=== PATIENT | male | born 1940 | race Caucasian/White ===

== ENCOUNTER 2016-08-19 21:11 | Inpatient (IN) | payer OTHER, MEDICARE ==
[~2016-08-19] VITALS: Ht 177.8 cm; Wt 134.9 kg
--- NOTE | 2016-08-19 21:23 | ED AMS/SEIZURE/WEAK/DIZZY ---
History of Present Illness General Chief Complaint: Neuro Symptoms/ Deficit Stated Complaint: BIBA SOB,LEFT SIDE FACIAL DROP Source: family, old records Exam Limitations: clinical condition Vital Signs & Intake/Output Vital Signs & Intake/Output Vital Signs Date Time Temp Pulse Resp B/P B/P Pulse O2 O2 Flow FiO2 Mean Ox Delivery Rate 08/20 0403 84 08/20 0356 96.8 82 26 74/44 99 BIPAP 50% 08/20 0150 97.4 87 26 102/44 99 BIPAP 50% 08/20 0111 88 90/00 08/20 0051 87 100 08/20 0050 98.7 90 35 70/00 08/20 0031 97 28 84/00 100 BIPAP 50% 08/19 2350 84 28 66/00 100 BIPAP 50% 08/19 2337 64/00 08/19 2329 85 60/00 08/19 2326 86 50/00 08/19 2300 91 BIPAP 50% 08/19 2250 97.8 94 35 76/00 08/19 2215 72/00 08/19 2208 109 08/19 2200 104 35 70/00 08/19 2115 97.8 110 40 74/00 91 Non ReBreather ED Intake and Output 08/20 0000 08/19 1200 Intake Total Output Total 100 Balance -100 Output, Urine 100 Patient 350 lb Weight Weight Reported by Patient Measurement Method Allergies Coded Allergies: NO KNOWN ALLERGIES (12/10/12) Reconcile Medications Alendronate Sodium 70 MG TABLET 1 TAB PO QW OSTEOPOROSIS (Reported) in the morning, at least 30 minutes before the first food, beverage, or medication of the day Aspirin (Ecotrin*) 81 MG TABLET.DR 1 TAB PO DAILY CVD (Reported) Cholecalciferol (Vitamin D3) (Vitamin D) 400 UNIT CAPSULE 1 CAP PO DAILY LOW VITAMIN D (Reported) Desmopressin Acetate 10 MCG/SPRAY (0.1 ML) SPRAY.PUMP 10 MCG MOSES BID HYPO-PIT (Reported) Levothyroxine Sodium 175 MCG TABLET 1 TAB PO DAILY HYPO-T (Reported) Lisinopril 10 MG TABLET 1 TAB PO DAILY BP (Reported) Meclizine HCl 25 MG TABLET 1 TAB PO TID VERTIGO (Reported) Multivitamin (Daily Multiple Vitamin) 1 EACH TABLET 1 TAB PO DAILY MULTIVITAMIN (Reported) Pioglitazone HCl 45 MG TABLET 1 TAB PO DAILY DM (Reported) Potassium Chloride (Klor-Con M10) 10 MEQ TAB.ER.PRT 2 TAB PO DAILY hypo-k ( Reported) Prednisone 5 MG TABLET 1 TAB PO DAILY HYPO-PIT (Reported) Simvastatin (Simvastatin*) 20 MG TABLET 1 TAB PO QPM HYPER-CHOLESTEROL ( Reported) Triage Nurses Notes Reviewed? yes Onset: Gradual Duration: day(s): Timing: recent history Injury Environment: home Severity: severe Modifying Factors: Worsens With: movement. 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 Per his son, he states for the past 5 days he has barely gotten out of bed. He is had decrease fluid intake. This evening, he developed difficulty breathing. 911 was called and he presented to the emergency department. And Rout the medics noted that his blood pressure was low and it was difficult to detect and O2 saturation. Past History Travel History Traveled to [place] past 21 day No Medical History Any Pertinent Medical History? see below for history Neurological: pituitary tumor status post resection with left-sided deficits Surgical History Surgical History: pituitary tumor resection Psychosocial History What is your primary language Israeli Family History Hx Contributory? No Review of Systems Review of Systems Constitutional: Reports: no symptoms. EENTM: Reports: no symptoms. Respiratory: Reports: no symptoms. Cardiovascular: Reports: no symptoms. GI: Reports: no symptoms. Genitourinary: Reports: no symptoms. Musculoskeletal: Reports: no symptoms. Skin: Reports: no symptoms. Neurological/Psychological: Reports: no symptoms. Hematologic/Endocrine: Reports: no symptoms. Immunologic/Allergic: Reports: no symptoms. All Other Systems: Reviewed and Negative Physical Exam Physical Exam General Appearance: well developed/nourished, moderate distress Head: atraumatic, normal appearance Eyes: Bilateral: normal appearance, PERRL, EOMI. Ears, Nose, Throat: normal pharynx, normal ENT inspection Neck: normal inspection, supple, full range of motion Respiratory: chest non-tender, no respiratory distress, decreased breath sounds, rhonchi Cardiovascular: regular rate/rhythm Gastrointestinal: normal bowel sounds, soft, non-tender Back: normal inspection Extremities: normal range of motion Neurologic/Psych: lethargic, minimally responsive to verbal stimuli. Reflexes: 0: bicep (L), knee (L). 1+: bicep (R), knee (R). Skin: cyanosis, mottled Core Measures ACS in differential dx? No CVA/TIA Diagnosis: No Severe Sepsis Present: Yes BC x2: Yes Lactic Acid x2: Yes IV ABX Broad Spectrum: Yes NS/LR Started: Yes Septic Shock Present: Yes BC x2: Yes Lactic Acid: Yes IV ABX Broad Spectrum: Yes Focused Exam Completed: Yes NS/LR 30ml/kg w/in 3hrs: Yes IV Vasopressors started: Yes Progress Differential Diagnosis: pneumonia, hypercarbia, he hydration versus septic shock versus heart attack versus other Plan of Care: Orders Procedure Date/time Status Nothing by Mouth 08/20 B Active LACTIC ACID 08/20 0507 Active ICU LAB BUNDLE 08/20 0500 Active CBC WITHOUT DIFFERENTIAL 08/20 0500 Active Pathway - chart 08/20 0412 Active Code Status 08/20 0408 Active Add-on Test (ER Only) 08/20 0404 Active Weight 08/20 0358 Active VTE Mechanical Prophylaxis 08/20 0358 Active Turn and Reposition 08/20 0358 Active Teach/Educate 08/20 0358 Active Skin Integrity Protocol 08/20 0358 Active Skin/Pressure Ulcer Assess (Sk 08/20 0358 Active Precautions 08/20 0358 Active Pain Treatment and Response 08/20 0358 Active Nutritional Intake, Monitor 08/20 0358 Active Isolation 08/20 0358 Active Patient Care Conference 08/20 0358 Active Activity/Ambulation 08/20 0358 Active Restraint- Medical 08/20 0251 Active TRC EVALUATION (GEN) 08/20 0211 Active Pathway - chart 08/20 0210 Active TROPONIN LEVEL 08/20 0207 Complete MAGNESIUM 08/20 0207 Complete LACTIC ACID 08/20 0207 Complete HEPATIC FUNCTION PANEL 08/20 0207 Complete CALCIUM 08/20 0207 Complete BASIC ELECTROLYTES PLUS BUN&CR 08/20 0207 Complete LOWER RESPIRATORY CULTURE 08/20 0204 Active ARTERIAL BLOOD GAS (GEN) 08/20 0141 Complete XRY-AP PELVIS 08/20 0140 Active Patient Data 08/20 0128 Active Admit to inpatient 08/20 0120 Active Admit to inpatient 08/20 0027 Active MIXED VENOUS BLOOD GAS (GEN) 08/20 0026 Complete Lab Add-on Test 08/20 UNK Active Precautions 08/20 UNK Active Intake & Output 08/20 UNK Active FingerStick- Glucose 08/20 UNK Active Elevate 08/[address] CHEST WO IV CONTRAST 08/[address] ABD & PELVIS W/O IV CONTRAS 08/19 2299 Active URINE LYTES, SPOT 08/19 2229 Complete BIPAP 08/19 2129 Complete BLOOD CULTURE 08/19 2129 Active THYROID STIMULATING HORMONE 08/19 2129 Complete FREE T4 08/19 2129 Complete B-TYPE NATRIURETIC PEP (BNP) 08/20 2127 Complete Renteria, Insertion/Removal/Asses 08/19 2125 Active CULTURE,URINE 08/19 2125 Active URINALYSIS 08/19 2125 Complete ARTERIAL BLOOD GAS (GEN) 08/20 2123 Active TROPONIN LEVEL 08/20 2123 Complete PARTIAL THROMBOPLASTIN TIME 08/20 2123 Complete PROTHROMBIN TIME 08/20 2123 Complete AMMONIA 08/20 2123 Complete COMPREHENSIVE METABOLIC PANEL 08/20 2123 Complete CBC WITHOUT DIFFERENTIAL 08/20 2123 Complete Pathway - chart 08/19 2122 Active BLOOD CULTURE 08/19 2122 Active LACTIC ACID 08/19 2122 Complete EKG 08/20 2111 Active Current Medications Sig/Antwon Start time Last Medication Dose Stop Time Status Admin Vancomycin HCl 1,000 MG Q12 08/20 1000 UNir Sodium Chloride 250 ML (Normal Saline 0.9%) Ceftazidime 1,000 MG IQ8 08/20 0800 UNVr (Fortaz) Levothyroxine Sodium 0.175 MG DAILY AC 08/20 0700 AC (Synthroid) Heparin Sodium 5,000 UNIT Q8 08/20 0600 UNVr (Porcine) Hydrocortisone 100 MG Q8 08/20 0600 AC Sodium Succinate (Solucortef) Morphine Sulfate 2 MG Q6 08/20 0600 UNVr (Morphine) Acetaminophen 650 MG Q6 PRN 08/20 0415 UNVr (Tylenol) Magnesium Sulfate 1 GM Q2H 08/20 0415 UNVr (Mag Sulfate in D5) 08/20 0814 Dextrose/Water 100 ML (D5W) Oxycodone HCl 5 MG Q6 PRN 08/20 0415 UNVr (Roxicodone) Vasopressin 40 UNITS Q16H 08/20 0300 AC 08/20 (Pitressin) 0320 Sodium Chloride 100 ML (Normal Saline 0.9%) Sodium Chloride 1,000 ML Q10H 08/20 0215 AC 08/20 (Normal Saline 0.9%) 0305 Norepinephrine 4 MG Q24H 08/20 0030 AC 05/30 (Levophed Drip) 0050 Sodium Chloride 250 ML (Normal Saline 0.9%) Laboratory Tests 08/20/16 0250: Anion Gap 9, Estimated GFR 17 L, BUN/Creatinine Ratio 7.4, Lactic Acid 1.3, Calcium 8.0 L, Magnesium 1.2 L, Total Bilirubin 1.2, Direct Bilirubin 0.6 H, AST 67 H, ALT 64, Alkaline Phosphatase 58, Troponin I 0.04, Total Protein 5.5 L, Albumin 2.8 L 08/20/16 0145: pH 7.31 L, pCO2 35, pO2 133 H, HCO3 17 L, ABG O2 Sat (Measured) 98.0, P-50 ( Temp Corrected) N, Carboxyhemoglobin 0.3 L, O2 Concentration % .50, Respiration Rate 26, O2 Delivery Method BIPAP, Vent Mode ST, Expiratory Pressure 6, Inspiratory Pressure 20, Phlebotomy Draw Site RIGHT BRACHIAL 08/20/16 0035: Bicarbonate Actual 21 L, Mixed VBG pH 7.24 L, Mixed VBG pCO2 51, Mixed VBG O2 Saturation 54 H, P-50 (Temp Corrected) N, Carboxyhemoglobin 0.7 L, O2 Concentration % .50, Respiration Rate 26, O2 Delivery Method BIPAP, Vent Mode ST , Expiratory Pressure 6, Inspiratory Pressure 20, Phlebotomy Draw Site VENOUS 08/20/16 0023: Lactic Acid Cancelled 08/19/162229: Urine Color YEL, Urine Clarity HAZY H, Urine pH 6.0, Ur Specific [place] 1.020, Urine Protein TRACE H, Urine Ketones NEG, Urine Nitrite NEG, Urine Bilirubin NEG@ICTO, Urine Urobilinogen 0.2, Ur Leukocyte Esterase NEG, Ur Microscopic SEDIMENT EXAMINED, Urine RBC 5-10 H, Urine WBC 10-15 H, Ur Epithelial Cells RARE, Urine Bacteria FEW H, Hyaline Casts 1-3 H, Urine Hemoglobin LARGE H, Urine Glucose NEG 08/19/162229: Ur Random Creatinine 208.9, Ur Random Sodium 64, Ur Random Potassium 38.6, Fraction Sodium Excret 0.8 08/19/162129: Lactic Acid 2.6 H 08/19/162129: Leb-A-Yjhofqrsgxj Pept 61.5, TSH < 0.015 L, Free T4 2.25 08/19/162129: Anion Gap 13, Estimated GFR 15 L, BUN/Creatinine Ratio 7.7, Glucose 121 H, Calcium 10.1, Total Bilirubin 1.3, AST 56, ALT 64, Alkaline Phosphatase 77, Ammonia < 9 L, Troponin I 0.04, Total Protein 6.8, Albumin 3.8, Globulin 3.0, Albumin/Globulin Ratio 1.3, PT 12.0, INR 1.14, APTT 31, CBC w Diff NO MAN DIFF REQ, RBC 4.72, MCV 95.1 H, MCH 31.8 H, RDW 15.8 H, MPV 10.4, Gran % 62.1, Lymphocytes % 18.6 L, Monocytes % 16.8 H, Eosinophils % 2.3, Basophils % 0.2, Absolute Granulocytes 7.5 H, Absolute Lymphocytes 2.2, Absolute Monocytes 2.0 H, Absolute Eosinophils 0.3, Absolute Basophils 0, PUBS MCHC 33.5 Microbiology 08/21 203 LOWER RESP: Respiratory Culture - ORD 08/21 203 LOWER RESP: Gram Stain - ORD 08/19 2229 URINE ROUT: Urine Culture - RECD 08/19 2153 BLOOD: Blood Culture - RECD 08/19 2129 URINE ROUT: Urine Culture - CAN Cancelled: DUPLICATE ORDER 08/19 2129 BLOOD: Blood Culture - RECD Diagnostic Imaging: Viewed by Me: Radiology Read, CT Scan. Discussed w/RAD: Radiology Read, CT Scan. Radiology Impression: chest x-ray #2: No change from prior except that a right IJ is in proper position, head CT: No acute change CXR Impression: atelectasis versus pneumonia Initial ED EKG: normal axis, normal intervals, normal p-waves, normal QRS complex, normal sinus rhythm Comments: PATIENT: TRENT DE LA TORRE PRESENT AGE: 75 PATIENT ACCOUNT NO: [id number] : 39 LOCATION: [facility] ORDERING PHYSICIAN: ADITYA SALAZAR MD SERVICE DATE: 08/19/16 EXAM TYPE: RAD - XRY-PORTABLE CHEST XRAY EXAMINATION: XR PORTABLE CHEST CLINICAL INFORMATION: Dyspnea COMPARISON: 08/20/2007 TECHNIQUE: Portable frontal view of the chest was obtained. FINDINGS: Shunt tubing overlies the right hemithorax. Cardiac leads overlie the chest. Lung volumes are low. Small left pleural effusion. Streaky basilar opacity at the left. No pneumothorax. The cardiomediastinal silhouette is unchanged. IMPRESSION: Small left pleural effusion with streaky basilar opacities which could represent atelectasis or pneumonia. DICTATED BY: SORAIDA BURRELL MD DATE/TIME DICTATED:08/19/162325 MANAGER TERMINAL:TAYA DATE/TIME TRANSCRIBED:08/19/162325 CONFIDENTIAL, DO NOT COPY WITHOUT APPROPRIATE AUTHORIZATION. <Electronically signed in Other Vendor System> SIGNED BY: SORAIDA BURRELL MD 08/19 2331 Departure Departure Disposition: STILL A PATIENT Condition: Stable Clinical Impression Primary Impression: Septic shock Secondary Impressions: Pneumonia, Renal failure Referrals: EVA BUTTS MD (PCP/Family) Departure Forms: Customer Survey General Discharge Information Comments 08/19/16, 22:30... pt clinically improving... more alert, more conversant. right IJ central line placed. Levophed started with good response. Stress dose steroids given. ceftaz and vancomycin given. Admission Note Spoke With: HIEU MORA MD Documentation of Exam: Documentation of any treatments & extenuating circumstances including Concerns Regarding Discharge (functional status, medication knowledge or non-compliance, living conditions, etc.) that warrant an admission rather than observation: pt with septic shock, requiring pressors, broad spectrum antibiotics... improving from presentation after iv fluids, pressures, bipap. Procedures Central Line Central Line Lumen: triple Central Line Procedure: Yes: bentadine prep?, sterile drapes applied, sterile dressing applied. Central Line Position: internal jugular (R), femoral (R) Anesthesia: lidocaine 1% CC's of Anesthesia: 6 Complications: attempt at right groin unsuccessful Central Line Post Position: sutured, good blood return, position confirmed w/ CXR Progress: excellent response to levophed
[2016-08-19 21:50] LABS: ABSOLUTE BASOPHIL COUNT 0 /CUMM (0.0-0.2); ABSOLUTE EOSINOPHIL COUNT 0.3 /CUMM (0.0-0.7); ABSOLUTE GRANULOCYTE CT 7.5 /CUMM (1.4-6.5); ABSOLUTE LYMPH COUNT 2.2 /CUMM (1.2-3.4); BASOPHIL % 0.2 % (0.0-2.0); EOSINOPHIL % 2.3 % (0-5); GRANULOCYTE % 62.1 % (42.2-75.2); HEMATOCRIT 44.9 % (42-52); MEAN CORPUSCULAR HGB 31.8 PG (27.0-31.0); MEAN CORPUSCULAR HGB CONC 33.5 G/DL (33.0-37.0); MEAN CORPUSCULAR VOLUME 95.1 FL (80.0-94.0); MEAN PLATELET VOLUME 10.4 FL (7.4-10.4); PLATELET COUNT 163 /CUMM (130-400); RBC DISTRIBUTION WIDTH 15.8 % (11.5-14.5); RED BLOOD CELL CT 4.72 /CUMM (4.70-6.10); WHITE BLOOD CELL COUNT 12.1 /CUMM (4.8-10.8)
[2016-08-19 22:01] LABS: PTT 31 SEC (25-37)
--- NOTE | 2016-08-19 23:31 | RADIOLOGY REPORT ---
EXAMINATION: XR PORTABLE CHEST CLINICAL INFORMATION: Dyspnea COMPARISON: 08/20/2007 TECHNIQUE: Portable frontal view of the chest was obtained. FINDINGS: Shunt tubing overlies the right hemithorax. Cardiac leads overlie the chest. Lung volumes are low. Small left pleural effusion. Streaky basilar opacity at the left. No pneumothorax. The cardiomediastinal silhouette is unchanged. IMPRESSION: Small left pleural effusion with streaky basilar opacities which could represent atelectasis or pneumonia.
--- NOTE | 2016-08-20 00:53 | RADIOLOGY REPORT ---
EXAMINATION: XR PORTABLE CHEST CLINICAL INFORMATION: Central line placement COMPARISON: 08/19/2016 TECHNIQUE: Portable frontal view of the chest was obtained. FINDINGS: There is a new right internal jugular central venous catheter which terminates over the lower SVC. Ventriculoperitoneal shunt tubing is again noted overlying the right hemithorax. Cardiac leads overlie the chest. Low lung volumes. Persistent small left pleural effusion with airspace opacity. Increasing interstitial markings bilaterally. No pneumothorax. The cardiomediastinal silhouette is not well evaluated due to the left basilar opacity. IMPRESSION: Right internal jugular central venous catheter terminates over the lower SVC. No pneumothorax. Low lung volumes with persistent small left pleural effusion and airspace opacity. Increasing right-sided opacity with interstitial markings.
[2016-08-20] MEDS ORDERED: ALENDRONATE SOD70 M2 PO (02:13)
[2016-08-20] MEDS ORDERED: LISINOPRIL10 M1 PO (02:13)
[2016-08-20] MEDS ORDERED: PREDNISONE5 M1 PO (02:13)
[2016-08-20] MEDS ORDERED: LEVOTHYROXINE175 MCG PO (02:13)
[2016-08-20] MEDS ORDERED: SIMVASTATIN20 M2 PO (02:14)
[2016-08-20] MEDS ORDERED: PIOGLITAZONE HC45 M1 PO (02:14)
[2016-08-20] MEDS ORDERED: MECLIZINE HCL25 MG PO (02:14)
[2016-08-20] MEDS ORDERED: DESMOPRESS10 MCG/0.2 NAS (02:18)
[2016-08-20] MEDS ORDERED: ASPIRIN EC81 M1 PO (02:29)
--- NOTE | 2016-08-20 02:59 | History & Physical ---
DIANNA BAXTER,RANDALL 08/20/16 0225: General Information and HPI MD Statement: I have seen and personally examined TRENT DE LA TORRE and documented this H&P. The patient is a 75 year old M who presented with a patient stated chief complaint of [AMS, SOB]. 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 Pt was altered, agitated and unable to provide any history. I spoke with Stacy, patient's , and she states that about 4 days ago patient experienced some weakness in his lower extremities. He seemed to be little more unsteady on his feet. Additionally, about 2 days ago his appetite noticeably decreased. She stated that patient was becoming slightly more somnolent. He was sleeping more during the day. Normally, he has a habit of obtaining a daily lottery ticket, however about 2 days ago patient did not feel well enough to leave the house. On morning of admisison however, he did leave the house and seemed to be mostly as baseline. On 8 PM that same day patient became suddenly incoherent, he was garbling words and he was acutely short of breath. Given the sudden onset of these symptoms she called her son who called EMS. Per EMS notes, there was concern for some facial droop upon initial contact, however, states that patient was largely asleep when the EMS found him and that she did not notice any change in his baseline expression. Patient still has a [employer] ENGINEER shunt per Stacy. He does not drink, does not smoke and does not engage in any IV drug use. He does not have any known allergies. Family history only significant for "pituitary problems." Per , patient does not complain of any headache, nausea, vomiting, fever, cough, congestion, shortness of breath, chest pain, abdominal pain, change in bladder or bowel movement, night sweats or weight loss. Pertinent positives include gait instability, diminishing appetite, and weakness. Allergies/Medications Allergies: Coded Allergies: NO KNOWN ALLERGIES (12/10/12) Home Med list Alendronate Sodium 70 MG TABLET 1 TAB PO QW OSTEOPOROSIS (Reported) in the morning, at least 30 minutes before the first food, beverage, or medication of the day Aspirin (Ecotrin*) 81 MG TABLET.DR 1 TAB PO DAILY CVD (Reported) Cholecalciferol (Vitamin D3) (Vitamin D) 400 UNIT CAPSULE 1 CAP PO DAILY LOW VITAMIN D (Reported) Desmopressin Acetate 10 MCG/SPRAY (0.1 ML) SPRAY.PUMP 10 MCG MOSES BID HYPO-PIT (Reported) Levothyroxine Sodium 175 MCG TABLET 1 TAB PO DAILY HYPO-T (Reported) Lisinopril 10 MG TABLET 1 TAB PO DAILY BP (Reported) Meclizine HCl 25 MG TABLET 1 TAB PO TID VERTIGO (Reported) Multivitamin (Daily Multiple Vitamin) 1 EACH TABLET 1 TAB PO DAILY MULTIVITAMIN (Reported) Pioglitazone HCl 45 MG TABLET 1 TAB PO DAILY DM (Reported) Potassium Chloride (Klor-Con M10) 10 MEQ TAB.ER.PRT 2 TAB PO DAILY hypo-k ( Reported) Prednisone 5 MG TABLET 1 TAB PO DAILY HYPO-PIT (Reported) Simvastatin (Simvastatin*) 20 MG TABLET 1 TAB PO QPM HYPER-CHOLESTEROL ( Reported) Compliance With Home Meds: UNKNOWN Past History Travel History Traveled to [place] past 21 day No Medical History Cardiovascular: hyperlipidemia, OCCASIONAL BLE EDEMA Respiratory: obstructive sleep apnea Renal: URINARY FREQUENCY Endocrine: diabetes, hypothyroidism, LOW TESTOSERONE Surgical History Surgical History: pituitary resection Past Family/Social History Psychosocial History Primary Language: Northern Irish Smoking Status: Former Smoker ETOH Use: denies use Illicit Drug Use: denies illicit drug use Functional Ability ADLs Independent: dressing, eating, toileting, bathing. Ambulation: independent IADLs Independent: shopping, housework, finances, food prep, telephone, transportation , medication admin. Review of Systems Review of Systems Constitutional: Reports: no symptoms. Comments cannot obtain from pt Exam & Diagnostic Data Last 24 Hrs of Vital Signs/I&O Vital Signs Date Time Temp Pulse Resp B/P B/P Pulse O2 O2 Flow FiO2 Mean Ox Delivery Rate 08/20 0150 97.4 87 26 102/44 99 BIPAP 50% 08/20 0111 88 90/00 08/20 0051 87 100 08/20 0050 98.7 90 35 70/00 08/20 0031 97 28 84/00 100 BIPAP 50% 08/19 2350 84 28 66/00 100 BIPAP 50% 08/19 2337 64/00 08/19 2329 85 60/00 08/19 2326 86 50/00 08/19 2250 97.8 94 35 76/00 08/19 2215 72/00 08/19 2208 109 08/19 220 104 35 70/00 08/19 2115 97.8 110 40 74/00 91 Non ReBreather Intake & Output 08/20 0800 08/20 0000 08/19 1600 Intake Total Output Total 100 Balance -100 Output, Urine 100 Patient 158.757 kg Weight Weight Reported by Patient Measurement Method Physical Exam General Appearance Agitated, combative Skin warm, intially his digits on UE and LE were cold Sepsis Skin Exam (color): Normal for Ethnicity HEENT Atraumatic, PERRLA, EOMI, Mucous Membr. moist/pink Neck Supple, No JVD Cardiovascular Normal S1, Normal S2, distant heart sounds Lungs decreased air entry; on bipap; no wheezes Abdomen Normal Bowel Sounds, Soft, No Tenderness Neurological Normal Speech, Normal Tone, Sensation Intact, Cranial Nerves 3-12 NL, unstable gait Extremities decreased pulses radially Sepsis Peripheral Pulse Location: Posterior Tibialis Sepsis Peripheral Pulse Exam: Weak Sepsis Cap Refill Exam: <2 Sec Reproductive (MALE) Significant erythema in creases of groin extending to scrotum. Some blood at urethral meatus Rectal Guiac Negative Last 24 Hrs of Labs/Jerry: Laboratory Tests 08/20/16 0250: Sodium Pending, Potassium Pending, Chloride Pending, Carbon Dioxide Pending, Anion Gap Pending, BUN Pending, Creatinine Pending, BUN/Creatinine Ratio Pending , Lactic Acid 1.3, Calcium Pending, Magnesium Pending, Total Bilirubin Pending, Direct Bilirubin Pending, AST Pending, ALT Pending, Alkaline Phosphatase Pending , Troponin I Pending, Total Protein Pending, Albumin Pending 08/20/16 0145: pH 7.31 L, pCO2 35, pO2 133 H, HCO3 17 L, ABG O2 Sat (Measured) 98.0, P-50 ( Temp Corrected) N, Carboxyhemoglobin 0.3 L, O2 Concentration % .50, Respiration Rate 26, O2 Delivery Method BIPAP, Vent Mode ST, Expiratory Pressure 6, Inspiratory Pressure 20, Phlebotomy Draw Site RIGHT BRACHIAL 08/20/16 0035: Bicarbonate Actual 21 L, Mixed VBG pH 7.24 L, Mixed VBG pCO2 51, Mixed VBG O2 Saturation 54 H, P-50 (Temp Corrected) N, Carboxyhemoglobin 0.7 L, O2 Concentration % .50, Respiration Rate 26, O2 Delivery Method BIPAP, Vent Mode ST , Expiratory Pressure 6, Inspiratory Pressure 20, Phlebotomy Draw Site VENOUS 08/20/16 0023: Lactic Acid Cancelled 08/19/162229: Urine Color YEL, Urine Clarity HAZY H, Urine pH 6.0, Ur Specific Keller 1.020, Urine Protein TRACE H, Urine Ketones NEG, Urine Nitrite NEG, Urine Bilirubin NEG@ICTO, Urine Urobilinogen 0.2, Ur Leukocyte Esterase NEG, Ur Microscopic SEDIMENT EXAMINED, Urine RBC 5-10 H, Urine WBC 10-15 H, Ur Epithelial Cells RARE, Urine Bacteria FEW H, Hyaline Casts 1-3 H, Urine Hemoglobin LARGE H, Urine Glucose NEG 08/19/162129: Eaa-S-Juaiycirhrb Pept 61.5 08/19/162129: Lactic Acid 2.6 H 08/19/162129: Anion Gap 13, Estimated GFR 15 L, BUN/Creatinine Ratio 7.7, Glucose 121 H, Calcium 10.1, Total Bilirubin 1.3, AST 56, ALT 64, Alkaline Phosphatase 77, Ammonia < 9 L, Troponin I 0.04, Total Protein 6.8, Albumin 3.8, Globulin 3.0, Albumin/Globulin Ratio 1.3, PT 12.0, INR 1.14, APTT 31, CBC w Diff NO MAN DIFF REQ, RBC 4.72, MCV 95.1 H, MCH 31.8 H, RDW 15.8 H, MPV 10.4, Gran % 62.1, Lymphocytes % 18.6 L, Monocytes % 16.8 H, Eosinophils % 2.3, Basophils % 0.2, Absolute Granulocytes 7.5 H, Absolute Lymphocytes 2.2, Absolute Monocytes 2.0 H, Absolute Eosinophils 0.3, Absolute Basophils 0, PUBS MCHC 33.5 Microbiology 08/21 203 LOWER RESP: Respiratory Culture - ORD 08/21 203 LOWER RESP: Gram Stain - ORD 08/19 2229 URINE ROUT: Urine Culture - RECD 08/19 2153 BLOOD: Blood Culture - RECD 08/19 2129 URINE ROUT: Urine Culture - CAN Cancelled: DUPLICATE ORDER 08/198 BLOOD: Blood Culture - RECD Assessment/Plan Assessment: This is a 75-year-old male PMH of pituitary tumor resection, diabetes, hypertension, chronic renal disease, hypothyroidism, with [employer] shunt who presents with CC of weakness, shortness of breath and altered mental status. Upon initial assessment in ED he was noted to have diminished pulses requiring a Doppler, shortness of breath requiring BiPAP and hypotension requiring central line and 2 pressors. His Sequential Organ Failure Assessment score is around 10 giving him a predicted mortality of 40-50%. Admitted to ICU for further work up. In ED patient received 7 L of fluids in addition to central line and 2 pressors, on bipap. He was agitated recieved haldol. Vitals:97.8, 110, 40, 74/ 0, 91% CBC: White count 12.1, hemoglobin 15.7, hematocrit 44.9 MCV 95.1 BEP: Anion gap of 9, BUN 26, creatinine 3.9 Initial lactic acid: 2.6 Calcium 8.0, magnesium 1.2 Albumin 2.8 Initial VBG: PH 7.24, PCO2 51, bicarbonate 21; subsequent ABG: PH 7.31, PCO2 35, bicarbonate 19 UA: Trace protein, 5-10 red blood cells, few bacteria 1-3 hyaline casts, large urine hemoglobin Negative troponin CXR IMPRESSION: Right internal jugular central venous catheter terminates over the lower SVC. No pneumothorax. Low lung volumes with persistent small left pleural effusion and airspace opacity. Increasing right-sided opacity with interstitial markings. PLAN Undifferentiated Shock with MOD: Patient comes in with circulatory failure; heart rate 110, blood pressure 74/0 initially by Doppler, elevated lactic acid, tachypnea, and oliguria. Required pressors and BiPAP. Broad differentials include distributive, cardiogenic shock, obstructive shock. Given his presentation, he seems to have more like a distributive shock picture with possible etiologies: septic shock vs adrenal insifficiency. Chest x-ray shows increasing right-sided opacity with some interstitial markings, raising concern for pneumonia as possible source; additionally he has [employer] shunt as another source of infection. However, note that patient has remained afebrile with minimal white count of 12.1 which raises question if infection is a source of patient' s multiorgan dysfunction. Patient has a history of pituitary resection and is on appropriate placement at home including desmopressin, testosterone, prednisone and levothyroxine. Other causes of distributive shock in this patient include adrenal insufficiency or ( less likely) severe hypothyroidism. Troponins negative, cxr negative for obvious signs of cardiogenic shock, no jvd, ekg largely normal. * EKG and troponins * Trend lactic acid * Continue norepinephrine and vasopressin titrated to MAP of 65-70 * Continue empiric antibiotics with Vancomycin and Ceftaz * Patient given stress dose steroids * Con't Synthroid * Received 7 L of fluids in ED, continue maintenance * Continue BiPAP as necessary for O2 sats greater than 92 * TRC * Q1 neuro check * Continue Renteria with strict I/O * CT Chest abdomen and pelvis * Negative stool guiac * Follow Blood cultures * Follow Urine culture Acute renal failure: He comes in with creatinine of 3.9 and non-gap metabolic acidosis seen on ABG. His baseline is around 1.5-1.7. Likely secondary to decreased perfusion and ATN. * urine lytes * monitor non-gap acidosis * Monitor with BEP * Con't hydration and pressors * Renal consult Severe agitation: In ED pt was severely agitated and threatening to leave. On Bipap and pressors he insisted on standing and walking about and was hazardously unstable on his feet. He was given haldol for agitation. Per , he is usually combative and agitated in hospitals. * Haldol PRN agitation * 4 point restraints * If obtunded will intubate * Fall precautions Full code NPO Chemical dvt ppx As Ranked By This Provider Problem List: 1. Septic shock 2. Renal failure Core Measures/Miscellaneous Acute Coronary Syndrome ACS Diagnosis: No Cerebrovascular Accident CVA/TIA Diagnosis: No Congestive Heart Failure CHF Diagnosis: No Venous Thromboembolism VTE Risk Factors: Acute medical illness, Age > 40 No [facility] VTE prophylaxis d/t: No contraindications No VTE Pharm Prophylaxis d/t: No contraindications VTE Diagnosis: No VTE Type: NONE VTE Confirmed by (Test): NONE Severe Sepsis Severe Sepsis Present: No Septic Shock Septic Shock Present: Yes BC x2: Yes Lactic Acid: Yes IV ABX Broad Spectrum: Yes Focused Exam Completed: Yes NS/LR 30ml/kg w/in 3hrs: Yes IV Vasopressors started: Yes Miscellaneous Documentation Attending Case Discussed With: HIEU MORA MD Primary Care Physician: EVA BUTTS MD A Patient sees these Specialists UNKNOWN Level of Patient Care: Critical Care (CRI) Consults Needed: Consulting Specialty: Nephrology NILES ANNE MD,FEROZ 08/20/16 0258: Resident Review Statement Resident Statement: examined this patient, discussed with international trade teacher, agreed with international trade teacher, reviewed EMR data (avail) Other Findings: 75-year-old man with past medical history significant for hypothyroidism, diabetes mellitus, chronic renal insufficiency, hyperlipidemia, hypertension, history of brain tumor status post HY[employer]ER shunt, was brought in the emergency department after the noticed extreme lethargy and altered mental status. Vitals in emergency department patient afebrile, initially reflects tachycardia, initial systolic blood pressure 70s and diastolic Doppler, oxygen saturation of 91% on nonrebreather and BiPAP. On examination patient is an obese male who was alert and oriented to time person and place in moderate distress, with BiPAP on, limited examination of the lungs revealed decreased air entry bilaterally, distant heart sounds, no JVD , central line placed right internal jugular, distended abdomen, groin rashes and erythema, traumatic Renteria. Initial labs revealed leukocytosis of 12.1, no anemia, BUN 30 and creatinine of 3.9 on admission, troponin 0.04, ABG on BiPAP showed pH of 7.31, PCO2 of 35. Lactic Acid of 2.6 Patient is admitted in ICU for the management of following problems #1 Suspected Shock secondary to adrenal insufficiency vs ? Unlikely septic/ lactic acidosis Reason of patient's low blood pressure and hypotension is not entirely clear. We don't suspect the patient has having a septic shock. Although patient required a lot of IV fluids and pressors to sustain blood pressure. The 2 possibilities that gave her thinking about patient's shock was because of adrenal insufficiency in the setting of decreased by mouth intake and other possibility of aspiration pneumonia because of altered mental status. Patient did receive vancomycin and ceftazidime in the emergency department updated on switched antibiotics to Unasyn just cover for possible aspiration pneumonia secondary to altered mental status. Patient certainly has lactic acidosis type A secondary to poor perfusion. As soon as a perfusion was improved, patient's lactic acidosis was resolved. #2 Acute on chronic kidney injury Patient's past medical history of chronic kidney disease. Baseline creatinine 3 years back was around 1.5. Patient does not have any recent creatinine function. Obtain records from primary care doctor. Patient's creatinine did improve slightly after IV hydration given the ratio of BUN and creatinine patient might have acute tubular necrosis secondary to poor perfusion and rapid improvement of creatinine take some time. Nephrology consult will be obtained. #3 Acute Hypoxemic respiratory failure Most likely cause of acute hypoxemic respiratory failure is secondary to obesity hypoventilation syndrome. ABG was done after the the BiPAP was placed and did show tachypnea. CT chest rule out the possibility of any acute infection in the lungs. Patient will benefit from a sleep study as an outpatient. 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 Need to obtain the records for his previous surgery and [employer]INEER shunt placement. We will also get a consult from endocrinology. Possible adrenal insufficiency given patient's picture of shock cannot be ruled out. 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 Patient's has been noticing patient being weak, decreased appetite, sleepy last 3- 4 days. On the day of presentation at around 8 PM patient was more somnolent, incoherent, acutely short of breath so she called patient's son who called ambulance and patient was brought in. According to ER record, his respiratory rate was 40 on NRB upon arrival, incontinent, drowsy but arousable, blood pressure 74/Doppler. Patient was aggressively resuscitated with 7 L normal saline, then right-sided IJ was placed and he was started on Levophed. Meanwhile he also received ceftazidime and vancomycin. By the time we saw patient his blood pressure was improving with systolic up to 90 then 102/44 on manual check, patient was saturating well on BiPAP. He was very agitated, noncompliant, still answering to few questions, no complaints. He had 3 solid bowel movements in this course and urine output of total 100 mL Vitals: Afebrile, pulse 110, RR 40, blood pressure 74/00 and Saturating 91% on BiPAP. As mentioned above her pressure improved with IV fluids and pressors. On exam: Severely agitated, pupils equal round reactive, conjunctival congestion , neck supple, no JVD, RS: bilateral air entry present. CVS: S1-S2, RRR abdomen: Obese, soft, bowel sounds present. exam: Scrotal excoriation and redness, tender to touch. Follows some instructions, power grossly appears normal. Labs: WBC 12.1, neutrophils 62%, hemoglobin 15.0, hematocrit 44.9, platelet 163, sodium 143, potassium 3.8, chloride 105, bicarbonate 26, BUN 30, creatinine 3.9, anion gap 13, glucose 121, ammonia less than 9, troponin 0.04, lactate 2.6, INR 1.14 AB.31/35/133/17 on 50% FiO2, RR 26, 20/6 BiPAP UA: Hazy, trace protein, RBC 5, WBC 10, hyaline casts 1-3, large hemoglobin CXR: Small left pleural effusion with streaky basilar opacities which could represent atelectasis or pneumonia. Repeat chest x-ray after right IJ: Right internal jugular central venous catheter terminates over the lower SVC. No pneumothorax. Low lung volumes with persistent small left pleural effusion and airspace opacity. Increasing right-sided opacity with interstitial markings. A and P Patient arrived in ER with lethargy and weakness shortness of breath, tachypneic hypotensive tachycardic. He received 7 L normal saline, followed by right IJ and Levophed. He was started on BiPAP on arrival, and repeat ABG after 5 hours of BiPAP shows metabolic acidosis. He responded to it well and improved mental status ko but then became more aggressive and agitated, wanted to leave AMA. Given his encephalopathy and agitation his blood pressure has been fluctuating and difficult to monitor. He Was started on vasopressin . Urine output improved to some extent compared to arrival. Patient has significant GINETTE, lactic acidosis which appears to be secondary to hypotension. The exact cause of hypotension is unclear, patient does have right-sided pulmonary infiltrates, mild leukocytosis, and shortness of breath at home which may be causing septic shock secondary to pneumonia. At the same time patient does not have significant fever, no left shift no bandemia. Patient's poor by mouth intake can very well cause hypotension and acute kidney injury, but this appears out of proportion at this point. Patient's JVD, troponin and proBNP are not markedly elevated to point towards cardiogenic origin. EKG does not show any significant changes. Patient does have HY[employer] ENGINEER shunt and history of pituitary tumor resection, intracranial pathology should be ruled out. Mild hypotension and stress may be exaggerated with cortisol deficiency secondary to hypopituitarism. Patient received stress dose of hydrocortisone in ER. For his severe agitation when necessary haloperidol will be a better choice. + Hypotension + Suspected septic shock + Right-sided pneumonia + Lactic acidosis + Acute on chronic kidney injury + Acute respiratory failure + Severe agitation + History of hypopituitarism with hypothyroidism, hypocortisolism - Admit to ICU - Continue and titrate Levophed - Start vasopressin - If third pressors required start Joss-Synephrine - Continue normal saline at 150-200 mL per hour - Continue hydrocortisone 100 mg IV every 8 hours - Obtain CT head, CT abdomen and pelvis - Continue Renteria catheter - Strict I's and O's - Continue vancomycin and ceftazidime - Trend lactic acid, troponin, serial EKG - Critical care consult in a.m. - Nephrology consult in a.m. - Endocrine consult in a.m. - Continue Accu-Cheks every 4 hours, sliding scale insulin if required - Continue home doses of levothyroxine, check TSH level - Check urine electrolytes for FeNa -DVT prophylaxis with heparin - When necessary haloperidol for severe agitation - Patient may required restraints - Watch for respiratory status if more obtunded, low threshold for intubation - Full code Discussed with his about severe agitation states that patient always refuses hospitalization and always agitated like that. See suggested to do aggressive measures to keep him in hospital and treat him. TTS 60 min
[2016-08-20] MEDS ORDERED: KLOR-CON M1010 ME1 PO (03:01)
[2016-08-20] MEDS ORDERED: VITAMIN D400 UNI1 PO (03:04)
[2016-08-20] MEDS ORDERED: DAILY MULTIPLE1 EACH PO (03:04)
--- NOTE | 2016-08-20 04:53 | CT SCAN REPORT ---
EXAMINATION: NONCONTRAST HEAD CT NONCONTRAST CERVICAL SPINE CT INDICATION INFORMATION: Mental status change COMPARISON: 11/01/2005 TECHNIQUE: Separate noncontrast CT examinations of the head and cervical spine were performed. Coronal and sagittal images were created for each examination at the technologist workstation. FINDINGS: Head: Right frontal ventriculoperitoneal shunt tubing terminates near the foramen of Brian. There is no evidence of acute intracranial hemorrhage or territorial infarction. No abnormal mass effect or midline shift is seen. Pace to white matter differentiation is well preserved. No extra-axial fluid collections are identified. No hydrocephalus. Proportional prominence of the ventricles and sulcal spaces is consistent with mild volume loss. There is no abnormal attenuation within the brain parenchyma. The osseous structures and soft tissues are normal. The mastoid air cells and visualized portions of the paranasal sinuses are well aerated. Cervical spine: There is reversal of the normal cervical lordosis. There is otherwise anatomic alignment of the vertebral bodies and posterior elements. The atlantoaxial and atlantooccipital articulations are intact. Multilevel disc space narrowing with small endplate osteophytes. Multilevel facet arthropathy. Grade 1 anterolisthesis of C3 on C4 and C4 on C5. No evidence of acute fracture. No prevertebral soft tissue swelling. Visualized portions of the lung apices are unremarkable. The thyroid gland is unremarkable. IMPRESSION: 1. No acute intracranial findings. Ventriculoperitoneal shunt tubing is in place. 2. No acute fracture or malalignment of the cervical spine. Mild degenerative changes.
--- NOTE | 2016-08-20 05:00 | CT SCAN REPORT ---
EXAMINATION: CT CHEST WITHOUT CONTRAST CT ABDOMEN AND PELVIS WITHOUT CONTRAST CLINICAL INFORMATION: Shock, pain, hypoxia. COMPARISON: None. TECHNIQUE: Multidetector volumetric imaging was performed through the chest, abdomen and pelvis without use of contrast. Sagittal and coronal reformatted images were obtained on the technologist's workstation. Axial MIP volume rendering provided. DLP: 1848 mGy-cm. FINDINGS: CHEST: Lungs: The central airways are patent. Bilateral dependent atelectasis. No dense consolidation. Mediastinum: The mediastinum is normal. Central vascular structures are unremarkable. No hilar or mediastinal lymphadenopathy. The heart is of normal size. There is no pericardial effusion. Chest Wall/Axilla: No lymphadenopathy. No chest wall mass. ABDOMEN/PELVIS: Liver, Gallbladder, Biliary Tree: The liver is normal in size, shape, and attenuation. No focal hepatic lesion or biliary ductal dilatation is present. The gallbladder is unremarkable with no evidence of radiopaque gallstones, gallbladder wall thickening, or pericholecystic inflammatory changes. Pancreas: Unremarkable. Spleen: Unremarkable. Adrenal Glands: Limited visualization of the adrenal glands. The right adrenal gland is not well seen. The left adrenal gland is unremarkable. Kidneys and Ureters: The kidneys are normal in size, shape, and attenuation. No hydronephrosis, hydroureter or calculi seen. No perinephric stranding. Exophytic left midpole 5.5 cm cyst, Bladder: Decompressed with a Renteria catheter in place. Gastrointestinal Tract: The stomach and small bowel appear unremarkable. No dilated loops of bowel or evidence of obstruction. No diverticulosis. No colonic wall thickening or adjacent inflammatory changes. No free air or free fluid. The appendix is unremarkable. Abdominal Wall: No hernia is demonstrated. Lymphovascular Structures: Lymph nodes: Normal. Vascular: Mild atherosclerotic calcifications. Pelvic Viscera: The prostate and seminal vesicles are unremarkable. OSSEOUS STRUCTURES: No suspicious sclerotic or lytic bone lesions are identified. Mild degenerative changes of the hips. Degenerative changes throughout the spine. T10 vertebral body compression deformity is noted. IMPRESSION: T10 vertebral body compression deformity. While this is of uncertain chronicity, it is new since the abdominal pelvis CT 06/29/2005. No additional acute findings in the abdomen or pelvis.
--- NOTE | 2016-08-20 05:33 | Admission Certification ---
Admission Certification Certification Statement - As attending physician, I certify that at the time of - admission, based on clinical presentation, severity of - symptoms, need for further diagnostic testing and - therapeutic interventions, and risk of adverse outcomes - without in-hospital treatment, in my clinical assessment, - this patient requires an acute hospital stay for a minimum - of two nights or longer. I have also considered psychsocial - factors such as support system, advanced age, financial - issues, cognitive issues, and failed out-patient treatments, - past re-admission history, safety of patient, and lack of - compliance as applicable. Specific rationale supporting this admission is: Hypotension, acute kidney injury, encephalopathy
[2016-08-20 05:58] LABS: ABSOLUTE BASOPHIL COUNT 0 /CUMM (0.0-0.2); ABSOLUTE EOSINOPHIL COUNT 0.1 /CUMM (0.0-0.7); GRANULOCYTE % 78.4 % (42.2-75.2); MEAN CORPUSCULAR HGB CONC 33.7 G/DL (33.0-37.0); MEAN PLATELET VOLUME 10.6 FL (7.4-10.4); WHITE BLOOD CELL COUNT 15.3 /CUMM (4.8-10.8)
[2016-08-20 06:02] LABS: ABSOLUTE LYMPH COUNT 1.3 /CUMM (1.2-3.4); ABSOLUTE MONOCYTE COUNT 1.9 /CUMM (0.10-0.60); BASOPHIL % 0.3 % (0.0-2.0); EOSINOPHIL % 0.8 % (0-5); MEAN CORPUSCULAR VOLUME 95.1 FL (80.0-94.0); PLATELET COUNT 159 /CUMM (130-400); RBC DISTRIBUTION WIDTH 15.5 % (11.5-14.5); RED BLOOD CELL CT 4.15 /CUMM (4.70-6.10)
[2016-08-20 06:04] LABS: HEMATOCRIT 39.4 % (42-52)
--- NOTE | 2016-08-20 07:29 | Cons- CRCU ---
SONIA BAXTER,[facility] 08/20/16 0729: General Information and HPI Consulting Request Date of Consult: 08/20/16 Requested By: Medical team History of Present Illness: Mr. Downs is 75 with past medical history significant for pituriatry tumor resection in 2010 or 2011 (per ) with subsequent NATIONAL RECRUITER shunt and brain radiation, short term memory loss, chronic renal disease, hypothyroidism, diabetes, hypertension who was BIBA SOB and AMS. Most of the history was obtained from the given patient confusion and agitation, she stated that about 4 days ago patient experienced some weakness in his lower extremities. He seemed to be little more unsteady on his feet. Additionally, about 2 days ago his appetite noticeably decreased. She stated that patient was becoming slightly more somnolent. He was sleeping more during the day. On day of admission, patient became suddenly incoherent, he was garbling words and he was acutely short of breath. Given the sudden onset of these symptoms she called her son who called EMS. Per EMS notes, there was concern for some facial droop upon initial contact, however, states that patient was largely asleep when the EMS found him and that she did not notice any change in his baseline expression. Patient still has a NATIONAL RECRUITER shunt per Stacy. He does not drink, does not smoke and does not engage in any IV drug use. He does not have any known allergies. Family history only significant for "pituitary problems." patient did not follow up with certified personal chef in the last 4 years. Per , patient does not complain of any headache, nausea, vomiting, fever, cough, congestion, shortness of breath, chest pain, abdominal pain, change in bladder or bowel movement, night sweats or weight loss. Pertinent positives include gait instability, diminishing appetite, and weakness. Today, patient is very agitated and confused, wants to get out of bed, required Ativan 2 mg, earlier received 1 dose of Haldol 1 mg. Levophed running at 1 my blood pressure 94/39, normal saline 100 mL/h, BiPAP 20/ 6, respiratory rate 26, FiO2 50% Allergies/Medications Allergies: Coded Allergies: NO KNOWN ALLERGIES (12/10/12) Home Med List: Alendronate Sodium 70 MG TABLET 1 TAB PO QW OSTEOPOROSIS (Reported) in the morning, at least 30 minutes before the first food, beverage, or medication of the day Aspirin (Ecotrin*) 81 MG TABLET.DR 1 TAB PO DAILY CVD (Reported) Cholecalciferol (Vitamin D3) (Vitamin D) 400 UNIT CAPSULE 1 CAP PO DAILY LOW VITAMIN D (Reported) Desmopressin Acetate 10 MCG/SPRAY (0.1 ML) SPRAY.PUMP 10 MCG MOSES BID HYPO-PIT (Reported) Levothyroxine Sodium 175 MCG TABLET 1 TAB PO DAILY HYPO-T (Reported) Lisinopril 10 MG TABLET 1 TAB PO DAILY BP (Reported) Meclizine HCl 25 MG TABLET 1 TAB PO TID VERTIGO (Reported) Multivitamin (Daily Multiple Vitamin) 1 EACH TABLET 1 TAB PO DAILY MULTIVITAMIN (Reported) Pioglitazone HCl 45 MG TABLET 1 TAB PO DAILY DM (Reported) Potassium Chloride (Klor-Con M10) 10 MEQ TAB.ER.PRT 2 TAB PO DAILY hypo-k ( Reported) Prednisone 5 MG TABLET 1 TAB PO DAILY HYPO-PIT (Reported) Simvastatin (Simvastatin*) 20 MG TABLET 1 TAB PO QPM HYPER-CHOLESTEROL ( Reported) Review of Systems Review of Systems Constitutional: Reports: see HPI. Past History Travel History Traveled to [place] past 21 day No Medical History Blood Transfusion Hx: No Neurological: pituitary tumor status post resection with left-sided deficits EENT: NONE Cardiovascular: hypertension, hyperlipidemia, OCCASIONAL BLE EDEMA Respiratory: obstructive sleep apnea Gastrointestinal: NONE Hepatic: NONE Renal: URINARY FREQUENCY Musculoskeletal: NONE Psychiatric: NONE Endocrine: diabetes, hypothyroidism, LOW TESTOSERONE Blood Disorders: NONE Cancer(s): NONE DUST COLLECTOR/Reproductive: NONE Surgical History Surgical History: pituitary tumor resection Psychosocial History Where Do You Live? Home Services at Home: None Primary Language: Spanish Smoking Status: Former Smoker ETOH Use: denies use Illicit Drug Use: denies illicit drug use Functional Ability ADLs Independent: dressing, eating, toileting, bathing. Ambulation: independent IADLs Independent: shopping, housework, finances, food prep, telephone, transportation , medication admin. Exam & Diagnostic Data Last 24 Hrs of Vital Signs/I&O Vital Signs Date Time Temp Pulse Resp B/P B/P Pulse O2 O2 Flow FiO2 Mean Ox Delivery Rate 08/20 0604 85 30 99/68 08/20 0515 85 98 08/20 0445 100 BIPAP 50% 08/20 0403 84 08/20 0356 96.8 82 26 74/44 99 BIPAP 50% 08/20 0150 97.4 87 26 102/44 99 BIPAP 50% 08/20 0111 88 90/00 08/20 0051 87 100 08/20 0050 98.7 90 35 70/00 08/20 0031 97 28 84/00 100 BIPAP 50% 08/19 2350 84 28 66/00 100 BIPAP 50% 08/19 2337 64/00 08/19 2329 85 60/00 08/19 2326 86 50/00 08/19 2300 91 BIPAP 50% 08/19 2250 97.8 94 35 76/00 08/19 2215 72/00 08/19 2208 109 08/19 2200 104 35 70/00 08/19 2115 97.8 110 40 74/00 91 Non ReBreather Intake & Output 08/20 1600 08/20 0800 08/20 0000 Intake Total 663 Output Total 190 100 Balance 473 -100 Intake, IV 663 Number 0 Bowel Movements Output, Urine 190 100 Patient 135.312 kg 158.757 kg Weight Weight Bed scale Reported by Patient Measurement Method Physical Exam General Appearance: moderate distress Head: atraumatic, normal appearance Eyes: Bilateral: normal appearance, PERRL, EOMI. Ears, Nose, Throat: normal pharynx, normal ENT inspection Neck: normal inspection, supple, full range of motion Respiratory: normal breath sounds, chest non-tender Cardiovascular: regular rate/rhythm Gastrointestinal: normal bowel sounds, soft, non-tender Extremities: normal inspection, normal capillary refill, normal range of motion, bilateral trace pedal edema Last 48 Hrs of Labs/Jerry: Laboratory Tests 08/20/16 1200: Sodium Cancelled, Potassium Cancelled, Chloride Cancelled, Carbon Dioxide Cancelled, Anion Gap Cancelled, BUN Cancelled, Creatinine Cancelled, Glucose Cancelled, Calcium Cancelled, Phosphorus Cancelled, Magnesium Cancelled, Total Bilirubin Cancelled, AST Cancelled, ALT Cancelled, Albumin Cancelled 08/20/16 1031: Anion Gap 10, Estimated GFR 17 L, Glucose 165 H, Lactic Acid 1.0, Calcium 8.1 L, Phosphorus 1.9 L, Magnesium 1.4 L, Total Bilirubin 1.2, AST 147 H, ALT 83 H, Albumin 3.0 L, CBC w Diff NO MAN DIFF REQ, RBC 3.93 L, MCV 95.1 H, MCH 32.4 H, RDW 15.3 H, MPV 10.4, Gran % 87.9 H, Lymphocytes % 6.5 L, Monocytes % 5.4, Eosinophils % 0.1, Basophils % 0.1, Absolute Granulocytes 11.3 H, Absolute Lymphocytes 0.8 L, Absolute Monocytes 0.7 H, Absolute Eosinophils 0, Absolute Basophils 0, PUBS MCHC 34.1 08/20/16 0955: pH 7.29 *L, pCO2 38, pO2 128 H, HCO3 18 L, ABG O2 Sat (Measured) 98.0, P-50 ( Temp Corrected) N, Carboxyhemoglobin 0.4 L, O2 Concentration % .5, Temperature 97.7, Respiration Rate 26, O2 Delivery Method BIPAP, Vent Mode ST, Expiratory Pressure 6, Inspiratory Pressure 20, Phlebotomy Draw Site RIGHT BRACHIAL 08/20/16514: Lactic Acid 1.5 08/20/16 0515: Anion Gap 12, Estimated GFR 16 L, Glucose 158 H, Calcium 8.2 L, Phosphorus 2.3 L, Magnesium 1.2 L, Total Bilirubin 1.5 H, AST 99 H, ALT 74 H, Albumin 3.0 L, CBC w Diff NO MAN DIFF REQ, RBC 4.15 L, MCV 95.1 H, MCH 32.0 H, RDW 15.5 H, MPV 10.6 H, Gran % 78.4 H, Lymphocytes % 8.3 L, Monocytes % 12.2 H, Eosinophils % 0.8, Basophils % 0.3, Absolute Granulocytes 12.0 H, Absolute Lymphocytes 1.3, Absolute Monocytes 1.9 H, Absolute Eosinophils 0.1, Absolute Basophils 0, PUBS MCHC 33.7 08/20/16 0250: Anion Gap 9, Estimated GFR 17 L, BUN/Creatinine Ratio 7.4, Lactic Acid 1.3, Calcium 8.0 L, Magnesium 1.2 L, Total Bilirubin 1.2, Direct Bilirubin 0.6 H, AST 67 H, ALT 64, Alkaline Phosphatase 58, Troponin I 0.04, Total Protein 5.5 L, Albumin 2.8 L 08/20/16 0145: pH 7.31 L, pCO2 35, pO2 133 H, HCO3 17 L, ABG O2 Sat (Measured) 98.0, P-50 ( Temp Corrected) N, Carboxyhemoglobin 0.3 L, O2 Concentration % .50, Respiration Rate 26, O2 Delivery Method BIPAP, Vent Mode ST, Expiratory Pressure 6, Inspiratory Pressure 20, Phlebotomy Draw Site RIGHT BRACHIAL 08/20/16 0035: Bicarbonate Actual 21 L, Mixed VBG pH 7.24 L, Mixed VBG pCO2 51, Mixed VBG O2 Saturation 54 H, P-50 (Temp Corrected) N, Carboxyhemoglobin 0.7 L, O2 Concentration % .50, Respiration Rate 26, O2 Delivery Method BIPAP, Vent Mode ST , Expiratory Pressure 6, Inspiratory Pressure 20, Phlebotomy Draw Site VENOUS 08/20/16 0023: Lactic Acid Cancelled 08/19/162229: Urine Color YEL, Urine Clarity HAZY H, Urine pH 6.0, Ur Specific [place] 1.020, Urine Protein TRACE H, Urine Ketones NEG, Urine Nitrite NEG, Urine Bilirubin NEG@ICTO, Urine Urobilinogen 0.2, Ur Leukocyte Esterase NEG, Ur Microscopic SEDIMENT EXAMINED, Urine RBC 5-10 H, Urine WBC 10-15 H, Ur Epithelial Cells RARE, Urine Bacteria FEW H, Hyaline Casts 1-3 H, Urine Hemoglobin LARGE H, Urine Glucose NEG 08/19/162229: Ur Random Creatinine 208.9, Ur Random Microalbumin 11.2 H, U Random Total Protein 18 H, Ur Random Sodium 64, Ur Random Potassium 38.6, Protein/Creatinin Ratio 0.1, Fraction Sodium Excret 0.8, U Cystine/Creat Ratio 53.61 08/19/162129: Lactic Acid 2.6 H 08/19/162129: Jrn-U-Tjeejzuxfhn Pept 61.5, TSH < 0.015 L, Free T4 2.25 08/19/162129: Anion Gap 13, Estimated GFR 15 L, BUN/Creatinine Ratio 7.7, Glucose 121 H, Calcium 10.1, Total Bilirubin 1.3, AST 56, ALT 64, Alkaline Phosphatase 77, Ammonia < 9 L, Troponin I 0.04, Total Protein 6.8, Albumin 3.8, Globulin 3.0, Albumin/Globulin Ratio 1.3, PT 12.0, INR 1.14, APTT 31, CBC w Diff NO MAN DIFF REQ, RBC 4.72, MCV 95.1 H, MCH 31.8 H, RDW 15.8 H, MPV 10.4, Gran % 62.1, Lymphocytes % 18.6 L, Monocytes % 16.8 H, Eosinophils % 2.3, Basophils % 0.2, Absolute Granulocytes 7.5 H, Absolute Lymphocytes 2.2, Absolute Monocytes 2.0 H, Absolute Eosinophils 0.3, Absolute Basophils 0, PUBS MCHC 33.5 Assessment/Plan Impression/Plan: Mr. Downs is 75 with past medical history significant for pituriatry tumor resection in 2010 or 2012 (per ) with subsequent NATIONAL RECRUITER shunt and brain radiation, short term memory loss, chronic renal disease, hypothyroidism, diabetes, hypertension who was BIBA SOB and AMS. In ED patient received 7 L of fluids in addition to central line and 2 pressors, on bipap. He was agitated recieved haldol. Vitals:97.8, 110, 40, 74/ 0, 91% CBC: White count 12.1, hemoglobin 15.7, hematocrit 44.9 MCV 95.1 BEP: Anion gap of 9, BUN 26, creatinine 3.9 Initial lactic acid: 2.6 Calcium 8.0, magnesium 1.2 Albumin 2.8 Initial VBG: PH 7.24, PCO2 51, bicarbonate 21; subsequent ABG: PH 7.31, PCO2 35, bicarbonate 19 UA: Trace protein, 5-10 red blood cells, few bacteria 1-3 hyaline casts, large urine hemoglobin Negative troponin Chest x ray Right internal jugular central venous catheter terminates over the lower SVC. No pneumothorax. Low lung volumes with persistent small left pleural effusion and airspace opacity. Increasing right-sided opacity with interstitial markings. 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 resection (7 years ago) on chronic steroids -Hypothyrodism -Pneumonia -Metabolic acidosis -Agitation -Acute kindey injury on CKD -NATIONAL RECRUITER shunt without signs of intracranial pressure Cardiology -Patient is off levophid for now -BP improved, keep MAP 60-65 -Continue hydrocortisone 100 Q8 -Will start desmopressin 1 mcg BID per endocrine recommendation ID -Patient initially was started on Unasyn, pink immunocompromised on chronic steroids switch antibiotic to ceftaz and vancomycin -Follow up CBC Respiratory -Patient was started on BiPAP -ABG reflect metabolic acidosis -Consider a trial off BiPAP Metabolic -Non-anion gap metabolic acidosis -Nephrology consultation was obtained, thanks for recommendation -We'll obtain urine electrolytes, spot protein creatinine ratio -We'll obtain serum electrophoresis and urine electrophoresis -NovoLog sliding scale every 4 Nuero -Patient received 1 dose of Haldol 1 mg this a.m. -Consider Ativan when necessary for agitation -CT head negative for acute intracranial pathology Alimentry NPO Code Full DVT HSC Consultation cardiology, nephrology, endocrinology Consult Acknowledgment - Thank you for your consult request. JOSH ARVIZU MD 08/20/16 3730: Assessment/Plan Other Findings/Comments: Josh Cardenas M.D. have examined this patient, reviewed available EMR data, personally reviewed images, discussed with resident/PA/GLASS SCIENCE ENGINEER, discussed management plan with housestaff and nursing staff, discussed managment plan all of healthcare providers, discussed management plan with patient and/or family, agreed with resident/PA/GLASS SCIENCE ENGINEER. The past history and parts of the chart have been autopopulated. TTS 50 min Consult Acknowledgment - Thank you for your consult request.
[2016-08-20 10:59] LABS: ABSOLUTE BASOPHIL COUNT 0 /CUMM (0.0-0.2); ABSOLUTE EOSINOPHIL COUNT 0 /CUMM (0.0-0.7); ABSOLUTE GRANULOCYTE CT 11.3 /CUMM (1.4-6.5); ABSOLUTE LYMPH COUNT 0.8 /CUMM (1.2-3.4); ABSOLUTE MONOCYTE COUNT 0.7 /CUMM (0.10-0.60); BASOPHIL % 0.1 % (0.0-2.0); EOSINOPHIL % 0.1 % (0-5); HEMATOCRIT 37.4 % (42-52); MEAN CORPUSCULAR HGB 32.4 PG (27.0-31.0); MEAN CORPUSCULAR HGB CONC 34.1 G/DL (33.0-37.0); MEAN CORPUSCULAR VOLUME 95.1 FL (80.0-94.0); MEAN PLATELET VOLUME 10.4 FL (7.4-10.4); RBC DISTRIBUTION WIDTH 15.3 % (11.5-14.5); RED BLOOD CELL CT 3.93 /CUMM (4.70-6.10); WHITE BLOOD CELL COUNT 12.8 /CUMM (4.8-10.8)
--- NOTE | 2016-08-20 11:08 | Cons- Nephrology ---
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 Mr Downs is an active community dweller, lives with his , he has some short-term memory loss but take care of his own medication. According to his patient recently, about 10 days ago, treated for otitis media with 5-7 days of amoxicillin. After relatively recovering from his acute infection, patient started complaining of progressive weakness (more prominent in his legs). He also became more lethargic and spent most of his time sleeping. About 2 days ago according to patient completely lost his appetite. Yesterday a.m. he was found extremely exhausted and weak to the point that he could not stand up from laying position on his sofa and according to he also became confused and some extent unresponsive. According to for the past few days, patient did not have any nausea, vomiting, fever, shaking chills, chest pain, trauma or open wounds. Of note, he also has a past medical history of diabetes, hypercholesterolemia, vitamin D deficiency and osteoporosis, CKD. According to patient has significant sleep apnea/snoring at night however he has never been worked up with a window clerk for obesity hypoventilation syndrome/obstructive sleep apnea. He does not follow up with the rn clinical review, and believe that for the past few days he might have missed a few doses of prednisone. Initially in the emergency room his blood pressure was 74 on Doppler with pulse of 110s temperature 97.8. Central line was placed and patient was restarted on levophed. Over the course of his stay in [facility] patient receiving 7 L of bolus normal saline and currently is getting the eighth liter. Initial lab findings showed leukocytosis of 12.1 without left shift or bandemia, negative lactic acidosis, ABG: NAGMA with bicarbonate of 17. Creatinine of 3.9 ( baseline 1.5), BUN of 30, BUN/creatinine ratio 7.4. Allergies/Medications Allergies: Coded Allergies: NO KNOWN ALLERGIES (12/10/12) Home Med List: Alendronate Sodium 70 MG TABLET 1 TAB PO QW OSTEOPOROSIS (Reported) in the morning, at least 30 minutes before the first food, beverage, or medication of the day Aspirin (Ecotrin*) 81 MG TABLET.DR 1 TAB PO DAILY CVD (Reported) Cholecalciferol (Vitamin D3) (Vitamin D) 400 UNIT CAPSULE 1 CAP PO DAILY LOW VITAMIN D (Reported) Desmopressin Acetate 10 MCG/SPRAY (0.1 ML) SPRAY.PUMP 10 MCG MOSES BID HYPO-PIT (Reported) Levothyroxine Sodium 175 MCG TABLET 1 TAB PO DAILY HYPO-T (Reported) Lisinopril 10 MG TABLET 1 TAB PO DAILY BP (Reported) Meclizine HCl 25 MG TABLET 1 TAB PO TID VERTIGO (Reported) Multivitamin (Daily Multiple Vitamin) 1 EACH TABLET 1 TAB PO DAILY MULTIVITAMIN (Reported) Pioglitazone HCl 45 MG TABLET 1 TAB PO DAILY DM (Reported) Potassium Chloride (Klor-Con M10) 10 MEQ TAB.ER.PRT 2 TAB PO DAILY hypo-k ( Reported) Prednisone 5 MG TABLET 1 TAB PO DAILY HYPO-PIT (Reported) Simvastatin (Simvastatin*) 20 MG TABLET 1 TAB PO QPM HYPER-CHOLESTEROL ( Reported) Current Medications: Current Medications Sig/Antwon Start time Last Medication Dose Route Stop Time Status Admin Acetaminophen 650 MG Q6 PRN 08/20 0415 AC PO Ampicillin Sodium/ 1,500 MG Q12 08/20 1000 DC 08/20 Sulbactam Sodium IV 1039 Sodium Chloride 100 ML Ceftazidime 2,000 MG 1100 08/20 1100 AC 08/20 Dextrose/Water 50 ML IV 1135 Ceftazidime 1,000 MG Q24 08/20 1000 CAN IV Ceftazidime 1,000 MG IQ8 08/20 0800 DC IV Ceftazidime 0 .STK-MED ONE 08/20 2147 DC .ROUTE Ceftazidime 1,000 MG ONCE ONE 08/19 2129 DC 08/19 IV 08/19 Ceftriaxone Sodium 0 .STK-MED ONE 08/20 2135 DC .ROUTE Desmopressin Acetate 1 MCG BID 08/20 1300 AC SC Desmopressin Acetate 1 MCG BID 08/20 1300 DC SC Haloperidol 1 MG ONCE ONE 08/20 0645 DC 08/20 IM 08/20 0646 0645 Haloperidol 1 MG ONCE ONE 08/20 0345 DC 08/20 IM 08/20 0346 0345 Haloperidol 0 .STK-MED ONE 08/20 0340 DC .ROUTE Haloperidol 0 .STK-MED ONE 08/20 0307 DC .ROUTE Haloperidol 0.5 MG ONCE ONE 08/20 0245 DC 08/20 IM 08/20 0246 0311 Heparin Sodium 5,000 UNIT Q8 08/20 0600 AC 08/20 (Porcine) SC 0558 Hydrocortisone 100 MG Q8 08/20 0600 AC 08/20 Sodium Succinate IV 0555 Hydrocortisone 100 MG ONE ONE 08/20 0130 DC 08/20 Sodium Succinate IV 08/20 0131 0240 Insulin Aspart 0 Q4 08/20 1239 AC SC Insulin Aspart 0 TIDAC 08/20 1200 DC SC Levothyroxine Sodium 88 MCG DAILY 08/20 1031 AC 08/20 IV 1135 Levothyroxine Sodium 0.175 MG DAILY AC 08/20 0700 DC PO Lorazepam 2 MG ONE ONE 08/20 0730 DC 08/20 IV 08/20 0731 0730 Magnesium Sulfate 1 GM Q2H 08/20 1130 AC 08/20 Dextrose/Water 100 ML IV 08/20 1529 1235 Magnesium Sulfate 1 GM Q2H 08/20 0745 CAN Dextrose/Water 100 ML IV 08/20 1144 Magnesium Sulfate 1 GM Q2H 08/20 0415 DC 08/20 Dextrose/Water 100 ML IV 08/20 0814 1135 Morphine Sulfate 2 MG Q6 08/20 0600 AC 08/20 IV 0553 Morphine Sulfate 2 MG ONCE ONE 08/20 0230 DC IV 08/20 0231 Norepinephrine 0 .STK-MED ONE 08/20 0037 DC IV Norepinephrine 4 MG Q24H 08/20 0030 DC 08/20 Sodium Chloride 250 ML IV 0604 Nystatin 1 THANH BID 08/20 1000 AC 08/20 TOP 1040 Oxycodone HCl 5 MG Q6 PRN 08/20 0415 AC PO Phosphate 250 MG PC AND AT BEDTIME 08/20 0630 DC PO Sodium Chloride 1,000 ML Q10H 08/20 0215 AC 08/20 IV 0305 Sodium Chloride 1,000 ML BOLUS ONE 08/19 2300 DC 08/19 IV 08/19 2359 2350 Sodium Chloride 1,000 ML BOLUS ONE 08/19 2215 DC 08/19 IV 08/19 2314 2115 Sodium Chloride 1,000 ML BOLUS ONE 08/195 DC 08/19 IV 08/19 2314 2213 Sodium Chloride 1,000 ML BOLUS ONE 08/19 2129 DC 08/19 IV 08/19 2228 2327 Sodium Chloride 1,000 ML BOLUS ONE 08/19 2129 DC 08/19 IV 08/19 2228 2240 Sodium Chloride 1,000 ML BOLUS ONE 08/19 2129 DC 08/19 IV 08/19 2228 2316 Sodium Phosphate 15 mMol ONE ONE 08/20 0900 DC 08/20 Sodium Chloride 250 ML IV 08/20 1303 1033 Vancomycin HCl 1,500 MG Q24 08/20 1034 AC 08/20 Sodium Chloride 250 ML IV 1238 Vancomycin HCl 1,000 MG Q24 08/20 1000 CAN Sodium Chloride 250 ML IV Vancomycin HCl 0 .STK-MED ONE 08/19 2134 DC .ROUTE Vancomycin HCl 1,000 MG ONCE ONE 08/19 2129 DC 08/19 Sodium Chloride 250 ML IV 08/19 2228 2200 Vasopressin 40 UNITS Q16H 08/20 0300 DC 08/20 Sodium Chloride 100 ML IV 0320 Review of Systems Review of Systems Constitutional: Reports: see HPI. EENTM: Reports: see HPI. Cardiovascular: Reports: see HPI. Genitourinary: Reports: see HPI. All Other Systems: Reviewed and Negative Past History Travel History Traveled to [place] past 21 day No Medical History Blood Transfusion Hx: No Neurological: pituitary tumor status post resection with left-sided deficits EENT: NONE Cardiovascular: hypertension, hyperlipidemia, OCCASIONAL BLE EDEMA Respiratory: obstructive sleep apnea Gastrointestinal: NONE Hepatic: NONE Renal: URINARY FREQUENCY Musculoskeletal: NONE Psychiatric: NONE Endocrine: diabetes, hypothyroidism, LOW TESTOSERONE Blood Disorders: NONE Cancer(s): NONE HOGSHEAD HAND/Reproductive: NONE Surgical History Surgical History: pituitary tumor resection Psychosocial History Where Do You Live? Home Services at Home: None Primary Language: Senegalese Smoking Status: Former Smoker ETOH Use: denies use Illicit Drug Use: denies illicit drug use Functional Ability ADLs Independent: dressing, eating, toileting, bathing. Ambulation: independent IADLs Independent: shopping, housework, finances, food prep, telephone, transportation , medication admin. Exam & Diagnostic Data Vital Signs and I&O Vital Signs Date Time Temp Pulse Resp B/P B/P Pulse O2 O2 Flow FiO2 Mean Ox Delivery Rate 08/20 1107 100 98 08/20 1102 BIPAP 45% 08/20 0800 100 BIPAP 50% 08/20 0604 85 30 99/68 05 0515 85 98 08/20 0445 100 BIPAP 50% 08/20 0403 84 08/20 0356 96.8 82 26 74/44 99 BIPAP 50% 08/20 0150 97.4 87 26 102/44 99 BIPAP 50% 08/20 0111 88 90/00 08/20 0051 87 100 08/20 0050 98.7 90 35 70/00 08/20 0031 97 28 84/00 100 BIPAP 50% 08/19 2350 84 28 66/00 100 BIPAP 50% 08/19 2337 64/00 08/19 2329 85 60/00 08/19 2326 86 50/00 08/19 2300 91 BIPAP 50% 08/19 2250 97.8 94 35 76/00 08/19 2215 72/00 08/19 2208 109 08/19 2200 104 35 70/00 08/19 2115 97.8 110 40 74/00 91 Non ReBreather Intake & Output 08/20 1600 08/20 0400 08/19 1600 08/19 0400 08/18 1600 08/18 0400 Intake Total 663 Output Total 190 100 Balance 473 -100 Intake, IV 663 Number 0 Bowel Movements Output, Urine 190 100 Patient 298 lb 350 lb Weight Weight Bed scale Reported by Patient Measurement Method Physical Exam General Appearance: lethargic, moderate distress, obese Head: atraumatic Eyes: Bilateral: PERRL. Neck: normal inspection, supple, full range of motion Respiratory: chest non-tender, no respiratory distress, noninvasive positive pressure ventilation Cardiovascular: regular rate/rhythm Peripheral Pulses: 2+ femoral (R), 2+ femoral (L) Gastrointestinal: soft, non-tender Extremities: normal inspection Results Pertinent Lab Results: Laboratory Tests 08/20 08/20 1200 1031 Chemistry Sodium (137 - 145 mmol/L) Cancelled 142 Potassium (3.5 - 5.1 mmol/L) Cancelled 4.7 Chloride (98 - 107 mmol/L) Cancelled 114 H Carbon Dioxide (22 - 30 mmol/L) Cancelled 19 L Anion Gap (5 - 16) Cancelled 10 BUN (9 - 20 mg/dL) Cancelled 26 H Creatinine (0.7 - 1.2 mg/dL) Cancelled 3.5 H Estimated GFR (>60 ml/min) 17 L Glucose (65 - 99 mg/dL) Cancelled 165 H Lactic Acid (0.7 - 2.1 mmol/L) 1.0 Calcium (8.4 - 10.2 mg/dL) Cancelled 8.1 L Phosphorus (2.5 - 4.5 mg/dL) Cancelled 1.9 L Magnesium (1.6 - 2.3 mg/dL) Cancelled 1.4 L Total Bilirubin (0.2 - 1.3 mg/dL) Cancelled 1.2 AST (17 - 59 U/L) Cancelled 147 H ALT (21 - 72 U/L) Cancelled 83 H Albumin (3.5 - 5.0 g/dL) Cancelled 3.0 L Hematology CBC w Diff NO MAN DIFF REQ WBC (4.8 - 10.8 /CUMM) 12.8 H RBC (4.70 - 6.10 /CUMM) 3.93 L Hgb (14.0 - 18.0 G/DL) 12.7 L Hct (42 - 52 %) 37.4 L MCV (80.0 - 94.0 FL) 95.1 H MCH (27.0 - 31.0 PG) 32.4 H RDW (11.5 - 14.5 %) 15.3 H Plt Count (130 - 400 /CUMM) 115 L MPV (7.4 - 10.4 FL) 10.4 Gran % (42.2 - 75.2 %) 87.9 H Lymphocytes % (20.5 - 51.1 %) 6.5 L Monocytes % (1.7 - 9.3 %) 5.4 Eosinophils % (0 - 5 %) 0.1 Basophils % (0.0 - 2.0 %) 0.1 Absolute Granulocytes (1.4 - 6.5 /CUMM) 11.3 H Absolute Lymphocytes (1.2 - 3.4 /CUMM) 0.8 L Absolute Monocytes (0.10 - 0.60 /CUMM) 0.7 H Absolute Eosinophils (0.0 - 0.7 /CUMM) 0 Absolute Basophils (0.0 - 0.2 /CUMM) 0 PUBS MCHC (33.0 - 37.0 G/DL) 34.1 08/20 08/20 0985 6276 Blood Gas pH (7.35 - 7.45 PH) 7.29 *L pCO2 (35 - 45 TORR) 38 pO2 (80 - 100 TORR) 128 H HCO3 (21 - 28 MEQ/L) 18 L ABG O2 Sat (Measured) (>96.0 %) 98.0 P-50 (Temp Corrected) N Carboxyhemoglobin (1.5 - 5.0 %) 0.4 L O2 Concentration % .5 Temperature (97.0 - 100.0 FARH) 97.7 Respiration Rate (BPM) 26 O2 Delivery Method BIPAP Vent Mode ST Expiratory Pressure (CM H2O P) 6 Inspiratory Pressure (CM H2O P) 20 Chemistry Lactic Acid (0.7 - 2.1 mmol/L) 1.5 Miscellaneous Phlebotomy Draw Site RIGHT BRACHIAL 08/20 08/20 0515 0250 Chemistry Sodium (137 - 145 mmol/L) 143 143 Potassium (3.5 - 5.1 mmol/L) 5.1 4.5 Chloride (98 - 107 mmol/L) 113 H 115 H Carbon Dioxide (22 - 30 mmol/L) 18 L 19 L Anion Gap (5 - 16) 12 9 BUN (9 - 20 mg/dL) 25 H 26 H Creatinine (0.7 - 1.2 mg/dL) 3.8 H 3.5 H Estimated GFR (>60 ml/min) 16 L 17 L BUN/Creatinine Ratio (7 - 25 %) 7.4 Glucose (65 - 99 mg/dL) 158 H Lactic Acid (0.7 - 2.1 mmol/L) 1.3 Calcium (8.4 - 10.2 mg/dL) 8.2 L 8.0 L Phosphorus (2.5 - 4.5 mg/dL) 2.3 L Magnesium (1.6 - 2.3 mg/dL) 1.2 L 1.2 L Total Bilirubin (0.2 - 1.3 mg/dL) 1.5 H 1.2 Direct Bilirubin (< 0.4 mg/dL) 0.6 H AST (17 - 59 U/L) 99 H 67 H ALT (21 - 72 U/L) 74 H 64 Alkaline Phosphatase (< 127 U/L) 58 Troponin I (<0.11 ng/ml) 0.04 Total Protein (6.3 - 8.2 g/dL) 5.5 L Albumin (3.5 - 5.0 g/dL) 3.0 L 2.8 L Hematology CBC w Diff NO MAN DIFF REQ WBC (4.8 - 10.8 /CUMM) 15.3 H RBC (4.70 - 6.10 /CUMM) 4.15 L Hgb (14.0 - 18.0 G/DL) 13.3 L Hct (42 - 52 %) 39.4 L MCV (80.0 - 94.0 FL) 95.1 H MCH (27.0 - 31.0 PG) 32.0 H RDW (11.5 - 14.5 %) 15.5 H Plt Count (130 - 400 /CUMM) 159 MPV (7.4 - 10.4 FL) 10.6 H Gran % (42.2 - 75.2 %) 78.4 H Lymphocytes % (20.5 - 51.1 %) 8.3 L Monocytes % (1.7 - 9.3 %) 12.2 H Eosinophils % (0 - 5 %) 0.8 Basophils % (0.0 - 2.0 %) 0.3 Absolute Granulocytes (1.4 - 6.5 /CUMM) 12.0 H Absolute Lymphocytes (1.2 - 3.4 /CUMM) 1.3 Absolute Monocytes (0.10 - 0.60 /CUMM) 1.9 H Absolute Eosinophils (0.0 - 0.7 /CUMM) 0.1 Absolute Basophils (0.0 - 0.2 /CUMM) 0 PUBS MCHC (33.0 - 37.0 G/DL) 33.7 08/20 08/20 08/20 0145 0035 0023 Blood Gas pH (7.35 - 7.45 PH) 7.31 L pCO2 (35 - 45 TORR) 35 pO2 (80 - 100 TORR) 133 H HCO3 (21 - 28 MEQ/L) 17 L Bicarbonate Actual (22 - 26 MEQ/L) 21 L ABG O2 Sat (Measured) (>96.0 %) 98.0 Mixed VBG pH (7.31 - 7.41 PH) 7.24 L Mixed VBG pCO2 (41 - 51 TORR) 51 Mixed VBG O2 Saturation (35 - 45 TORR) 54 H P-50 (Temp Corrected) N N Carboxyhemoglobin (1.5 - 5.0 %) 0.3 L 0.7 L O2 Concentration % .50 .50 Respiration Rate (BPM) 26 26 O2 Delivery Method BIPAP BIPAP Vent Mode ST ST Expiratory Pressure (CM H2O P) 6 6 Inspiratory Pressure (CM H2O P) 20 20 Chemistry Lactic Acid Cancelled Miscellaneous Phlebotomy Draw Site RIGHT BRACHIAL VENOUS 08/19 Chemistry Lactic Acid (0.7 - 2.1 mmol/L) 2.6 H Urines Urine Color (YEL,AMB,STR) YEL Urine Clarity (CLEAR) HAZY H Urine pH (5.0 - 8.0) 6.0 Ur Specific [place] (1.001 - 1.035) 1.020 Urine Protein (NEG,<30 MG/DL) TRACE H Urine Ketones (NEG) NEG Urine Nitrite (NEG) NEG Urine Bilirubin (NEG) NEG@ICTO Urine Urobilinogen (0.1 - 1.0 EU/dl) 0.2 Ur Leukocyte Esterase (NEG) NEG Ur Microscopic SEDIMENT EXAMINED Urine RBC (0 - 5 /HPF) 5-10 H Urine WBC (0 - 2 /HPF) 10-15 H Ur Epithelial Cells (NONE,FEW) RARE Urine Bacteria (NEG/NONE) FEW H Hyaline Casts (0/LPF) 1-3 H Urine Hemoglobin (NEG) LARGE H Ur Random Creatinine (mg/dL) 208.9 Ur Random Sodium (30 - 90 mmol/L) 64 Ur Random Potassium (mmol/L) 38.6 Fraction Sodium Excret (<1% %) 0.8 Urine Glucose (N MG/DL) NEG 08/19 Chemistry Sodium (137 - 145 mmol/L) 143 Potassium (3.5 - 5.1 mmol/L) 3.8 Chloride (98 - 107 mmol/L) 105 Carbon Dioxide (22 - 30 mmol/L) 26 Anion Gap (5 - 16) 13 BUN (9 - 20 mg/dL) 30 H Creatinine (0.7 - 1.2 mg/dL) 3.9 H Estimated GFR (>60 ml/min) 15 L BUN/Creatinine Ratio (7 - 25 %) 7.7 Glucose (65 - 99 mg/dL) 121 H Calcium (8.4 - 10.2 mg/dL) 10.1 Total Bilirubin (0.2 - 1.3 mg/dL) 1.3 AST (17 - 59 U/L) 56 ALT (21 - 72 U/L) 64 Alkaline Phosphatase (< 127 U/L) 77 Ammonia (9 - 30 umol/L) < 9 L Troponin I (<0.11 ng/ml) 0.04 Ynd-E-Zpcssytkdvc Pept (<125 pg/mL) 61.5 Total Protein (6.3 - 8.2 g/dL) 6.8 Albumin (3.5 - 5.0 g/dL) 3.8 Globulin (1.9 - 4.2 gm/dL) 3.0 Albumin/Globulin Ratio (1.1 - 2.2 %) 1.3 TSH (0.270 - 4.200 uIU/mL) < 0.015 L Free T4 (0.78 - 2.44 ng/dL) 2.25 Coagulation PT (9.4 - 12.5 SEC) 12.0 INR (0.90 - 1.17) 1.14 APTT (25 - 37 SEC) 31 Hematology CBC w Diff NO MAN DIFF REQ WBC (4.8 - 10.8 /CUMM) 12.1 H RBC (4.70 - 6.10 /CUMM) 4.72 Hgb (14.0 - 18.0 G/DL) 15.0 Hct (42 - 52 %) 44.9 MCV (80.0 - 94.0 FL) 95.1 H MCH (27.0 - 31.0 PG) 31.8 H RDW (11.5 - 14.5 %) 15.8 H Plt Count (130 - 400 /CUMM) 163 MPV (7.4 - 10.4 FL) 10.4 Gran % (42.2 - 75.2 %) 62.1 Lymphocytes % (20.5 - 51.1 %) 18.6 L Monocytes % (1.7 - 9.3 %) 16.8 H Eosinophils % (0 - 5 %) 2.3 Basophils % (0.0 - 2.0 %) 0.2 Absolute Granulocytes (1.4 - 6.5 /CUMM) 7.5 H Absolute Lymphocytes (1.2 - 3.4 /CUMM) 2.2 Absolute Monocytes (0.10 - 0.60 /CUMM) 2.0 H Absolute Eosinophils (0.0 - 0.7 /CUMM) 0.3 Absolute Basophils (0.0 - 0.2 /CUMM) 0 PUBS MCHC (33.0 - 37.0 G/DL) 33.5 Assessment/Plan Assessment/Recommendations Assessment: 75-year-old gentleman was admitted for acute kidney injury setting of hypotension and shock. Today's lab creatinine 3.5 Vital signs: Blood pressure 99/68 patient is on levophed Urine output during the past shift: 663ml in and [address] scan of the abdomen and pelvis: The kidneys are normal in size, shape, and attenuation. No hydronephrosis, hydroureter or calculi seen. No perinephric stranding. Exophytic left midpole 5.5 cm cyst. Urine: 10-15 WBC, nitrate negative, trace protein and leukocyte esterase negative Recommendations: List of problems #1 Shock: To offer a tailored explanation about the cause of shock in this patient, I think we need to focus on his history of panhypopituitarism and recent upper respiratory tract infection and his general noncompliance with medication. Patient did not double the dose of by mouth prednisone(as it was recommended long time ago by his original rn clinical review) while he was dealing with upper respiratory tract infection. 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 Considering his dependency on prednisone patient most possibly put himself in adrenal crisis that explain his refractory hypotension despite vigorous IV hydration. There is question about +/- sepsis and septic shock in this patient. To sum up the evidence, patient's hypotension is more justifiable based on adrenal crisis as is with sepsis and septic shock, his leukocytosis is was possibly related to chronic steroid take, his pattern imaging did not show any source of infection. LA < 4 that goes against tissue hypoperfusion and more toeard distributive shoch in the setting of adrenal crisis. However, due to his altered mentation and elevated creatinine he has his sofa score of >2, and at the least he has minimally active urine ( pyuria w/ neg nitrate and estrase). * restrict I/O * continue IV steroid * Continue IV hydration with normal saline * Levo Phed titrate for MAP of 65mmhg * Daily lab #2 GINETTE on CKD: He has a CKD with base line Cr of 1.5 with trace proteinuria. His baseline GFR ( Cockcroft-Gault GFR of 80 and MDRD GFR od 32, stage G2 and G3b respectively with stage A0(no albuminuria. 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 Regardless of his CKD, patient had >0.3 mg/dl increase in his Cr that define as GINETTE. The causes could be postrenal, pre-renal, and renal or (ATI due to tioxins or ischemia or sepsis). Patients abd/CT scan and the fact that he has urine out put r/o the post-renal obstruction, for pre-renal; he does not seem to have pre-renal azothemia. Of note, the inappropriate high BUN in this patient might be related to chronic steroid use (cathabolic state). On the other hand, patient presented with hypotension 2/2 to adrenal crisis/distributive shock and well justify the ischemic damage to tubules (ATI), which potentially reversible. He was on simvastatin and Amoxicillin but there is no finding suggestive of allergic I. Nephritis. * Restart his DDAVP as his kidneys are recovering from acute insult and patient will have post-ATN diuresis * Add on Urine lytes * avoid nephrotoxic medication, high dose analgesics and NSAIDS and Lisinopril * Repeat Labs in the am * Hope is that patient recovers before 7 days (acute GINETTE)with much better out comes * Follow up as an outpatient for CKD workup Of note patient in ph/ex and Hx seems to have been dealing with HIEU (repetative nocturnal apnea and daytime somnolence). Manage per CRITICAL team/medical team. Full code Addendum Addendum Pt seen and discussed with Dr. Pedroza. Agree with his note with the following additions/exceptions: Consult for: GINETTE HPI: The patient is a 75-year-old man with a past medical history most significant for states 3 chronic kidney disease with baseline creatinine approximately 1.4-1.7 in 2012, skyqwgdifhc-kaqjagq-vdfqnewdl for last approximately 5 or 6 years (according to family), hypertension on an ASHLEY inhibitor, and pituitary tumor status post resection in approximately 2010 with resultant reeves hypo-pit on supplemental meds including prednisone who presents with altered mental status. The patient was in his usual state of health up until several days prior when he developed an upper respiratory infection. He was given either amoxicillin or Augmentin. It's not clear to the family whether or not the patient had increased his prednisone dose in the setting of this illness. They do think however that he continue to take his desmopressin. The patient has not available for any further history. On presentation, the patient was found to be in shock with a systolic blood pressure 74. The patient ultimately received 7 L of intravenous fluids. Pressors were initiated. He was placed on BiPAP for shortness of breath. Chest x-ray noted to have low lung volumes with persistent small left pleural effusion and airspace opacity with increasing right-sided opacity with interstitial markings. Labs most notable for a serum creatinine of 3.9, potassium 3.8, WBC 12.1. Lactate was initially 2.6. Urinalysis with trace protein, 5-10 red blood cells, 10-15 white blood cells. There is no prior urinalysis for further review. Urine output overnight noted to be [address] scan of the pelvis noted to have kidneys that were "normal in size, shape, and attenuation. No hydronephrosis, hydroureter, or calculi seen. No perinephric stranding. Exophytic left mid pole 5.57 m cyst." The patient is currently on BiPAP as well as pressors. He is getting intravenous fluid. He has a Glass catheter in place with an increasing amount of jaron colored urine. In speaking to the patient's family, they were not aware of any prior history of kidney disease. They say that he has not really seen a doctor for the last 4 years. They deny him taking any nonsteroidals. They do not recall him being polyuric in the days prior to presentation. PMHx/PSHx/Meds/Allergies/FamHx/SocHx as above ROS unable to be obtained given AMS/BIPAP PE Gen - ill appearing on BIPAP Head - NCAT Eyes - EOMI, anicteric sclera CV - RRR, no m/r/g Chest - clear anteriorly, no w/r/r Abd - soft, nontender, nondisteded, BS+ Upper ext - no edema Lower ext - no edema Skin - no rash Neuro - lethargic but able to respond to commonds, limited exam Labs reviewed and noted as above Imaging reviewed and noted as above. A/P CKD - Baseline stage III chronic kidney disease. No urinalysis to see whether he was proteinuric in the past and only has trace protein in the setting of shock. No significant abnormalities seen on his abdominal CT in terms of the kidneys. Just based on history has not had DM long enough to invoke diabetic nephropathy (often will need to be for at least 12 years). Presumably hypertensive nephrosclerosis and age related nephron loss. Not clear what his current baseline is. Should rule out paraprotein with SPEP and KLFLC. GINETTE - Likely 2/2 ATN in the setting of shock - additionally was on ASHLEY-I at home. Cannot rule out significant volume depletion and pre-renal azotemia given hx of reeves-hypopit requiring desmopressin although has received 7L of IVF and SCr has only gone slightly down so doubt it's a major cause of his GINETTE. Low suspicion for GN given only trace proteinuria on UA - would recommend against sending serologic work-up in the setting of a small amount of hematuria after glass placement - should monitor.\\ Septic/Distributive shock - Microbiology has been negative thus far. Perhaps some degree of his shock was in the setting of adrenal insufficiency and not properly increasing his home prednisone dose. He has been volume resuscitated and continues on IVF. Reeves-hypopit - On desmopressin - Pt has been seen by Dr. Lynn from Endocrinology - no renal reason at this time to hold dose - the medication itself will only work if/when his kidneys start to work. Plan: -Would recheck UA with microscopic analysis -Would quantify protein with spot urine protein, creatinine, microalbumin ratio -Hold off on serologic GN work-up -Would check SPEP and KLFLC -OK from renal standpoint to restart desmopressin - would follow-up with Dr. Lynn for dosing - monitor Na and free water intake from meds while on therapy -Cont IVF for now - repeat chest x-ray if worsening respiratory status -f/u remaining micro Please call [phone] with ?'s
[2016-08-20 11:41] LABS: GRANULOCYTE % 87.9 % (42.2-75.2); PLATELET COUNT 115 /CUMM (130-400)
--- NOTE | 2016-08-20 12:40 | Cons- Endocrinology ---
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 He was found to be hypotensive. He was put on BiPAP, pressor and stress dose of steroid hydrocortisone 100mg iv every 8 hours. His BP has been improving. At home, he was on Levothyroxine 175 mcg daily, prednisone 5 mg daily and DDAVP nasal spray twice a day. Allergies/Medications Allergies: Coded Allergies: NO KNOWN ALLERGIES (12/10/12) Home Med List: Alendronate Sodium 70 MG TABLET 1 TAB PO QW OSTEOPOROSIS (Reported) in the morning, at least 30 minutes before the first food, beverage, or medication of the day Aspirin (Ecotrin*) 81 MG TABLET.DR 1 TAB PO DAILY CVD (Reported) Cholecalciferol (Vitamin D3) (Vitamin D) 400 UNIT CAPSULE 1 CAP PO DAILY LOW VITAMIN D (Reported) Desmopressin Acetate 10 MCG/SPRAY (0.1 ML) SPRAY.PUMP 10 MCG MOSES BID HYPO-PIT (Reported) Levothyroxine Sodium 175 MCG TABLET 1 TAB PO DAILY HYPO-T (Reported) Lisinopril 10 MG TABLET 1 TAB PO DAILY BP (Reported) Meclizine HCl 25 MG TABLET 1 TAB PO TID VERTIGO (Reported) Multivitamin (Daily Multiple Vitamin) 1 EACH TABLET 1 TAB PO DAILY MULTIVITAMIN (Reported) Pioglitazone HCl 45 MG TABLET 1 TAB PO DAILY DM (Reported) Potassium Chloride (Klor-Con M10) 10 MEQ TAB.ER.PRT 2 TAB PO DAILY hypo-k ( Reported) Prednisone 5 MG TABLET 1 TAB PO DAILY HYPO-PIT (Reported) Simvastatin (Simvastatin*) 20 MG TABLET 1 TAB PO QPM HYPER-CHOLESTEROL ( Reported) Review of Systems Review of Systems Constitutional: Reports: see HPI (unable to provide information). 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 Home Services at Home: None Primary Language: French Smoking Status: Former Smoker ETOH Use: denies use Illicit Drug Use: denies illicit drug use Functional Ability ADLs Independent: dressing, eating, toileting, bathing. Ambulation: independent IADLs Independent: shopping, housework, finances, food prep, telephone, transportation , medication admin. Exam & Diagnostic Data Last 24 Hrs of Vital Signs/I&O Vital Signs Date Time Temp Pulse Resp B/P B/P Pulse O2 O2 Flow FiO2 Mean Ox Delivery Rate 08/20 1107 100 98 08/20 1102 BIPAP 45% 08/20 0800 100 BIPAP 50% 08/20 0604 85 30 99/68 08/20 0515 85 98 08/20 0445 100 BIPAP 50% 08/20 0403 84 08/20 0356 96.8 82 26 74/44 99 BIPAP 50% 08/20 0150 97.4 87 26 102/44 99 BIPAP 50% 08/20 0111 88 90/00 08/20 0051 87 100 08/20 0050 98.7 90 35 70/00 08/20 0031 97 28 84/00 100 BIPAP 50% 08/19 2350 84 28 66/00 100 BIPAP 50% 08/19 2337 64/00 08/19 2329 85 60/00 08/19 2326 86 50/00 08/19 2300 91 BIPAP 50% 08/19 2250 97.8 94 35 76/00 08/19 2215 72/00 08/19 2208 109 08/19 2200 104 35 70/00 08/19 2115 97.8 110 40 74/00 91 Non ReBreather Intake & Output 08/20 1600 08/20 0800 08/20 0000 Intake Total 663 Output Total 190 100 Balance 473 -100 Intake, IV 663 Number 0 Bowel Movements Output, Urine 190 100 Patient 298 lb 350 lb Weight Weight Bed scale Reported by Patient Measurement Method Physical Exam General Appearance: moderate distress, confused Respiratory: decreased breath sounds (at two bases) Cardiovascular: tachycardia (mild) Gastrointestinal: distention Extremities: swelling Labs/Jerry Results: Laboratory Tests 08/20 08/20 1200 1031 Chemistry Sodium (137 - 145 mmol/L) Cancelled 142 Potassium (3.5 - 5.1 mmol/L) Cancelled 4.7 Chloride (98 - 107 mmol/L) Cancelled 114 H Carbon Dioxide (22 - 30 mmol/L) Cancelled 19 L Anion Gap (5 - 16) Cancelled 10 BUN (9 - 20 mg/dL) Cancelled 26 H Creatinine (0.7 - 1.2 mg/dL) Cancelled 3.5 H Estimated GFR (>60 ml/min) 17 L Glucose (65 - 99 mg/dL) Cancelled 165 H Lactic Acid (0.7 - 2.1 mmol/L) 1.0 Calcium (8.4 - 10.2 mg/dL) Cancelled 8.1 L Phosphorus (2.5 - 4.5 mg/dL) Cancelled 1.9 L Magnesium (1.6 - 2.3 mg/dL) Cancelled 1.4 L Total Bilirubin (0.2 - 1.3 mg/dL) Cancelled 1.2 AST (17 - 59 U/L) Cancelled 147 H ALT (21 - 72 U/L) Cancelled 83 H Albumin (3.5 - 5.0 g/dL) Cancelled 3.0 L Hematology CBC w Diff NO MAN DIFF REQ WBC (4.8 - 10.8 /CUMM) 12.8 H RBC (4.70 - 6.10 /CUMM) 3.93 L Hgb (14.0 - 18.0 G/DL) 12.7 L Hct (42 - 52 %) 37.4 L MCV (80.0 - 94.0 FL) 95.1 H MCH (27.0 - 31.0 PG) 32.4 H RDW (11.5 - 14.5 %) 15.3 H Plt Count (130 - 400 /CUMM) 115 L MPV (7.4 - 10.4 FL) 10.4 Gran % (42.2 - 75.2 %) 87.9 H Lymphocytes % (20.5 - 51.1 %) 6.5 L Monocytes % (1.7 - 9.3 %) 5.4 Eosinophils % (0 - 5 %) 0.1 Basophils % (0.0 - 2.0 %) 0.1 Absolute Granulocytes (1.4 - 6.5 /CUMM) 11.3 H Absolute Lymphocytes (1.2 - 3.4 /CUMM) 0.8 L Absolute Monocytes (0.10 - 0.60 /CUMM) 0.7 H Absolute Eosinophils (0.0 - 0.7 /CUMM) 0 Absolute Basophils (0.0 - 0.2 /CUMM) 0 PUBS MCHC (33.0 - 37.0 G/DL) 34.1 08/20 08/20 0955 0515 Blood Gas pH (7.35 - 7.45 PH) 7.29 *L pCO2 (35 - 45 TORR) 38 pO2 (80 - 100 TORR) 128 H HCO3 (21 - 28 MEQ/L) 18 L ABG O2 Sat (Measured) (>96.0 %) 98.0 P-50 (Temp Corrected) N Carboxyhemoglobin (1.5 - 5.0 %) 0.4 L O2 Concentration % .5 Temperature (97.0 - 100.0 FARH) 97.7 Respiration Rate (BPM) 26 O2 Delivery Method BIPAP Vent Mode ST Expiratory Pressure (CM H2O P) 6 Inspiratory Pressure (CM H2O P) 20 Chemistry Lactic Acid (0.7 - 2.1 mmol/L) 1.5 Miscellaneous Phlebotomy Draw Site RIGHT BRACHIAL 08/20 08/20 0515 0250 Chemistry Sodium (137 - 145 mmol/L) 143 143 Potassium (3.5 - 5.1 mmol/L) 5.1 4.5 Chloride (98 - 107 mmol/L) 113 H 115 H Carbon Dioxide (22 - 30 mmol/L) 18 L 19 L Anion Gap (5 - 16) 12 9 BUN (9 - 20 mg/dL) 25 H 26 H Creatinine (0.7 - 1.2 mg/dL) 3.8 H 3.5 H Estimated GFR (>60 ml/min) 16 L 17 L BUN/Creatinine Ratio (7 - 25 %) 7.4 Glucose (65 - 99 mg/dL) 158 H Lactic Acid (0.7 - 2.1 mmol/L) 1.3 Calcium (8.4 - 10.2 mg/dL) 8.2 L 8.0 L Phosphorus (2.5 - 4.5 mg/dL) 2.3 L Magnesium (1.6 - 2.3 mg/dL) 1.2 L 1.2 L Total Bilirubin (0.2 - 1.3 mg/dL) 1.5 H 1.2 Direct Bilirubin (< 0.4 mg/dL) 0.6 H AST (17 - 59 U/L) 99 H 67 H ALT (21 - 72 U/L) 74 H 64 Alkaline Phosphatase (< 127 U/L) 58 Troponin I (<0.11 ng/ml) 0.04 Total Protein (6.3 - 8.2 g/dL) 5.5 L Albumin (3.5 - 5.0 g/dL) 3.0 L 2.8 L Hematology CBC w Diff NO MAN DIFF REQ WBC (4.8 - 10.8 /CUMM) 15.3 H RBC (4.70 - 6.10 /CUMM) 4.15 L Hgb (14.0 - 18.0 G/DL) 13.3 L Hct (42 - 52 %) 39.4 L MCV (80.0 - 94.0 FL) 95.1 H MCH (27.0 - 31.0 PG) 32.0 H RDW (11.5 - 14.5 %) 15.5 H Plt Count (130 - 400 /CUMM) 159 MPV (7.4 - 10.4 FL) 10.6 H Gran % (42.2 - 75.2 %) 78.4 H Lymphocytes % (20.5 - 51.1 %) 8.3 L Monocytes % (1.7 - 9.3 %) 12.2 H Eosinophils % (0 - 5 %) 0.8 Basophils % (0.0 - 2.0 %) 0.3 Absolute Granulocytes (1.4 - 6.5 /CUMM) 12.0 H Absolute Lymphocytes (1.2 - 3.4 /CUMM) 1.3 Absolute Monocytes (0.10 - 0.60 /CUMM) 1.9 H Absolute Eosinophils (0.0 - 0.7 /CUMM) 0.1 Absolute Basophils (0.0 - 0.2 /CUMM) 0 PUBS MCHC (33.0 - 37.0 G/DL) 33.7 05/30 05 05/ 0145 0035 0023 Blood Gas pH (7.35 - 7.45 PH) 7.31 L pCO2 (35 - 45 TORR) 35 pO2 (80 - 100 TORR) 133 H HCO3 (21 - 28 MEQ/L) 17 L Bicarbonate Actual (22 - 26 MEQ/L) 21 L ABG O2 Sat (Measured) (>96.0 %) 98.0 Mixed VBG pH (7.31 - 7.41 PH) 7.24 L Mixed VBG pCO2 (41 - 51 TORR) 51 Mixed VBG O2 Saturation (35 - 45 TORR) 54 H P-50 (Temp Corrected) N N Carboxyhemoglobin (1.5 - 5.0 %) 0.3 L 0.7 L O2 Concentration % .50 .50 Respiration Rate (BPM) 26 26 O2 Delivery Method BIPAP BIPAP Vent Mode ST ST Expiratory Pressure (CM H2O P) 6 6 Inspiratory Pressure (CM H2O P) 20 20 Chemistry Lactic Acid Cancelled Miscellaneous Phlebotomy Draw Site RIGHT BRACHIAL VENOUS 08/19 Chemistry Lactic Acid (0.7 - 2.1 mmol/L) 2.6 H Urines Urine Color (YEL,AMB,STR) YEL Urine Clarity (CLEAR) HAZY H Urine pH (5.0 - 8.0) 6.0 Ur Specific Stoddard (1.001 - 1.035) 1.020 Urine Protein (NEG,<30 MG/DL) TRACE H Urine Ketones (NEG) NEG Urine Nitrite (NEG) NEG Urine Bilirubin (NEG) NEG@ICTO Urine Urobilinogen (0.1 - 1.0 EU/dl) 0.2 Ur Leukocyte Esterase (NEG) NEG Ur Microscopic SEDIMENT EXAMINED Urine RBC (0 - 5 /HPF) 5-10 H Urine WBC (0 - 2 /HPF) 10-15 H Ur Epithelial Cells (NONE,FEW) RARE Urine Bacteria (NEG/NONE) FEW H Hyaline Casts (0/LPF) 1-3 H Urine Hemoglobin (NEG) LARGE H Ur Random Creatinine (mg/dL) 208.9 Ur Random Sodium (30 - 90 mmol/L) 64 Ur Random Potassium (mmol/L) 38.6 Fraction Sodium Excret (<1% %) 0.8 Urine Glucose (N MG/DL) NEG 08/19 Chemistry Sodium (137 - 145 mmol/L) 143 Potassium (3.5 - 5.1 mmol/L) 3.8 Chloride (98 - 107 mmol/L) 105 Carbon Dioxide (22 - 30 mmol/L) 26 Anion Gap (5 - 16) 13 BUN (9 - 20 mg/dL) 30 H Creatinine (0.7 - 1.2 mg/dL) 3.9 H Estimated GFR (>60 ml/min) 15 L BUN/Creatinine Ratio (7 - 25 %) 7.7 Glucose (65 - 99 mg/dL) 121 H Calcium (8.4 - 10.2 mg/dL) 10.1 Total Bilirubin (0.2 - 1.3 mg/dL) 1.3 AST (17 - 59 U/L) 56 ALT (21 - 72 U/L) 64 Alkaline Phosphatase (< 127 U/L) 77 Ammonia (9 - 30 umol/L) < 9 L Troponin I (<0.11 ng/ml) 0.04 Kdx-H-[id number] Pept (<125 pg/mL) 61.5 Total Protein (6.3 - 8.2 g/dL) 6.8 Albumin (3.5 - 5.0 g/dL) 3.8 Globulin (1.9 - 4.2 gm/dL) 3.0 Albumin/Globulin Ratio (1.1 - 2.2 %) 1.3 TSH (0.270 - 4.200 uIU/mL) < 0.015 L Free T4 (0.78 - 2.44 ng/dL) 2.25 Coagulation PT (9.4 - 12.5 SEC) 12.0 INR (0.90 - 1.17) 1.14 APTT (25 - 37 SEC) 31 Hematology CBC w Diff NO MAN DIFF REQ WBC (4.8 - 10.8 /CUMM) 12.1 H RBC (4.70 - 6.10 /CUMM) 4.72 Hgb (14.0 - 18.0 G/DL) 15.0 Hct (42 - 52 %) 44.9 MCV (80.0 - 94.0 FL) 95.1 H MCH (27.0 - 31.0 PG) 31.8 H RDW (11.5 - 14.5 %) 15.8 H Plt Count (130 - 400 /CUMM) 163 MPV (7.4 - 10.4 FL) 10.4 Gran % (42.2 - 75.2 %) 62.1 Lymphocytes % (20.5 - 51.1 %) 18.6 L Monocytes % (1.7 - 9.3 %) 16.8 H Eosinophils % (0 - 5 %) 2.3 Basophils % (0.0 - 2.0 %) 0.2 Absolute Granulocytes (1.4 - 6.5 /CUMM) 7.5 H Absolute Lymphocytes (1.2 - 3.4 /CUMM) 2.2 Absolute Monocytes (0.10 - 0.60 /CUMM) 2.0 H Absolute Eosinophils (0.0 - 0.7 /CUMM) 0.3 Absolute Basophils (0.0 - 0.2 /CUMM) 0 PUBS MCHC (33.0 - 37.0 G/DL) 33.5 Assessment/Plan Assessment/Plan 75 yo male with PMH of pituriatry tumor resection several years ago with subsequent GLASS CUT OFF TENDER shunt and brain radiation, short term memory loss, chronic renal disease, hypothyroidism, diabetes, hypertension who was BIBA for SOB and changes of mental status. He was found to be hypotensive. He was put on BiPAP, pressor and stress dose of steroid hydrocortisone 100mg iv every 8 hours. His BP has been improving. At home, he was on Levothyroxine 175 mcg daily, prednisone 5 mg daily and DDAVP nasal spray twice a day. plan: 1. continue hydrocortisone 100 mg iv every 8 hours; 2. restart Levothyroxine 88 mcg iv daily; 3. monitor urine output and elecrtrolytes closely and then DDAVP will be determined accoringly at around lunch time today (please call me to discuss); 4. with regards to DM, I will cover partient with Novolog coverage every 4 hours for now-- detail see the insulin order sheet. will follow. Inpatient Diabetes Orders Every 4 Hours: Bolus Insulin: Novolog < 80 mg/dl: no coverage 80-100 mg/dl: no coverage 101-120 mg/dl: no coverage 121-150 mg/dl: no coverage 151-200 mg/dl: 2 units 201-250 mg/dl: 4 units 251-300 mg/dl: 6 units 301-350 mg/dl: 8 units 351-400 mg/dl: 10 units > 400 mg/dl: 12 units Consult Acknowledgment - Thank you for your consult request.
--- NOTE | 2016-08-20 17:18 | Cons- Cardiology ---
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 The patient presented with mental status changes, weakness, and confusion for the past few days. There was concern about facial droop when the patient was evaluated by EMS, however the patient was asleep at that time, and the patient's reported that there was no definite change from his baseline. He is maintained on prednisone and desmopressimfor adrenal insufficiency, however he has not recently seen an printed circuit layout taper prior to admission. He was found to be severely hypotensive on presentation. He was treated with pressors which have been weaned off. He was started on stress dose steroids. The patient remains confused and is a poor historian. He had a recent otitis media, for which she was treated with amoxicillin. No reported chest pain. No known history of cardiac disease. Allergies/Medications Allergies: Coded Allergies: lactose (Intermediate, DIARRHEA 08/29/16) REPORTED BY [facility] Med List: Alendronate Sodium 70 MG TABLET 1 TAB PO QW OSTEOPOROSIS (Reported) in the morning, at least 30 minutes before the first food, beverage, or medication of the day Aspirin (Ecotrin*) 81 MG TABLET.DR 1 TAB PO DAILY CVD (Reported) Cholecalciferol (Vitamin D3) (Vitamin D) 400 UNIT CAPSULE 1 CAP PO DAILY LOW VITAMIN D (Reported) Desmopressin Acetate 10 MCG/SPRAY (0.1 ML) SPRAY.PUMP 10 MCG MOSES BID HYPO-PIT (Reported) Levothyroxine Sodium 175 MCG TABLET 1 TAB PO DAILY HYPO-T (Reported) Lisinopril 10 MG TABLET 1 TAB PO DAILY BP (Reported) Meclizine HCl 25 MG TABLET 1 TAB PO TID VERTIGO (Reported) Multivitamin (Daily Multiple Vitamin) 1 EACH TABLET 1 TAB PO DAILY MULTIVITAMIN (Reported) Pioglitazone HCl 45 MG TABLET 1 TAB PO DAILY DM (Reported) Potassium Chloride (Klor-Con M10) 10 MEQ TAB.ER.PRT 2 TAB PO DAILY hypo-k ( Reported) Prednisone 5 MG TABLET 1 TAB PO DAILY HYPO-PIT (Reported) Simvastatin (Simvastatin*) 20 MG TABLET 1 TAB PO QPM HYPER-CHOLESTEROL ( Reported) Current Medications: Current Medications Sig/Antwon Start time Last Medication Dose Route Stop Time Status Admin Acetaminophen 650 MG Q6 PRN 08/20 0415 AC PO Ampicillin Sodium/ 1,500 MG Q12 08/20 1000 DC 08/20 Sulbactam Sodium IV 1039 Sodium Chloride 100 ML Ceftazidime 2,000 MG 1100 08/20 1100 AC 08/20 Dextrose/Water 50 ML IV 1135 Ceftazidime 1,000 MG Q24 08/20 1000 CAN IV Ceftazidime 1,000 MG IQ8 08/20 0800 DC IV Ceftazidime 0 .STK-MED ONE 08/19 2148 DC .ROUTE Ceftazidime 1,000 MG ONCE ONE 08/19 2130 DC 08/19 IV 08/19 Ceftriaxone Sodium 0 .STK-MED ONE 08/20 2135 DC .ROUTE Desmopressin Acetate 1 MCG BID 08/20 1300 AC 08/20 SC 1549 Desmopressin Acetate 1 MCG BID 08/20 1300 DC SC Dextrose/Sodium 1,000 ML Q13H 08/20 1545 AC 08/20 Chloride IV 1548 Haloperidol 1 MG ONCE ONE 08/20 0645 DC 08/20 IM 08/20 0646 0645 Haloperidol 1 MG ONCE ONE 08/20 0345 DC 08/20 IM 08/20 0346 0345 Haloperidol 0 .STK-MED ONE 08/20 0340 DC .ROUTE Haloperidol 0 .STK-MED ONE 08/20 0307 DC .ROUTE Haloperidol 0.5 MG ONCE ONE 08/20 0245 DC 08/20 IM 08/20 0246 0311 Heparin Sodium 5,000 UNIT Q8 08/20 0600 AC 08/20 (Porcine) SC 1544 Hydrocortisone 100 MG Q8 08/20 0600 AC 08/20 Sodium Succinate IV 1544 Hydrocortisone 100 MG ONE ONE 08/20 0130 DC 08/20 Sodium Succinate IV 08/20 0131 0240 Insulin Aspart 0 Q4 08/20 1239 AC SC Insulin Aspart 0 TIDAC 08/20 1200 DC SC Levothyroxine Sodium 88 MCG DAILY 08/20 1031 AC 08/20 IV 1135 Levothyroxine Sodium 0.175 MG DAILY AC 08/20 0700 DC PO Lorazepam 2 MG ONCE PRN 08/20 1700 AC IV Lorazepam 2 MG ONE ONE 08/20 0730 DC 08/20 IV 08/20 0731 0730 Magnesium Sulfate 1 GM Q2H 08/20 1130 DC 08/20 Dextrose/Water 100 ML IV 08/20 1529 1359 Magnesium Sulfate 1 GM Q2H 08/20 0745 CAN Dextrose/Water 100 ML IV 08/20 1144 Magnesium Sulfate 1 GM Q2H 08/20 0415 DC 08/20 Dextrose/Water 100 ML IV 08/20 0814 1135 Morphine Sulfate 2 MG Q6 08/20 0600 AC 08/20 IV 0553 Morphine Sulfate 2 MG ONCE ONE 08/20 0230 DC IV 08/20 0231 Norepinephrine 4 MG .STK-MED ONE 08/20 0602 DC IV 08/20 0603 Norepinephrine 0 .STK-MED ONE 08/20 0037 DC IV Norepinephrine 4 MG Q24H 08/20 0030 DC 08/20 Sodium Chloride 250 ML IV 0604 Nystatin 1 THANH BID 08/20 1000 AC 08/20 TOP 1040 Oxycodone HCl 5 MG Q6 PRN 08/20 0415 AC PO Phosphate 250 MG PC AND AT BEDTIME 08/20 0630 DC PO Potassium Chloride 20 MEQ .STK-MED ONE 08/20 0757 DC IV 08/20 0758 Sodium Chloride 1,000 ML Q10H 08/20 0215 DC 08/20 IV 1356 Sodium Chloride 1,000 ML BOLUS ONE 08/19 2300 DC 08/19 IV 08/19 2359 2350 Sodium Chloride 1,000 ML BOLUS ONE 08/19 2215 DC 08/19 IV 08/19 2314 2115 Sodium Chloride 1,000 ML BOLUS ONE 08/19 2215 DC 08/19 IV 08/19 2314 2213 Sodium Chloride 1,000 ML BOLUS ONE 08/19 2130 DC 08/19 IV 08/19 2229 2327 Sodium Chloride 1,000 ML BOLUS ONE 08/19 2130 DC 08/19 IV 08/19 2229 2240 Sodium Chloride 1,000 ML BOLUS ONE 08/19 2130 DC 08/19 IV 08/19 2229 2316 Sodium Phosphate 15 mMol ONE ONE 08/20 0900 DC 08/20 Sodium Chloride 250 ML IV 08/20 1303 1033 Vancomycin HCl 1,500 MG Q24 08/20 1034 AC 08/20 Sodium Chloride 250 ML IV 1238 Vancomycin HCl 1,000 MG Q24 08/20 1000 CAN Sodium Chloride 250 ML IV Vancomycin HCl 0 .STK-MED ONE 05/29 2135 DC .ROUTE Vancomycin HCl 1,000 MG ONCE ONE 08/19 2129 DC 08/19 Sodium Chloride 250 ML IV 08/19 2228 2200 Vasopressin 40 UNITS Q16H 08/20 0300 DC 08/20 Sodium Chloride 100 ML IV 0320 Review of Systems Review of Systems: No rash. No tremor. No melena. All other systems were reviewed, and were noted to be negative. Past History Travel History Traveled to [place] past 21 day No Medical History Blood Transfusion Hx: No Neurological: pituitary tumor status post resection with left-sided deficits EENT: NONE Cardiovascular: hypertension, hyperlipidemia, OCCASIONAL BLE EDEMA Respiratory: obstructive sleep apnea Gastrointestinal: NONE Hepatic: NONE Renal: URINARY FREQUENCY Musculoskeletal: NONE Psychiatric: NONE Endocrine: diabetes, hypothyroidism, LOW TESTOSERONE Blood Disorders: NONE Cancer(s): NONE COMPUTER SYSTEMS SECURITY ADMINISTRATOR/Reproductive: NONE Surgical History Surgical History: pituitary tumor resection Family History Family History Reviewed? family history is not obtainable at this time because of the patient's confusion. Psychosocial History Where Do You Live? Home Services at Home: None Primary Language: Estonian Smoking Status: Former Smoker ETOH Use: denies use Illicit Drug Use: denies illicit drug use Functional Ability ADLs Independent: dressing, eating, toileting, bathing. Ambulation: independent IADLs Independent: shopping, housework, finances, food prep, telephone, transportation , medication admin. Exam & Diagnostic Data Vital Signs and I&O Vital Signs Date Time Temp Pulse Resp B/P B/P Pulse O2 O2 Flow FiO2 Mean Ox Delivery Rate 08/20 1424 104 100 08/20 1107 100 98 08/20 1102 BIPAP 45% 08/20 0800 100 BIPAP 50% 08/20 0604 85 30 99/68 08/20 0515 85 98 08/20 0445 100 BIPAP 50% 08/20 0403 84 08/20 0356 96.8 82 26 74/44 99 BIPAP 50% 08/20 0150 97.4 87 26 102/44 99 BIPAP 50% 08/20 0111 88 90/00 08/20 0051 87 100 08/20 0050 98.7 90 35 70/00 08/20 0031 97 28 84/00 100 BIPAP 50% 08/19 2350 84 28 66/00 100 BIPAP 50% 08/19 2337 64/00 08/19 2329 85 60/00 08/19 2326 86 50/00 08/19 2300 91 BIPAP 50% 08/19 2250 97.8 94 35 76/00 08/19 2215 72/00 08/19 2208 109 08/19 220 104 35 7000 08/195 97.8 110 40 74/00 91 Non ReBreather Intake & Output 08/20 0800 08/20 0000 08/19 1600 08/19 0808/19 0000 Intake Total 663 Output Total 190 100 Balance 473 -100 Intake, IV 663 Number 0 Bowel Movements Output, Urine 190 100 Patient 298 lb 350 lb Weight Weight Bed scale Reported by Patient Measurement Method Physical Exam: Gen: The patient is in no acute distress HEENT: Normal nose, ears, and oropharynx. Pupils equal bilaterally. Conjunctiva normal. Neck: Supple with no JVD, no masses, and no thyromegaly Lungs: Clear to auscultation with normal respiratory effort Heart: RRR, S1, S2, no murmurs. No peripheral edema, 2+ pulses in the lower extremities bilaterally Abdomen: Soft, nontender, no masses. No hepatomegaly. No splenomegaly Extremities: No clubbing or cyanosis. Normal muscle strength in the upper and lower extremities Skin: Normal skin turgor with no skin ulcers or lesions noted. Neuro: Cranial nerves intact. Sensation intact Psych: The patient is confused. Affect is irritable. Labs/Jerry Results: Laboratory Tests 08/20 08/20 1200 1031 Chemistry Sodium (137 - 145 mmol/L) Cancelled 142 Potassium (3.5 - 5.1 mmol/L) Cancelled 4.7 Chloride (98 - 107 mmol/L) Cancelled 114 H Carbon Dioxide (22 - 30 mmol/L) Cancelled 19 L Anion Gap (5 - 16) Cancelled 10 BUN (9 - 20 mg/dL) Cancelled 26 H Creatinine (0.7 - 1.2 mg/dL) Cancelled 3.5 H Estimated GFR (>60 ml/min) 17 L Glucose (65 - 99 mg/dL) Cancelled 165 H Lactic Acid (0.7 - 2.1 mmol/L) 1.0 Calcium (8.4 - 10.2 mg/dL) Cancelled 8.1 L Phosphorus (2.5 - 4.5 mg/dL) Cancelled 1.9 L Magnesium (1.6 - 2.3 mg/dL) Cancelled 1.4 L Total Bilirubin (0.2 - 1.3 mg/dL) Cancelled 1.2 AST (17 - 59 U/L) Cancelled 147 H ALT (21 - 72 U/L) Cancelled 83 H Albumin (3.5 - 5.0 g/dL) Cancelled 3.0 L Hematology CBC w Diff NO MAN DIFF REQ WBC (4.8 - 10.8 /CUMM) 12.8 H RBC (4.70 - 6.10 /CUMM) 3.93 L Hgb (14.0 - 18.0 G/DL) 12.7 L Hct (42 - 52 %) 37.4 L MCV (80.0 - 94.0 FL) 95.1 H MCH (27.0 - 31.0 PG) 32.4 H RDW (11.5 - 14.5 %) 15.3 H Plt Count (130 - 400 /CUMM) 115 L MPV (7.4 - 10.4 FL) 10.4 Gran % (42.2 - 75.2 %) 87.9 H Lymphocytes % (20.5 - 51.1 %) 6.5 L Monocytes % (1.7 - 9.3 %) 5.4 Eosinophils % (0 - 5 %) 0.1 Basophils % (0.0 - 2.0 %) 0.1 Absolute Granulocytes (1.4 - 6.5 /CUMM) 11.3 H Absolute Lymphocytes (1.2 - 3.4 /CUMM) 0.8 L Absolute Monocytes (0.10 - 0.60 /CUMM) 0.7 H Absolute Eosinophils (0.0 - 0.7 /CUMM) 0 Absolute Basophils (0.0 - 0.2 /CUMM) 0 PUBS MCHC (33.0 - 37.0 G/DL) 34.1 08/20 08/20 0955 0515 Blood Gas pH (7.35 - 7.45 PH) 7.29 *L pCO2 (35 - 45 TORR) 38 pO2 (80 - 100 TORR) 128 H HCO3 (21 - 28 MEQ/L) 18 L ABG O2 Sat (Measured) (>96.0 %) 98.0 P-50 (Temp Corrected) N Carboxyhemoglobin (1.5 - 5.0 %) 0.4 L O2 Concentration % .5 Temperature (97.0 - 100.0 FARH) 97.7 Respiration Rate (BPM) 26 O2 Delivery Method BIPAP Vent Mode ST Expiratory Pressure (CM H2O P) 6 Inspiratory Pressure (CM H2O P) 20 Chemistry Lactic Acid (0.7 - 2.1 mmol/L) 1.5 Miscellaneous Phlebotomy Draw Site RIGHT BRACHIAL 08/20 08/20 0515 0250 Chemistry Sodium (137 - 145 mmol/L) 143 143 Potassium (3.5 - 5.1 mmol/L) 5.1 4.5 Chloride (98 - 107 mmol/L) 113 H 115 H Carbon Dioxide (22 - 30 mmol/L) 18 L 19 L Anion Gap (5 - 16) 12 9 BUN (9 - 20 mg/dL) 25 H 26 H Creatinine (0.7 - 1.2 mg/dL) 3.8 H 3.5 H Estimated GFR (>60 ml/min) 16 L 17 L BUN/Creatinine Ratio (7 - 25 %) 7.4 Glucose (65 - 99 mg/dL) 158 H Lactic Acid (0.7 - 2.1 mmol/L) 1.3 Calcium (8.4 - 10.2 mg/dL) 8.2 L 8.0 L Phosphorus (2.5 - 4.5 mg/dL) 2.3 L Magnesium (1.6 - 2.3 mg/dL) 1.2 L 1.2 L Total Bilirubin (0.2 - 1.3 mg/dL) 1.5 H 1.2 Direct Bilirubin (< 0.4 mg/dL) 0.6 H AST (17 - 59 U/L) 99 H 67 H ALT (21 - 72 U/L) 74 H 64 Alkaline Phosphatase (< 127 U/L) 58 Troponin I (<0.11 ng/ml) 0.04 Total Protein (6.3 - 8.2 g/dL) 5.5 L Albumin (3.5 - 5.0 g/dL) 3.0 L 2.8 L Hematology CBC w Diff NO MAN DIFF REQ WBC (4.8 - 10.8 /CUMM) 15.3 H RBC (4.70 - 6.10 /CUMM) 4.15 L Hgb (14.0 - 18.0 G/DL) 13.3 L Hct (42 - 52 %) 39.4 L MCV (80.0 - 94.0 FL) 95.1 H MCH (27.0 - 31.0 PG) 32.0 H RDW (11.5 - 14.5 %) 15.5 H Plt Count (130 - 400 /CUMM) 159 MPV (7.4 - 10.4 FL) 10.6 H Gran % (42.2 - 75.2 %) 78.4 H Lymphocytes % (20.5 - 51.1 %) 8.3 L Monocytes % (1.7 - 9.3 %) 12.2 H Eosinophils % (0 - 5 %) 0.8 Basophils % (0.0 - 2.0 %) 0.3 Absolute Granulocytes (1.4 - 6.5 /CUMM) 12.0 H Absolute Lymphocytes (1.2 - 3.4 /CUMM) 1.3 Absolute Monocytes (0.10 - 0.60 /CUMM) 1.9 H Absolute Eosinophils (0.0 - 0.7 /CUMM) 0.1 Absolute Basophils (0.0 - 0.2 /CUMM) 0 PUBS MCHC (33.0 - 37.0 G/DL) 33.7 08/20 08/20 08/20 0145 0035 0023 Blood Gas pH (7.35 - 7.45 PH) 7.31 L pCO2 (35 - 45 TORR) 35 pO2 (80 - 100 TORR) 133 H HCO3 (21 - 28 MEQ/L) 17 L Bicarbonate Actual (22 - 26 MEQ/L) 21 L ABG O2 Sat (Measured) (>96.0 %) 98.0 Mixed VBG pH (7.31 - 7.41 PH) 7.24 L Mixed VBG pCO2 (41 - 51 TORR) 51 Mixed VBG O2 Saturation (35 - 45 TORR) 54 H P-50 (Temp Corrected) N N Carboxyhemoglobin (1.5 - 5.0 %) 0.3 L 0.7 L O2 Concentration % .50 .50 Respiration Rate (BPM) 26 26 O2 Delivery Method BIPAP BIPAP Vent Mode ST ST Expiratory Pressure (CM H2O P) 6 6 Inspiratory Pressure (CM H2O P) 20 20 Chemistry Lactic Acid Cancelled Miscellaneous Phlebotomy Draw Site RIGHT BRACHIAL VENOUS 08/19 223 2130 Chemistry Lactic Acid (0.7 - 2.1 mmol/L) 2.6 H Urines Urine Color (YEL,AMB,STR) YEL Urine Clarity (CLEAR) HAZY H Urine pH (5.0 - 8.0) 6.0 Ur Specific Hartley (1.001 - 1.035) 1.020 Urine Protein (NEG,<30 MG/DL) TRACE H Urine Ketones (NEG) NEG Urine Nitrite (NEG) NEG Urine Bilirubin (NEG) NEG@ICTO Urine Urobilinogen (0.1 - 1.0 EU/dl) 0.2 Ur Leukocyte Esterase (NEG) NEG Ur Microscopic SEDIMENT EXAMINED Urine RBC (0 - 5 /HPF) 5-10 H Urine WBC (0 - 2 /HPF) 10-15 H Ur Epithelial Cells (NONE,FEW) RARE Urine Bacteria (NEG/NONE) FEW H Hyaline Casts (0/LPF) 1-3 H Urine Hemoglobin (NEG) LARGE H Ur Random Creatinine (mg/dL) 208.9 Ur Random Microalbumin (<1.7 mg/dl) 11.2 H U Random Total Protein (0 - 12 mg/dL) 18 H Ur Random Sodium (30 - 90 mmol/L) 64 Ur Random Potassium (mmol/L) 38.6 Protein/Creatinin Ratio (< 0.2) 0.1 Fraction Sodium Excret (<1% %) 0.8 Urine Glucose (N MG/DL) NEG U Cystine/Creat Ratio (mcg/mg) 53.61 08/190 2130 Chemistry Sodium (137 - 145 mmol/L) 143 Potassium (3.5 - 5.1 mmol/L) 3.8 Chloride (98 - 107 mmol/L) 105 Carbon Dioxide (22 - 30 mmol/L) 26 Anion Gap (5 - 16) 13 BUN (9 - 20 mg/dL) 30 H Creatinine (0.7 - 1.2 mg/dL) 3.9 H Estimated GFR (>60 ml/min) 15 L BUN/Creatinine Ratio (7 - 25 %) 7.7 Glucose (65 - 99 mg/dL) 121 H Calcium (8.4 - 10.2 mg/dL) 10.1 Total Bilirubin (0.2 - 1.3 mg/dL) 1.3 AST (17 - 59 U/L) 56 ALT (21 - 72 U/L) 64 Alkaline Phosphatase (< 127 U/L) 77 Ammonia (9 - 30 umol/L) < 9 L Troponin I (<0.11 ng/ml) 0.04 [id number] Pept (<125 pg/mL) 61.5 Total Protein (6.3 - 8.2 g/dL) 6.8 Albumin (3.5 - 5.0 g/dL) 3.8 Globulin (1.9 - 4.2 gm/dL) 3.0 Albumin/Globulin Ratio (1.1 - 2.2 %) 1.3 TSH (0.270 - 4.200 uIU/mL) < 0.015 L Free T4 (0.78 - 2.44 ng/dL) 2.25 Coagulation PT (9.4 - 12.5 SEC) 12.0 INR (0.90 - 1.17) 1.14 APTT (25 - 37 SEC) 31 Hematology CBC w Diff NO MAN DIFF REQ WBC (4.8 - 10.8 /CUMM) 12.1 H RBC (4.70 - 6.10 /CUMM) 4.72 Hgb (14.0 - 18.0 G/DL) 15.0 Hct (42 - 52 %) 44.9 MCV (80.0 - 94.0 FL) 95.1 H MCH (27.0 - 31.0 PG) 31.8 H RDW (11.5 - 14.5 %) 15.8 H Plt Count (130 - 400 /CUMM) 163 MPV (7.4 - 10.4 FL) 10.4 Gran % (42.2 - 75.2 %) 62.1 Lymphocytes % (20.5 - 51.1 %) 18.6 L Monocytes % (1.7 - 9.3 %) 16.8 H Eosinophils % (0 - 5 %) 2.3 Basophils % (0.0 - 2.0 %) 0.2 Absolute Granulocytes (1.4 - 6.5 /CUMM) 7.5 H Absolute Lymphocytes (1.2 - 3.4 /CUMM) 2.2 Absolute Monocytes (0.10 - 0.60 /CUMM) 2.0 H Absolute Eosinophils (0.0 - 0.7 /CUMM) 0.3 Absolute Basophils (0.0 - 0.2 /CUMM) 0 PUBS MCHC (33.0 - 37.0 G/DL) 33.5 Diagnostic Data EKG Results EKG tracing is independently reviewed, and reveals sinus tachycardia at 110, left ventricular hypertrophy, intraventricular conduction delay, left anterior fascicular block CXR Results Right internal jugular central venous catheter terminates over the lower SVC. No pneumothorax. Low lung volumes with persistent small left pleural effusion and airspace opacity. Increasing right-sided opacity with interstitial markings. CT scan: T10 vertebral body compression deformity. While this is of uncertain chronicity, it is new since the abdominal pelvis CT 06/29/2005. No additional acute findings in the abdomen or pelvis. Assessment/Plan Assessment/Plan Assessment: 1. History of pituitary tumor resection 2. Hypotension, likely secondary to adrenal crisis, resolved 3. Pneumonia 4. Chronic kidney disease with acute exacerbation 5. Ruled out for myocardial infarction with negative troponin 2 6. Abnormal EKG 7. Normal left ventricular function on echocardiogram 8. Volume overload after IV hydration, improved after diuresis 9. Hypertension, improved Plan: * Continue current hypertension medications. * The patient is being discharged to short-term rehabilitation. * Follow up in one to 2 weeks. Consult Acknowledgment - Thank you for your consult request.
[2016-08-21 05:13] LABS: ABSOLUTE BASOPHIL COUNT 0 /CUMM (0.0-0.2); ABSOLUTE EOSINOPHIL COUNT 0 /CUMM (0.0-0.7); ABSOLUTE GRANULOCYTE CT 12.8 /CUMM (1.4-6.5); ABSOLUTE LYMPH COUNT 0.6 /CUMM (1.2-3.4); ABSOLUTE MONOCYTE COUNT 0.9 /CUMM (0.10-0.60); BASOPHIL % 0 % (0.0-2.0); EOSINOPHIL % 0 % (0-5); GRANULOCYTE % 89.2 % (42.2-75.2); HEMATOCRIT 35.2 % (42-52); MEAN CORPUSCULAR HGB 32.4 PG (27.0-31.0); MEAN CORPUSCULAR HGB CONC 34.1 G/DL (33.0-37.0); MEAN CORPUSCULAR VOLUME 95.1 FL (80.0-94.0); PLATELET COUNT 108 /CUMM (130-400); RBC DISTRIBUTION WIDTH 15.6 % (11.5-14.5); WHITE BLOOD CELL COUNT 14.3 /CUMM (4.8-10.8)
--- NOTE | 2016-08-21 07:35 | PN- Resident CRCU ---
SONIA BAXTER,[facility] 08/21/16 0735: Subjective HPI/CRCU Issues: Patient was seen and examined this morning, agitated and confused, vital signs are stable, saturating well on 3 L oxygen. Family at bedside. Overnight reported about agitation. 24 Hour Events: Temperature 97.2, MAXIMUM TEMPERATURE 98.1 Pulse low was 74, highest 100 sinus rhythm Blood pressure lowest 122/54, highest 153/62 Saturating 95% on 3 L nasal cannula Intake 2717, output 1795 Objective Vital Signs & I&O Last 8 Hrs of Vitals and I&O: 11 Exam General Appearance: confused, agitated Head: atraumatic, normal appearance Ears, Nose, Throat: normal pharynx, normal ENT inspection Neck: normal inspection, supple, full range of motion Respiratory: normal breath sounds, chest non-tender, no respiratory distress Cardiovascular: regular rate/rhythm Gastrointestinal: normal bowel sounds, soft, non-tender Extremities: normal inspection, normal capillary refill, normal range of motion, no edema Cranial Nerves: normal hearing, PERRL Current Medications: Current Medications Sig/Antwon Start time Last Medication Dose Route Stop Time Status Admin Acetaminophen 650 MG Q6 PRN 08/20 0415 AC PO Albuterol Sulfate 3 ML ONCE ONE 08/21 1045 DC INH 08/21 1046 Ceftazidime 2,000 MG 1100 08/20 1100 AC 08/21 Dextrose/Water 50 ML IV 1036 Desmopressin Acetate 1 MCG BID 08/20 1300 AC 08/21 SC 1154 Desmopressin Acetate 1 MCG BID 08/20 1300 DC SC Dextrose/Sodium 1,000 ML Q13H 08/20 1545 AC 08/21 Chloride IV 0538 Heparin Sodium 5,000 UNIT Q8 08/20 0600 DC 08/20 (Porcine) SC 2209 Hydrocortisone 100 MG Q8 08/20 0600 AC 08/21 Sodium Succinate IV 0539 Insulin Aspart 0 Q4 08/20 1239 AC 08/21 SC 1046 Insulin Aspart 0 TIDAC 08/20 1200 DC SC Levothyroxine Sodium 88 MCG DAILY 08/20 1031 AC 08/21 IV 1038 Lorazepam 1 MG Q6-PRN PRN 08/20 2315 AC 08/21 IV 1107 Lorazepam 2 MG ONCE PRN 08/20 1700 AC 08/20 IV 1743 Magnesium Sulfate 1 GM Q2H 08/20 1130 DC 05/30 Dextrose/Water 100 ML IV 08/20 1529 1359 Morphine Sulfate 0.4 MG ONCE ONE 08/21 1045 CAN IV 08/21 1046 Morphine Sulfate 1 MG ONCE ONE 08/21 1045 DC 08/21 IV 08/21 1046 1152 Morphine Sulfate 2 MG Q6P PRN 08/20 2035 AC IV Morphine Sulfate 2 MG Q6 08/20 0600 DC 08/20 IV 1759 Nystatin 1 THANH BID 08/20 1000 AC 08/21 TOP 1113 Oxycodone HCl 5 MG Q6 PRN 08/20 0415 AC PO Sodium Chloride 1,000 ML Q10H 08/20 0215 DC 08/20 IV 1356 Sodium Phosphate 15 mMol ONE ONE 08/20 0900 DC 08/20 Sodium Chloride 250 ML IV 08/20 1303 1033 Vancomycin HCl 1,500 MG Q24 08/20 1034 AC 08/21 Sodium Chloride 250 ML IV 1159 Impression/Plan Impression/Problem List Impression: Mr. 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) on chronic steroids -Hypothyrodism -Questionable Pneumonia -Metabolic acidosis non-anion gap -Delirium -Acute kindey injury on CKD -MOTOR VEHICLE ASSEMBLY SUPERVISOR shunt without signs of increase intracranial pressure Cardiology -Off levophid -BP improved, keep MAP 60-65 -Continue hydrocortisone 100 Q8 -Continue desmopressin 1 mcg BID -Troponin negative, no EKG acute changes - Echocardiogram pending ID -Patient initially was started on Unasyn, being immunocompromised on chronic steroids switch antibiotic to ceftaz and vancomycin -Continue ceftazidime and vancomycin -We will obtain chest x-ray today, if there is no signs of consolidation will hold off antibiotics -Afibrile, leukocytosis without bandemia mostly steroid related Respiratory -Off BiPAP -ABG improved, 7.33/43/87/23 -On NC 3 L oxygen saturating 95% Metabolic -Non-anion gap metabolic acidosis--resolved -Nephrology consultation was obtained, thanks for recommendation -Creatinine improved from 3.5-2.5 today -FENa indicative for prerenal, fraction excretion sodium 0.8 indicating for prerenal rather than ATN -Urine electrolytes, spot protein creatinine ratio pending -Serum electrophoresis and urine electrophoresis pending -NovoLog sliding scale every 4 Nuero -Patient continued to be very agitated and confused -Neuro exam within normal -Reports about hospital acquired delirium -We'll obtain neuro consultation -Ammonia level low x2 08/20 and 08/21 -Patient received 1 dose of Haldol 1 mg this a.m. -Consider Ativan when necessary for agitation -CT head August 19 and August 21 are negative for acute intracranial pathology Alimentry NPO Code Full DVT ALPS low platete DC [facility] Consultation cardiology, nephrology, endocrinology, neurology Problem List: 1. Pneumonia 2. Acute adrenal crisis 3. GINETTE (acute kidney injury) Pain Ratin Tomorrow's Labs & Rationales: CBC, ICU bundle Plan DVT/Prophylaxis: JOSH Rojas MD 08/21/16 0935: Attending MD Review Statement Attending Sign Off Attending Cosign Statement: I have: examined this patient, reviewed avalbl EMR data, personally reviewd images, discussd w/resident/PA/CERTIFIED FLIGHT INSTRUCTOR, discussed mgmt plan w/angelo, discussed mgmt plan w/CM, discussed mgmt plan w/pt, agreed w/resident/PA/CERTIFIED FLIGHT INSTRUCTOR, amended to note. Other Findings: I, Josh Erazo M.D. have examined this patient, reviewed available EMR data, personally reviewed images, discussed with resident/PA/CERTIFIED FLIGHT INSTRUCTOR, discussed management plan with housestaff and nursing staff, discussed managment plan all of healthcare providers, discussed management plan with patient and/or family, agreed with resident/PA/CERTIFIED FLIGHT INSTRUCTOR. The past history and parts of the chart have been autopopulated. Impression 75 year old man * adrenal crisis secondary to prednisone chronic use in setting of historical pituitary tumor Plan Respiratory -off bipap -abg ID -broad spectrum abx, will tailor with clinical course CVS -hemodynamic monitoring Heme -monitor cbc, coags Metabolic -ins/outs, electrolytes, creatinine Alimentary -NPO given mental status -iv fluids with dextrose Neuro -repeat CT head -neurology consultation TTS 40 min TTS 35 min
[2016-08-21 08:00] VITALS: BP 130/64
--- NOTE | 2016-08-21 09:31 | PN- Nephrology ---
JULIENNE DC 08/21/16 0915: Assessment/Plan Assessment: 75 years old man was admitted to ICU for hypotension and shock, for which he required central line pressors. Is Patient was visited and examined today. Currently, his VS are stable. Off pressor and BiPaP. He is lethargic and nnon-verbal and does not respond to questions in a coherrent way. Labs and vital signs were reviewed. His fluid blanace is +1322 ml. His significant lab findings include sodium 145, K 4.3, BUN 27, creatinine 2.5<<2.9 <<<3.5 August 20. AG 10. Urine random microalbumin mean 11.2; urine random total protein 18 urine random sodium 64; 24 hour urine and 24-hour protein still pending. Urine protein electrophoresis and serum protein electrophoresis: Sample not received AB.33/43/23. NC off BiPaP, delivery nasal cannula [address] scan on August 21 midnight: No acute intracranial pathology. No CT evidence for acute infarction. Repeat CT scan August 21 am is pending: Physical exam: Lethargic and not arousible, non coherent; not following verbal command, only localizes the pain. HEET: left corner of the lips droop (according to its a chronic issue); mocous membranes are dry; PERR; CV:S1 S2 no murmur ; Lungs: decreased air entry; Abd: soft; Skin: no rash no breakage; Neuro: Confused and lethargic and agitated, not following verbal command. He moves constantly in bed, not arousible; Reflexes: +2 symmetric B/L upper extremities, [place]: Upward both no fanning, tone is normal. Assessment: 75 years old man with Hx of reeves /hypopit was admitted for acute altered mental status and was found to have distributive shock secondary to adrenal crisis and GINETTE. Plan: list of active problems: 1) CKD: CKD with base line Cr of 1.5 with trace proteinuria. His baseline GFR ( Cockcroft-Gault GFR of 80 and MDRD GFR od 32, stage G2 and G3b respectively with microalbuminuria. Cause of microalbuminuria, is most possibly DM nephropathy. 24 urine studies and paraprotein with SPEP and KLFLC studies are pending. 2) Acute kidney injury secondary to ATI secondary to hypotension and shock: Most possibly secondary to hypotension in the setting of adrenal crisis . BEP today showes decrease in Cr to 2.5 today from 3.5 and 3.8 yesterday. Renal function is not completely back to normal but patient showed signs of rapid recovery. If renal function returns to baseline w/in 7 days, that makes the diagnosis acute kidney injury rather than acute kidney disease (AKD). 3) Shock: resolved, patient is maintainig BP off pressor. 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 DDAVP was resumed yesterday and its OK to be continued. 5) Lethargy: Metabolic Vs Ischemic cerebral damage. recommendation 1) continue IV hydraion and avoid NSAID and ACEI. 2) Increase in Narom 141 to 145 probably to free water loss; monitor I/O and electrolyes; and continue DDAVP. At some poit, patient might need free water deficit replacement. 3) Positive UA, continue empiric tharapy per medical team, pending U Cx results 4) continue DDAVP and leothyroxin as per endocrinology 5) follow Neuro recommendation for assessment of lethargy; however, I added ammonia level to am labs, per verbal request from Dr. Jarquin. Suggestion: as discussed above Problem List: 1. Renal failure 2. Acute adrenal crisis 3. Chronic kidney disease (CKD) stage G2/A1, mildly decreased glomerular filtration rate (GFR) between 60-89 mL/min/1.73 square meter and albuminuria creatinine ratio less than 30 mg/g 4. GINETTE (acute kidney injury) Subjective Subjective: discussed above Objective Vital Signs and I&Os Vital Signs Date Time Temp Pulse Resp B/P B/P Pulse O2 O2 Flow FiO2 Mean Ox Delivery Rate 08/21 1037 95 Nasal 2.0L Cannula 08/21 0800 97.4 76 24 130/64 98 Nasal 3.0L Cannula 08/21 0800 98 Nasal 3.0L Cannula 08/21 0400 97 Nasal 3.0L Cannula 08/21 0000 97 Nasal 3.0L Cannula 08/20 2000 96 Nasal 3.0L Cannula 08/20 1600 96 Nasal 3.0L Cannula 08/20 1424 104 100 08/20 1200 96 Ventilator 45% 08/20 1107 100 98 08/20 1102 BIPAP 45% Intake & Output 08/210 08/20 0400 Intake Total 542.2 499.8 2343 Output Total 465 550 970 100 Balance 77.2 -50.2 1373 -100 Intake, IV 542.2 499.8 2343 Intake, Oral 0 0 Number 0 0 0 Bowel Movements Output, Urine 465 550 970 100 Patient 298 lb 350 lb Weight Weight Bed scale Reported by Patient Measurement Method Results Pertinent Lab Results: Laboratory Tests 08/21 08/21 0832 0440 Blood Gas pH (7.35 - 7.45 PH) 7.33 L pCO2 (35 - 45 TORR) 43 pO2 (80 - 100 TORR) 87 HCO3 (21 - 28 MEQ/L) 23 ABG O2 Sat (Measured) (>96.0 %) 97.0 P-50 (Temp Corrected) YES Carboxyhemoglobin (1.5 - 5.0 %) 0.3 L O2 Concentration % 3L Temperature (97.0 - 100.0 FARH) 97.4 O2 Delivery Method NC Chemistry Prot Electrophoresis Pending Total Protein (PEP) Pending Albumin % (PEP) Pending Somhr-7-Hauvsxtax Pending Hwxfr-1-Zpfoorbjo Pending Kyct-5-Dblkkvlf Pending Ddjd-6-Vxgnovor Pending Gamma Globulins Pending Abnorm Protein Band 1 Pending Abnorm Protein Band 2 Pending Abnorm Protein Band 3 Pending Miscellaneous Phlebotomy Draw Site RIGHT RADIAL 08/210 0435 Chemistry Sodium (137 - 145 mmol/L) 145 Potassium (3.5 - 5.1 mmol/L) 4.3 Chloride (98 - 107 mmol/L) 113 H Carbon Dioxide (22 - 30 mmol/L) 21 L Anion Gap (5 - 16) 10 BUN (9 - 20 mg/dL) 27 H Creatinine (0.7 - 1.2 mg/dL) 2.5 H Estimated GFR (>60 ml/min) 25 L Glucose (65 - 99 mg/dL) 155 H Calcium (8.4 - 10.2 mg/dL) 7.8 L Phosphorus (2.5 - 4.5 mg/dL) 2.8 Magnesium (1.6 - 2.3 mg/dL) 1.8 Total Bilirubin (0.2 - 1.3 mg/dL) 0.6 AST (17 - 59 U/L) 157 H ALT (21 - 72 U/L) 87 H Albumin (3.5 - 5.0 g/dL) 2.8 L Hematology CBC w Diff NO MAN DIFF REQ WBC (4.8 - 10.8 /CUMM) 14.3 H RBC (4.70 - 6.10 /CUMM) 3.70 L Hgb (14.0 - 18.0 G/DL) 12.0 L Hct (42 - 52 %) 35.2 L MCV (80.0 - 94.0 FL) 95.1 H MCH (27.0 - 31.0 PG) 32.4 H RDW (11.5 - 14.5 %) 15.6 H Plt Count (130 - 400 /CUMM) 108 L MPV (7.4 - 10.4 FL) 10.0 Gran % (42.2 - 75.2 %) 89.2 H Lymphocytes % (20.5 - 51.1 %) 4.5 L Monocytes % (1.7 - 9.3 %) 6.3 Eosinophils % (0 - 5 %) 0 Basophils % (0.0 - 2.0 %) 0 L Absolute Granulocytes (1.4 - 6.5 /CUMM) 12.8 H Absolute Lymphocytes (1.2 - 3.4 /CUMM) 0.6 L Absolute Monocytes (0.10 - 0.60 /CUMM) 0.9 H Absolute Eosinophils (0.0 - 0.7 /CUMM) 0 Absolute Basophils (0.0 - 0.2 /CUMM) 0 PUBS MCHC (33.0 - 37.0 G/DL) 34.1 Urines Urinalysis MOD H Urine Color (YEL,AMB,STR) YEL Urine Clarity (CLEAR) HAZY H Urine pH (5.0 - 8.0) 5.5 Ur Specific Carr (1.001 - 1.035) 1.025 Urine Protein (NEG,<30 MG/DL) 30 H Urine Ketones (NEG) NEG Urine Nitrite (NEG) NEG Urine Bilirubin (NEG) NEG Urine Urobilinogen (0.1 - 1.0 EU/dl) 0.2 Ur Leukocyte Esterase (NEG) TRACE H Ur Microscopic SEDIMENT EXAMINED Urine RBC (0 - 5 /HPF) 50-75 H Urine WBC (0 - 2 /HPF) 5-10 H Ur Epithelial Cells (NONE,FEW) FEW Urine Bacteria (NEG/NONE) MOD H Urine Hemoglobin (NEG) LARGE H Urine Glucose (N MG/DL) NEG 08/20 08/20 08/20 2110 1200 1031 Chemistry Sodium (137 - 145 mmol/L) 141 Cancelled 142 Potassium (3.5 - 5.1 mmol/L) 4.4 Cancelled 4.7 Chloride (98 - 107 mmol/L) 112 H Cancelled 114 H Carbon Dioxide (22 - 30 mmol/L) 20 L Cancelled 19 L Anion Gap (5 - 16) 8 Cancelled 10 BUN (9 - 20 mg/dL) 26 H Cancelled 26 H Creatinine (0.7 - 1.2 mg/dL) 2.9 H Cancelled 3.5 H Estimated GFR (>60 ml/min) 21 L 17 L Glucose (65 - 99 mg/dL) 181 H Cancelled 165 H Lactic Acid (0.7 - 2.1 mmol/L) 1.0 Calcium (8.4 - 10.2 mg/dL) 7.7 L Cancelled 8.1 L Phosphorus (2.5 - 4.5 mg/dL) 2.9 Cancelled 1.9 L Magnesium (1.6 - 2.3 mg/dL) 1.8 Cancelled 1.4 L Total Bilirubin (0.2 - 1.3 mg/dL) 0.7 Cancelled 1.2 AST (17 - 59 U/L) 165 H Cancelled 147 H ALT (21 - 72 U/L) 88 H Cancelled 83 H Albumin (3.5 - 5.0 g/dL) 2.9 L Cancelled 3.0 L Vitamin B12 (239 - 931 pg/mL) > 1000 H 25-OH Vitamin D Total (30 - 100 ng/ml) Pending Folate (2.76 - 20.0 ng/mL) > 20.0 H Free T3 (2.45 - 5.93 pg/mL) 3.5 Hematology CBC w Diff NO MAN DIFF REQ WBC (4.8 - 10.8 /CUMM) 12.8 H RBC (4.70 - 6.10 /CUMM) 3.93 L Hgb (14.0 - 18.0 G/DL) 12.7 L Hct (42 - 52 %) 37.4 L MCV (80.0 - 94.0 FL) 95.1 H MCH (27.0 - 31.0 PG) 32.4 H RDW (11.5 - 14.5 %) 15.3 H Plt Count (130 - 400 /CUMM) 115 L MPV (7.4 - 10.4 FL) 10.4 Gran % (42.2 - 75.2 %) 87.9 H Lymphocytes % (20.5 - 51.1 %) 6.5 L Monocytes % (1.7 - 9.3 %) 5.4 Eosinophils % (0 - 5 %) 0.1 Basophils % (0.0 - 2.0 %) 0.1 Absolute Granulocytes (1.4 - 6.5 /CUMM) 11.3 H Absolute Lymphocytes (1.2 - 3.4 /CUMM) 0.8 L Absolute Monocytes (0.10 - 0.60 /CUMM) 0.7 H Absolute Eosinophils (0.0 - 0.7 /CUMM) 0 Absolute Basophils (0.0 - 0.2 /CUMM) 0 PUBS MCHC (33.0 - 37.0 G/DL) 34.1 08/20 08/20 0955 0515 Blood Gas pH (7.35 - 7.45 PH) 7.29 *L pCO2 (35 - 45 TORR) 38 pO2 (80 - 100 TORR) 128 H HCO3 (21 - 28 MEQ/L) 18 L ABG O2 Sat (Measured) (>96.0 %) 98.0 P-50 (Temp Corrected) N Carboxyhemoglobin (1.5 - 5.0 %) 0.4 L O2 Concentration % .5 Temperature (97.0 - 100.0 FARH) 97.7 Respiration Rate (BPM) 26 O2 Delivery Method BIPAP Vent Mode ST Expiratory Pressure (CM H2O P) 6 Inspiratory Pressure (CM H2O P) 20 Chemistry Lactic Acid (0.7 - 2.1 mmol/L) 1.5 Miscellaneous Phlebotomy Draw Site RIGHT BRACHIAL 08/20 08/20 0515 0250 Chemistry Sodium (137 - 145 mmol/L) 143 143 Potassium (3.5 - 5.1 mmol/L) 5.1 4.5 Chloride (98 - 107 mmol/L) 113 H 115 H Carbon Dioxide (22 - 30 mmol/L) 18 L 19 L Anion Gap (5 - 16) 12 9 BUN (9 - 20 mg/dL) 25 H 26 H Creatinine (0.7 - 1.2 mg/dL) 3.8 H 3.5 H Estimated GFR (>60 ml/min) 16 L 17 L BUN/Creatinine Ratio (7 - 25 %) 7.4 Glucose (65 - 99 mg/dL) 158 H Lactic Acid (0.7 - 2.1 mmol/L) 1.3 Calcium (8.4 - 10.2 mg/dL) 8.2 L 8.0 L Phosphorus (2.5 - 4.5 mg/dL) 2.3 L Magnesium (1.6 - 2.3 mg/dL) 1.2 L 1.2 L Total Bilirubin (0.2 - 1.3 mg/dL) 1.5 H 1.2 Direct Bilirubin (< 0.4 mg/dL) 0.6 H AST (17 - 59 U/L) 99 H 67 H ALT (21 - 72 U/L) 74 H 64 Alkaline Phosphatase (< 127 U/L) 58 Troponin I (<0.11 ng/ml) 0.04 Total Protein (6.3 - 8.2 g/dL) 5.5 L Albumin (3.5 - 5.0 g/dL) 3.0 L 2.8 L Hematology CBC w Diff NO MAN DIFF REQ WBC (4.8 - 10.8 /CUMM) 15.3 H RBC (4.70 - 6.10 /CUMM) 4.15 L Hgb (14.0 - 18.0 G/DL) 13.3 L Hct (42 - 52 %) 39.4 L MCV (80.0 - 94.0 FL) 95.1 H MCH (27.0 - 31.0 PG) 32.0 H RDW (11.5 - 14.5 %) 15.5 H Plt Count (130 - 400 /CUMM) 159 MPV (7.4 - 10.4 FL) 10.6 H Gran % (42.2 - 75.2 %) 78.4 H Lymphocytes % (20.5 - 51.1 %) 8.3 L Monocytes % (1.7 - 9.3 %) 12.2 H Eosinophils % (0 - 5 %) 0.8 Basophils % (0.0 - 2.0 %) 0.3 Absolute Granulocytes (1.4 - 6.5 /CUMM) 12.0 H Absolute Lymphocytes (1.2 - 3.4 /CUMM) 1.3 Absolute Monocytes (0.10 - 0.60 /CUMM) 1.9 H Absolute Eosinophils (0.0 - 0.7 /CUMM) 0.1 Absolute Basophils (0.0 - 0.2 /CUMM) 0 PUBS MCHC (33.0 - 37.0 G/DL) 33.7 08/20 08/20 08/20 0145 0035 0023 Blood Gas pH (7.35 - 7.45 PH) 7.31 L pCO2 (35 - 45 TORR) 35 pO2 (80 - 100 TORR) 133 H HCO3 (21 - 28 MEQ/L) 17 L Bicarbonate Actual (22 - 26 MEQ/L) 21 L ABG O2 Sat (Measured) (>96.0 %) 98.0 Mixed VBG pH (7.31 - 7.41 PH) 7.24 L Mixed VBG pCO2 (41 - 51 TORR) 51 Mixed VBG O2 Saturation (35 - 45 TORR) 54 H P-50 (Temp Corrected) N N Carboxyhemoglobin (1.5 - 5.0 %) 0.3 L 0.7 L O2 Concentration % .50 .50 Respiration Rate (BPM) 26 26 O2 Delivery Method BIPAP BIPAP Vent Mode ST ST Expiratory Pressure (CM H2O P) 6 6 Inspiratory Pressure (CM H2O P) 20 20 Chemistry Lactic Acid Cancelled Miscellaneous Phlebotomy Draw Site RIGHT BRACHIAL VENOUS 08/19 2130 Chemistry Lactic Acid (0.7 - 2.1 mmol/L) 2.6 H Urines Urine Color (YEL,AMB,STR) YEL Urine Clarity (CLEAR) HAZY H Urine pH (5.0 - 8.0) 6.0 Ur Specific Carr (1.001 - 1.035) 1.020 Urine Protein (NEG,<30 MG/DL) TRACE H Urine Ketones (NEG) NEG Urine Nitrite (NEG) NEG Urine Bilirubin (NEG) NEG@ICTO Urine Urobilinogen (0.1 - 1.0 EU/dl) 0.2 Ur Leukocyte Esterase (NEG) NEG Ur Microscopic SEDIMENT EXAMINED Urine RBC (0 - 5 /HPF) 5-10 H Urine WBC (0 - 2 /HPF) 10-15 H Ur Epithelial Cells (NONE,FEW) RARE Urine Bacteria (NEG/NONE) FEW H Hyaline Casts (0/LPF) 1-3 H Urine Hemoglobin (NEG) LARGE H Ur Random Creatinine (mg/dL) 208.9 Ur Random Microalbumin (<1.7 mg/dl) 11.2 H U Random Total Protein (0 - 12 mg/dL) 18 H Ur Random Sodium (30 - 90 mmol/L) 64 Ur Random Potassium (mmol/L) 38.6 Protein/Creatinin Ratio (< 0.2) 0.1 Fraction Sodium Excret (<1% %) 0.8 Urine Glucose (N MG/DL) NEG U Cystine/Creat Ratio (mcg/mg) 53.61 08/19 08/19 2130 2130 Chemistry Sodium (137 - 145 mmol/L) 143 Potassium (3.5 - 5.1 mmol/L) 3.8 Chloride (98 - 107 mmol/L) 105 Carbon Dioxide (22 - 30 mmol/L) 26 Anion Gap (5 - 16) 13 BUN (9 - 20 mg/dL) 30 H Creatinine (0.7 - 1.2 mg/dL) 3.9 H Estimated GFR (>60 ml/min) 15 L BUN/Creatinine Ratio (7 - 25 %) 7.7 Glucose (65 - 99 mg/dL) 121 H Calcium (8.4 - 10.2 mg/dL) 10.1 Total Bilirubin (0.2 - 1.3 mg/dL) 1.3 AST (17 - 59 U/L) 56 ALT (21 - 72 U/L) 64 Alkaline Phosphatase (< 127 U/L) 77 Ammonia (9 - 30 umol/L) < 9 L Troponin I (<0.11 ng/ml) 0.04 Zmm-H-Gcqvdftrxfq Pept (<125 pg/mL) 61.5 Total Protein (6.3 - 8.2 g/dL) 6.8 Albumin (3.5 - 5.0 g/dL) 3.8 Globulin (1.9 - 4.2 gm/dL) 3.0 Albumin/Globulin Ratio (1.1 - 2.2 %) 1.3 TSH (0.270 - 4.200 uIU/mL) < 0.015 L Free T4 (0.78 - 2.44 ng/dL) 2.25 Coagulation PT (9.4 - 12.5 SEC) 12.0 INR (0.90 - 1.17) 1.14 APTT (25 - 37 SEC) 31 Hematology CBC w Diff NO MAN DIFF REQ WBC (4.8 - 10.8 /CUMM) 12.1 H RBC (4.70 - 6.10 /CUMM) 4.72 Hgb (14.0 - 18.0 G/DL) 15.0 Hct (42 - 52 %) 44.9 MCV (80.0 - 94.0 FL) 95.1 H MCH (27.0 - 31.0 PG) 31.8 H RDW (11.5 - 14.5 %) 15.8 H Plt Count (130 - 400 /CUMM) 163 MPV (7.4 - 10.4 FL) 10.4 Gran % (42.2 - 75.2 %) 62.1 Lymphocytes % (20.5 - 51.1 %) 18.6 L Monocytes % (1.7 - 9.3 %) 16.8 H Eosinophils % (0 - 5 %) 2.3 Basophils % (0.0 - 2.0 %) 0.2 Absolute Granulocytes (1.4 - 6.5 /CUMM) 7.5 H Absolute Lymphocytes (1.2 - 3.4 /CUMM) 2.2 Absolute Monocytes (0.10 - 0.60 /CUMM) 2.0 H Absolute Eosinophils (0.0 - 0.7 /CUMM) 0.3 Absolute Basophils (0.0 - 0.2 /CUMM) 0 PUBS MCHC (33.0 - 37.0 G/DL) 33.5 TERESA LOBO MD 08/21/16 1210: Subjective Subjective: Pt Addendum Addendum Off pressors SCr improving - now 2.5 Na 145 - switched to hypotonic fluid 1520cc UOP Noted to be altered UA on 08/19 with minimal protein on spot ratio UA now with 30mg/dl protein, 50-75 RBC and 5-10 WBC VS as above PE Gen - writhing in bed HEENT - supple, R IJ central line CV - RRR Chest - clear anteriorly Abd - soft, nontender Ext - no edema Neuro - will follow some commands but altered Labs as above CT Head without acute changes TTE read pending A/P CKD - Baseline stage III chronic kidney disease based on labs in 2012. Minimal proteinuria on dipsticks here. No significant abnormalities seen on his abdominal CT in terms of the kidneys. Just based on history has not had DM long enough to invoke diabetic nephropathy (often will need to be for at least 12 years). Presumably hypertensive nephrosclerosis and age related nephron loss. Renal function improving in the setting of GINETTE - will need to see where it levels off at as it is not clear what his actual baseline renal function is. Ruling out paraprotein with SPEP and KLFLC. GINETTE - Likely 2/2 ATN in the setting of shock (which has resolved). Cannot rule out significant volume depletion and pre-renal azotemia given hx of reeves-hypopit requiring desmopressin. Renal function is improving. Low suspicion for GN given minimal proteinuria on spot ratio and that renal function is improving. Would recommend against sending serologic work-up in the setting of hematuria after glass placement - should monitor. Septic/Distributive shock - Resolved. 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 Likely from decreased free water intake. Now on hypotonic fluids. Altered mental status - No clear offending drugs that could have built up in the setting of GINETTE. Hypernatremia does not seem severe enough to cause altered mental status but is rather just a reflection of his inability to take in liquids. Plan: -Cont D5 1/2 NS at 100cc/hr as you are - many need to adjust depending on Na ( will likely need more free water) and respiratory status (chest x-ray was underpenetrated but looked wet on presentation) -Hold off on serologic GN work-up -f/u SPEP and KLFLC -Cont desmopressin as per Dr. Lynn Please call [phone] with ?'s Objective Vital Signs and I&Os Vital Signs Date Time Temp Pulse Resp B/P B/P Pulse O2 O2 Flow FiO2 Mean Ox Delivery Rate 08/21 1037 95 Nasal 2.0L Cannula 08/21 0800 97.4 76 24 130/64 98 Nasal 3.0L Cannula 08/21 0800 98 Nasal 3.0L Cannula 08/21 0400 97 Nasal 3.0L Cannula 08/21 0000 97 Nasal 3.0L Cannula 08/20 2000 96 Nasal 3.0L Cannula 08/20 1600 96 Nasal 3.0L Cannula 08/20 1424 104 100 Intake & Output 08/21 1600 08/21 0400 08/20 0400 05/29 1600 05/29 0400 Intake Total 542.2 499.8 2343 Output Total 465 550 970 100 Balance 77.2 -50.2 1373 -100 Intake, IV 542.2 499.8 2343 Intake, Oral 0 0 Number 0 0 0 Bowel Movements Output, Urine 465 550 970 100 Patient 298 lb 350 lb Weight Weight Bed scale Reported by Patient Measurement Method
--- NOTE | 2016-08-21 10:02 | CT SCAN REPORT ---
EXAMINATION: CT HEAD WITHOUT CONTRAST CLINICAL INFORMATION: Evaluate for stroke. Altered mental status. Confusion. COMPARISON: CT head 08/20/2016. TECHNIQUE: Contiguous axial imaging was performed from the skull base to vertex without intravenous administration of contrast. DLP: 753 mGy-cm FINDINGS: There is no evidence of acute intracranial hemorrhage or territorial infarction. No abnormal mass effect or midline shift is seen. Pace to white matter differentiation is well preserved. No extra-axial fluid collections are identified. The ventricles are normal in size. There is a shunt still in place terminating near the region of the foramen of Reese. There is no abnormal attenuation within the brain parenchyma. Stable postsurgical changes related to craniotomy on the right. The mastoid air cells and visualized portions of the paranasal sinuses are well aerated. IMPRESSION: No acute intracranial pathology. No CT evidence for acute infarction.
--- NOTE | 2016-08-21 10:37 | PN- Diabetes ---
Assessment/Plan Assessment: 75 yo male with PMH of pituriatry tumor resection several years ago with subsequent [employer] shunt and brain radiation, short term memory loss, chronic renal disease, hypothyroidism, diabetes, hypertension who was BIBA for SOB and changes of mental status. He was found to be hypotensive. He was put on BiPAP, pressor and stress dose of steroid hydrocortisone 100mg iv every 8 hours, Levothyroxuine 88 mcg iv daily and DDAVP 1 mcg sc twice a day. At home, he was on Levothyroxine 175 mcg daily, prednisone 5 mg daily and DDAVP nasal spray twice a day. He is off on pressors. His vital signs have been stable. He still appears lethargic. Currently he is on D51/2 NS at 75 ml/hour and Novolog coverage every 4 hours. His FSGs were 183, 195, 160. His sodium was 145 this morning. His In/ OUT was 2842/1322. Plan: 1. Continue hydrocortisone 100 mg IV every 8 hours for now; 2. Continue levothyroxine 88 MCG IV daily for now; 3. Continue DDAVP 1 g subcutaneous twice a day; monitor in and out and electrolytes twice a day; 4. will consider changing D51/2 NS to D5w if his sodium level becomes higher lately today; 5. continue the current Novolog coverage verey 4 hours for now. will follow. Subjective Subjective: He appears lethargic. Objective Last 24 Hrs of Vital Signs/I&O Vital Signs Date Time Temp Pulse Resp B/P B/P Pulse O2 O2 Flow FiO2 Mean Ox Delivery Rate 08/21 08 97.4 76 24 130/64 98 Nasal 3.0L Cannula 08/21 0800 98 Nasal 3.0L Cannula 08/21 0400 97 Nasal 3.0L Cannula 08/21 0000 97 Nasal 3.0L Cannula 08/20 2000 96 Nasal 3.0L Cannula 08/20 1600 96 Nasal 3.0L Cannula 08/20 1424 104 100 08/20 1200 96 Ventilator 45% 08/20 1107 100 98 08/20 1102 BIPAP 45% Intake & Output 08/21 1600 08/21 0800 08/21 0000 Intake Total 542.2 499.8 Output Total 465 550 Balance 77.2 -50.2 Intake, IV 542.2 499.8 Intake, Oral 0 0 Number 0 0 Bowel Movements Output, Urine 465 550 Findings Pertinent Lab/Jerry Results: Laboratory Tests 08/21 08/21 0832 0440 Blood Gas pH (7.35 - 7.45 PH) 7.33 L pCO2 (35 - 45 TORR) 43 pO2 (80 - 100 TORR) 87 HCO3 (21 - 28 MEQ/L) 23 ABG O2 Sat (Measured) (>96.0 %) 97.0 P-50 (Temp Corrected) YES Carboxyhemoglobin (1.5 - 5.0 %) 0.3 L O2 Concentration % 3L Temperature (97.0 - 100.0 FARH) 97.4 O2 Delivery Method NC Chemistry Prot Electrophoresis Pending Total Protein (PEP) Pending Albumin % (PEP) Pending Ruvga-5-Lxkwfeytg Pending Icqsc-5-Gbnmxsyti Pending Daoz-7-Kxhgkrez Pending Pblj-8-Uydndlfk Pending Gamma Globulins Pending Abnorm Protein Band 1 Pending Abnorm Protein Band 2 Pending Abnorm Protein Band 3 Pending Miscellaneous Phlebotomy Draw Site RIGHT RADIAL 08/21 08/21 0751 0435 Chemistry Sodium (137 - 145 mmol/L) 145 Potassium (3.5 - 5.1 mmol/L) 4.3 Chloride (98 - 107 mmol/L) 113 H Carbon Dioxide (22 - 30 mmol/L) 21 L Anion Gap (5 - 16) 10 BUN (9 - 20 mg/dL) 27 H Creatinine (0.7 - 1.2 mg/dL) 2.5 H Estimated GFR (>60 ml/min) 25 L Glucose (65 - 99 mg/dL) 155 H Calcium (8.4 - 10.2 mg/dL) 7.8 L Phosphorus (2.5 - 4.5 mg/dL) 2.8 Magnesium (1.6 - 2.3 mg/dL) 1.8 Total Bilirubin (0.2 - 1.3 mg/dL) 0.6 AST (17 - 59 U/L) 157 H ALT (21 - 72 U/L) 87 H Albumin (3.5 - 5.0 g/dL) 2.8 L Hematology CBC w Diff NO MAN DIFF REQ WBC (4.8 - 10.8 /CUMM) 14.3 H RBC (4.70 - 6.10 /CUMM) 3.70 L Hgb (14.0 - 18.0 G/DL) 12.0 L Hct (42 - 52 %) 35.2 L MCV (80.0 - 94.0 FL) 95.1 H MCH (27.0 - 31.0 PG) 32.4 H RDW (11.5 - 14.5 %) 15.6 H Plt Count (130 - 400 /CUMM) 108 L MPV (7.4 - 10.4 FL) 10.0 Gran % (42.2 - 75.2 %) 89.2 H Lymphocytes % (20.5 - 51.1 %) 4.5 L Monocytes % (1.7 - 9.3 %) 6.3 Eosinophils % (0 - 5 %) 0 Basophils % (0.0 - 2.0 %) 0 L Absolute Granulocytes (1.4 - 6.5 /CUMM) 12.8 H Absolute Lymphocytes (1.2 - 3.4 /CUMM) 0.6 L Absolute Monocytes (0.10 - 0.60 /CUMM) 0.9 H Absolute Eosinophils (0.0 - 0.7 /CUMM) 0 Absolute Basophils (0.0 - 0.2 /CUMM) 0 PUBS MCHC (33.0 - 37.0 G/DL) 34.1 Urines Urinalysis MOD H Urine Color (YEL,AMB,STR) YEL Urine Clarity (CLEAR) HAZY H Urine pH (5.0 - 8.0) 5.5 Ur Specific [place] (1.001 - 1.035) 1.025 Urine Protein (NEG,<30 MG/DL) 30 H Urine Ketones (NEG) NEG Urine Nitrite (NEG) NEG Urine Bilirubin (NEG) NEG Urine Urobilinogen (0.1 - 1.0 EU/dl) 0.2 Ur Leukocyte Esterase (NEG) TRACE H Ur Microscopic SEDIMENT EXAMINED Urine RBC (0 - 5 /HPF) 50-75 H Urine WBC (0 - 2 /HPF) 5-10 H Ur Epithelial Cells (NONE,FEW) FEW Urine Bacteria (NEG/NONE) MOD H Urine Hemoglobin (NEG) LARGE H Urine Glucose (N MG/DL) NEG 08/20 08/20 2110 1200 Chemistry Sodium (137 - 145 mmol/L) 141 Cancelled Potassium (3.5 - 5.1 mmol/L) 4.4 Cancelled Chloride (98 - 107 mmol/L) 112 H Cancelled Carbon Dioxide (22 - 30 mmol/L) 20 L Cancelled Anion Gap (5 - 16) 8 Cancelled BUN (9 - 20 mg/dL) 26 H Cancelled Creatinine (0.7 - 1.2 mg/dL) 2.9 H Cancelled Estimated GFR (>60 ml/min) 21 L Glucose (65 - 99 mg/dL) 181 H Cancelled Calcium (8.4 - 10.2 mg/dL) 7.7 L Cancelled Phosphorus (2.5 - 4.5 mg/dL) 2.9 Cancelled Magnesium (1.6 - 2.3 mg/dL) 1.8 Cancelled Total Bilirubin (0.2 - 1.3 mg/dL) 0.7 Cancelled AST (17 - 59 U/L) 165 H Cancelled ALT (21 - 72 U/L) 88 H Cancelled Albumin (3.5 - 5.0 g/dL) 2.9 L Cancelled Vitamin B12 (239 - 931 pg/mL) > 1000 H 25-OH Vitamin D Total (30 - 100 ng/ml) Pending Folate (2.76 - 20.0 ng/mL) Pending Free T3 (2.45 - 5.93 pg/mL) 3.5
--- NOTE | 2016-08-21 12:38 | Cons- Neurology ---
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 Roberto Johnson at [facility] back in 2005, also reportedly had ENAMEL PULVERIZER shunt placement and brain radiation Over the past several days, he had become increasingly lethargic at home. Due to persistent worsening he was brought to the ED. There he was found to be hypotensive and dyspneic. He was put on BiPAP, pressor and stress dose of steroid hydrocortisone 100mg iv every 8 hours. His BP has been improving. Mental status remains altered. At home, he was on Levothyroxine 175 mcg daily, prednisone 5 mg daily and DDAVP nasal spray twice a day. No longer followed by [facility] (by his choice per his spouse), managed by his primary physician Julien Craig MD. Allergies/Medications Allergies: Coded Allergies: NO KNOWN ALLERGIES (12/10/12) Home Med List: Alendronate Sodium 70 MG TABLET 1 TAB PO QW OSTEOPOROSIS (Reported) in the morning, at least 30 minutes before the first food, beverage, or medication of the day Aspirin (Ecotrin*) 81 MG TABLET.DR 1 TAB PO DAILY CVD (Reported) Cholecalciferol (Vitamin D3) (Vitamin D) 400 UNIT CAPSULE 1 CAP PO DAILY LOW VITAMIN D (Reported) Desmopressin Acetate 10 MCG/SPRAY (0.1 ML) SPRAY.PUMP 10 MCG MOSES BID HYPO-PIT (Reported) Levothyroxine Sodium 175 MCG TABLET 1 TAB PO DAILY HYPO-T (Reported) Lisinopril 10 MG TABLET 1 TAB PO DAILY BP (Reported) Meclizine HCl 25 MG TABLET 1 TAB PO TID VERTIGO (Reported) Multivitamin (Daily Multiple Vitamin) 1 EACH TABLET 1 TAB PO DAILY MULTIVITAMIN (Reported) Pioglitazone HCl 45 MG TABLET 1 TAB PO DAILY DM (Reported) Potassium Chloride (Klor-Con M10) 10 MEQ TAB.ER.PRT 2 TAB PO DAILY hypo-k ( Reported) Prednisone 5 MG TABLET 1 TAB PO DAILY HYPO-PIT (Reported) Simvastatin (Simvastatin*) 20 MG TABLET 1 TAB PO QPM HYPER-CHOLESTEROL ( Reported) Current Medications: Current Medications Sig/Antwon Start time Last Medication Dose Route Stop Time Status Admin Acetaminophen 650 MG Q6 PRN 08/20 0415 AC PO Albuterol Sulfate 3 ML ONCE ONE 08/21 1045 DC INH 08/21 1046 Ceftazidime 2,000 MG 1100 08/20 1100 AC 08/21 Dextrose/Water 50 ML IV 1036 Desmopressin Acetate 1 MCG BID 08/20 1300 AC 08/21 SC 1154 Desmopressin Acetate 1 MCG BID 08/20 1300 DC SC Dextrose/Sodium 1,000 ML Q13H 08/20 1545 AC 08/21 Chloride IV 0538 Heparin Sodium 5,000 UNIT Q8 08/20 0600 DC 08/20 (Porcine) SC 2209 Hydrocortisone 100 MG Q8 08/20 0600 AC 08/21 Sodium Succinate IV 0539 Insulin Aspart 0 Q4 08/20 1239 AC 08/21 SC 1046 Insulin Aspart 0 TIDAC 08/20 1200 DC SC Levothyroxine Sodium 88 MCG DAILY 08/20 1031 AC 08/21 IV 1038 Lorazepam 1 MG Q6-PRN PRN 08/20 2315 AC 08/21 IV 1107 Lorazepam 2 MG ONCE PRN 08/20 1700 AC 08/20 IV 1743 Magnesium Sulfate 1 GM Q2H 08/20 1130 DC 08/20 Dextrose/Water 100 ML IV 08/20 1529 1359 Morphine Sulfate 0.4 MG ONCE ONE 08/21 1045 CAN IV 08/21 1046 Morphine Sulfate 1 MG ONCE ONE 08/21 1045 DC 08/21 IV 08/21 1046 1152 Morphine Sulfate 2 MG Q6P PRN 08/20 2035 AC IV Morphine Sulfate 2 MG Q6 08/20 0600 DC 08/20 IV 1759 Nystatin 1 THANH BID 08/20 1000 AC 08/21 TOP 1113 Oxycodone HCl 5 MG Q6 PRN 08/20 0415 AC PO Sodium Chloride 1,000 ML Q10H 08/20 0215 DC 08/20 IV 1356 Sodium Phosphate 15 mMol ONE ONE 08/20 0900 DC 08/20 Sodium Chloride 250 ML IV 08/20 1303 1033 Vancomycin HCl 1,500 MG Q24 08/20 1034 AC 08/21 Sodium Chloride 250 ML IV 1159 Review of Systems Review of Systems: Unobtainable aside from the family's report that he has difficulty lying flat chronically due to dyspnea Past History Travel History Traveled to [place] past 21 day No Medical History Blood Transfusion Hx: No Neurological: pituitary tumor status post resection with left-sided deficits EENT: NONE Cardiovascular: hypertension, hyperlipidemia, OCCASIONAL BLE EDEMA Respiratory: obstructive sleep apnea Gastrointestinal: NONE Hepatic: NONE Renal: URINARY FREQUENCY Musculoskeletal: NONE Psychiatric: NONE Endocrine: diabetes, hypothyroidism, LOW TESTOSERONE Blood Disorders: NONE Cancer(s): NONE 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 Home Services at Home: None Primary Language: Macedonian Smoking Status: Former Smoker ETOH Use: denies use Illicit Drug Use: denies illicit drug use Functional Ability ADLs Independent: dressing, eating, toileting, bathing. Ambulation: independent IADLs Independent: shopping, housework, finances, food prep, telephone, transportation , medication admin. Exam & Diagnostic Data Vital Signs and I&O Vital Signs Date Time Temp Pulse Resp B/P B/P Pulse O2 O2 Flow FiO2 Mean Ox Delivery Rate 08/21 1037 95 Nasal 2.0L Cannula 08/21 0800 97.4 76 24 130/64 98 Nasal 3.0L Cannula 08/21 0800 98 Nasal 3.0L Cannula 08/21 0400 97 Nasal 3.0L Cannula 08/21 0000 97 Nasal 3.0L Cannula 08/20 2000 96 Nasal 3.0L Cannula 08/20 1600 96 Nasal 3.0L Cannula 08/20 1424 104 100 Intake & Output 08/21 1600 08/21 0800 08/21 0000 Intake Total 542.2 499.8 Output Total 465 550 Balance 77.2 -50.2 Intake, IV 542.2 499.8 Intake, Oral 0 0 Number 0 0 Bowel Movements Output, Urine 465 550 Physical Exam: Lying in bed, restless, appears mildly dyspneic Head normocephalic atraumatic Neck supple Heart regular rate and rhythm Abdomen obese and soft Extremities no clubbing cyanosis or edema intact peripheral pulses Neurologic exam: He was obtunded. He mumbled incoherently. He followed no commands. He resisted eye opening, prohibiting detailed funduscopic exam. Pupils were equal round and reactive to light. Extraocular movements are full. Facial movements were symmetric. The tongue was in the midline position but he did not protrude it on command. Motor, no focal weakness evident. No abnormal involuntary movements. No overt limb ataxia on limited testing Sensation, withdraws to noxious stimuli nor 4 extremities Deep tendon reflexes symmetrically trace to 1+. Plantar responses flexor. Gait testing not possible Last 48 Hours of Lab Results: Laboratory Tests 08/21 08/21 08/21 1120 0832 0440 Blood Gas pH (7.35 - 7.45 PH) 7.33 L pCO2 (35 - 45 TORR) 43 pO2 (80 - 100 TORR) 87 HCO3 (21 - 28 MEQ/L) 23 ABG O2 Sat (Measured) (>96.0 %) 97.0 P-50 (Temp Corrected) YES Carboxyhemoglobin (1.5 - 5.0 %) 0.3 L O2 Concentration % 3L Temperature (97.0 - 100.0 FARH) 97.4 O2 Delivery Method NC Chemistry Ammonia (9 - 30 umol/L) < 9 L Prot Electrophoresis Pending Total Protein (PEP) Pending Albumin % (PEP) Pending Plfdf-3-Hvdneygnd Pending Uxnxx-0-Esihutmjm Pending Etsp-4-Bobfocnm Pending Ubel-9-Mfcfookd Pending Gamma Globulins Pending Abnorm Protein Band 1 Pending Abnorm Protein Band 2 Pending Abnorm Protein Band 3 Pending Miscellaneous Phlebotomy Draw Site RIGHT RADIAL 08/21 08/21 0440 0435 Chemistry Sodium (137 - 145 mmol/L) 145 Potassium (3.5 - 5.1 mmol/L) 4.3 Chloride (98 - 107 mmol/L) 113 H Carbon Dioxide (22 - 30 mmol/L) 21 L Anion Gap (5 - 16) 10 BUN (9 - 20 mg/dL) 27 H Creatinine (0.7 - 1.2 mg/dL) 2.5 H Estimated GFR (>60 ml/min) 25 L Glucose (65 - 99 mg/dL) 155 H Calcium (8.4 - 10.2 mg/dL) 7.8 L Phosphorus (2.5 - 4.5 mg/dL) 2.8 Magnesium (1.6 - 2.3 mg/dL) 1.8 Total Bilirubin (0.2 - 1.3 mg/dL) 0.6 AST (17 - 59 U/L) 157 H ALT (21 - 72 U/L) 87 H Albumin (3.5 - 5.0 g/dL) 2.8 L Hematology CBC w Diff NO MAN DIFF REQ WBC (4.8 - 10.8 /CUMM) 14.3 H RBC (4.70 - 6.10 /CUMM) 3.70 L Hgb (14.0 - 18.0 G/DL) 12.0 L Hct (42 - 52 %) 35.2 L MCV (80.0 - 94.0 FL) 95.1 H MCH (27.0 - 31.0 PG) 32.4 H RDW (11.5 - 14.5 %) 15.6 H Plt Count (130 - 400 /CUMM) 108 L MPV (7.4 - 10.4 FL) 10.0 Gran % (42.2 - 75.2 %) 89.2 H Lymphocytes % (20.5 - 51.1 %) 4.5 L Monocytes % (1.7 - 9.3 %) 6.3 Eosinophils % (0 - 5 %) 0 Basophils % (0.0 - 2.0 %) 0 L Absolute Granulocytes (1.4 - 6.5 /CUMM) 12.8 H Absolute Lymphocytes (1.2 - 3.4 /CUMM) 0.6 L Absolute Monocytes (0.10 - 0.60 /CUMM) 0.9 H Absolute Eosinophils (0.0 - 0.7 /CUMM) 0 Absolute Basophils (0.0 - 0.2 /CUMM) 0 PUBS MCHC (33.0 - 37.0 G/DL) 34.1 Urines Urinalysis MOD H Urine Color (YEL,AMB,STR) YEL Urine Clarity (CLEAR) HAZY H Urine pH (5.0 - 8.0) 5.5 Ur Specific [place] (1.001 - 1.035) 1.025 Urine Protein (NEG,<30 MG/DL) 30 H Urine Ketones (NEG) NEG Urine Nitrite (NEG) NEG Urine Bilirubin (NEG) NEG Urine Urobilinogen (0.1 - 1.0 EU/dl) 0.2 Ur Leukocyte Esterase (NEG) TRACE H Ur Microscopic SEDIMENT EXAMINED Urine RBC (0 - 5 /HPF) 50-75 H Urine WBC (0 - 2 /HPF) 5-10 H Ur Epithelial Cells (NONE,FEW) FEW Urine Bacteria (NEG/NONE) MOD H Urine Hemoglobin (NEG) LARGE H Urine Glucose (N MG/DL) NEG 08/20 08/20 08/20 2110 1200 1031 Chemistry Sodium (137 - 145 mmol/L) 141 Cancelled 142 Potassium (3.5 - 5.1 mmol/L) 4.4 Cancelled 4.7 Chloride (98 - 107 mmol/L) 112 H Cancelled 114 H Carbon Dioxide (22 - 30 mmol/L) 20 L Cancelled 19 L Anion Gap (5 - 16) 8 Cancelled 10 BUN (9 - 20 mg/dL) 26 H Cancelled 26 H Creatinine (0.7 - 1.2 mg/dL) 2.9 H Cancelled 3.5 H Estimated GFR (>60 ml/min) 21 L 17 L Glucose (65 - 99 mg/dL) 181 H Cancelled 165 H Lactic Acid (0.7 - 2.1 mmol/L) 1.0 Calcium (8.4 - 10.2 mg/dL) 7.7 L Cancelled 8.1 L Phosphorus (2.5 - 4.5 mg/dL) 2.9 Cancelled 1.9 L Magnesium (1.6 - 2.3 mg/dL) 1.8 Cancelled 1.4 L Total Bilirubin (0.2 - 1.3 mg/dL) 0.7 Cancelled 1.2 AST (17 - 59 U/L) 165 H Cancelled 147 H ALT (21 - 72 U/L) 88 H Cancelled 83 H Albumin (3.5 - 5.0 g/dL) 2.9 L Cancelled 3.0 L Vitamin B12 (239 - 931 pg/mL) > 1000 H 25-OH Vitamin D Total (30 - 100 ng/ml) 21.5 L Folate (2.76 - 20.0 ng/mL) > 20.0 H Free T3 (2.45 - 5.93 pg/mL) 3.5 Hematology CBC w Diff NO MAN DIFF REQ WBC (4.8 - 10.8 /CUMM) 12.8 H RBC (4.70 - 6.10 /CUMM) 3.93 L Hgb (14.0 - 18.0 G/DL) 12.7 L Hct (42 - 52 %) 37.4 L MCV (80.0 - 94.0 FL) 95.1 H MCH (27.0 - 31.0 PG) 32.4 H RDW (11.5 - 14.5 %) 15.3 H Plt Count (130 - 400 /CUMM) 115 L MPV (7.4 - 10.4 FL) 10.4 Gran % (42.2 - 75.2 %) 87.9 H Lymphocytes % (20.5 - 51.1 %) 6.5 L Monocytes % (1.7 - 9.3 %) 5.4 Eosinophils % (0 - 5 %) 0.1 Basophils % (0.0 - 2.0 %) 0.1 Absolute Granulocytes (1.4 - 6.5 /CUMM) 11.3 H Absolute Lymphocytes (1.2 - 3.4 /CUMM) 0.8 L Absolute Monocytes (0.10 - 0.60 /CUMM) 0.7 H Absolute Eosinophils (0.0 - 0.7 /CUMM) 0 Absolute Basophils (0.0 - 0.2 /CUMM) 0 PUBS MCHC (33.0 - 37.0 G/DL) 34.1 08/20 08/20 0955 0515 Blood Gas pH (7.35 - 7.45 PH) 7.29 *L pCO2 (35 - 45 TORR) 38 pO2 (80 - 100 TORR) 128 H HCO3 (21 - 28 MEQ/L) 18 L ABG O2 Sat (Measured) (>96.0 %) 98.0 P-50 (Temp Corrected) N Carboxyhemoglobin (1.5 - 5.0 %) 0.4 L O2 Concentration % .5 Temperature (97.0 - 100.0 FARH) 97.7 Respiration Rate (BPM) 26 O2 Delivery Method BIPAP Vent Mode ST Expiratory Pressure (CM H2O P) 6 Inspiratory Pressure (CM H2O P) 20 Chemistry Lactic Acid (0.7 - 2.1 mmol/L) 1.5 Miscellaneous Phlebotomy Draw Site RIGHT BRACHIAL 08/20 08/20 0515 0250 Chemistry Sodium (137 - 145 mmol/L) 143 143 Potassium (3.5 - 5.1 mmol/L) 5.1 4.5 Chloride (98 - 107 mmol/L) 113 H 115 H Carbon Dioxide (22 - 30 mmol/L) 18 L 19 L Anion Gap (5 - 16) 12 9 BUN (9 - 20 mg/dL) 25 H 26 H Creatinine (0.7 - 1.2 mg/dL) 3.8 H 3.5 H Estimated GFR (>60 ml/min) 16 L 17 L BUN/Creatinine Ratio (7 - 25 %) 7.4 Glucose (65 - 99 mg/dL) 158 H Lactic Acid (0.7 - 2.1 mmol/L) 1.3 Calcium (8.4 - 10.2 mg/dL) 8.2 L 8.0 L Phosphorus (2.5 - 4.5 mg/dL) 2.3 L Magnesium (1.6 - 2.3 mg/dL) 1.2 L 1.2 L Total Bilirubin (0.2 - 1.3 mg/dL) 1.5 H 1.2 Direct Bilirubin (< 0.4 mg/dL) 0.6 H AST (17 - 59 U/L) 99 H 67 H ALT (21 - 72 U/L) 74 H 64 Alkaline Phosphatase (< 127 U/L) 58 Troponin I (<0.11 ng/ml) 0.04 Total Protein (6.3 - 8.2 g/dL) 5.5 L Albumin (3.5 - 5.0 g/dL) 3.0 L 2.8 L Hematology CBC w Diff NO MAN DIFF REQ WBC (4.8 - 10.8 /CUMM) 15.3 H RBC (4.70 - 6.10 /CUMM) 4.15 L Hgb (14.0 - 18.0 G/DL) 13.3 L Hct (42 - 52 %) 39.4 L MCV (80.0 - 94.0 FL) 95.1 H MCH (27.0 - 31.0 PG) 32.0 H RDW (11.5 - 14.5 %) 15.5 H Plt Count (130 - 400 /CUMM) 159 MPV (7.4 - 10.4 FL) 10.6 H Gran % (42.2 - 75.2 %) 78.4 H Lymphocytes % (20.5 - 51.1 %) 8.3 L Monocytes % (1.7 - 9.3 %) 12.2 H Eosinophils % (0 - 5 %) 0.8 Basophils % (0.0 - 2.0 %) 0.3 Absolute Granulocytes (1.4 - 6.5 /CUMM) 12.0 H Absolute Lymphocytes (1.2 - 3.4 /CUMM) 1.3 Absolute Monocytes (0.10 - 0.60 /CUMM) 1.9 H Absolute Eosinophils (0.0 - 0.7 /CUMM) 0.1 Absolute Basophils (0.0 - 0.2 /CUMM) 0 PUBS MCHC (33.0 - 37.0 G/DL) 33.7 08/20 08/20 08/20 0145 0035 0023 Blood Gas pH (7.35 - 7.45 PH) 7.31 L pCO2 (35 - 45 TORR) 35 pO2 (80 - 100 TORR) 133 H HCO3 (21 - 28 MEQ/L) 17 L Bicarbonate Actual (22 - 26 MEQ/L) 21 L ABG O2 Sat (Measured) (>96.0 %) 98.0 Mixed VBG pH (7.31 - 7.41 PH) 7.24 L Mixed VBG pCO2 (41 - 51 TORR) 51 Mixed VBG O2 Saturation (35 - 45 TORR) 54 H P-50 (Temp Corrected) N N Carboxyhemoglobin (1.5 - 5.0 %) 0.3 L 0.7 L O2 Concentration % .50 .50 Respiration Rate (BPM) 26 26 O2 Delivery Method BIPAP BIPAP Vent Mode ST ST Expiratory Pressure (CM H2O P) 6 6 Inspiratory Pressure (CM H2O P) 20 20 Chemistry Lactic Acid Cancelled Miscellaneous Phlebotomy Draw Site RIGHT BRACHIAL VENOUS 08/19 2230 2130 Chemistry Lactic Acid (0.7 - 2.1 mmol/L) 2.6 H Urines Urine Color (YEL,AMB,STR) YEL Urine Clarity (CLEAR) HAZY H Urine pH (5.0 - 8.0) 6.0 Ur Specific [place] (1.001 - 1.035) 1.020 Urine Protein (NEG,<30 MG/DL) TRACE H Urine Ketones (NEG) NEG Urine Nitrite (NEG) NEG Urine Bilirubin (NEG) NEG@ICTO Urine Urobilinogen (0.1 - 1.0 EU/dl) 0.2 Ur Leukocyte Esterase (NEG) NEG Ur Microscopic SEDIMENT EXAMINED Urine RBC (0 - 5 /HPF) 5-10 H Urine WBC (0 - 2 /HPF) 10-15 H Ur Epithelial Cells (NONE,FEW) RARE Urine Bacteria (NEG/NONE) FEW H Hyaline Casts (0/LPF) 1-3 H Urine Hemoglobin (NEG) LARGE H Ur Random Creatinine (mg/dL) 208.9 Ur Random Microalbumin (<1.7 mg/dl) 11.2 H U Random Total Protein (0 - 12 mg/dL) 18 H Ur Random Sodium (30 - 90 mmol/L) 64 Ur Random Potassium (mmol/L) 38.6 Protein/Creatinin Ratio (< 0.2) 0.1 Fraction Sodium Excret (<1% %) 0.8 Urine Glucose (N MG/DL) NEG U Cystine/Creat Ratio (mcg/mg) 53.61 08/19 08/19 2130 2130 Chemistry Sodium (137 - 145 mmol/L) 143 Potassium (3.5 - 5.1 mmol/L) 3.8 Chloride (98 - 107 mmol/L) 105 Carbon Dioxide (22 - 30 mmol/L) 26 Anion Gap (5 - 16) 13 BUN (9 - 20 mg/dL) 30 H Creatinine (0.7 - 1.2 mg/dL) 3.9 H Estimated GFR (>60 ml/min) 15 L BUN/Creatinine Ratio (7 - 25 %) 7.7 Glucose (65 - 99 mg/dL) 121 H Calcium (8.4 - 10.2 mg/dL) 10.1 Total Bilirubin (0.2 - 1.3 mg/dL) 1.3 AST (17 - 59 U/L) 56 ALT (21 - 72 U/L) 64 Alkaline Phosphatase (< 127 U/L) 77 Ammonia (9 - 30 umol/L) < 9 L Troponin I (<0.11 ng/ml) 0.04 Azo-Z-Crvclowteua Pept (<125 pg/mL) 61.5 Total Protein (6.3 - 8.2 g/dL) 6.8 Albumin (3.5 - 5.0 g/dL) 3.8 Globulin (1.9 - 4.2 gm/dL) 3.0 Albumin/Globulin Ratio (1.1 - 2.2 %) 1.3 TSH (0.270 - 4.200 uIU/mL) < 0.015 L Free T4 (0.78 - 2.44 ng/dL) 2.25 Coagulation PT (9.4 - 12.5 SEC) 12.0 INR (0.90 - 1.17) 1.14 APTT (25 - 37 SEC) 31 Hematology CBC w Diff NO MAN DIFF REQ WBC (4.8 - 10.8 /CUMM) 12.1 H RBC (4.70 - 6.10 /CUMM) 4.72 Hgb (14.0 - 18.0 G/DL) 15.0 Hct (42 - 52 %) 44.9 MCV (80.0 - 94.0 FL) 95.1 H MCH (27.0 - 31.0 PG) 31.8 H RDW (11.5 - 14.5 %) 15.8 H Plt Count (130 - 400 /CUMM) 163 MPV (7.4 - 10.4 FL) 10.4 Gran % (42.2 - 75.2 %) 62.1 Lymphocytes % (20.5 - 51.1 %) 18.6 L Monocytes % (1.7 - 9.3 %) 16.8 H Eosinophils % (0 - 5 %) 2.3 Basophils % (0.0 - 2.0 %) 0.2 Absolute Granulocytes (1.4 - 6.5 /CUMM) 7.5 H Absolute Lymphocytes (1.2 - 3.4 /CUMM) 2.2 Absolute Monocytes (0.10 - 0.60 /CUMM) 2.0 H Absolute Eosinophils (0.0 - 0.7 /CUMM) 0.3 Absolute Basophils (0.0 - 0.2 /CUMM) 0 PUBS MCHC (33.0 - 37.0 G/DL) 33.5 Imaging/Other Studies: Head CT 08/21/2016 FINDINGS: There is no evidence of acute intracranial hemorrhage or territorial infarction. No abnormal mass effect or midline shift is seen. Pace to white matter differentiation is well preserved. No extra-axial fluid collections are identified. The ventricles are normal in size. There is a shunt still in place terminating near the region of the foramen of Reese. There is no abnormal attenuation within the brain parenchyma. Stable postsurgical changes related to craniotomy on the right. The mastoid air cells and visualized portions of the paranasal sinuses are well aerated. IMPRESSION: No acute intracranial pathology. No CT evidence for acute infarction. DICTATED BY: KEON COOMBS MD DATE/TIME DICTATED:08/21/1653 Assessment/Plan Assessment: Toxic metabolic, possibly concomitant hypoxic encephalopathy in the setting of transient hypotension. History of ENAMEL PULVERIZER shunt placement following pituitary adenoma resection. No imaging evidence for hydrocephalus Recommendations: Continue supportive care EEG Will follow Consult Acknowledgment - Thank you for your consult request.
--- NOTE | 2016-08-21 13:03 | PN- Cardiology ---
Subjective Subjective: The patient appears stable from a cardiac standpoint. Heart rate and blood pressure improved. No new cardiac issues. No arrhythmias detected. Objective Vital Signs and I&Os Vital Signs Date Time Temp Pulse Resp B/P B/P Pulse O2 O2 Flow FiO2 Mean Ox Delivery Rate 08/21 1200 96 Nasal 2.0L Cannula 08/21 1037 95 Nasal 2.0L Cannula 08/21 0800 97.4 76 24 130/64 98 Nasal 3.0L Cannula 08/21 0800 98 Nasal 3.0L Cannula 08/21 0400 97 Nasal 3.0L Cannula 08/21 0000 97 Nasal 3.0L Cannula 08/20 2000 96 Nasal 3.0L Cannula 08/20 1600 96 Nasal 3.0L Cannula 08/20 1424 104 100 Intake & Output 08/21 1600 08/21 0800 08/21 0000 08/20 1600 08/20 0800 08/20 0000 Intake Total 542.2 499.8 1680 663 Output Total 465 550 780 190 100 Balance 77.2 -50.2 900 473 -100 Intake, IV 542.2 499.8 1680 663 Intake, Oral 0 0 Number 0 0 0 Bowel Movements Output, Urine 465 550 780 190 100 Patient 298 lb 350 lb Weight Weight Bed scale Reported by Patient Measurement Method Current Medications: Current Medications Sig/Antwon Start time Last Medication Dose Route Stop Time Status Admin Acetaminophen 650 MG Q6 PRN 08/20 0415 AC PO Albuterol Sulfate 3 ML ONCE ONE 08/21 1045 DC INH 08/21 1046 Ceftazidime 2,000 MG 1100 08/20 1100 AC 08/21 Dextrose/Water 50 ML IV 1036 Desmopressin Acetate 1 MCG BID 08/20 1300 AC 08/21 OH 1154 Desmopressin Acetate 1 MCG BID 08/20 1300 DC SC Dextrose/Sodium 1,000 ML Q13H 08/20 1545 AC 08/21 Chloride IV 0538 Heparin Sodium 5,000 UNIT Q8 08/20 0600 DC 08/20 (Porcine) SC 2209 Hydrocortisone 100 MG Q8 08/20 0600 AC 08/21 Sodium Succinate IV 0539 Insulin Aspart 0 Q4 08/20 1239 AC 08/21 SC 1046 Levothyroxine Sodium 88 MCG DAILY 08/20 1031 AC 08/21 IV 1038 Lorazepam 1 MG Q6-PRN PRN 08/20 2315 AC 08/21 IV 1107 Lorazepam 2 MG ONCE PRN 08/20 1700 AC 08/20 IV 1743 Magnesium Sulfate 1 GM Q2H 08/20 1130 DC 08/20 Dextrose/Water 100 ML IV 08/20 1529 1359 Morphine Sulfate 0.4 MG ONCE ONE 08/21 1045 CAN IV 08/21 1046 Morphine Sulfate 1 MG ONCE ONE 08/21 1045 DC 08/21 IV 08/21 1046 1152 Morphine Sulfate 2 MG Q6P PRN 08/20 2035 AC IV Morphine Sulfate 2 MG Q6 08/20 0600 DC 08/20 IV 1759 Nystatin 1 THANH BID 08/20 1000 AC 08/21 TOP 1113 Oxycodone HCl 5 MG Q6 PRN 08/20 0415 AC PO Sodium Chloride 1,000 ML Q10H 08/20 0215 DC 08/20 IV 1356 Sodium Phosphate 15 mMol ONE ONE 08/20 0900 DC 08/20 Sodium Chloride 250 ML IV 08/20 1303 1033 Vancomycin HCl 1,500 MG Q24 08/20 1034 AC 08/21 Sodium Chloride 250 ML IV 1159 Results Last 48 Hrs of Labs/Mics: Laboratory Tests 08/21/16 1120: Ammonia < 9 L 08/21/16 0832: pH 7.33 L, pCO2 43, pO2 87, HCO3 23, ABG O2 Sat (Measured) 97.0, P-50 (Temp Corrected) YES, Carboxyhemoglobin 0.3 L, O2 Concentration % 3L, Temperature 97.4, O2 Delivery Method NC, Phlebotomy Draw Site RIGHT RADIAL 08/21/16 0440: Prot Electrophoresis Pending, Total Protein (PEP) Pending, Albumin % (PEP) Pending, Nicev-4-Rtujoxvfu Pending, Yxbpz-5-Npyjeqzrf Pending, Ogxk-0-Ogblxfet Pending, Nenu-1-Weykknkh Pending, Gamma Globulins Pending, Abnorm Protein Band 1 Pending, Abnorm Protein Band 2 Pending, Abnorm Protein Band 3 Pending 08/21/16 0440: Anion Gap 10, Estimated GFR 25 L, Glucose 155 H, Calcium 7.8 L, Phosphorus 2.8, Magnesium 1.8, Total Bilirubin 0.6, AST 157 H, ALT 87 H, Albumin 2.8 L, CBC w Diff NO MAN DIFF REQ, RBC 3.70 L, MCV 95.1 H, MCH 32.4 H, RDW 15.6 H, MPV 10.0, Gran % 89.2 H, Lymphocytes % 4.5 L, Monocytes % 6.3, Eosinophils % 0 , Basophils % 0 L, Absolute Granulocytes 12.8 H, Absolute Lymphocytes 0.6 L, Absolute Monocytes 0.9 H, Absolute Eosinophils 0, Absolute Basophils 0, PUBS MCHC 34.1 08/21/16 0435: Urinalysis MOD H, Urine Color YEL, Urine Clarity HAZY H, Urine pH 5.5, Ur Specific [place] 1.025, Urine Protein 30 H, Urine Ketones NEG, Urine Nitrite NEG, Urine Bilirubin NEG, Urine Urobilinogen 0.2, Ur Leukocyte Esterase TRACE H , Ur Microscopic SEDIMENT EXAMINED, Urine RBC 50-75 H, Urine WBC 5-10 H, Ur Epithelial Cells FEW, Urine Bacteria MOD H, Urine Hemoglobin LARGE H, Urine Glucose NEG 08/20/16 2110: Anion Gap 8, Estimated GFR 21 L, Glucose 181 H, Calcium 7.7 L, Phosphorus 2.9 , Magnesium 1.8, Total Bilirubin 0.7, AST 165 H, ALT 88 H, Albumin 2.9 L, Vitamin B12 > 1000 H, 25-OH Vitamin D Total 21.5 L, Folate > 20.0 H, Free T3 3.5 08/20/16 1200: Sodium Cancelled, Potassium Cancelled, Chloride Cancelled, Carbon Dioxide Cancelled, Anion Gap Cancelled, BUN Cancelled, Creatinine Cancelled, Glucose Cancelled, Calcium Cancelled, Phosphorus Cancelled, Magnesium Cancelled, Total Bilirubin Cancelled, AST Cancelled, ALT Cancelled, Albumin Cancelled 08/20/16 1031: Anion Gap 10, Estimated GFR 17 L, Glucose 165 H, Lactic Acid 1.0, Calcium 8.1 L, Phosphorus 1.9 L, Magnesium 1.4 L, Total Bilirubin 1.2, AST 147 H, ALT 83 H, Albumin 3.0 L, CBC w Diff NO MAN DIFF REQ, RBC 3.93 L, MCV 95.1 H, MCH 32.4 H, RDW 15.3 H, MPV 10.4, Gran % 87.9 H, Lymphocytes % 6.5 L, Monocytes % 5.4, Eosinophils % 0.1, Basophils % 0.1, Absolute Granulocytes 11.3 H, Absolute Lymphocytes 0.8 L, Absolute Monocytes 0.7 H, Absolute Eosinophils 0, Absolute Basophils 0, PUBS MCHC 34.1 08/20/16 0955: pH 7.29 *L, pCO2 38, pO2 128 H, HCO3 18 L, ABG O2 Sat (Measured) 98.0, P-50 ( Temp Corrected) N, Carboxyhemoglobin 0.4 L, O2 Concentration % .5, Temperature 97.7, Respiration Rate 26, O2 Delivery Method BIPAP, Vent Mode ST, Expiratory Pressure 6, Inspiratory Pressure 20, Phlebotomy Draw Site RIGHT BRACHIAL 08/20/16 0515: Lactic Acid 1.5 08/20/16 0515: Anion Gap 12, Estimated GFR 16 L, Glucose 158 H, Calcium 8.2 L, Phosphorus 2.3 L, Magnesium 1.2 L, Total Bilirubin 1.5 H, AST 99 H, ALT 74 H, Albumin 3.0 L, CBC w Diff NO MAN DIFF REQ, RBC 4.15 L, MCV 95.1 H, MCH 32.0 H, RDW 15.5 H, MPV 10.6 H, Gran % 78.4 H, Lymphocytes % 8.3 L, Monocytes % 12.2 H, Eosinophils % 0.8, Basophils % 0.3, Absolute Granulocytes 12.0 H, Absolute Lymphocytes 1.3, Absolute Monocytes 1.9 H, Absolute Eosinophils 0.1, Absolute Basophils 0, PUBS MCHC 33.7 08/20/16 0250: Anion Gap 9, Estimated GFR 17 L, BUN/Creatinine Ratio 7.4, Lactic Acid 1.3, Calcium 8.0 L, Magnesium 1.2 L, Total Bilirubin 1.2, Direct Bilirubin 0.6 H, AST 67 H, ALT 64, Alkaline Phosphatase 58, Troponin I 0.04, Total Protein 5.5 L, Albumin 2.8 L 08/20/16 0145: pH 7.31 L, pCO2 35, pO2 133 H, HCO3 17 L, ABG O2 Sat (Measured) 98.0, P-50 ( Temp Corrected) N, Carboxyhemoglobin 0.3 L, O2 Concentration % .50, Respiration Rate 26, O2 Delivery Method BIPAP, Vent Mode ST, Expiratory Pressure 6, Inspiratory Pressure 20, Phlebotomy Draw Site RIGHT BRACHIAL 08/20/16 0035: Bicarbonate Actual 21 L, Mixed VBG pH 7.24 L, Mixed VBG pCO2 51, Mixed VBG O2 Saturation 54 H, P-50 (Temp Corrected) N, Carboxyhemoglobin 0.7 L, O2 Concentration % .50, Respiration Rate 26, O2 Delivery Method BIPAP, Vent Mode ST , Expiratory Pressure 6, Inspiratory Pressure 20, Phlebotomy Draw Site VENOUS 08/20/16 0023: Lactic Acid Cancelled 08/19/162229: Urine Color YEL, Urine Clarity HAZY H, Urine pH 6.0, Ur Specific [place] 1.020, Urine Protein TRACE H, Urine Ketones NEG, Urine Nitrite NEG, Urine Bilirubin NEG@ICTO, Urine Urobilinogen 0.2, Ur Leukocyte Esterase NEG, Ur Microscopic SEDIMENT EXAMINED, Urine RBC 5-10 H, Urine WBC 10-15 H, Ur Epithelial Cells RARE, Urine Bacteria FEW H, Hyaline Casts 1-3 H, Urine Hemoglobin LARGE H, Urine Glucose NEG 08/19/162229: Ur Random Creatinine 208.9, Ur Random Microalbumin 11.2 H, U Random Total Protein 18 H, Ur Random Sodium 64, Ur Random Potassium 38.6, Protein/Creatinin Ratio 0.1, Fraction Sodium Excret 0.8, U Cystine/Creat Ratio 53.61 08/19/162129: Lactic Acid 2.6 H 08/19/162129: Tsx-W-Hpyvpnpmexq Pept 61.5, TSH < 0.015 L, Free T4 2.25 08/19/162129: Anion Gap 13, Estimated GFR 15 L, BUN/Creatinine Ratio 7.7, Glucose 121 H, Calcium 10.1, Total Bilirubin 1.3, AST 56, ALT 64, Alkaline Phosphatase 77, Ammonia < 9 L, Troponin I 0.04, Total Protein 6.8, Albumin 3.8, Globulin 3.0, Albumin/Globulin Ratio 1.3, PT 12.0, INR 1.14, APTT 31, CBC w Diff NO MAN DIFF REQ, RBC 4.72, MCV 95.1 H, MCH 31.8 H, RDW 15.8 H, MPV 10.4, Gran % 62.1, Lymphocytes % 18.6 L, Monocytes % 16.8 H, Eosinophils % 2.3, Basophils % 0.2, Absolute Granulocytes 7.5 H, Absolute Lymphocytes 2.2, Absolute Monocytes 2.0 H, Absolute Eosinophils 0.3, Absolute Basophils 0, PUBS MCHC 33.5 Microbiology 05/30 0500 UPPER RESP: Surveillance Culture - COMP 08/20 499 GI: Surveillance Culture - COMP 08/19 2229 URINE ROUT: Urine Culture - COMP Assessment/Plan Assessment/Plan Assessment: 1. History of pituitary tumor resection 2. Hypotension, likely secondary to adrenal crisis. Rule out sepsis. Off pressors 3. Pneumonia 4. Chronic kidney disease with acute exacerbation 5. Ruled out for SC her infarction with negative troponin 2 6. Abnormal EKG Recommendations: -Continue supportive care as per the medical, critical care, and endocrinology teams. -Echocardiogram pending -Further cardiac input after the echocardiogram is available.
--- NOTE | 2016-08-21 14:03 | RADIOLOGY REPORT ---
EXAMINATION: XR PORTABLE CHEST CLINICAL INFORMATION: Evaluate consolidation pneumonia. COMPARISON: Prior chest x-ray 08/20/2016. TECHNIQUE: Portable AP semiupright view of the chest was obtained. FINDINGS: Exam is limited as the patient is rotated and there is motion artifact and under exposed. Question mild interstitial changes compatible with edema. Cardiac silhouette prominent but unchanged. Pulmonary vasculature unremarkable. Central venous catheter noted with the tip not well visualized likely within the SVC unchanged. IMPRESSION: Limited examination as above. Possible mild pulmonary edema similar to prior.
--- NOTE | 2016-08-21 14:42 | ECHOCARDIOGRAM REPORT ---
TRENT DE LA TORRE Age: 75 : 1940 Gender: M Exam Date: 08/20/2016 14:59 Exam Location: [facility] Ht (in): 70 Wt (lb): 298 BSA: 2.65 BP: 99 / 68 Ordering Physician: VIOLET MENDEZ M Referring Physician: Paddy Chen MD Technologist: Wendi Boles CISCO Room Number: 112 Indications: AFIB/FLUTTER Rhythm: Sinus Technical Quality: Technically difficult study FINDINGS Left Ventricle Normal size left ventricle. Mild concentric left ventricular hypertrophy. Normal left ventricular ejection fraction visually estimated at >60%. Normal left ventricular wall motion. Right Ventricle Normal right ventricular size and function. Right Atrium Normal right atrial size. Left Atrium Normal left atrial size. Mitral Valve Mitral valve thickened. Trace mitral regurgitation. Aortic Valve Diffuse thickening of the aortic valve cusps. Mild aortic stenosis. Tricuspid Valve Tricuspid valve not well visualized, grossly normal. Trace tricuspid regurgitation. Pulmonic Valve Pulmonic valve not well visualized, grossly normal. Pericardium No pericardial effusion. Great Vessels Normal size aortic root. CONCLUSIONS Mild concentric left ventricular hypertrophy. Normal left ventricular ejection fraction visually estimated at > 60%. Trace mitral regurgitation. Mild aortic stenosis. Trace tricuspid regurgitation. Paddy Chen M.D. (Electronically Signed) Final Date: 21 Aug 2016 14:41 MEASUREMENTS (Male / Female) Normal Values 2D ECHO LV Diastolic Diameter PLAX 5.1 cm 4.2 - 5.9 / 3.9 - 5.3 cm LV Systolic Diameter PLAX 2.4 cm 2.1 - 4.0 cm LV Fractional Shortening PLAX 52.9 % 25 - 46 % LV Ejection Fraction 2D Teich 83.7 % IVS Diastolic Thickness 1.2 cm LVPW Diastolic Thickness 1.2 cm LVPW Systolic Thickness 0.6 cm LV Relative Wall Thickness 0.5 LVOT Diameter 2.2 cm Aortic Root Diameter 3.1 cm LA Systolic Diameter LX 4.0 cm 3.0 - 4.0 / 2.7 - 3.8 cm LA Volume 44.0 cm 18 - 58 / 22 - 52 cm Ascending Aorta Diameter 2.9 cm DOPPLER AV Peak Velocity 245.0 cm/s AV Peak Gradient 24.0 mmHg AV Mean Velocity 186.0 cm/s AV Mean Gradient 15.0 mmHg AV Velocity Time Integral 47.2 cm LVOT Peak Velocity 133.0 cm/s LVOT Peak Gradient 7.1 mmHg LVOT Mean Velocity 99.7 cm/s LVOT Mean Gradient 4.0 mmHg LVOT Velocity Time Integral 29.4 cm LVOT Stroke Volume 111.8 cm AV Area Cont Eq vti 2.4 cm AV Area Cont Eq pk 2.1 cm MV Peak Velocity 153.0 cm/s MV Peak Gradient 9.4 mmHg MV Mean Velocity 96.4 cm/s MV Mean Gradient 4.0 mmHg Mitral E Point Velocity 129.0 cm/s Mitral A Point Velocity 122.0 cm/s Mitral E to A Ratio 1.1 MV PHT Velocity 153.0 cm/s MV Deceleration [place] 706.0 cm/s MV Pressure Half Time 65.0 ms MV Area PHT 3.4 cm MV Deceleration Time 137.0 ms PV Peak Velocity 197.0 cm/s PV Peak Gradient 15.5 mmHg PV Mean Velocity 115.0 cm/s PV Mean Gradient 6.0 mmHg PV Velocity Time Integral 34.9 cm LV E' Lateral Velocity 9.6 cm/s Mitral E to LV E' Lateral Ratio 13.5 LV E' Septal Velocity 11.6 cm/s Mitral E to LV E' Septal Ratio 11.1
[2016-08-21 16:00] VITALS: BP 122/64
--- NOTE | 2016-08-21 16:01 | Cons- Infect Disease ---
General Information and HPI Consulting Request Date of Consult: 08/21/16 Requested By: HIEU MORA MD Reason for Consult: Rule out sepsis/meningitis Exam Limitations: clinical condition History of Present Illness: This is a 75-year-old man with a history of panhypopituitarism, status post resection of a pituitary tumor and radiation therapy 11 years prior to admission , with subsequent placement of a BID CLERK shunt, maintained on steroids, Levothyroxine and DDAVP nasal spray, diabetes, hypothyroidism, chronic renal sufficiency, hypertension and sleep apnea, with short-term memory loss, recently treated with Amoxicillin for otitis media, admitted on August 20 with progressive weakness, lethargy, anorexia and confusion. On admission he was afebrile and tachypneic, with a blood pressure of 74 over palp. He was placed on BiPAP and was given 7 L of fluid in the emergency room, with persistent hypotension, for which he was begun on Levophed with a right IJ triple-lumen catheter placed. Laboratory data revealed a white blood cell count of 12,000, BUN/creatinine 30 and 3.9, with normal liver enzymes, coags normal. Urinalysis 5-10 RBC/10-15 WBCs. Chest x- ray revealed a small left pleural effusion with streaky basilar opacities. CT of the head and spine were negative for any acute process. CT of the chest, abdomen and pelvis revealed a T10 vertebral body compression deformity with no acute findings. He was begun on Vancomycin and Ceftazidime in the emergency room, He was given 1 dose of Unasyn on the next morning but was then continued on the Vancomycin and Ceftazidime. He was begun on Hydrocortisone as well as DDAVP. He has remained afebrile with a mild leukocytosis on steroids since admission. He has remained lethargic, but his blood pressure has improved, and he is now off pressors. He is unable to provide any history secondary to his condition. Allergies/Medications Allergies: Coded Allergies: NO KNOWN ALLERGIES (12/10/12) Home Med List: Alendronate Sodium 70 MG TABLET 1 TAB PO QW OSTEOPOROSIS (Reported) in the morning, at least 30 minutes before the first food, beverage, or medication of the day Aspirin (Ecotrin*) 81 MG TABLET.DR 1 TAB PO DAILY CVD (Reported) Cholecalciferol (Vitamin D3) (Vitamin D) 400 UNIT CAPSULE 1 CAP PO DAILY LOW VITAMIN D (Reported) Desmopressin Acetate 10 MCG/SPRAY (0.1 ML) SPRAY.PUMP 10 MCG MOSES BID HYPO-PIT (Reported) Levothyroxine Sodium 175 MCG TABLET 1 TAB PO DAILY HYPO-T (Reported) Lisinopril 10 MG TABLET 1 TAB PO DAILY BP (Reported) Meclizine HCl 25 MG TABLET 1 TAB PO TID VERTIGO (Reported) Multivitamin (Daily Multiple Vitamin) 1 EACH TABLET 1 TAB PO DAILY MULTIVITAMIN (Reported) Pioglitazone HCl 45 MG TABLET 1 TAB PO DAILY DM (Reported) Potassium Chloride (Klor-Con M10) 10 MEQ TAB.ER.PRT 2 TAB PO DAILY hypo-k ( Reported) Prednisone 5 MG TABLET 1 TAB PO DAILY HYPO-PIT (Reported) Simvastatin (Simvastatin*) 20 MG TABLET 1 TAB PO QPM HYPER-CHOLESTEROL ( Reported) Past History Travel History Traveled to [place] past 21 day No Medical History Blood Transfusion Hx: No Neurological: pituitary tumor EENT: NONE Cardiovascular: hypertension, hyperlipidemia Respiratory: obstructive sleep apnea Gastrointestinal: NONE Hepatic: NONE Musculoskeletal: NONE Psychiatric: NONE Endocrine: diabetes, hypothyroidism, LOW TESTOSERONE, panhypopituitarism Blood Disorders: NONE Cancer(s): NONE 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 Home Services at Home: None Primary Language: Divehi Smoking Status: Former Smoker ETOH Use: denies use Illicit Drug Use: denies illicit drug use Functional Ability ADLs Independent: dressing, eating, toileting, bathing. Ambulation: independent IADLs Independent: shopping, housework, finances, food prep, telephone, transportation , medication admin. Review of Systems Review of Systems Cardiovascular: Reports: peripheral edema (bilat lower ext). Genitourinary: Reports: frequency. Comments Unobtainable Exam & Diagnostic Data Last 24 Hrs of Vital Signs/I&O Vital Signs Date Time Temp Pulse Resp B/P B/P Pulse O2 O2 Flow FiO2 Mean Ox Delivery Rate 08/21 1200 96 Nasal 2.0L Cannula 08/21 1037 95 Nasal 2.0L Cannula 08/21 0800 97.4 76 24 130/64 98 Nasal 3.0L Cannula 08/21 0800 98 Nasal 3.0L Cannula 08/21 0400 97 Nasal 3.0L Cannula 08/21 0000 97 Nasal 3.0L Cannula 08/21 1999 96 Nasal 3.0L Cannula 08/21 1599 96 Nasal 3.0L Cannula Intake & Output 08/21 1600 08/21 0800 08/21 0000 Intake Total 695 542.2 499.8 Output Total 450 465 550 Balance 245 77.2 -50.2 Intake, IV 695 542.2 499.8 Intake, Oral 0 0 Number 0 0 Bowel Movements Output, Urine 450 465 550 Physical Exam Other Physical Findings: He is lethargic, minimally arousable, responsive to pain, but unable to converse or provide any history, with speech garbled. He is afebrile on steroids. Skin reveals no rash. HEENT exam is negative; BID CLERK shunt palpable over the right frontoparietal area and tracking anterior to the ear, with no erythema or overlying inflammation. Neck is supple with no adenopathy; right IJ triple- lumen catheter with no inflammation at the site. Lungs are clear. Heart regular rhythm with no murmur. Abdomen is obese, soft, nontender with positive bowel sounds. Back no CVA tenderness. Extremities no cyanosis, clubbing or edema. Neuro left upper extremity more flaccid than the right upper extremity, with full exam limited. Renteria catheter is in place. Last 24 Hours of Lab Results: Laboratory Tests 08/21 08/21 08/21 08/21 1230 1120 0832 0440 Blood Gas pH (7.35 - 7.45 PH) 7.33 L pCO2 (35 - 45 TORR) 43 pO2 (80 - 100 TORR) 87 HCO3 (21 - 28 MEQ/L) 23 ABG O2 Sat (Measured) (>96.0 %) 97.0 P-50 (Temp Corrected) YES Carboxyhemoglobin (1.5 - 5.0 %) 0.3 L O2 Concentration % 3L Temperature (97.0 - 100.0 FARH) 97.4 O2 Delivery Method NC Chemistry Ammonia (9 - 30 umol/L) < 9 L Prot Electrophoresis Pending Total Protein (PEP) Pending Albumin % (PEP) Pending [id number] Pending [id number] Pending Ychu-9-Mjhnedca Pending [id number] Pending Gamma Globulins Pending Abnorm Protein Band 1 Pending Abnorm Protein Band 2 Pending Abnorm Protein Band 3 Pending Miscellaneous Phlebotomy Draw Site RIGHT RADIAL Toxicology Acetaminophen (10.0 - 30.0 ug/mL) < 10.0 L 08/21 08/21 3380 7455 Chemistry Sodium (137 - 145 mmol/L) 145 Potassium (3.5 - 5.1 mmol/L) 4.3 Chloride (98 - 107 mmol/L) 113 H Carbon Dioxide (22 - 30 mmol/L) 21 L Anion Gap (5 - 16) 10 BUN (9 - 20 mg/dL) 27 H Creatinine (0.7 - 1.2 mg/dL) 2.5 H Estimated GFR (>60 ml/min) 25 L Glucose (65 - 99 mg/dL) 155 H Calcium (8.4 - 10.2 mg/dL) 7.8 L Phosphorus (2.5 - 4.5 mg/dL) 2.8 Magnesium (1.6 - 2.3 mg/dL) 1.8 Total Bilirubin (0.2 - 1.3 mg/dL) 0.6 AST (17 - 59 U/L) 157 H ALT (21 - 72 U/L) 87 H Albumin (3.5 - 5.0 g/dL) 2.8 L Hematology CBC w Diff NO MAN DIFF REQ WBC (4.8 - 10.8 /CUMM) 14.3 H RBC (4.70 - 6.10 /CUMM) 3.70 L Hgb (14.0 - 18.0 G/DL) 12.0 L Hct (42 - 52 %) 35.2 L MCV (80.0 - 94.0 FL) 95.1 H MCH (27.0 - 31.0 PG) 32.4 H RDW (11.5 - 14.5 %) 15.6 H Plt Count (130 - 400 /CUMM) 108 L MPV (7.4 - 10.4 FL) 10.0 Gran % (42.2 - 75.2 %) 89.2 H Lymphocytes % (20.5 - 51.1 %) 4.5 L Monocytes % (1.7 - 9.3 %) 6.3 Eosinophils % (0 - 5 %) 0 Basophils % (0.0 - 2.0 %) 0 L Absolute Granulocytes (1.4 - 6.5 /CUMM) 12.8 H Absolute Lymphocytes (1.2 - 3.4 /CUMM) 0.6 L Absolute Monocytes (0.10 - 0.60 /CUMM) 0.9 H Absolute Eosinophils (0.0 - 0.7 /CUMM) 0 Absolute Basophils (0.0 - 0.2 /CUMM) 0 PUBS MCHC (33.0 - 37.0 G/DL) 34.1 Urines Urinalysis MOD H Urine Color (YEL,AMB,STR) YEL Urine Clarity (CLEAR) HAZY H Urine pH (5.0 - 8.0) 5.5 Ur Specific [place] (1.001 - 1.035) 1.025 Urine Protein (NEG,<30 MG/DL) 30 H Urine Ketones (NEG) NEG Urine Nitrite (NEG) NEG Urine Bilirubin (NEG) NEG Urine Urobilinogen (0.1 - 1.0 EU/dl) 0.2 Ur Leukocyte Esterase (NEG) TRACE H Ur Microscopic SEDIMENT EXAMINED Urine RBC (0 - 5 /HPF) 50-75 H Urine WBC (0 - 2 /HPF) 5-10 H Ur Epithelial Cells (NONE,FEW) FEW Urine Bacteria (NEG/NONE) MOD H Urine Hemoglobin (NEG) LARGE H Urine Glucose (N MG/DL) NEG 08/200 Chemistry Sodium (137 - 145 mmol/L) 141 Potassium (3.5 - 5.1 mmol/L) 4.4 Chloride (98 - 107 mmol/L) 112 H Carbon Dioxide (22 - 30 mmol/L) 20 L Anion Gap (5 - 16) 8 BUN (9 - 20 mg/dL) 26 H Creatinine (0.7 - 1.2 mg/dL) 2.9 H Estimated GFR (>60 ml/min) 21 L Glucose (65 - 99 mg/dL) 181 H Calcium (8.4 - 10.2 mg/dL) 7.7 L Phosphorus (2.5 - 4.5 mg/dL) 2.9 Magnesium (1.6 - 2.3 mg/dL) 1.8 Total Bilirubin (0.2 - 1.3 mg/dL) 0.7 AST (17 - 59 U/L) 165 H ALT (21 - 72 U/L) 88 H Albumin (3.5 - 5.0 g/dL) 2.9 L Vitamin B12 (239 - 931 pg/mL) > 1000 H 25-OH Vitamin D Total (30 - 100 ng/ml) 21.5 L Folate (2.76 - 20.0 ng/mL) > 20.0 H Free T3 (2.45 - 5.93 pg/mL) 3.5 Last 24 Hours of Jerry Results: Blood cultures 2 August 19 negative Urine culture August 19 negative Diagnostic Data Recent Imaging Findings: Chest x-ray August 21, personally reviewed, reveals mild interstitial changes CT of the head August [address] of the head and cervical spine August 19 negative for any acute process. CT of the chest, abdomen and pelvis August 19 revealed a T10 vertebral body compression deformity with no acute findings. Assessment/Plan Assessment/Plan Impression: This is a 75-year-old man with panhypopituitarism, status post resection of a pituitary tumor, radiation and placement of a BID CLERK shunt 11 years prior to admission, with diabetes, hypertension, hypothyroidism and chronic renal insufficiency admitted on August 20 with weakness, lethargy, anorexia and confusion for several days, found to be afebrile, tachypneic and hypotensive, with a mild leukocytosis and worsening renal failure, treated with fluids, pressors, at least initially, and broad-spectrum antibiotics with improvement in his blood pressure and respiratory status but with persistent lethargy and encephalopathy. 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 Of note he was treated recently with antibiotics for an otitis media, which might increase his risk for meningitis. His garbled speech and weakness raise the possibility of an infarct , though he apparently has residual neurologic deficits related to his pituitary tumor/resection and his CT scans of the head have been negative. It may be reasonable to continue him on some antibiotics at this time, but his regimen can be adjusted given the negative cultures. Suggestion: 1. Would pursue a lumbar puncture and sent for usual studies including PCR for HSV and cytology 2. MRI of the head if feasible 3. Discontinue Vancomycin and Ceftazidime 4. Begin Unasyn 3 g IV every 8 hours Consult Acknowledgment - Thank you for your consult request.
--- NOTE | 2016-08-21 19:05 | Event Note ---
Event Note Event Note: I spoke to the radiologist Dr. Styles around 6 PM about the need of doing a lumbar puncture for this patient to rule out a MAIL TELLER infection. Because of the patient's habitus and agitation, it's not possible to the procedure at the bedside. Plan is to do an LP at around 10 AM tomorrow under anesthesia. This would be followed by an MRI at 12 PM to rule an infarct. The radiologist tried to reach the patient's twice for consent with no response and therefore left her home voicemail explaining the procedure. The patient's Stacy Pitt called back to the ICU and expressed her frustration about not being updated about the procedure in the morning. I clearly explained to her the that the decision was made in the afternoon after discussion with the ID doctor and subsequently the radiologist. Also she was made aware of the importance the procedure to rule out meningitis/encephalitis given patient's persistent encephalopathy. She did not feel convinced about the need of the procedure since she thought that Emerson was improving clinically and he had responded to his son's questions earlier in the morning. She wanted to discuss the same overnight with her son and come to a decision tomorrow morning. I updated them about the timing of the procedure and requested them to come in before 10 AM to discuss with the primary team.
--- NOTE | 2016-08-21 21:40 | ELECTROENCEPHALOGRAM REPORT ---
Electroencephalogram Report Electroencephalogram Results Date of service: 08/21/16 Attending MD: HIEU MORA MD Marine Consultant: DAO Mosley EEG Number: [id number] Test Utilizes: 10-20 system, 21 lead 18 channel digital recording Pertinent Hx/Physical/Neuro Findings/Clin Diagnosis: Altered mental status, hx of right frontal craniotomy 2006, evaluation for seizures or encephalopathy. Inpatient Medications: Current Medications Sig/Antwon Start time Last Medication Dose Route Stop Time Status Admin Acetaminophen 650 MG Q6 PRN 08/20 0415 AC PO Albuterol Sulfate 3 ML ONCE ONE 08/21 1045 DC INH 08/21 1046 Ampicillin Sodium/ 3,000 MG Q6 08/21 1800 AC 08/21 Sulbactam Sodium IV 2042 Sodium Chloride 100 ML Ceftazidime 2,000 MG 1100 08/20 1100 DC 08/21 Dextrose/Water 50 ML IV 1036 Desmopressin Acetate 1 MCG BID 08/20 1300 AC 08/21 SC 1154 Dextrose/Sodium 1,000 ML Q13H 08/20 1545 AC 08/21 Chloride IV 0538 Haloperidol 1 MG ONCE ONE 08/21 1400 DC 08/21 IM 08/21 1401 1402 Heparin Sodium 5,000 UNIT Q8 08/20 0600 DC 08/20 (Porcine) SC 2209 Hydrocortisone 100 MG Q8 08/20 0600 AC 08/21 Sodium Succinate IV 1401 Insulin Aspart 0 Q4 08/20 1239 AC 08/21 SC 1826 Levothyroxine Sodium 88 MCG DAILY 08/20 1031 AC 08/21 IV 1038 Lorazepam 1 MG Q6-PRN PRN 08/20 2315 AC 08/21 IV 1848 Lorazepam 2 MG ONCE PRN 08/20 1700 AC 08/20 IV 1743 Magnesium Sulfate 1 GM Q2H 08/21 1800 AC 08/21 Dextrose/Water 100 ML IV 08/21 2159 1941 Morphine Sulfate 0.4 MG ONCE ONE 08/21 1045 CAN IV 08/21 1046 Morphine Sulfate 1 MG ONCE ONE 08/21 1045 DC 08/21 IV 08/21 1046 1152 Morphine Sulfate 2 MG Q6P PRN 08/20 2035 AC IV Nystatin 1 THANH BID 08/20 1000 AC 08/21 TOP 1113 Oxycodone HCl 5 MG Q6 PRN 08/20 0415 AC PO Sodium Phosphate 15 mMol ONE ONE 08/21 1800 AC 08/21 Dextrose/Water 250 ML IV 08/218 Vancomycin HCl 1,500 MG Q24 08/20 1034 DC 08/21 Sodium Chloride 250 ML IV 1159 Interpretation: The background is dominated by low to moderate amplitude slow activity in the theta range with intermixed frontally domimant low amplitude beta. There are no epileptiform abnormalities and no clear lateralisation of slowing despite hx of right craniotomy. The patient was restless and hyperventilation and photic stimulation could not be performed. Impression: Abnormal due to moderate generalized slowing consistent with a diffuse toxic or metabolic encephalopathy. No epileptiform abnormalities are found.
[2016-08-22] VITALS: BP 158/70
[2016-08-22 05:15] LABS: ABSOLUTE BASOPHIL COUNT 0 /CUMM (0.0-0.2); ABSOLUTE EOSINOPHIL COUNT 0 /CUMM (0.0-0.7); ABSOLUTE GRANULOCYTE CT 10.8 /CUMM (1.4-6.5); ABSOLUTE LYMPH COUNT 0.4 /CUMM (1.2-3.4); ABSOLUTE MONOCYTE COUNT 0.7 /CUMM (0.10-0.60); BASOPHIL % 0 % (0.0-2.0); EOSINOPHIL % 0 % (0-5); MEAN CORPUSCULAR HGB CONC 33.7 G/DL (33.0-37.0); MEAN PLATELET VOLUME 9.8 FL (7.4-10.4); PLATELET COUNT 125 /CUMM (130-400); RBC DISTRIBUTION WIDTH 15.6 % (11.5-14.5); RED BLOOD CELL CT 3.85 /CUMM (4.70-6.10); WHITE BLOOD CELL COUNT 11.9 /CUMM (4.8-10.8)
[2016-08-22 05:23] LABS: HEMATOCRIT 36.6 % (42-52)
--- NOTE | 2016-08-22 07:38 | PN- Resident CRCU ---
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 Patient received breathing treatment this morning, ABG within normal. Will obtain chest x-ray. 24 Hour Events: Patient had never get shortness of breath overnight with high despite rate, chest x-ray was ordered. Mentation improved. Objective Vital Signs & I&O Last 8 Hrs of Vitals and I&O: 11 Exam General Appearance: alert, mild distress Head: atraumatic Ears, Nose, Throat: normal pharynx, normal ENT inspection Neck: normal inspection, supple Respiratory: chest non-tender, decreased breath sounds Cardiovascular: regular rate/rhythm Gastrointestinal: normal bowel sounds, soft, non-tender Extremities: normal inspection, no edema Cranial Nerves: normal hearing, normal speech, PERRL Current Medications: Current Medications Sig/Antwon Start time Last Medication Dose Route Stop Time Status Admin Acetaminophen 650 MG Q6 PRN 08/20 0415 AC PO Ampicillin Sodium/ 3,000 MG Q6H 08/22 0300 DC 08/22 Sulbactam Sodium IV 0951 Sodium Chloride 100 ML Ampicillin Sodium/ 3,000 MG Q6 08/21 1800 DC 08/21 Sulbactam Sodium IV 2042 Sodium Chloride 100 ML Ceftazidime 2,000 MG 1100 08/20 1100 DC 08/21 Dextrose/Water 50 ML IV 1036 Desmopressin Acetate 1 MCG BID 08/20 1300 AC 08/22 SC 1051 Dextrose/Sodium 1,000 ML Q20H 08/22 1100 AC 08/22 Chloride IV 1137 Dextrose/Sodium 1,000 ML Q13H 08/20 1545 DC 08/22 Chloride IV 0155 Furosemide 20 MG ONCE ONE 08/22 1245 DC 08/22 IV 08/22 1246 1334 Furosemide 20 MG ONCE ONE 08/22 0815 DC 08/22 IV 08/22 0816 0816 Hydralazine HCl 5 MG ONCE ONE 08/22 0815 DC 08/22 IV 08/22 0816 0817 Hydrocortisone 50 MG Q8 08/22 1400 AC 08/22 Sodium Succinate IV 1334 Hydrocortisone 100 MG Q8 08/20 0600 DC 08/22 Sodium Succinate IV 0551 Insulin Aspart 0 Q4 08/20 1239 AC 08/22 SC 1338 Levothyroxine Sodium 88 MCG DAILY 08/20 1031 AC 08/22 IV 1055 Lorazepam 1 MG ONCE ONE 08/22 1445 DC 08/22 IV 08/22 1446 1500 Lorazepam 1 MG Q6-PRN PRN 08/20 2315 AC 08/21 IV 1848 Lorazepam 2 MG ONCE PRN 08/20 1700 AC 08/20 IV 1743 Magnesium Sulfate 1 GM Q2H 08/21 1800 DC 08/21 Dextrose/Water 100 ML IV 08/21 2159 1941 Metoprolol Tartrate 5 MG Q6 08/22 1145 DC IV Metoprolol Tartrate 5 MG ONCE ONE 08/22 0900 DC 08/22 IV 08/22 0901 0904 Morphine Sulfate 2 MG Q6P PRN 08/20 2035 AC IV Nystatin 1 THANH BID 08/20 1000 AC 08/22 TOP 1048 Oxycodone HCl 5 MG Q6 PRN 08/20 0415 AC PO Potassium Chloride 20 MEQ Q1H 08/22 0815 DC 08/22 IV 08/22 0916 1133 Potassium Chloride 20 MEQ ONCE ONE 08/22 0745 CAN IV 08/22 0746 Sodium Phosphate 15 mMol ONE ONE 08/22 0745 DC 08/22 Sodium Chloride 250 ML IV 08/22 1148 1048 Sodium Phosphate 15 mMol ONE ONE 08/21 1800 DC 08/21 Dextrose/Water 250 ML IV 08/21 2203 2038 Vancomycin HCl 1,500 MG Q24 08/20 1034 DC 08/21 Sodium Chloride 250 ML IV 1159 Impression/Plan Impression/Problem List Impression: Mr. Downs is 75 with past medical history significant for pituriatry tumor resection in 2010 or 2011 (per ) with subsequent LICENSED OPTICIAN shunt and brain radiation, short term memory loss, chronic renal disease, hypothyroidism, diabetes, hypertension who was BIBA SOB and AMS. 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 Normal left ventricular ejection fraction visually estimated at > 60%. Trace mitral regurgitation. Mild aortic stenosis. Trace tricuspid regurgitation. ID -Patient initially was started on ceftaz and vancomycin being immunocompromised on chronic steroids, given that no evidence of current infection as patient is continued to be afebrile with no leukocytosis, antibiotic was switched to Unasyn -ID consultation was obtained, thanks for recommendation -Will hold Unasyn, continue off antibiotic -We will obtain chest x-ray today, if there is no signs of consolidation will hold off antibiotics -Afibrile, leukocytosis without bandemia mostly steroid related -We will hold off & puncture given improvement patient's mentation Respiratory -ABG 7.4/39/63/20 acute hypoxic respiratory failure -Chest x-ray 08/22 IMPRESSION: Significantly limited evaluation due to patient rotation. Cardiomegaly, central vascular congestion, and bilateral lower lung zone consolidations are suspected. Recommend repeat chest x-ray for reassessment. -Start BiPAP, repeat EKG after one hour -Lasix 20 mg IV once Metabolic -Non-anion gap metabolic acidosis--resolved -Nephrology consultation was obtained, thanks for recommendation -Creatinine improved 1.8 -FENa indicative for prerenal, fraction excretion sodium 0.8 indicating for prerenal rather than ATN -Urine electrolytes, spot protein creatinine ratio pending -Serum electrophoresis and urine electrophoresis pending -NovoLog sliding scale every 4 Nuero -Alert oriented 3 -Neuro exam within normal -Reports about hospital acquired delirium -Neuro consultation was obtained, thanks for recommendation -Hypoxic encephalopathy, recommendation for supportive treatment -EEG 08/21 Abnormal due to moderate generalized slowing consistent with a diffuse toxic or metabolic encephalopathy. No epileptiform abnormalities are found. -Ammonia level low x2 08/20 and 08/21 -Consider Ativan when necessary for agitation -CT head August 19 and August 21 are negative for acute intracranial pathology -We'll obtain MRI, records from [facility] regarding LICENSED OPTICIAN shunt was requested, pending Alimentry -NPO -Failed swallow eval Code Full DVT ALPS low platete DC [facility] Consultation cardiology, nephrology, endocrinology, neurology Problem List: 1. Septic shock 2. Pneumonia 3. Renal failure 4. Acute adrenal crisis Pain Ratin Tomorrow's Labs & Rationales: CBC, ICU bundle Plan DVT/Prophylaxis: JOSH Rojas MD 08/22/16 0931: Attending MD Review Statement Attending Sign Off Attending Cosign Statement: I have: examined this patient, reviewed avalbl EMR data, personally reviewd images, discussd w/resident/PA/ACCESS SERVICES REPRESENTATIVE, discussed mgmt plan w/angelo, discussed mgmt plan w/CM, discussed mgmt plan w/pt, agreed w/resident/PA/ACCESS SERVICES REPRESENTATIVE, amended to note. Other Findings: IJosh M.D. have examined this patient, reviewed available EMR data, personally reviewed images, discussed with resident/PA/ACCESS SERVICES REPRESENTATIVE, discussed management plan with housestaff and nursing staff, discussed managment plan all of healthcare providers, discussed management plan with patient and/or family, agreed with resident/PA/ACCESS SERVICES REPRESENTATIVE. The past history and parts of the chart have been autopopulated. 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
[2016-08-22 08:00] VITALS: BP 190/110
--- NOTE | 2016-08-22 08:24 | PN- Diabetes ---
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 He was found to be hypotensive. He was put on BiPAP, pressor and stress dose of steroid hydrocortisone 100mg iv every 8 hours, Levothyroxuine 88 mcg iv daily and DDAVP 1 mcg sc twice a day. At home, he was on Levothyroxine 175 mcg daily, prednisone 5 mg daily and DDAVP nasal spray twice a day. He is off on pressors. His vital signs have been stable. Currently he is on D51/ 2 NS at 75 ml/hour and Novolog coverage every 4 hours. His FSGs were 166, 178, 208, 201, 150. His sodium was 145 this morning. His In/OUT was 5. Patient appears more alert this morning. Plan: 1. decrease hydrocortisone to 50 mg IV every 8 hours for now; 2. Continue levothyroxine 88 MCG IV daily for now; 3. Continue DDAVP 1 g subcutaneous twice a day; monitor in and out and electrolytes ; 4. continue the current Novolog coverage every 4 hours for now; 5. monitor FSGs. will follow. Subjective Subjective: He appears more alert this morning and stated that he was feeling better. Objective Last 24 Hrs of Vital Signs/I&O Vital Signs Date Time Temp Pulse Resp B/P B/P Pulse O2 O2 Flow FiO2 Mean Ox Delivery Rate 08/22 0400 94 Nasal 3.0L Cannula 08/22 0215 96 Nasal 3.0L Cannula 08/22 0000 96 Nasal 3.0L Cannula 08/22 0000 95.8 91 29 158/70 96 Nasal 3.0L Cannula 08/21 2000 99 Nasal 3.0L Cannula 08/21 1600 97.2 84 20 122/64 98 Nasal 2.0L Cannula 08/21 1600 98 Nasal 2.0L Cannula 08/21 1200 96 Nasal 2.0L Cannula 08/21 1037 95 Nasal 2.0L Cannula Intake & Output 08/22 1600 08/22 0800 08/22 0000 Intake Total 620 774.8 Output Total 425 400 Balance 195 374.8 Intake, IV 620 774.8 Intake, Oral 0 0 Number 0 0 Bowel Movements Output, Urine 425 400 Findings Pertinent Lab/Jerry Results: Laboratory Tests 08/22 08/22 08/21 7359 3995 4620 Blood Gas pH (7.35 - 7.45 PH) 7.40 pCO2 (35 - 45 TORR) 39 pO2 (80 - 100 TORR) 63 L HCO3 (21 - 28 MEQ/L) 23 ABG O2 Sat (Measured) (>96.0 %) 92.0 L P-50 (Temp Corrected) N Carboxyhemoglobin (1.5 - 5.0 %) 0.1 L O2 Concentration % 3LPM O2 Delivery Method NC Chemistry Sodium (137 - 145 mmol/L) 145 144 Potassium (3.5 - 5.1 mmol/L) 3.7 4.1 Chloride (98 - 107 mmol/L) 111 H 113 H Carbon Dioxide (22 - 30 mmol/L) 24 24 Anion Gap (5 - 16) 10 8 BUN (9 - 20 mg/dL) 28 H 31 H Creatinine (0.7 - 1.2 mg/dL) 1.8 H 2.2 H Estimated GFR (>60 ml/min) 37 L 29 L Glucose (65 - 99 mg/dL) 161 H 154 H Calcium (8.4 - 10.2 mg/dL) 7.9 L 7.6 L Phosphorus (2.5 - 4.5 mg/dL) 3.0 2.7 Magnesium (1.6 - 2.3 mg/dL) 2.1 1.7 Total Bilirubin (0.2 - 1.3 mg/dL) 0.6 0.5 AST (17 - 59 U/L) 114 H 134 H ALT (21 - 72 U/L) 89 H 80 H Albumin (3.5 - 5.0 g/dL) 3.2 L 2.7 L Hematology CBC w Diff NO MAN DIFF REQ WBC (4.8 - 10.8 /CUMM) 11.9 H RBC (4.70 - 6.10 /CUMM) 3.85 L Hgb (14.0 - 18.0 G/DL) 12.3 L Hct (42 - 52 %) 36.6 L MCV (80.0 - 94.0 FL) 95.0 H MCH (27.0 - 31.0 PG) 32.0 H RDW (11.5 - 14.5 %) 15.6 H Plt Count (130 - 400 /CUMM) 125 L MPV (7.4 - 10.4 FL) 9.8 Gran % (42.2 - 75.2 %) 91.0 H Lymphocytes % (20.5 - 51.1 %) 3.4 L Monocytes % (1.7 - 9.3 %) 5.6 Eosinophils % (0 - 5 %) 0 Basophils % (0.0 - 2.0 %) 0 L Absolute Granulocytes (1.4 - 6.5 /CUMM) 10.8 H Absolute Lymphocytes (1.2 - 3.4 /CUMM) 0.4 L Absolute Monocytes (0.10 - 0.60 /CUMM) 0.7 H Absolute Eosinophils (0.0 - 0.7 /CUMM) 0 Absolute Basophils (0.0 - 0.2 /CUMM) 0 PUBS MCHC (33.0 - 37.0 G/DL) 33.7 Miscellaneous Phlebotomy Draw Site RIGHT RADIAL 08/21 08/21 08/21 1230 1120 0832 Blood Gas pH (7.35 - 7.45 PH) 7.33 L pCO2 (35 - 45 TORR) 43 pO2 (80 - 100 TORR) 87 HCO3 (21 - 28 MEQ/L) 23 ABG O2 Sat (Measured) (>96.0 %) 97.0 P-50 (Temp Corrected) YES Carboxyhemoglobin (1.5 - 5.0 %) 0.3 L O2 Concentration % 3L Temperature (97.0 - 100.0 FARH) 97.4 O2 Delivery Method NC Chemistry Ammonia (9 - 30 umol/L) < 9 L Miscellaneous Phlebotomy Draw Site RIGHT RADIAL Toxicology Acetaminophen (10.0 - 30.0 ug/mL) < 10.0 L
--- NOTE | 2016-08-22 09:55 | RADIOLOGY REPORT ---
EXAMINATION: XR PORTABLE CHEST CLINICAL INFORMATION: Shortness of breath. Crackles. Presumptive diagnosis of pneumonia, volume overload. COMPARISON: Chest x-ray dated 08/21/2016 and 08/20/2016. TECHNIQUE: Portable AP semierect view of the chest was obtained. FINDINGS: Patient is rotated, limiting assessment. Right jugular central venous line tip is poorly visualized but may be located in the mid SVC region. Cardiomediastinal silhouette is enlarged and indistinct related to increasing bibasilar areas of consolidation. There is likely central vascular congestion. No overt pulmonary edema. No pneumothorax. Hemidiaphragms bilaterally are not visualized, most likely related to technical factors. Bony structures grossly unremarkable. IMPRESSION: Significantly limited evaluation due to patient rotation. Cardiomegaly, central vascular congestion, and bilateral lower lung zone consolidations are suspected. Recommend repeat chest x-ray for reassessment.
--- NOTE | 2016-08-22 10:43 | PN- Nephrology ---
Assessment/Plan Assessment: CKD - Baseline stage III chronic kidney disease based on labs in 2013. Minimal proteinuria on dipsticks here. No significant abnormalities seen on his abdominal CT in terms of the kidneys. Just based on history has not had DM long enough to invoke diabetic nephropathy (often will need to be for at least 12 years). Presumably hypertensive nephrosclerosis and age related nephron loss. Renal function continues to improve. Would still send SPEP and KLFLC and f/u results. GINETTE - Likely 2/2 ATN in the setting of shock (which has resolved) vs pre-renal azotemia (given hx of reeves-hypopit requiring desmopressin). Renal function continues to improve. Low suspicion for GN given minimal proteinuria on spot ratio and that renal function is improving. Would recommend against sending serologic work-up in the setting of hematuria after glass placement - should monitor. Septic/Distributive shock - Resolved. 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 Likely from decreased free water intake. Was on hypotonic fluids but has pulm edema on chest x-ray. I would recommend just giving free water at this point. Altered mental status - No clear offending drugs that could have built up in the setting of GINETTE. Hypernatremia does not seem severe enough to cause altered mental status but is rather just a reflection of his inability to take in liquids. Going for MRI (if [employer] shunt compatible). Suggestion: -Would give D5W at 50cc/hr while not taking in PO -Agree with dose of lasix given earlier, may need to redose PRN if respiratory distress -Hold off on serologic GN work-up -f/u SPEP and KLFLC -Cont desmopressin as per Dr. Lynn Please call [phone] with ?'s Subjective Subjective: SCr down to 1.8 Na 145 Still altered Chest x-ray noted to be of poor quality but did appear to have increased vascular markings Given 20mg IV lasix 2L in's and 1.3L UOP Objective Vital Signs and I&Os Vital Signs Date Time Temp Pulse Resp B/P B/P Pulse O2 O2 Flow FiO2 Mean Ox Delivery Rate 08/22 0904 104 188/93 08/22 0817 96 190/110 08/22 0800 94 Nasal 3.0L Cannula 08/22 08 96.8 99 32 190/110 96 Nasal 3.0L Cannula 08/22 0400 94 Nasal 3.0L Cannula 08/22 0215 96 Nasal 3.0L Cannula 08/22 0000 96 Nasal 3.0L Cannula 08/22 0000 95.8 91 29 158/70 96 Nasal 3.0L Cannula 08/21 2000 99 Nasal 3.0L Cannula 08/21 1600 97.2 84 20 122/64 98 Nasal 2.0L Cannula 08/21 1600 98 Nasal 2.0L Cannula 08/21 1200 96 Nasal 2.0L Cannula 08/21 1037 95 Nasal 2.0L Cannula Intake & Output 08/22 1600 08/22 0400 08/21 1600 08/21 0400 08/20 1600 08/20 0400 Intake Total 620 774.8 1237.2 499.8 2343 Output Total 425 400 915 550 970 100 Balance 195 374.8 322.2 -50.2 1373 -100 Intake, IV 620 774.8 1237.2 499.8 2343 Intake, Oral 0 0 0 0 Number 0 0 0 0 0 Bowel Movements Output, Urine 425 400 915 550 970 100 Patient 298 lb 350 lb Weight Weight Bed scale Reported by Patient Measurement Method Physical Exam: Gen - less agitated HEENT - supple CV - RRR Chest - clear anteriorly Abd - soft, nontender Ext - no edema Neuro - remains altered, not following commands Current Medications: Current Medications Sig/Antwon Start time Last Medication Dose Route Stop Time Status Admin Acetaminophen 650 MG Q6 PRN 08/20 0415 AC PO Albuterol Sulfate 3 ML ONCE ONE 08/21 1045 DC 08/22 INH 08/21 1046 0159 Ampicillin Sodium/ 3,000 MG Q6H 08/22 0300 AC 08/22 Sulbactam Sodium IV 0951 Sodium Chloride 100 ML Ampicillin Sodium/ 3,000 MG Q6 08/21 1800 DC 08/21 Sulbactam Sodium IV 2042 Sodium Chloride 100 ML Ceftazidime 2,000 MG 1100 08/20 1100 DC 08/21 Dextrose/Water 50 ML IV 1036 Desmopressin Acetate 1 MCG BID 08/20 1300 AC 08/21 SC 2221 Dextrose/Sodium 1,000 ML Q13H 08/20 1545 DC 08/22 Chloride IV 0155 Furosemide 20 MG ONCE ONE 08/22 0815 DC 08/22 IV 08/22 0816 0816 Haloperidol 1 MG ONCE ONE 08/21 1400 DC 08/21 IM 08/21 1401 1402 Hydralazine HCl 5 MG ONCE ONE 08/22 0815 DC 08/22 IV 08/22 0816 0817 Hydrocortisone 50 MG Q8 08/22 1400 AC Sodium Succinate IV Hydrocortisone 100 MG Q8 08/20 0600 DC 08/22 Sodium Succinate IV 0551 Insulin Aspart 0 Q4 08/20 1239 AC 08/22 SC 0153 Levothyroxine Sodium 88 MCG DAILY 08/20 1031 AC 08/21 IV 1038 Lorazepam 1 MG Q6-PRN PRN 08/20 2315 AC 08/21 IV 1848 Lorazepam 2 MG ONCE PRN 08/20 1700 AC 08/20 IV 1743 Magnesium Sulfate 1 GM Q2H 08/21 1800 DC 08/21 Dextrose/Water 100 ML IV 08/21 2159 1941 Metoprolol Tartrate 5 MG ONCE ONE 08/22 0900 DC 08/22 IV 08/22 0901 0904 Morphine Sulfate 0.4 MG ONCE ONE 08/21 1045 CAN IV 08/21 1046 Morphine Sulfate 1 MG ONCE ONE 08/21 1045 DC 08/21 IV 08/21 1046 1152 Morphine Sulfate 2 MG Q6P PRN 08/20 2035 AC IV Nystatin 1 THANH BID 08/20 1000 AC 08/21 TOP 2212 Oxycodone HCl 5 MG Q6 PRN 08/20 0415 AC PO Potassium Chloride 20 MEQ Q1H 08/22 0815 DC 08/22 IV 08/22 0916 0823 Potassium Chloride 20 MEQ ONCE ONE 08/22 0745 CAN IV 08/22 0746 Sodium Phosphate 15 mMol ONE ONE 08/22 0745 AC Sodium Chloride 250 ML IV 08/22 1148 Sodium Phosphate 15 mMol ONE ONE 08/21 1800 DC 08/21 Dextrose/Water 250 ML IV 08/21 2203 2038 Vancomycin HCl 1,500 MG Q24 08/20 1034 DC 08/21 Sodium Chloride 250 ML IV 1159 Results Pertinent Lab Results: Laboratory Tests 08/22 08/22 08/21 0755 0410 1605 Blood Gas pH (7.35 - 7.45 PH) 7.40 pCO2 (35 - 45 TORR) 39 pO2 (80 - 100 TORR) 63 L HCO3 (21 - 28 MEQ/L) 23 ABG O2 Sat (Measured) (>96.0 %) 92.0 L P-50 (Temp Corrected) N Carboxyhemoglobin (1.5 - 5.0 %) 0.1 L O2 Concentration % 3LPM O2 Delivery Method NC Chemistry Sodium (137 - 145 mmol/L) 145 144 Potassium (3.5 - 5.1 mmol/L) 3.7 4.1 Chloride (98 - 107 mmol/L) 111 H 113 H Carbon Dioxide (22 - 30 mmol/L) 24 24 Anion Gap (5 - 16) 10 8 BUN (9 - 20 mg/dL) 28 H 31 H Creatinine (0.7 - 1.2 mg/dL) 1.8 H 2.2 H Estimated GFR (>60 ml/min) 37 L 29 L Glucose (65 - 99 mg/dL) 161 H 154 H Calcium (8.4 - 10.2 mg/dL) 7.9 L 7.6 L Phosphorus (2.5 - 4.5 mg/dL) 3.0 2.7 Magnesium (1.6 - 2.3 mg/dL) 2.1 1.7 Total Bilirubin (0.2 - 1.3 mg/dL) 0.6 0.5 AST (17 - 59 U/L) 114 H 134 H ALT (21 - 72 U/L) 89 H 80 H Albumin (3.5 - 5.0 g/dL) 3.2 L 2.7 L Hematology CBC w Diff NO MAN DIFF REQ WBC (4.8 - 10.8 /CUMM) 11.9 H RBC (4.70 - 6.10 /CUMM) 3.85 L Hgb (14.0 - 18.0 G/DL) 12.3 L Hct (42 - 52 %) 36.6 L MCV (80.0 - 94.0 FL) 95.0 H MCH (27.0 - 31.0 PG) 32.0 H RDW (11.5 - 14.5 %) 15.6 H Plt Count (130 - 400 /CUMM) 125 L MPV (7.4 - 10.4 FL) 9.8 Gran % (42.2 - 75.2 %) 91.0 H Lymphocytes % (20.5 - 51.1 %) 3.4 L Monocytes % (1.7 - 9.3 %) 5.6 Eosinophils % (0 - 5 %) 0 Basophils % (0.0 - 2.0 %) 0 L Absolute Granulocytes (1.4 - 6.5 /CUMM) 10.8 H Absolute Lymphocytes (1.2 - 3.4 /CUMM) 0.4 L Absolute Monocytes (0.10 - 0.60 /CUMM) 0.7 H Absolute Eosinophils (0.0 - 0.7 /CUMM) 0 Absolute Basophils (0.0 - 0.2 /CUMM) 0 PUBS MCHC (33.0 - 37.0 G/DL) 33.7 Miscellaneous Phlebotomy Draw Site RIGHT RADIAL 08/21 08/21 08/21 08/21 1230 1120 0832 0559 Blood Gas pH (7.35 - 7.45 PH) 7.33 L pCO2 (35 - 45 TORR) 43 pO2 (80 - 100 TORR) 87 HCO3 (21 - 28 MEQ/L) 23 ABG O2 Sat (Measured) (>96.0 %) 97.0 P-50 (Temp Corrected) YES Carboxyhemoglobin (1.5 - 5.0 %) 0.3 L O2 Concentration % 3L Temperature (97.0 - 100.0 FARH) 97.4 O2 Delivery Method NC Chemistry Ammonia (9 - 30 umol/L) < 9 L Miscellaneous Phlebotomy Draw Site RIGHT RADIAL Toxicology Acetaminophen (10.0 - 30.0 ug/mL) < 10.0 L Urines Ur Creatinine 24 Hour Pending Ur Total Protein 24 Hr Pending Protein/Creat Ratio 24h Pending U Protein Electrophores Pending Urine Albumin (%) Pending U Sfvyd-7-Iggclvzu Pending U Hlwjm-0-Lnfhqwfa Pending U Beta Globulin Pending U Gamma Globulin Pending U Abnormal Prot Band 1 Pending U Abnormal Prot Band 2 Pending U Abnormal Prot Band 3 Pending 08/21 08/21 0440 0440 Chemistry Sodium (137 - 145 mmol/L) 145 Potassium (3.5 - 5.1 mmol/L) 4.3 Chloride (98 - 107 mmol/L) 113 H Carbon Dioxide (22 - 30 mmol/L) 21 L Anion Gap (5 - 16) 10 BUN (9 - 20 mg/dL) 27 H Creatinine (0.7 - 1.2 mg/dL) 2.5 H Estimated GFR (>60 ml/min) 25 L Glucose (65 - 99 mg/dL) 155 H Calcium (8.4 - 10.2 mg/dL) 7.8 L Phosphorus (2.5 - 4.5 mg/dL) 2.8 Magnesium (1.6 - 2.3 mg/dL) 1.8 Total Bilirubin (0.2 - 1.3 mg/dL) 0.6 AST (17 - 59 U/L) 157 H ALT (21 - 72 U/L) 87 H Prot Electrophoresis Pending Total Protein (PEP) Pending Albumin (3.5 - 5.0 g/dL) 2.8 L Albumin % (PEP) Pending Rozff-9-Ofvzqwihn Pending Sjegt-6-Ypgpeiklu Pending Wadd-4-Pyvbxyzz Pending Lkuc-6-Hxvrhwaj Pending Gamma Globulins Pending Abnorm Protein Band 1 Pending Abnorm Protein Band 2 Pending Abnorm Protein Band 3 Pending Hematology CBC w Diff NO MAN DIFF REQ WBC (4.8 - 10.8 /CUMM) 14.3 H RBC (4.70 - 6.10 /CUMM) 3.70 L Hgb (14.0 - 18.0 G/DL) 12.0 L Hct (42 - 52 %) 35.2 L MCV (80.0 - 94.0 FL) 95.1 H MCH (27.0 - 31.0 PG) 32.4 H RDW (11.5 - 14.5 %) 15.6 H Plt Count (130 - 400 /CUMM) 108 L MPV (7.4 - 10.4 FL) 10.0 Gran % (42.2 - 75.2 %) 89.2 H Lymphocytes % (20.5 - 51.1 %) 4.5 L Monocytes % (1.7 - 9.3 %) 6.3 Eosinophils % (0 - 5 %) 0 Basophils % (0.0 - 2.0 %) 0 L Absolute Granulocytes (1.4 - 6.5 /CUMM) 12.8 H Absolute Lymphocytes (1.2 - 3.4 /CUMM) 0.6 L Absolute Monocytes (0.10 - 0.60 /CUMM) 0.9 H Absolute Eosinophils (0.0 - 0.7 /CUMM) 0 Absolute Basophils (0.0 - 0.2 /CUMM) 0 PUBS MCHC (33.0 - 37.0 G/DL) 34.1 08/21 08/20 0435 2110 Chemistry Sodium (137 - 145 mmol/L) 141 Potassium (3.5 - 5.1 mmol/L) 4.4 Chloride (98 - 107 mmol/L) 112 H Carbon Dioxide (22 - 30 mmol/L) 20 L Anion Gap (5 - 16) 8 BUN (9 - 20 mg/dL) 26 H Creatinine (0.7 - 1.2 mg/dL) 2.9 H Estimated GFR (>60 ml/min) 21 L Glucose (65 - 99 mg/dL) 181 H Calcium (8.4 - 10.2 mg/dL) 7.7 L Phosphorus (2.5 - 4.5 mg/dL) 2.9 Magnesium (1.6 - 2.3 mg/dL) 1.8 Total Bilirubin (0.2 - 1.3 mg/dL) 0.7 AST (17 - 59 U/L) 165 H ALT (21 - 72 U/L) 88 H Albumin (3.5 - 5.0 g/dL) 2.9 L Vitamin B12 (239 - 931 pg/mL) > 1000 H 25-OH Vitamin D Total (30 - 100 ng/ml) 21.5 L Folate (2.76 - 20.0 ng/mL) > 20.0 H Free T3 (2.45 - 5.93 pg/mL) 3.5 Urines Urinalysis MOD H Urine Color (YEL,AMB,STR) YEL Urine Clarity (CLEAR) HAZY H Urine pH (5.0 - 8.0) 5.5 Ur Specific [place] (1.001 - 1.035) 1.025 Urine Protein (NEG,<30 MG/DL) 30 H Urine Ketones (NEG) NEG Urine Nitrite (NEG) NEG Urine Bilirubin (NEG) NEG Urine Urobilinogen (0.1 - 1.0 EU/dl) 0.2 Ur Leukocyte Esterase (NEG) TRACE H Ur Microscopic SEDIMENT EXAMINED Urine RBC (0 - 5 /HPF) 50-75 H Urine WBC (0 - 2 /HPF) 5-10 H Ur Epithelial Cells (NONE,FEW) FEW Urine Bacteria (NEG/NONE) MOD H Urine Hemoglobin (NEG) LARGE H Urine Glucose (N MG/DL) NEG 08/20 08/20 1200 1031 Chemistry Sodium (137 - 145 mmol/L) Cancelled 142 Potassium (3.5 - 5.1 mmol/L) Cancelled 4.7 Chloride (98 - 107 mmol/L) Cancelled 114 H Carbon Dioxide (22 - 30 mmol/L) Cancelled 19 L Anion Gap (5 - 16) Cancelled 10 BUN (9 - 20 mg/dL) Cancelled 26 H Creatinine (0.7 - 1.2 mg/dL) Cancelled 3.5 H Estimated GFR (>60 ml/min) 17 L Glucose (65 - 99 mg/dL) Cancelled 165 H Lactic Acid (0.7 - 2.1 mmol/L) 1.0 Calcium (8.4 - 10.2 mg/dL) Cancelled 8.1 L Phosphorus (2.5 - 4.5 mg/dL) Cancelled 1.9 L Magnesium (1.6 - 2.3 mg/dL) Cancelled 1.4 L Total Bilirubin (0.2 - 1.3 mg/dL) Cancelled 1.2 AST (17 - 59 U/L) Cancelled 147 H ALT (21 - 72 U/L) Cancelled 83 H Albumin (3.5 - 5.0 g/dL) Cancelled 3.0 L Hematology CBC w Diff NO MAN DIFF REQ WBC (4.8 - 10.8 /CUMM) 12.8 H RBC (4.70 - 6.10 /CUMM) 3.93 L Hgb (14.0 - 18.0 G/DL) 12.7 L Hct (42 - 52 %) 37.4 L MCV (80.0 - 94.0 FL) 95.1 H MCH (27.0 - 31.0 PG) 32.4 H RDW (11.5 - 14.5 %) 15.3 H Plt Count (130 - 400 /CUMM) 115 L MPV (7.4 - 10.4 FL) 10.4 Gran % (42.2 - 75.2 %) 87.9 H Lymphocytes % (20.5 - 51.1 %) 6.5 L Monocytes % (1.7 - 9.3 %) 5.4 Eosinophils % (0 - 5 %) 0.1 Basophils % (0.0 - 2.0 %) 0.1 Absolute Granulocytes (1.4 - 6.5 /CUMM) 11.3 H Absolute Lymphocytes (1.2 - 3.4 /CUMM) 0.8 L Absolute Monocytes (0.10 - 0.60 /CUMM) 0.7 H Absolute Eosinophils (0.0 - 0.7 /CUMM) 0 Absolute Basophils (0.0 - 0.2 /CUMM) 0 PUBS MCHC (33.0 - 37.0 G/DL) 34.1 08/20 08/20 0955 0515 Blood Gas pH (7.35 - 7.45 PH) 7.29 *L pCO2 (35 - 45 TORR) 38 pO2 (80 - 100 TORR) 128 H HCO3 (21 - 28 MEQ/L) 18 L ABG O2 Sat (Measured) (>96.0 %) 98.0 P-50 (Temp Corrected) N Carboxyhemoglobin (1.5 - 5.0 %) 0.4 L O2 Concentration % .5 Temperature (97.0 - 100.0 FARH) 97.7 Respiration Rate (BPM) 26 O2 Delivery Method BIPAP Vent Mode ST Expiratory Pressure (CM H2O P) 6 Inspiratory Pressure (CM H2O P) 20 Chemistry Lactic Acid (0.7 - 2.1 mmol/L) 1.5 Miscellaneous Phlebotomy Draw Site RIGHT BRACHIAL 08/20 08/20 0515 0250 Chemistry Sodium (137 - 145 mmol/L) 143 143 Potassium (3.5 - 5.1 mmol/L) 5.1 4.5 Chloride (98 - 107 mmol/L) 113 H 115 H Carbon Dioxide (22 - 30 mmol/L) 18 L 19 L Anion Gap (5 - 16) 12 9 BUN (9 - 20 mg/dL) 25 H 26 H Creatinine (0.7 - 1.2 mg/dL) 3.8 H 3.5 H Estimated GFR (>60 ml/min) 16 L 17 L BUN/Creatinine Ratio (7 - 25 %) 7.4 Glucose (65 - 99 mg/dL) 158 H Lactic Acid (0.7 - 2.1 mmol/L) 1.3 Calcium (8.4 - 10.2 mg/dL) 8.2 L 8.0 L Phosphorus (2.5 - 4.5 mg/dL) 2.3 L Magnesium (1.6 - 2.3 mg/dL) 1.2 L 1.2 L Total Bilirubin (0.2 - 1.3 mg/dL) 1.5 H 1.2 Direct Bilirubin (< 0.4 mg/dL) 0.6 H AST (17 - 59 U/L) 99 H 67 H ALT (21 - 72 U/L) 74 H 64 Alkaline Phosphatase (< 127 U/L) 58 Troponin I (<0.11 ng/ml) 0.04 Total Protein (6.3 - 8.2 g/dL) 5.5 L Albumin (3.5 - 5.0 g/dL) 3.0 L 2.8 L Hematology CBC w Diff NO MAN DIFF REQ WBC (4.8 - 10.8 /CUMM) 15.3 H RBC (4.70 - 6.10 /CUMM) 4.15 L Hgb (14.0 - 18.0 G/DL) 13.3 L Hct (42 - 52 %) 39.4 L MCV (80.0 - 94.0 FL) 95.1 H MCH (27.0 - 31.0 PG) 32.0 H RDW (11.5 - 14.5 %) 15.5 H Plt Count (130 - 400 /CUMM) 159 MPV (7.4 - 10.4 FL) 10.6 H Gran % (42.2 - 75.2 %) 78.4 H Lymphocytes % (20.5 - 51.1 %) 8.3 L Monocytes % (1.7 - 9.3 %) 12.2 H Eosinophils % (0 - 5 %) 0.8 Basophils % (0.0 - 2.0 %) 0.3 Absolute Granulocytes (1.4 - 6.5 /CUMM) 12.0 H Absolute Lymphocytes (1.2 - 3.4 /CUMM) 1.3 Absolute Monocytes (0.10 - 0.60 /CUMM) 1.9 H Absolute Eosinophils (0.0 - 0.7 /CUMM) 0.1 Absolute Basophils (0.0 - 0.2 /CUMM) 0 PUBS MCHC (33.0 - 37.0 G/DL) 33.7 08/20 08/20 08/20 0145 0035 0023 Blood Gas pH (7.35 - 7.45 PH) 7.31 L pCO2 (35 - 45 TORR) 35 pO2 (80 - 100 TORR) 133 H HCO3 (21 - 28 MEQ/L) 17 L Bicarbonate Actual (22 - 26 MEQ/L) 21 L ABG O2 Sat (Measured) (>96.0 %) 98.0 Mixed VBG pH (7.31 - 7.41 PH) 7.24 L Mixed VBG pCO2 (41 - 51 TORR) 51 Mixed VBG O2 Saturation (35 - 45 TORR) 54 H P-50 (Temp Corrected) N N Carboxyhemoglobin (1.5 - 5.0 %) 0.3 L 0.7 L O2 Concentration % .50 .50 Respiration Rate (BPM) 26 26 O2 Delivery Method BIPAP BIPAP Vent Mode ST ST Expiratory Pressure (CM H2O P) 6 6 Inspiratory Pressure (CM H2O P) 20 20 Chemistry Lactic Acid Cancelled Miscellaneous Phlebotomy Draw Site RIGHT BRACHIAL VENOUS 08/19 Chemistry Lactic Acid (0.7 - 2.1 mmol/L) 2.6 H Urines Urine Color (YEL,AMB,STR) YEL Urine Clarity (CLEAR) HAZY H Urine pH (5.0 - 8.0) 6.0 Ur Specific [place] (1.001 - 1.035) 1.020 Urine Protein (NEG,<30 MG/DL) TRACE H Urine Ketones (NEG) NEG Urine Nitrite (NEG) NEG Urine Bilirubin (NEG) NEG@ICTO Urine Urobilinogen (0.1 - 1.0 EU/dl) 0.2 Ur Leukocyte Esterase (NEG) NEG Ur Microscopic SEDIMENT EXAMINED Urine RBC (0 - 5 /HPF) 5-10 H Urine WBC (0 - 2 /HPF) 10-15 H Ur Epithelial Cells (NONE,FEW) RARE Urine Bacteria (NEG/NONE) FEW H Hyaline Casts (0/LPF) 1-3 H Urine Hemoglobin (NEG) LARGE H Ur Random Creatinine (mg/dL) 208.9 Ur Random Microalbumin (<1.7 mg/dl) 11.2 H U Random Total Protein (0 - 12 mg/dL) 18 H Ur Random Sodium (30 - 90 mmol/L) 64 Ur Random Potassium (mmol/L) 38.6 Protein/Creatinin Ratio (< 0.2) 0.1 Fraction Sodium Excret (<1% %) 0.8 Urine Glucose (N MG/DL) NEG U Cystine/Creat Ratio (mcg/mg) 53.61 08/19 Chemistry Sodium (137 - 145 mmol/L) 143 Potassium (3.5 - 5.1 mmol/L) 3.8 Chloride (98 - 107 mmol/L) 105 Carbon Dioxide (22 - 30 mmol/L) 26 Anion Gap (5 - 16) 13 BUN (9 - 20 mg/dL) 30 H Creatinine (0.7 - 1.2 mg/dL) 3.9 H Estimated GFR (>60 ml/min) 15 L BUN/Creatinine Ratio (7 - 25 %) 7.7 Glucose (65 - 99 mg/dL) 121 H Calcium (8.4 - 10.2 mg/dL) 10.1 Total Bilirubin (0.2 - 1.3 mg/dL) 1.3 AST (17 - 59 U/L) 56 ALT (21 - 72 U/L) 64 Alkaline Phosphatase (< 127 U/L) 77 Ammonia (9 - 30 umol/L) < 9 L Troponin I (<0.11 ng/ml) 0.04 Nqi-I-Nxlwtucfyuf Pept (<125 pg/mL) 61.5 Total Protein (6.3 - 8.2 g/dL) 6.8 Albumin (3.5 - 5.0 g/dL) 3.8 Globulin (1.9 - 4.2 gm/dL) 3.0 Albumin/Globulin Ratio (1.1 - 2.2 %) 1.3 TSH (0.270 - 4.200 uIU/mL) < 0.015 L Free T4 (0.78 - 2.44 ng/dL) 2.25 Coagulation PT (9.4 - 12.5 SEC) 12.0 INR (0.90 - 1.17) 1.14 APTT (25 - 37 SEC) 31 Hematology CBC w Diff NO MAN DIFF REQ WBC (4.8 - 10.8 /CUMM) 12.1 H RBC (4.70 - 6.10 /CUMM) 4.72 Hgb (14.0 - 18.0 G/DL) 15.0 Hct (42 - 52 %) 44.9 MCV (80.0 - 94.0 FL) 95.1 H MCH (27.0 - 31.0 PG) 31.8 H RDW (11.5 - 14.5 %) 15.8 H Plt Count (130 - 400 /CUMM) 163 MPV (7.4 - 10.4 FL) 10.4 Gran % (42.2 - 75.2 %) 62.1 Lymphocytes % (20.5 - 51.1 %) 18.6 L Monocytes % (1.7 - 9.3 %) 16.8 H Eosinophils % (0 - 5 %) 2.3 Basophils % (0.0 - 2.0 %) 0.2 Absolute Granulocytes (1.4 - 6.5 /CUMM) 7.5 H Absolute Lymphocytes (1.2 - 3.4 /CUMM) 2.2 Absolute Monocytes (0.10 - 0.60 /CUMM) 2.0 H Absolute Eosinophils (0.0 - 0.7 /CUMM) 0.3 Absolute Basophils (0.0 - 0.2 /CUMM) 0 PUBS MCHC (33.0 - 37.0 G/DL) 33.5 Imaging/Other Studies: EXAM TYPE: RAD - XRY-PORTABLE CHEST XRAY EXAMINATION: XR PORTABLE CHEST CLINICAL INFORMATION: Shortness of breath. Crackles. Presumptive diagnosis of pneumonia, volume overload. COMPARISON: Chest x-ray dated 08/21/2016 and 08/20/2016. TECHNIQUE: Portable AP semierect view of the chest was obtained. FINDINGS: Patient is rotated, limiting assessment. Right jugular central venous line tip is poorly visualized but may be located in the mid SVC region. Cardiomediastinal silhouette is enlarged and indistinct related to increasing bibasilar areas of consolidation. There is likely central vascular congestion. No overt pulmonary edema. No pneumothorax. Hemidiaphragms bilaterally are not visualized, most likely related to technical factors. Bony structures grossly unremarkable. IMPRESSION: Significantly limited evaluation due to patient rotation. Cardiomegaly, central vascular congestion, and bilateral lower lung zone consolidations are suspected. Recommend repeat chest x-ray for reassessment.
--- NOTE | 2016-08-22 10:47 | PN- Infect Dx ---
Subjective Subjective: Afebrile on steroids. He has become more alert and conversant, with speech more intelligible and overall more appropriate. He offers no specific complaints at this time. Objective Last 24 Hrs of Vital Signs/I&O Vital Signs Date Time Temp Pulse Resp B/P B/P Pulse O2 O2 Flow FiO2 Mean Ox Delivery Rate 08/22 0804 104 188/93 08/22 0817 96 190/110 08/22 0800 94 Nasal 3.0L Cannula 08/22 0800 96.8 99 32 190/110 96 Nasal 3.0L Cannula 08/22 0400 94 Nasal 3.0L Cannula 08/22 0215 96 Nasal 3.0L Cannula 08/22 0000 96 Nasal 3.0L Cannula 08/22 0000 95.8 91 29 158/70 96 Nasal 3.0L Cannula 08/21 2000 99 Nasal 3.0L Cannula 08/21 1600 97.2 84 20 122/64 98 Nasal 2.0L Cannula 08/21 1600 98 Nasal 2.0L Cannula 08/21 1200 96 Nasal 2.0L Cannula Intake & Output 08/22 1600 08/22 0800 08/22 0000 Intake Total 620 774.8 Output Total 425 400 Balance 195 374.8 Intake, IV 620 774.8 Intake, Oral 0 0 Number 0 0 Bowel Movements Output, Urine 425 400 Physical Exam Other Physical Findings: He is more awake and alert in no acute distress Neck is supple with no adenopathy; right IJ triple-lumen catheter with no inflammation at the site Lungs are clear Heart regular rhythm with no murmur Abdomen is obese, soft, nontender with positive bowel sounds Extremities no cyanosis, clubbing or edema Neuro without focality Renteria catheter remains in place Results Last 24 Hours of Lab Results: Laboratory Tests 08/22 08/22 08/21 0755 2330 1605 Blood Gas pH (7.35 - 7.45 PH) 7.40 pCO2 (35 - 45 TORR) 39 pO2 (80 - 100 TORR) 63 L HCO3 (21 - 28 MEQ/L) 23 ABG O2 Sat (Measured) (>96.0 %) 92.0 L P-50 (Temp Corrected) N Carboxyhemoglobin (1.5 - 5.0 %) 0.1 L O2 Concentration % 3LPM O2 Delivery Method NC Chemistry Sodium (137 - 145 mmol/L) 145 144 Potassium (3.5 - 5.1 mmol/L) 3.7 4.1 Chloride (98 - 107 mmol/L) 111 H 113 H Carbon Dioxide (22 - 30 mmol/L) 24 24 Anion Gap (5 - 16) 10 8 BUN (9 - 20 mg/dL) 28 H 31 H Creatinine (0.7 - 1.2 mg/dL) 1.8 H 2.2 H Estimated GFR (>60 ml/min) 37 L 29 L Glucose (65 - 99 mg/dL) 161 H 154 H Calcium (8.4 - 10.2 mg/dL) 7.9 L 7.6 L Phosphorus (2.5 - 4.5 mg/dL) 3.0 2.7 Magnesium (1.6 - 2.3 mg/dL) 2.1 1.7 Total Bilirubin (0.2 - 1.3 mg/dL) 0.6 0.5 AST (17 - 59 U/L) 114 H 134 H ALT (21 - 72 U/L) 89 H 80 H Albumin (3.5 - 5.0 g/dL) 3.2 L 2.7 L Hematology CBC w Diff NO MAN DIFF REQ WBC (4.8 - 10.8 /CUMM) 11.9 H RBC (4.70 - 6.10 /CUMM) 3.85 L Hgb (14.0 - 18.0 G/DL) 12.3 L Hct (42 - 52 %) 36.6 L MCV (80.0 - 94.0 FL) 95.0 H MCH (27.0 - 31.0 PG) 32.0 H RDW (11.5 - 14.5 %) 15.6 H Plt Count (130 - 400 /CUMM) 125 L MPV (7.4 - 10.4 FL) 9.8 Gran % (42.2 - 75.2 %) 91.0 H Lymphocytes % (20.5 - 51.1 %) 3.4 L Monocytes % (1.7 - 9.3 %) 5.6 Eosinophils % (0 - 5 %) 0 Basophils % (0.0 - 2.0 %) 0 L Absolute Granulocytes (1.4 - 6.5 /CUMM) 10.8 H Absolute Lymphocytes (1.2 - 3.4 /CUMM) 0.4 L Absolute Monocytes (0.10 - 0.60 /CUMM) 0.7 H Absolute Eosinophils (0.0 - 0.7 /CUMM) 0 Absolute Basophils (0.0 - 0.2 /CUMM) 0 PUBS MCHC (33.0 - 37.0 G/DL) 33.7 Miscellaneous Phlebotomy Draw Site RIGHT RADIAL 08/21 08/21 1230 1120 Chemistry Ammonia (9 - 30 umol/L) < 9 L Toxicology Acetaminophen (10.0 - 30.0 ug/mL) < 10.0 L Last 24 Hours of Jerry Results: Blood cultures 2 August 19 remain negative Recent Imaging Studies: Chest x-ray August 22, personally reviewed, reveals cardiomegaly, central vascular congestion and bilateral lower lobe zone consolidation Assessment/Plan Impression: Improved with patient more alert and responsive, with temperatures remaining normal (on steroids) and white blood cell count decreasing now on Unasyn Day 3 of empiric antibiotics, with cultures and CT of the chest, abdomen and pelvis negative for infection. Given the improvement in his mental status meningitis/ encephalitis seem less likely; therefore the lumbar puncture can be deferred. He does not appear to have any new focality to suggest a stroke and would defer decision regarding MRI to Neurology. Suggestion: 1. Can defer on lumbar puncture given improvement in his mental status 2. Would discuss need for MRI of the head with Neurology 3. Would remove right IJ triple-lumen catheter if he has peripheral IV access 4. Discontinue Unasyn and follow off antibiotics
--- NOTE | 2016-08-22 11:01 | PN- Neurology ---
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 Roberto Johnson at [facility] back in 2005, also reportedly had [employer] shunt placement and brain radiation Became increasingly lethargic at home. Due to persistent worsening he was brought to the ED. There he was found to be hypotensive and dyspneic. He was put on BiPAP, pressors and stress dose of steroid hydrocortisone 100mg iv every 8 hours. At home, he was on Levothyroxine 175 mcg daily, prednisone 5 mg daily and DDAVP nasal spray twice a day. No longer followed by [facility] (by his choice per his spouse), managed by his primary physician Julien Craig MD. Interval history: Neurologic improvement noted. Recognizes and is able to converse with family members Though maintains his eyes closed most of the time Spouse states patient will follow-up with the web methods developer Dr. Lynn upon discharge Objective Vital Signs and I&Os Vital Signs Date Time Temp Pulse Resp B/P B/P Pulse O2 O2 Flow FiO2 Mean Ox Delivery Rate 08/22 0904 104 188/93 08/22 0817 96 190/110 08/22 0800 94 Nasal 3.0L Cannula 08/22 0800 96.8 99 32 190/110 96 Nasal 3.0L Cannula 08/22 0400 94 Nasal 3.0L Cannula 08/22 0215 96 Nasal 3.0L Cannula 08/22 0000 96 Nasal 3.0L Cannula 08/22 0000 95.8 91 29 158/70 96 Nasal 3.0L Cannula 08/21 2000 99 Nasal 3.0L Cannula 08/21 1600 97.2 84 20 122/64 98 Nasal 2.0L Cannula 08/21 1600 98 Nasal 2.0L Cannula 08/21 1200 96 Nasal 2.0L Cannula Intake & Output 08/22 1600 08/22 0800 06/ 0000 08/21 1600 08/21 0800 08/21 0000 Intake Total 620 774.8 695 542.2 499.8 Output Total 425 400 450 465 550 Balance 195 374.8 245 77.2 -50.2 Intake, IV 620 774.8 695 542.2 499.8 Intake, Oral 0 0 0 0 Number 0 0 0 0 Bowel Movements Output, Urine 425 400 450 465 550 Physical Exam: Lethargic, arousable Dyspneic Tends to maintain eyes closed are partially closed Oriented to person, place, not to time Able to follow one-step motor commands Current Medications: Current Medications Sig/Antwon Start time Last Medication Dose Route Stop Time Status Admin Acetaminophen 650 MG Q6 PRN 08/20 0415 AC PO Ampicillin Sodium/ 3,000 MG Q6H 08/22 0300 AC 08/22 Sulbactam Sodium IV 0951 Sodium Chloride 100 ML Ampicillin Sodium/ 3,000 MG Q6 08/21 1800 DC 08/21 Sulbactam Sodium IV 2042 Sodium Chloride 100 ML Ceftazidime 2,000 MG 1100 08/20 1100 DC 08/21 Dextrose/Water 50 ML IV 1036 Desmopressin Acetate 1 MCG BID 08/20 1300 AC 08/21 SC 2221 Dextrose/Sodium 1,000 ML Q13H 08/20 1545 DC 08/22 Chloride IV 0155 Furosemide 20 MG ONCE ONE 08/22 0815 DC 08/22 IV 08/22 0816 0816 Haloperidol 1 MG ONCE ONE 08/21 1400 DC 08/21 IM 08/21 1401 1402 Hydralazine HCl 5 MG ONCE ONE 08/22 0815 DC 08/22 IV 08/22 0816 0817 Hydrocortisone 50 MG Q8 08/22 1400 AC Sodium Succinate IV Hydrocortisone 100 MG Q8 08/20 0600 DC 08/22 Sodium Succinate IV 0551 Insulin Aspart 0 Q4 08/20 1239 AC 08/22 SC 0153 Levothyroxine Sodium 88 MCG DAILY 08/20 1031 AC 08/21 IV 1038 Lorazepam 1 MG Q6-PRN PRN 08/20 2315 AC 08/21 IV 1848 Lorazepam 2 MG ONCE PRN 08/20 1700 AC 08/20 IV 1743 Magnesium Sulfate 1 GM Q2H 08/21 1800 DC 08/21 Dextrose/Water 100 ML IV 08/21 2159 1941 Metoprolol Tartrate 5 MG ONCE ONE 08/22 0900 DC 08/22 IV 08/22 0901 0904 Morphine Sulfate 2 MG Q6P PRN 08/20 2035 IV Nystatin 1 THANH BID 08/20 1000 AC 08/21 TOP 2212 Oxycodone HCl 5 MG Q6 PRN 08/20 0415 AC PO Potassium Chloride 20 MEQ Q1H 08/22 0815 DC 08/22 IV 08/22 0916 0823 Potassium Chloride 20 MEQ ONCE ONE 08/22 0745 CAN IV 08/22 0746 Sodium Phosphate 15 mMol ONE ONE 08/22 0745 AC Sodium Chloride 250 ML IV 08/22 1148 Sodium Phosphate 15 mMol ONE ONE 08/21 1800 DC 08/21 Dextrose/Water 250 ML IV 08/218 Vancomycin HCl 1,500 MG Q24 08/20 1034 DC 08/21 Sodium Chloride 250 ML IV 1159 Results Last 24 Hours of Lab Results: Laboratory Tests 08/22 08/22 08/21 0755 0410 1605 Blood Gas pH (7.35 - 7.45 PH) 7.40 pCO2 (35 - 45 TORR) 39 pO2 (80 - 100 TORR) 63 L HCO3 (21 - 28 MEQ/L) 23 ABG O2 Sat (Measured) (>96.0 %) 92.0 L P-50 (Temp Corrected) N Carboxyhemoglobin (1.5 - 5.0 %) 0.1 L O2 Concentration % 3LPM O2 Delivery Method NC Chemistry Sodium (137 - 145 mmol/L) 145 144 Potassium (3.5 - 5.1 mmol/L) 3.7 4.1 Chloride (98 - 107 mmol/L) 111 H 113 H Carbon Dioxide (22 - 30 mmol/L) 24 24 Anion Gap (5 - 16) 10 8 BUN (9 - 20 mg/dL) 28 H 31 H Creatinine (0.7 - 1.2 mg/dL) 1.8 H 2.2 H Estimated GFR (>60 ml/min) 37 L 29 L Glucose (65 - 99 mg/dL) 161 H 154 H Calcium (8.4 - 10.2 mg/dL) 7.9 L 7.6 L Phosphorus (2.5 - 4.5 mg/dL) 3.0 2.7 Magnesium (1.6 - 2.3 mg/dL) 2.1 1.7 Total Bilirubin (0.2 - 1.3 mg/dL) 0.6 0.5 AST (17 - 59 U/L) 114 H 134 H ALT (21 - 72 U/L) 89 H 80 H Albumin (3.5 - 5.0 g/dL) 3.2 L 2.7 L Hematology CBC w Diff NO MAN DIFF REQ WBC (4.8 - 10.8 /CUMM) 11.9 H RBC (4.70 - 6.10 /CUMM) 3.85 L Hgb (14.0 - 18.0 G/DL) 12.3 L Hct (42 - 52 %) 36.6 L MCV (80.0 - 94.0 FL) 95.0 H MCH (27.0 - 31.0 PG) 32.0 H RDW (11.5 - 14.5 %) 15.6 H Plt Count (130 - 400 /CUMM) 125 L MPV (7.4 - 10.4 FL) 9.8 Gran % (42.2 - 75.2 %) 91.0 H Lymphocytes % (20.5 - 51.1 %) 3.4 L Monocytes % (1.7 - 9.3 %) 5.6 Eosinophils % (0 - 5 %) 0 Basophils % (0.0 - 2.0 %) 0 L Absolute Granulocytes (1.4 - 6.5 /CUMM) 10.8 H Absolute Lymphocytes (1.2 - 3.4 /CUMM) 0.4 L Absolute Monocytes (0.10 - 0.60 /CUMM) 0.7 H Absolute Eosinophils (0.0 - 0.7 /CUMM) 0 Absolute Basophils (0.0 - 0.2 /CUMM) 0 PUBS MCHC (33.0 - 37.0 G/DL) 33.7 Miscellaneous Phlebotomy Draw Site RIGHT RADIAL 08/21 08/21 1230 1120 Chemistry Ammonia (9 - 30 umol/L) < 9 L Toxicology Acetaminophen (10.0 - 30.0 ug/mL) < 10.0 L Recent Imaging Studies: EEG 08/21/2016: Background rhythm slowing, no epileptiform features Assessment/Plan Assessment: Hypoxic encephalopathy improving Plan: Continue supportive care Will see prn
--- NOTE | 2016-08-22 11:02 | PN- Nephrology ---
Assessment/Plan Assessment: 75 years old man was admitted to ICU for hypotension and shock. Patient was afound to have GINETTE mostly 2/2 to ATI in the setting of shock/adrenal crisis. Pt. visited and examined this morning. AO to time not to place and person. Follow verbal commands. Does not offer any complaints. Patient's sodium 145 from 141 yesterday, Cr decreased to 1.8 and BUN to 28. Fluid balance: -754 ml/ 24h. vital signs remain stable patient is off life support measures. Physical exam: Alert and oriented to time, not to place and person . He is following verbal command. Pertinent physical findings: Cardiovascular: S1-S2 no murmur, lungs are clear, no extremities edema. Assessment: 75-year-old gentleman with past medical history of panhypopituitarism was admitted for shock secondary to Adrenal crisis. list of active problems: 1) CKD: CKD with base line Cr of 1.5 with trace proteinuria. His baseline GFR ( Cockcroft-Gault GFR of 80 and MDRD GFR od 32, stage G2 and G3b respectively with microalbuminuria, most possibly DM nephropathy. SPEP and UPEP are pending to r/o (light chain nephropathy). 2) Acute kidney injury secondary to ATI secondary to shock: Vital signs are stablized; patient is off any life support measures. Kidney function is improving, which is marked by decreasing Cr to 1.8. Continue hydraion. Mainatine negative fluid balance and repeat labs in the am. 3) Increasing Na: most possibly secondary to DI. Current Na is 145 meq, which is borderline number. * repeat electrolytes at 6 pm; and correct hyper natermia by replacing Free water deficit * stop D51/2NLSL and continue hydraion with D5RL with same rate 4)reeves/panhypopituitarism: continue hormone replacement therapy with IV solu- cortef and levothyroxine. DDAVP was resumed yesterday and its OK to be continued. Suggestion: as discussed above Subjective Subjective: discussed above Objective Vital Signs and I&Os Vital Signs Date Time Temp Pulse Resp B/P B/P Pulse O2 O2 Flow FiO2 Mean Ox Delivery Rate 08/22 0904 104 188/93 08/22 0817 96 190/110 08/22 0800 94 Nasal 3.0L Cannula 06/01 0800 96.8 99 32 190/110 96 Nasal 3.0L Cannula 08/22 0400 94 Nasal 3.0L Cannula 08/22 0215 96 Nasal 3.0L Cannula 08/22 0000 96 Nasal 3.0L Cannula 08/22 0000 95.8 91 29 158/70 96 Nasal 3.0L Cannula 08/21 2000 99 Nasal 3.0L Cannula 08/21 1600 97.2 84 20 122/64 98 Nasal 2.0L Cannula 08/21 1600 98 Nasal 2.0L Cannula 08/21 1200 96 Nasal 2.0L Cannula Intake & Output 08/22 1600 08/22 0400 08/21 1600 08/21 0400 08/20 0400 Intake Total 620 774.8 1237.2 499.8 2343 Output Total 425 400 915 550 970 100 Balance 195 374.8 322.2 -50.2 1373 -100 Intake, IV 620 774.8 1237.2 499.8 2343 Intake, Oral 0 0 0 0 Number 0 0 0 0 0 Bowel Movements Output, Urine 425 400 915 550 970 100 Patient 298 lb 350 lb Weight Weight Bed scale Reported by Patient Measurement Method Results Pertinent Lab Results: Laboratory Tests 08/22 08/22 08/21 0755 0410 1605 Blood Gas pH (7.35 - 7.45 PH) 7.40 pCO2 (35 - 45 TORR) 39 pO2 (80 - 100 TORR) 63 L HCO3 (21 - 28 MEQ/L) 23 ABG O2 Sat (Measured) (>96.0 %) 92.0 L P-50 (Temp Corrected) N Carboxyhemoglobin (1.5 - 5.0 %) 0.1 L O2 Concentration % 3LPM O2 Delivery Method NC Chemistry Sodium (137 - 145 mmol/L) 145 144 Potassium (3.5 - 5.1 mmol/L) 3.7 4.1 Chloride (98 - 107 mmol/L) 111 H 113 H Carbon Dioxide (22 - 30 mmol/L) 24 24 Anion Gap (5 - 16) 10 8 BUN (9 - 20 mg/dL) 28 H 31 H Creatinine (0.7 - 1.2 mg/dL) 1.8 H 2.2 H Estimated GFR (>60 ml/min) 37 L 29 L Glucose (65 - 99 mg/dL) 161 H 154 H Calcium (8.4 - 10.2 mg/dL) 7.9 L 7.6 L Phosphorus (2.5 - 4.5 mg/dL) 3.0 2.7 Magnesium (1.6 - 2.3 mg/dL) 2.1 1.7 Total Bilirubin (0.2 - 1.3 mg/dL) 0.6 0.5 AST (17 - 59 U/L) 114 H 134 H ALT (21 - 72 U/L) 89 H 80 H Albumin (3.5 - 5.0 g/dL) 3.2 L 2.7 L Hematology CBC w Diff NO MAN DIFF REQ WBC (4.8 - 10.8 /CUMM) 11.9 H RBC (4.70 - 6.10 /CUMM) 3.85 L Hgb (14.0 - 18.0 G/DL) 12.3 L Hct (42 - 52 %) 36.6 L MCV (80.0 - 94.0 FL) 95.0 H MCH (27.0 - 31.0 PG) 32.0 H RDW (11.5 - 14.5 %) 15.6 H Plt Count (130 - 400 /CUMM) 125 L MPV (7.4 - 10.4 FL) 9.8 Gran % (42.2 - 75.2 %) 91.0 H Lymphocytes % (20.5 - 51.1 %) 3.4 L Monocytes % (1.7 - 9.3 %) 5.6 Eosinophils % (0 - 5 %) 0 Basophils % (0.0 - 2.0 %) 0 L Absolute Granulocytes (1.4 - 6.5 /CUMM) 10.8 H Absolute Lymphocytes (1.2 - 3.4 /CUMM) 0.4 L Absolute Monocytes (0.10 - 0.60 /CUMM) 0.7 H Absolute Eosinophils (0.0 - 0.7 /CUMM) 0 Absolute Basophils (0.0 - 0.2 /CUMM) 0 PUBS MCHC (33.0 - 37.0 G/DL) 33.7 Miscellaneous Phlebotomy Draw Site RIGHT RADIAL 08/21 08/21 08/21 08/21 1230 1120 0832 0559 Blood Gas pH (7.35 - 7.45 PH) 7.33 L pCO2 (35 - 45 TORR) 43 pO2 (80 - 100 TORR) 87 HCO3 (21 - 28 MEQ/L) 23 ABG O2 Sat (Measured) (>96.0 %) 97.0 P-50 (Temp Corrected) YES Carboxyhemoglobin (1.5 - 5.0 %) 0.3 L O2 Concentration % 3L Temperature (97.0 - 100.0 FARH) 97.4 O2 Delivery Method NC Chemistry Ammonia (9 - 30 umol/L) < 9 L Miscellaneous Phlebotomy Draw Site RIGHT RADIAL Toxicology Acetaminophen (10.0 - 30.0 ug/mL) < 10.0 L Urines Ur Creatinine 24 Hour Pending Ur Total Protein 24 Hr Pending Protein/Creat Ratio 24h Pending U Protein Electrophores Pending Urine Albumin (%) Pending U Oorue-9-Xygpndjp Pending U Ousnc-9-Xdkpxgsz Pending U Beta Globulin Pending U Gamma Globulin Pending U Abnormal Prot Band 1 Pending U Abnormal Prot Band 2 Pending U Abnormal Prot Band 3 Pending 08/21 08/21 0440 0440 Chemistry Sodium (137 - 145 mmol/L) 145 Potassium (3.5 - 5.1 mmol/L) 4.3 Chloride (98 - 107 mmol/L) 113 H Carbon Dioxide (22 - 30 mmol/L) 21 L Anion Gap (5 - 16) 10 BUN (9 - 20 mg/dL) 27 H Creatinine (0.7 - 1.2 mg/dL) 2.5 H Estimated GFR (>60 ml/min) 25 L Glucose (65 - 99 mg/dL) 155 H Calcium (8.4 - 10.2 mg/dL) 7.8 L Phosphorus (2.5 - 4.5 mg/dL) 2.8 Magnesium (1.6 - 2.3 mg/dL) 1.8 Total Bilirubin (0.2 - 1.3 mg/dL) 0.6 AST (17 - 59 U/L) 157 H ALT (21 - 72 U/L) 87 H Prot Electrophoresis Pending Total Protein (PEP) Pending Albumin (3.5 - 5.0 g/dL) 2.8 L Albumin % (PEP) Pending Gegsi-1-Xojifyhmf Pending Qhnkd-8-Lavsxcfry Pending Pfic-8-Jwdlrdhx Pending Kqvg-5-Spyszlhc Pending Gamma Globulins Pending Abnorm Protein Band 1 Pending Abnorm Protein Band 2 Pending Abnorm Protein Band 3 Pending Hematology CBC w Diff NO MAN DIFF REQ WBC (4.8 - 10.8 /CUMM) 14.3 H RBC (4.70 - 6.10 /CUMM) 3.70 L Hgb (14.0 - 18.0 G/DL) 12.0 L Hct (42 - 52 %) 35.2 L MCV (80.0 - 94.0 FL) 95.1 H MCH (27.0 - 31.0 PG) 32.4 H RDW (11.5 - 14.5 %) 15.6 H Plt Count (130 - 400 /CUMM) 108 L MPV (7.4 - 10.4 FL) 10.0 Gran % (42.2 - 75.2 %) 89.2 H Lymphocytes % (20.5 - 51.1 %) 4.5 L Monocytes % (1.7 - 9.3 %) 6.3 Eosinophils % (0 - 5 %) 0 Basophils % (0.0 - 2.0 %) 0 L Absolute Granulocytes (1.4 - 6.5 /CUMM) 12.8 H Absolute Lymphocytes (1.2 - 3.4 /CUMM) 0.6 L Absolute Monocytes (0.10 - 0.60 /CUMM) 0.9 H Absolute Eosinophils (0.0 - 0.7 /CUMM) 0 Absolute Basophils (0.0 - 0.2 /CUMM) 0 PUBS MCHC (33.0 - 37.0 G/DL) 34.1 08/21 08/20 0435 2110 Chemistry Sodium (137 - 145 mmol/L) 141 Potassium (3.5 - 5.1 mmol/L) 4.4 Chloride (98 - 107 mmol/L) 112 H Carbon Dioxide (22 - 30 mmol/L) 20 L Anion Gap (5 - 16) 8 BUN (9 - 20 mg/dL) 26 H Creatinine (0.7 - 1.2 mg/dL) 2.9 H Estimated GFR (>60 ml/min) 21 L Glucose (65 - 99 mg/dL) 181 H Calcium (8.4 - 10.2 mg/dL) 7.7 L Phosphorus (2.5 - 4.5 mg/dL) 2.9 Magnesium (1.6 - 2.3 mg/dL) 1.8 Total Bilirubin (0.2 - 1.3 mg/dL) 0.7 AST (17 - 59 U/L) 165 H ALT (21 - 72 U/L) 88 H Albumin (3.5 - 5.0 g/dL) 2.9 L Vitamin B12 (239 - 931 pg/mL) > 1000 H 25-OH Vitamin D Total (30 - 100 ng/ml) 21.5 L Folate (2.76 - 20.0 ng/mL) > 20.0 H Free T3 (2.45 - 5.93 pg/mL) 3.5 Urines Urinalysis MOD H Urine Color (YEL,AMB,STR) YEL Urine Clarity (CLEAR) HAZY H Urine pH (5.0 - 8.0) 5.5 Ur Specific Kent (1.001 - 1.035) 1.025 Urine Protein (NEG,<30 MG/DL) 30 H Urine Ketones (NEG) NEG Urine Nitrite (NEG) NEG Urine Bilirubin (NEG) NEG Urine Urobilinogen (0.1 - 1.0 EU/dl) 0.2 Ur Leukocyte Esterase (NEG) TRACE H Ur Microscopic SEDIMENT EXAMINED Urine RBC (0 - 5 /HPF) 50-75 H Urine WBC (0 - 2 /HPF) 5-10 H Ur Epithelial Cells (NONE,FEW) FEW Urine Bacteria (NEG/NONE) MOD H Urine Hemoglobin (NEG) LARGE H Urine Glucose (N MG/DL) NEG 08/20 08/20 1200 1031 Chemistry Sodium (137 - 145 mmol/L) Cancelled 142 Potassium (3.5 - 5.1 mmol/L) Cancelled 4.7 Chloride (98 - 107 mmol/L) Cancelled 114 H Carbon Dioxide (22 - 30 mmol/L) Cancelled 19 L Anion Gap (5 - 16) Cancelled 10 BUN (9 - 20 mg/dL) Cancelled 26 H Creatinine (0.7 - 1.2 mg/dL) Cancelled 3.5 H Estimated GFR (>60 ml/min) 17 L Glucose (65 - 99 mg/dL) Cancelled 165 H Lactic Acid (0.7 - 2.1 mmol/L) 1.0 Calcium (8.4 - 10.2 mg/dL) Cancelled 8.1 L Phosphorus (2.5 - 4.5 mg/dL) Cancelled 1.9 L Magnesium (1.6 - 2.3 mg/dL) Cancelled 1.4 L Total Bilirubin (0.2 - 1.3 mg/dL) Cancelled 1.2 AST (17 - 59 U/L) Cancelled 147 H ALT (21 - 72 U/L) Cancelled 83 H Albumin (3.5 - 5.0 g/dL) Cancelled 3.0 L Hematology CBC w Diff NO MAN DIFF REQ WBC (4.8 - 10.8 /CUMM) 12.8 H RBC (4.70 - 6.10 /CUMM) 3.93 L Hgb (14.0 - 18.0 G/DL) 12.7 L Hct (42 - 52 %) 37.4 L MCV (80.0 - 94.0 FL) 95.1 H MCH (27.0 - 31.0 PG) 32.4 H RDW (11.5 - 14.5 %) 15.3 H Plt Count (130 - 400 /CUMM) 115 L MPV (7.4 - 10.4 FL) 10.4 Gran % (42.2 - 75.2 %) 87.9 H Lymphocytes % (20.5 - 51.1 %) 6.5 L Monocytes % (1.7 - 9.3 %) 5.4 Eosinophils % (0 - 5 %) 0.1 Basophils % (0.0 - 2.0 %) 0.1 Absolute Granulocytes (1.4 - 6.5 /CUMM) 11.3 H Absolute Lymphocytes (1.2 - 3.4 /CUMM) 0.8 L Absolute Monocytes (0.10 - 0.60 /CUMM) 0.7 H Absolute Eosinophils (0.0 - 0.7 /CUMM) 0 Absolute Basophils (0.0 - 0.2 /CUMM) 0 PUBS MCHC (33.0 - 37.0 G/DL) 34.1 08/20 08/20 0955 0515 Blood Gas pH (7.35 - 7.45 PH) 7.29 *L pCO2 (35 - 45 TORR) 38 pO2 (80 - 100 TORR) 128 H HCO3 (21 - 28 MEQ/L) 18 L ABG O2 Sat (Measured) (>96.0 %) 98.0 P-50 (Temp Corrected) N Carboxyhemoglobin (1.5 - 5.0 %) 0.4 L O2 Concentration % .5 Temperature (97.0 - 100.0 FARH) 97.7 Respiration Rate (BPM) 26 O2 Delivery Method BIPAP Vent Mode ST Expiratory Pressure (CM H2O P) 6 Inspiratory Pressure (CM H2O P) 20 Chemistry Lactic Acid (0.7 - 2.1 mmol/L) 1.5 Miscellaneous Phlebotomy Draw Site RIGHT BRACHIAL 08/20 08/20 0515 0250 Chemistry Sodium (137 - 145 mmol/L) 143 143 Potassium (3.5 - 5.1 mmol/L) 5.1 4.5 Chloride (98 - 107 mmol/L) 113 H 115 H Carbon Dioxide (22 - 30 mmol/L) 18 L 19 L Anion Gap (5 - 16) 12 9 BUN (9 - 20 mg/dL) 25 H 26 H Creatinine (0.7 - 1.2 mg/dL) 3.8 H 3.5 H Estimated GFR (>60 ml/min) 16 L 17 L BUN/Creatinine Ratio (7 - 25 %) 7.4 Glucose (65 - 99 mg/dL) 158 H Lactic Acid (0.7 - 2.1 mmol/L) 1.3 Calcium (8.4 - 10.2 mg/dL) 8.2 L 8.0 L Phosphorus (2.5 - 4.5 mg/dL) 2.3 L Magnesium (1.6 - 2.3 mg/dL) 1.2 L 1.2 L Total Bilirubin (0.2 - 1.3 mg/dL) 1.5 H 1.2 Direct Bilirubin (< 0.4 mg/dL) 0.6 H AST (17 - 59 U/L) 99 H 67 H ALT (21 - 72 U/L) 74 H 64 Alkaline Phosphatase (< 127 U/L) 58 Troponin I (<0.11 ng/ml) 0.04 Total Protein (6.3 - 8.2 g/dL) 5.5 L Albumin (3.5 - 5.0 g/dL) 3.0 L 2.8 L Hematology CBC w Diff NO MAN DIFF REQ WBC (4.8 - 10.8 /CUMM) 15.3 H RBC (4.70 - 6.10 /CUMM) 4.15 L Hgb (14.0 - 18.0 G/DL) 13.3 L Hct (42 - 52 %) 39.4 L MCV (80.0 - 94.0 FL) 95.1 H MCH (27.0 - 31.0 PG) 32.0 H RDW (11.5 - 14.5 %) 15.5 H Plt Count (130 - 400 /CUMM) 159 MPV (7.4 - 10.4 FL) 10.6 H Gran % (42.2 - 75.2 %) 78.4 H Lymphocytes % (20.5 - 51.1 %) 8.3 L Monocytes % (1.7 - 9.3 %) 12.2 H Eosinophils % (0 - 5 %) 0.8 Basophils % (0.0 - 2.0 %) 0.3 Absolute Granulocytes (1.4 - 6.5 /CUMM) 12.0 H Absolute Lymphocytes (1.2 - 3.4 /CUMM) 1.3 Absolute Monocytes (0.10 - 0.60 /CUMM) 1.9 H Absolute Eosinophils (0.0 - 0.7 /CUMM) 0.1 Absolute Basophils (0.0 - 0.2 /CUMM) 0 PUBS MCHC (33.0 - 37.0 G/DL) 33.7 08/20 08/20 08/20 0145 0035 0023 Blood Gas pH (7.35 - 7.45 PH) 7.31 L pCO2 (35 - 45 TORR) 35 pO2 (80 - 100 TORR) 133 H HCO3 (21 - 28 MEQ/L) 17 L Bicarbonate Actual (22 - 26 MEQ/L) 21 L ABG O2 Sat (Measured) (>96.0 %) 98.0 Mixed VBG pH (7.31 - 7.41 PH) 7.24 L Mixed VBG pCO2 (41 - 51 TORR) 51 Mixed VBG O2 Saturation (35 - 45 TORR) 54 H P-50 (Temp Corrected) N N Carboxyhemoglobin (1.5 - 5.0 %) 0.3 L 0.7 L O2 Concentration % .50 .50 Respiration Rate (BPM) 26 26 O2 Delivery Method BIPAP BIPAP Vent Mode ST ST Expiratory Pressure (CM H2O P) 6 6 Inspiratory Pressure (CM H2O P) 20 20 Chemistry Lactic Acid Cancelled Miscellaneous Phlebotomy Draw Site RIGHT BRACHIAL VENOUS 08/19 Chemistry Lactic Acid (0.7 - 2.1 mmol/L) 2.6 H Urines Urine Color (YEL,AMB,STR) YEL Urine Clarity (CLEAR) HAZY H Urine pH (5.0 - 8.0) 6.0 Ur Specific [place] (1.001 - 1.035) 1.020 Urine Protein (NEG,<30 MG/DL) TRACE H Urine Ketones (NEG) NEG Urine Nitrite (NEG) NEG Urine Bilirubin (NEG) NEG@ICTO Urine Urobilinogen (0.1 - 1.0 EU/dl) 0.2 Ur Leukocyte Esterase (NEG) NEG Ur Microscopic SEDIMENT EXAMINED Urine RBC (0 - 5 /HPF) 5-10 H Urine WBC (0 - 2 /HPF) 10-15 H Ur Epithelial Cells (NONE,FEW) RARE Urine Bacteria (NEG/NONE) FEW H Hyaline Casts (0/LPF) 1-3 H Urine Hemoglobin (NEG) LARGE H Ur Random Creatinine (mg/dL) 208.9 Ur Random Microalbumin (<1.7 mg/dl) 11.2 H U Random Total Protein (0 - 12 mg/dL) 18 H Ur Random Sodium (30 - 90 mmol/L) 64 Ur Random Potassium (mmol/L) 38.6 Protein/Creatinin Ratio (< 0.2) 0.1 Fraction Sodium Excret (<1% %) 0.8 Urine Glucose (N MG/DL) NEG U Cystine/Creat Ratio (mcg/mg) 53.61 08/19 08/19 2130 2130 Chemistry Sodium (137 - 145 mmol/L) 143 Potassium (3.5 - 5.1 mmol/L) 3.8 Chloride (98 - 107 mmol/L) 105 Carbon Dioxide (22 - 30 mmol/L) 26 Anion Gap (5 - 16) 13 BUN (9 - 20 mg/dL) 30 H Creatinine (0.7 - 1.2 mg/dL) 3.9 H Estimated GFR (>60 ml/min) 15 L BUN/Creatinine Ratio (7 - 25 %) 7.7 Glucose (65 - 99 mg/dL) 121 H Calcium (8.4 - 10.2 mg/dL) 10.1 Total Bilirubin (0.2 - 1.3 mg/dL) 1.3 AST (17 - 59 U/L) 56 ALT (21 - 72 U/L) 64 Alkaline Phosphatase (< 127 U/L) 77 Ammonia (9 - 30 umol/L) < 9 L Troponin I (<0.11 ng/ml) 0.04 Fja-X-[id number] Pept (<125 pg/mL) 61.5 Total Protein (6.3 - 8.2 g/dL) 6.8 Albumin (3.5 - 5.0 g/dL) 3.8 Globulin (1.9 - 4.2 gm/dL) 3.0 Albumin/Globulin Ratio (1.1 - 2.2 %) 1.3 TSH (0.270 - 4.200 uIU/mL) < 0.015 L Free T4 (0.78 - 2.44 ng/dL) 2.25 Coagulation PT (9.4 - 12.5 SEC) 12.0 INR (0.90 - 1.17) 1.14 APTT (25 - 37 SEC) 31 Hematology CBC w Diff NO MAN DIFF REQ WBC (4.8 - 10.8 /CUMM) 12.1 H RBC (4.70 - 6.10 /CUMM) 4.72 Hgb (14.0 - 18.0 G/DL) 15.0 Hct (42 - 52 %) 44.9 MCV (80.0 - 94.0 FL) 95.1 H MCH (27.0 - 31.0 PG) 31.8 H RDW (11.5 - 14.5 %) 15.8 H Plt Count (130 - 400 /CUMM) 163 MPV (7.4 - 10.4 FL) 10.4 Gran % (42.2 - 75.2 %) 62.1 Lymphocytes % (20.5 - 51.1 %) 18.6 L Monocytes % (1.7 - 9.3 %) 16.8 H Eosinophils % (0 - 5 %) 2.3 Basophils % (0.0 - 2.0 %) 0.2 Absolute Granulocytes (1.4 - 6.5 /CUMM) 7.5 H Absolute Lymphocytes (1.2 - 3.4 /CUMM) 2.2 Absolute Monocytes (0.10 - 0.60 /CUMM) 2.0 H Absolute Eosinophils (0.0 - 0.7 /CUMM) 0.3 Absolute Basophils (0.0 - 0.2 /CUMM) 0 PUBS MCHC (33.0 - 37.0 G/DL) 33.5
--- NOTE | 2016-08-22 11:25 | PN- Cardiology ---
Subjective Subjective: Patient is off pressors. Blood pressure has improved, and is elevated. No arrhythmias have been noted. No chest pain. He is somewhat more alert. Objective Vital Signs and I&Os Vital Signs Date Time Temp Pulse Resp B/P B/P Pulse O2 O2 Flow FiO2 Mean Ox Delivery Rate 08/22 0904 104 188/93 08/22 0817 96 190/110 08/22 0800 94 Nasal 3.0L Cannula 08/22 0800 96.8 99 32 190/110 96 Nasal 3.0L Cannula 08/22 0400 94 Nasal 3.0L Cannula 08/22 0215 96 Nasal 3.0L Cannula 08/22 0000 96 Nasal 3.0L Cannula 08/22 0000 95.8 91 29 158/70 96 Nasal 3.0L Cannula 08/21 2000 99 Nasal 3.0L Cannula 08/21 1600 97.2 84 20 122/64 98 Nasal 2.0L Cannula 08/21 1600 98 Nasal 2.0L Cannula 08/21 1200 96 Nasal 2.0L Cannula Intake & Output 08/22 1600 08/22 0800 08/22 0000 08/21 1600 08/21 0800 08/21 0000 Intake Total 620 774.8 695 542.2 499.8 Output Total 425 400 450 465 550 Balance 195 374.8 245 77.2 -50.2 Intake, IV 620 774.8 695 542.2 499.8 Intake, Oral 0 0 0 0 Number 0 0 0 0 Bowel Movements Output, Urine 425 400 450 465 550 Physical Exam: Gen: The patient is in no acute distress HEENT: Normal nose, ears, and oropharynx. Pupils equal bilaterally. Conjunctiva normal. Neck: Supple with no JVD, no masses, and no thyromegaly Lungs: Clear to auscultation with normal respiratory effort Heart: RRR, S1, S2, no murmurs. No peripheral edema, 2+ pulses in the lower extremities bilaterally Abdomen: Soft, nontender, no masses. No hepatomegaly. No splenomegaly Extremities: No clubbing or cyanosis. Normal muscle strength in the upper and lower extremities Skin: Normal skin turgor with no skin ulcers or lesions noted. Neuro: Cranial nerves intact. Sensation intact Current Medications: Current Medications Sig/Antwon Start time Last Medication Dose Route Stop Time Status Admin Acetaminophen 650 MG Q6 PRN 08/20 0415 AC PO Ampicillin Sodium/ 3,000 MG Q6H 08/22 0300 DC 08/22 Sulbactam Sodium IV 0951 Sodium Chloride 100 ML Ampicillin Sodium/ 3,000 MG Q6 08/21 1800 DC 08/21 Sulbactam Sodium IV 2042 Sodium Chloride 100 ML Ceftazidime 2,000 MG 1100 08/20 1100 DC 08/21 Dextrose/Water 50 ML IV 1036 Desmopressin Acetate 1 MCG BID 08/20 1300 AC 08/22 SC 1051 Dextrose/Sodium 1,000 ML Q20H 08/22 1100 AC Chloride IV Dextrose/Sodium 1,000 ML Q13H 08/20 1545 DC 08/22 Chloride IV 0155 Furosemide 20 MG ONCE ONE 08/22 0815 DC 08/22 IV 08/22 0816 0816 Haloperidol 1 MG ONCE ONE 08/21 1400 DC 08/21 IM 08/21 1401 1402 Hydralazine HCl 5 MG ONCE ONE 08/22 0815 DC 08/22 IV 08/22 0816 0817 Hydrocortisone 50 MG Q8 08/22 1400 AC Sodium Succinate IV Hydrocortisone 100 MG Q8 08/20 0600 DC 08/22 Sodium Succinate IV 0551 Insulin Aspart 0 Q4 08/20 1239 08/22 SC 0153 Levothyroxine Sodium 88 MCG DAILY 08/20 1031 AC 08/22 IV 1055 Lorazepam 1 MG Q6-PRN PRN 08/20 2315 AC 08/21 IV 1848 Lorazepam 2 MG ONCE PRN 08/20 1700 AC 08/20 IV 1743 Magnesium Sulfate 1 GM Q2H 08/21 1800 DC 08/21 Dextrose/Water 100 ML IV 08/21 2159 1941 Metoprolol Tartrate 5 MG ONCE ONE 08/22 0900 DC 08/22 IV 08/22 0901 0904 Morphine Sulfate 2 MG Q6P PRN 08/20 2035 IV Nystatin 1 THANH BID 08/20 1000 AC 08/22 TOP 1048 Oxycodone HCl 5 MG Q6 PRN 08/20 0415 AC PO Potassium Chloride 20 MEQ Q1H 08/22 0815 DC 08/22 IV 08/22 0916 0823 Potassium Chloride 20 MEQ ONCE ONE 08/22 0745 CAN IV 08/22 0746 Sodium Phosphate 15 mMol ONE ONE 08/22 0745 AC 08/22 Sodium Chloride 250 ML IV 08/22 1148 1048 Sodium Phosphate 15 mMol ONE ONE 08/21 1800 DC 08/21 Dextrose/Water 250 ML IV 08/21 Vancomycin HCl 1,500 MG Q24 08/20 1034 DC 08/21 Sodium Chloride 250 ML IV 1159 Results Last 48 Hrs of Labs/Mics: Laboratory Tests 08/22/16 0755: pH 7.40, pCO2 39, pO2 63 L, HCO3 23, ABG O2 Sat (Measured) 92.0 L, P-50 (Temp Corrected) N, Carboxyhemoglobin 0.1 L, O2 Concentration % 3LPM, O2 Delivery Method NC, Phlebotomy Draw Site RIGHT RADIAL 08/22/16 0410: Anion Gap 10, Estimated GFR 37 L, Glucose 161 H, Calcium 7.9 L, Phosphorus 3.0, Magnesium 2.1, Total Bilirubin 0.6, AST 114 H, ALT 89 H, Albumin 3.2 L, CBC w Diff NO MAN DIFF REQ, RBC 3.85 L, MCV 95.0 H, MCH 32.0 H, RDW 15.6 H, MPV 9.8, Gran % 91.0 H, Lymphocytes % 3.4 L, Monocytes % 5.6, Eosinophils % 0, Basophils % 0 L, Absolute Granulocytes 10.8 H, Absolute Lymphocytes 0.4 L, Absolute Monocytes 0.7 H, Absolute Eosinophils 0, Absolute Basophils 0, PUBS MCHC 33.7 08/21/16 1605: Anion Gap 8, Estimated GFR 29 L, Glucose 154 H, Calcium 7.6 L, Phosphorus 2.7 , Magnesium 1.7, Total Bilirubin 0.5, AST 134 H, ALT 80 H, Albumin 2.7 L 08/21/16 1230: Acetaminophen < 10.0 L 08/21/16 1120: Ammonia < 9 L 08/21/16 0832: pH 7.33 L, pCO2 43, pO2 87, HCO3 23, ABG O2 Sat (Measured) 97.0, P-50 (Temp Corrected) YES, Carboxyhemoglobin 0.3 L, O2 Concentration % 3L, Temperature 97.4, O2 Delivery Method NC, Phlebotomy Draw Site RIGHT RADIAL 08/21/16 0559: Ur Creatinine 24 Hour Pending, Ur Total Protein 24 Hr Pending, Protein/Creat Ratio 24h Pending, U Protein Electrophores Pending, Urine Albumin (%) Pending, U Yswic-1-Jtmxefuq Pending, U Vcyjt-2-Pufkqtnl Pending, U Beta Globulin Pending, U Gamma Globulin Pending, U Abnormal Prot Band 1 Pending, U Abnormal Prot Band 2 Pending, U Abnormal Prot Band 3 Pending 08/21/16 0440: Prot Electrophoresis Pending, Total Protein (PEP) Pending, Albumin % (PEP) Pending, Pggru-3-Wckjeilla Pending, Mzaun-1-Snsztkeas Pending, Hlqg-1-Awkjheon Pending, Xosb-4-Axtxotaz Pending, Gamma Globulins Pending, Abnorm Protein Band 1 Pending, Abnorm Protein Band 2 Pending, Abnorm Protein Band 3 Pending 08/21/16 0440: Anion Gap 10, Estimated GFR 25 L, Glucose 155 H, Calcium 7.8 L, Phosphorus 2.8, Magnesium 1.8, Total Bilirubin 0.6, AST 157 H, ALT 87 H, Albumin 2.8 L, CBC w Diff NO MAN DIFF REQ, RBC 3.70 L, MCV 95.1 H, MCH 32.4 H, RDW 15.6 H, MPV 10.0, Gran % 89.2 H, Lymphocytes % 4.5 L, Monocytes % 6.3, Eosinophils % 0 , Basophils % 0 L, Absolute Granulocytes 12.8 H, Absolute Lymphocytes 0.6 L, Absolute Monocytes 0.9 H, Absolute Eosinophils 0, Absolute Basophils 0, PUBS MCHC 34.1 08/21/16 0435: Urinalysis MOD H, Urine Color YEL, Urine Clarity HAZY H, Urine pH 5.5, Ur Specific [place] 1.025, Urine Protein 30 H, Urine Ketones NEG, Urine Nitrite NEG, Urine Bilirubin NEG, Urine Urobilinogen 0.2, Ur Leukocyte Esterase TRACE H , Ur Microscopic SEDIMENT EXAMINED, Urine RBC 50-75 H, Urine WBC 5-10 H, Ur Epithelial Cells FEW, Urine Bacteria MOD H, Urine Hemoglobin LARGE H, Urine Glucose NEG 08/20/16 2110: Anion Gap 8, Estimated GFR 21 L, Glucose 181 H, Calcium 7.7 L, Phosphorus 2.9 , Magnesium 1.8, Total Bilirubin 0.7, AST 165 H, ALT 88 H, Albumin 2.9 L, Vitamin B12 > 1000 H, 25-OH Vitamin D Total 21.5 L, Folate > 20.0 H, Free T3 3.5 08/20/16 1200: Sodium Cancelled, Potassium Cancelled, Chloride Cancelled, Carbon Dioxide Cancelled, Anion Gap Cancelled, BUN Cancelled, Creatinine Cancelled, Glucose Cancelled, Calcium Cancelled, Phosphorus Cancelled, Magnesium Cancelled, Total Bilirubin Cancelled, AST Cancelled, ALT Cancelled, Albumin Cancelled Recent Imaging Studies: Echocardiogram 08/21/16: Mild concentric left ventricular hypertrophy. Normal left ventricular ejection fraction visually estimated at > 60%. Trace mitral regurgitation. Mild aortic stenosis. Trace tricuspid regurgitation. Assessment/Plan Assessment/Plan Assessment: 1. History of pituitary tumor resection 2. Hypotension, likely secondary to adrenal crisis, resolved 3. Pneumonia 4. Chronic kidney disease with acute exacerbation 5. Ruled out for [place] her infarction with negative troponin 2 6. Abnormal EKG 7. Normal left atrial function on echocardiogram Plan: * Cardiac status is stable. * Continue to monitor for now, and consider restarting and antihypertensive medication tomorrow if blood pressure remains elevated. Continue telemetry? Yes
[2016-08-22 16:00] VITALS: BP 150/60
[2016-08-23] VITALS: BP 168/90
[2016-08-23 05:05] LABS: ABSOLUTE BASOPHIL COUNT 0 /CUMM (0.0-0.2); ABSOLUTE EOSINOPHIL COUNT 0 /CUMM (0.0-0.7); ABSOLUTE GRANULOCYTE CT 6.7 /CUMM (1.4-6.5); ABSOLUTE LYMPH COUNT 0.4 /CUMM (1.2-3.4); ABSOLUTE MONOCYTE COUNT 0.7 /CUMM (0.10-0.60); BASOPHIL % 0 % (0.0-2.0); EOSINOPHIL % 0.2 % (0-5); GRANULOCYTE % 85.8 % (42.2-75.2); HEMATOCRIT 34.5 % (42-52); MEAN CORPUSCULAR HGB 32.5 PG (27.0-31.0); MEAN CORPUSCULAR HGB CONC 34.3 G/DL (33.0-37.0); MEAN CORPUSCULAR VOLUME 94.8 FL (80.0-94.0); MEAN PLATELET VOLUME 9.2 FL (7.4-10.4); PLATELET COUNT 116 /CUMM (130-400); RED BLOOD CELL CT 3.64 /CUMM (4.70-6.10); WHITE BLOOD CELL COUNT 7.8 /CUMM (4.8-10.8)
--- NOTE | 2016-08-23 07:13 | PN- Resident CRCU ---
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 Patient refused BiPAP yesterday. 24 Hour Events: Pulse lowest 80, highest 110 sinus rhythm Blood pressure lowest 119/49, highest 188/93 On Ventimask 35% saturating 94% Temperature 90.7, MAXIMUM TEMPERATURE 98.3 Intake 1277, output 3600 Objective Vital Signs & I&O Last 8 Hrs of Vitals and I&O: Intake & Output 08/23 1600 Intake Total Output Total Balance Patient 134.859 kg Weight Exam General Appearance: alert, awake, moderate distress Head: atraumatic, normal appearance Ears, Nose, Throat: normal pharynx, normal ENT inspection Neck: normal inspection, supple, full range of motion Respiratory: decreased breath sounds, accessory muscle use, wheezing Cardiovascular: regular rate/rhythm Gastrointestinal: normal bowel sounds, soft, non-tender Extremities: normal inspection, normal capillary refill, normal range of motion, bilateral trace pedal edema Cranial Nerves: normal hearing, PERRL Current Medications: Current Medications Sig/Antwon Start time Last Medication Dose Route Stop Time Status Admin Acetaminophen 650 MG Q6 PRN 08/20 0415 AC PO Albuterol Sulfate 3 ML Q4P PRN 08/23 0930 AC 08/22 INH 1345 Desmopressin Acetate 1 MCG BID 08/20 1300 AC 08/23 SC 1039 Dextrose/Sodium 1,000 ML Q20H 08/22 1100 DC 08/23 Chloride IV 0634 Dextrose/Water 1,000 ML .Q20H / 0745 AC 08/23 IV 0746 Furosemide 40 MG ONCE ONE 08/23 1030 DC 08/23 IV 08/23 1031 1037 Furosemide 40 MG ONCE ONE 08/23 0815 DC / IV / 0816 0822 Furosemide 20 MG ONCE ONE 08/22 1245 DC 08/22 IV 08/22 1246 1334 Haloperidol 1 MG ONCE ONE 08/22 1900 DC 08/22 IM 08/22 1901 2159 Hydralazine HCl 10 MG ONCE ONE 08/23 1030 DC IV 08/23 1031 Hydrocortisone 50 MG Q8 08/22 1400 DC 08/23 Sodium Succinate IV 0633 Insulin Aspart 0 Q4 08/20 1239 AC 08/23 SC 0633 Levothyroxine Sodium 88 MCG DAILY 08/20 1031 AC 08/23 IV 1033 Lorazepam 1 MG ONCE ONE 08/22 2300 DC 08/22 IV 08/22 2301 2304 Lorazepam 1 MG ONCE ONE 08/22 1445 DC 08/22 IV 08/22 1446 1500 Lorazepam 1 MG Q6-PRN PRN 08/20 2315 AC 08/21 IV 1848 Lorazepam 2 MG ONCE PRN 08/20 1700 AC 08/20 IV 1743 Methylprednisolone 40 MG Q8 08/23 2200 AC IV Methylprednisolone 125 MG ONCE ONE 08/23 0830 DC 08/23 IV 08/23 0831 0827 Metoprolol Tartrate 5 MG Q6 08/23 0808 AC 08/23 IV 0821 Morphine Sulfate 2 MG Q6P PRN 08/20 2035 AC 08/22 IV 2307 Nystatin 1 THANH BID 08/20 1000 AC 08/23 TOP 0827 Oxycodone HCl 5 MG Q6 PRN 08/20 0415 AC PO Potassium Chloride 10 MEQ ONCE ONE 08/23 0915 DC 08/23 IV 08/23 0916 1133 Potassium Chloride 20 MEQ ONCE ONE 08/22 2145 DC 08/22 IV 08/22 214 2139 Potassium Chloride 10 MEQ ONCE ONE 08/22 2130 CAN IV 08/22 213 Potassium Chloride 10 MEQ ONCE ONE 08/22 2130 CAN IV 08/22 213 Impression/Plan Impression/Problem List Impression: Mr. Downs is 75 with past medical history significant for pituriatry tumor resection in 2010 or 2011 (per ) with subsequent ANTITANK ASSAULT GUNNER shunt and brain radiation, short term memory loss, chronic renal disease, hypothyroidism, diabetes, hypertension who was BIBA SOB and AMS. 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) on chronic steroids -Hypothyrodism -Questionable Pneumonia -Metabolic acidosis non-anion gap -Delirium -Acute kindey injury on CKD -ANTITANK ASSAULT GUNNER shunt without signs of increase intracranial pressure Cardiology -Patient is hypertensive, blood pressure systolic in 180s, received multiple doses of metoprolol and hydralazine yesterday -Off levophid -BP improved, keep MAP 60-65 -Switch IVF to D5W instead of D5NS given elevated Na at 50cc/h -Discontinue hydrocortisone and switch to Solu-Medrol given patient respiratory situation -Start Solu-Medrol with bouls dose 125 mg and continue 40 mg every 8 -Continue desmopressin 1 mcg BID -Troponin negative, no EKG acute changes - Echocardiogram CONCLUSIONS Mild concentric left ventricular hypertrophy. Normal left ventricular ejection fraction visually estimated at > 60%. Trace mitral regurgitation. Mild aortic stenosis. Trace tricuspid regurgitation. ID -Patient initially was started on ceftaz and vancomycin being immunocompromised on chronic steroids, given that no evidence of current infection as patient is continued to be afebrile with no leukocytosis, antibiotic was switched to Unasyn -ID consultation was obtained, thanks for recommendation -Will hold Unasyn, continue off antibiotic -Chest x-ray reveled pulmonary edema -Afibrile, no leukocytosis (patient is on steroide) -We will hold off LP given improvement patient's mentation Respiratory -Patient has labored breating and restless -CXR reveled worsening pulmonary edema in setting of hypertension, could be related to pulmonary edema, patient received Lasix 40 mg, will give additional 40 based on nephrology recommendation and monitor intake and output, goal to have negative output by 2 L -Start BiPAP, repeat CXR -Lasix 80 mg once Monitor In/outs and daily weight Metabolic -Non-anion gap metabolic acidosis--resolved -Nephrology consultation was obtained, thanks for recommendation -Creatinine improved 1.4 -FENa indicative for prerenal, fraction excretion sodium 0.8 indicating for prerenal rather than ATN -Urine electrolytes, spot protein creatinine ratio pending -Serum electrophoresis and urine electrophoresis pending -NovoLog sliding scale every 4 Nuero -Alert oriented 3 -Neuro exam within normal -Reports about hospital acquired delirium -Neuro consultation was obtained, thanks for recommendation -Hypoxic encephalopathy, recommendation for supportive treatment -EEG 08/21 Abnormal due to moderate generalized slowing consistent with a diffuse toxic or metabolic encephalopathy. No epileptiform abnormalities are found. -Ammonia level low x2 08/20 and 08/21 -Consider Ativan when necessary for agitation -CT head August 19 and August 21 are negative for acute intracranial pathology -We'll obtain MRI, records from [facility] regarding ANTITANK ASSAULT GUNNER shunt was requested, pending Alimentry -NPO -Failed swallow eval Code Full DVT ALPS low platete DC [facility] [place] Consultation cardiology, nephrology, endocrinology, neurology Problem List: 1. Acute adrenal crisis 2. Septic shock 3. Pneumonia 4. Renal failure Pain Ratin Tomorrow's Labs & Rationales: CBC, ICU bundle Plan DVT/Prophylaxis: JOSH Rojas MD 08/23/16 0921: Attending MD Review Statement Attending Sign Off Attending Cosign Statement: I have: examined this patient, reviewed avalbl EMR data, personally reviewd images, discussd w/resident/PA/VP LAB, discussed mgmt plan w/angelo, discussed mgmt plan w/CM, discussed mgmt plan w/pt, agreed w/resident/PA/VP LAB, amended to note. Other Findings: IJosh M.D. have examined this patient, reviewed available EMR data, personally reviewed images, discussed with resident/PA/VP LAB, discussed management plan with housestaff and nursing staff, discussed managment plan all of healthcare providers, discussed management plan with patient and/or family, agreed with resident/PA/VP LAB. The past history and parts of the chart have been autopopulated. 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
[2016-08-23 08:00] VITALS: BP 182/80
--- NOTE | 2016-08-23 08:29 | PN- Nephrology ---
Assessment/Plan Assessment: Patient was visited and examined today. His mentation has improved. Patient is alert and oriented to TPP, offers no particular complain. Over the past 24 hour: Patient is off pressor and other life support measures, VS: 182/82 mmhg . Poor PO intake. On D5W (started this am). Patient is respiratory distress. Patient O2 demand has decreased from 40% O2 to 35% w/ Venti mask. His fluid balance is -2400 ml. Labs : Na 147, Cr 1.4, and BUN 28. Physical exam: AO, follow verbal commands, genarilzed expiratory wheezing and tachypnea, using abdominal muscles for breathing. No peripheral edema. Assessment: 75 YEARS OLD MAN W/ CKD stage 3 and panhypopituitarism has was initially admitted for adrenal crisis/shock which was complicated by GINETTE 2/2 to AT. Patient has recovered from shock and GINETTE. List of active issues 1) GINETTE- Cr is back to baseline; resolved 2) hypernatremia, w/ free water deficit of 3214 ml. Patients total intake for the pat 24 h has been. * Correction of acute hypernatremia in <24 hours, my calculation patient need to get the FWD with the rate of 133 ml/hr; however due to pulmonary congestion he was given lasix that might correct the hypernatremia * Per endo patient was started on D5 w/ rate of 50 ml/hr * repeat Na by noon and adjust fluid rate * slight hypokalemia- 3.9- repleted * Lasix 40 ml IV push and maintain negative fluid balance * obtain CXR 3) Panhypo * Start the patient to IV solu-medrol per endo * Continue DDAVP * Continue levothyroxin 4) Uncontrolled BP- We could resume his home dose of lisinopril as GINETTE is resolved. Suggestion: discussed above Problem List: 1. Renal failure 2. Acute adrenal crisis 3. Chronic kidney disease (CKD) stage G2/A1, mildly decreased glomerular filtration rate (GFR) between 60-89 mL/min/1.73 square meter and albuminuria creatinine ratio less than 30 mg/g Subjective Subjective: p Objective Vital Signs and I&Os Vital Signs Date Time Temp Pulse Resp B/P B/P Pulse O2 O2 Flow FiO2 Mean Ox Delivery Rate 08/24 1200 95 Nasal 4.0L Cannula 08/24 1137 95 Nasal 4.0L Cannula 08/24 1105 96.8 98 22 176/90 06 0836 95 Nasal 5.0L Cannula 08/24 0800 99 Nasal 40% Cannula 08/24 0800 96.8 72 24 150/70 99 Nasal 40% Cannula 08/24 0606 84 146/68 06 0400 95 Nasal 40% Cannula 08/24 0113 97 Nasal 40% Cannula 08/24 0043 96 136/75 06/03 0000 98.3 82 16 120/70 97 Nasal 40% Cannula 08/24 0000 97 Nasal 40% Cannula 08/23 2254 98 Nasal 40% Cannula 08/24 1999 97 Nasal 40% Cannula 08/23 1839 97.5 100 24 138/80 08/23 1600 97 Nasal 40% Cannula 08/23 1600 97.5 84 22 162/79 97 Nasal 40% Cannula Intake & Output 08/24 1600 08/24 0400 08/23 1600 08/23 0400 08/22 1600 08/22 0400 Intake Total 573 342 022 460 3020 774.8 Output Total 550 1100 3450 1300 2225 400 Balance 23 -118 -8518 -1039 -886 374.8 Intake, IV 573 342 208 139 9003 774.8 Intake, Oral 0 0 0 0 0 Number 0 0 0 0 0 0 Bowel Movements Output, Urine 550 1100 3450 1300 2225 400 Patient 297 lb Weight Results Pertinent Lab Results: Laboratory Tests 08/24 08/23 0415 1820 Chemistry Sodium (137 - 145 mmol/L) 147 H 147 H Potassium (3.5 - 5.1 mmol/L) 3.8 3.5 Chloride (98 - 107 mmol/L) 107 106 Carbon Dioxide (22 - 30 mmol/L) 29 33 H Anion Gap (5 - 16) 11 8 BUN (9 - 20 mg/dL) 39 H 34 H Creatinine (0.7 - 1.2 mg/dL) 1.3 H 1.3 H Estimated GFR (>60 ml/min) 54 L 54 L Glucose (65 - 99 mg/dL) 158 H 164 H Calcium (8.4 - 10.2 mg/dL) 7.3 L 7.3 L Phosphorus (2.5 - 4.5 mg/dL) 2.9 2.3 L Magnesium (1.6 - 2.3 mg/dL) 1.7 1.4 L Total Bilirubin (0.2 - 1.3 mg/dL) 0.9 0.8 AST (17 - 59 U/L) 52 55 ALT (21 - 72 U/L) 82 H 76 H Albumin (3.5 - 5.0 g/dL) 3.3 L 3.0 L Hematology CBC w Diff NO MAN DIFF REQ WBC (4.8 - 10.8 /CUMM) 10.0 RBC (4.70 - 6.10 /CUMM) 4.30 L Hgb (14.0 - 18.0 G/DL) 13.8 L Hct (42 - 52 %) 41.1 L MCV (80.0 - 94.0 FL) 95.4 H MCH (27.0 - 31.0 PG) 32.1 H RDW (11.5 - 14.5 %) 15.0 H Plt Count (130 - 400 /CUMM) 102 L MPV (7.4 - 10.4 FL) 9.8 Gran % (42.2 - 75.2 %) 91.4 H Lymphocytes % (20.5 - 51.1 %) 4.8 L Monocytes % (1.7 - 9.3 %) 3.7 Eosinophils % (0 - 5 %) 0.1 Basophils % (0.0 - 2.0 %) 0 L Absolute Granulocytes (1.4 - 6.5 /CUMM) 9.1 H Absolute Lymphocytes (1.2 - 3.4 /CUMM) 0.5 L Absolute Monocytes (0.10 - 0.60 /CUMM) 0.4 Absolute Eosinophils (0.0 - 0.7 /CUMM) 0 Absolute Basophils (0.0 - 0.2 /CUMM) 0 PUBS MCHC (33.0 - 37.0 G/DL) 33.6 06/02 06/ 0415 1800 Chemistry Sodium (137 - 145 mmol/L) 147 H 145 Potassium (3.5 - 5.1 mmol/L) 3.9 3.5 Chloride (98 - 107 mmol/L) 110 H 108 H Carbon Dioxide (22 - 30 mmol/L) 29 27 Anion Gap (5 - 16) 8 11 BUN (9 - 20 mg/dL) 28 H 28 H Creatinine (0.7 - 1.2 mg/dL) 1.4 H 1.6 H Estimated GFR (>60 ml/min) 49 L 42 L Glucose (65 - 99 mg/dL) 148 H 140 H Calcium (8.4 - 10.2 mg/dL) 7.3 L 7.5 L Phosphorus (2.5 - 4.5 mg/dL) 3.0 3.4 Magnesium (1.6 - 2.3 mg/dL) 1.7 1.6 Total Bilirubin (0.2 - 1.3 mg/dL) 0.6 0.7 AST (17 - 59 U/L) 62 H 83 H ALT (21 - 72 U/L) 86 H 91 H Albumin (3.5 - 5.0 g/dL) 2.8 L 3.1 L Hematology CBC w Diff NO MAN DIFF REQ WBC (4.8 - 10.8 /CUMM) 7.8 RBC (4.70 - 6.10 /CUMM) 3.64 L Hgb (14.0 - 18.0 G/DL) 11.8 L Hct (42 - 52 %) 34.5 L MCV (80.0 - 94.0 FL) 94.8 H MCH (27.0 - 31.0 PG) 32.5 H RDW (11.5 - 14.5 %) 15.0 H Plt Count (130 - 400 /CUMM) 116 L MPV (7.4 - 10.4 FL) 9.2 Gran % (42.2 - 75.2 %) 85.8 H Lymphocytes % (20.5 - 51.1 %) 5.2 L Monocytes % (1.7 - 9.3 %) 8.8 Eosinophils % (0 - 5 %) 0.2 Basophils % (0.0 - 2.0 %) 0 L Absolute Granulocytes (1.4 - 6.5 /CUMM) 6.7 H Absolute Lymphocytes (1.2 - 3.4 /CUMM) 0.4 L Absolute Monocytes (0.10 - 0.60 /CUMM) 0.7 H Absolute Eosinophils (0.0 - 0.7 /CUMM) 0 Absolute Basophils (0.0 - 0.2 /CUMM) 0 PUBS MCHC (33.0 - 37.0 G/DL) 34.3 08/22 08/22 1440 1340 Blood Gas pH (7.35 - 7.45 PH) 7.44 pCO2 (35 - 45 TORR) 36 pO2 (80 - 100 TORR) 77 L HCO3 (21 - 28 MEQ/L) 24 ABG O2 Sat (Measured) (>96.0 %) 94.0 L P-50 (Temp Corrected) N Carboxyhemoglobin (1.5 - 5.0 %) 1.1 L O2 Concentration % 4LPM O2 Delivery Method NC Miscellaneous Phlebotomy Draw Site RIGHT RADIAL Urines Urinalysis MOD H Urine Color (YEL,AMB,STR) STRAW Urine Clarity (CLEAR) HAZY H Urine pH (5.0 - 8.0) 6.0 Ur Specific [place] (1.001 - 1.035) 1.020 Urine Protein (NEG,<30 MG/DL) TRACE H Urine Ketones (NEG) NEG Urine Nitrite (NEG) NEG Urine Bilirubin (NEG) NEG Urine Urobilinogen (0.1 - 1.0 EU/dl) 0.2 Ur Leukocyte Esterase (NEG) TRACE H Ur Microscopic SEDIMENT EXAMINED Urine RBC (0 - 5 /HPF) 50-75 H Urine WBC (0 - 2 /HPF) 1-3 H Ur Epithelial Cells (NONE,FEW) RARE Urine Bacteria (NEG/NONE) FEW H Granular Casts (NONE /LPF) FEW H Urine Mucus (FEW,NONE) MOD H Urine Hemoglobin (NEG) LARGE H Urine Glucose (N MG/DL) NEG 08/22 08/22 08/22 0800 0800 0755 Blood Gas pH (7.35 - 7.45 PH) 7.40 pCO2 (35 - 45 TORR) 39 pO2 (80 - 100 TORR) 63 L HCO3 (21 - 28 MEQ/L) 23 ABG O2 Sat (Measured) (>96.0 %) 92.0 L P-50 (Temp Corrected) N Carboxyhemoglobin (1.5 - 5.0 %) 0.1 L O2 Concentration % 3LPM O2 Delivery Method NC Miscellaneous Phlebotomy Draw Site RIGHT RADIAL Other Body Source CSF WBC Cancelled CSF RBC Cancelled CSF Comment Cancelled CSF Glucose Cancelled CSF Total Protein Cancelled 08/22 08/21 0410 1605 Chemistry Sodium (137 - 145 mmol/L) 145 144 Potassium (3.5 - 5.1 mmol/L) 3.7 4.1 Chloride (98 - 107 mmol/L) 111 H 113 H Carbon Dioxide (22 - 30 mmol/L) 24 24 Anion Gap (5 - 16) 10 8 BUN (9 - 20 mg/dL) 28 H 31 H Creatinine (0.7 - 1.2 mg/dL) 1.8 H 2.2 H Estimated GFR (>60 ml/min) 37 L 29 L Glucose (65 - 99 mg/dL) 161 H 154 H Calcium (8.4 - 10.2 mg/dL) 7.9 L 7.6 L Phosphorus (2.5 - 4.5 mg/dL) 3.0 2.7 Magnesium (1.6 - 2.3 mg/dL) 2.1 1.7 Total Bilirubin (0.2 - 1.3 mg/dL) 0.6 0.5 AST (17 - 59 U/L) 114 H 134 H ALT (21 - 72 U/L) 89 H 80 H Albumin (3.5 - 5.0 g/dL) 3.2 L 2.7 L Hematology CBC w Diff NO MAN DIFF REQ WBC (4.8 - 10.8 /CUMM) 11.9 H RBC (4.70 - 6.10 /CUMM) 3.85 L Hgb (14.0 - 18.0 G/DL) 12.3 L Hct (42 - 52 %) 36.6 L MCV (80.0 - 94.0 FL) 95.0 H MCH (27.0 - 31.0 PG) 32.0 H RDW (11.5 - 14.5 %) 15.6 H Plt Count (130 - 400 /CUMM) 125 L MPV (7.4 - 10.4 FL) 9.8 Gran % (42.2 - 75.2 %) 91.0 H Lymphocytes % (20.5 - 51.1 %) 3.4 L Monocytes % (1.7 - 9.3 %) 5.6 Eosinophils % (0 - 5 %) 0 Basophils % (0.0 - 2.0 %) 0 L Absolute Granulocytes (1.4 - 6.5 /CUMM) 10.8 H Absolute Lymphocytes (1.2 - 3.4 /CUMM) 0.4 L Absolute Monocytes (0.10 - 0.60 /CUMM) 0.7 H Absolute Eosinophils (0.0 - 0.7 /CUMM) 0 Absolute Basophils (0.0 - 0.2 /CUMM) 0 PUBS MCHC (33.0 - 37.0 G/DL) 33.7
--- NOTE | 2016-08-23 08:31 | PN- Diabetes ---
Assessment/Plan Assessment: 75 yo male with PMH of pituriatry tumor resection several years ago with subsequent [employer] shunt and brain radiation, short term memory loss, chronic renal disease, hypothyroidism, diabetes, hypertension who was BIBA for SOB and changes of mental status. He was found to be hypotensive. He was put on BiPAP, pressor and stress dose of steroid hydrocortisone 100mg iv every 8 hours, Levothyroxuine 88 mcg iv daily and DDAVP 1 mcg sc twice a day. At home, he was on Levothyroxine 175 mcg daily, prednisone 5 mg daily and DDAVP nasal spray twice a day. He is off on pressors. His vital signs have been stable. Currently he was on D51 /2 NS at 75 ml/hour which was discontinued this morning. He is on coverage every 4 hours. His FSGs were 137, 158 and 168. His sodium was 147 this morning. His In /OUT was 1600/3525. Patient received Lasix 20 mg iv twice on 08/22/2016. Plan: 1. from pulmonary stand point, patient will be on Solumedrol today which will cover adrenal insufficiency. Hydrocortisone can to be held at this point. 2. continue DDAVP and Levothyroxine for now; 3. recommend giving patient D5W at 50 ml/hour and /or consider giving patient free water via GI tract 4. monitor FSGs every 4 hours; continue the current Novolog coverage every 4 hours; 5. monitor in /out and monitor electrolytes every 8 hours; will follow Subjective Subjective: His BP has been stable. Objective Last 24 Hrs of Vital Signs/I&O Vital Signs Date Time Temp Pulse Resp B/P B/P Pulse O2 O2 Flow FiO2 Mean Ox Delivery Rate 08/23 0400 98 Venti Mask 35% 08/23 0000 97 Venti Mask 35% 08/23 0000 98.3 98 30 168/90 97 Venti Mask 35% 08/22 2100 95 Venti Mask 35% 08/22 2000 98 Venti Mask 40% 08/22 1600 94 Nasal 3.0L Cannula 08/22 1600 98.1 94 38 150/60 92 Nasal 3.0L Cannula 08/22 1555 94 Nasal 4.0L Cannula 08/22 1418 106 99 08/22 1200 94 Nasal 3.0L Cannula 08/22 0904 104 188/93 Intake & Output 08/23 1600 08/23 0800 06/02 0000 Intake Total 297 261 Output Total 500 1300 Balance -203 -1039 Intake, IV 297 261 Intake, Oral 0 0 Number 0 0 Bowel Movements Output, Urine 500 1300 Findings Pertinent Lab/Jerry Results: Laboratory Tests 08/23 08/22 0415 1800 Chemistry Sodium (137 - 145 mmol/L) 147 H 145 Potassium (3.5 - 5.1 mmol/L) 3.9 3.5 Chloride (98 - 107 mmol/L) 110 H 108 H Carbon Dioxide (22 - 30 mmol/L) 29 27 Anion Gap (5 - 16) 8 11 BUN (9 - 20 mg/dL) 28 H 28 H Creatinine (0.7 - 1.2 mg/dL) 1.4 H 1.6 H Estimated GFR (>60 ml/min) 49 L 42 L Glucose (65 - 99 mg/dL) 148 H 140 H Calcium (8.4 - 10.2 mg/dL) 7.3 L 7.5 L Phosphorus (2.5 - 4.5 mg/dL) 3.0 3.4 Magnesium (1.6 - 2.3 mg/dL) 1.7 1.6 Total Bilirubin (0.2 - 1.3 mg/dL) 0.6 0.7 AST (17 - 59 U/L) 62 H 83 H ALT (21 - 72 U/L) 86 H 91 H Albumin (3.5 - 5.0 g/dL) 2.8 L 3.1 L Hematology CBC w Diff NO MAN DIFF REQ WBC (4.8 - 10.8 /CUMM) 7.8 RBC (4.70 - 6.10 /CUMM) 3.64 L Hgb (14.0 - 18.0 G/DL) 11.8 L Hct (42 - 52 %) 34.5 L MCV (80.0 - 94.0 FL) 94.8 H MCH (27.0 - 31.0 PG) 32.5 H RDW (11.5 - 14.5 %) 15.0 H Plt Count (130 - 400 /CUMM) 116 L MPV (7.4 - 10.4 FL) 9.2 Gran % (42.2 - 75.2 %) 85.8 H Lymphocytes % (20.5 - 51.1 %) 5.2 L Monocytes % (1.7 - 9.3 %) 8.8 Eosinophils % (0 - 5 %) 0.2 Basophils % (0.0 - 2.0 %) 0 L Absolute Granulocytes (1.4 - 6.5 /CUMM) 6.7 H Absolute Lymphocytes (1.2 - 3.4 /CUMM) 0.4 L Absolute Monocytes (0.10 - 0.60 /CUMM) 0.7 H Absolute Eosinophils (0.0 - 0.7 /CUMM) 0 Absolute Basophils (0.0 - 0.2 /CUMM) 0 PUBS MCHC (33.0 - 37.0 G/DL) 34.3 08/22 08/22 1440 1340 Blood Gas pH (7.35 - 7.45 PH) 7.44 pCO2 (35 - 45 TORR) 36 pO2 (80 - 100 TORR) 77 L HCO3 (21 - 28 MEQ/L) 24 ABG O2 Sat (Measured) (>96.0 %) 94.0 L P-50 (Temp Corrected) N Carboxyhemoglobin (1.5 - 5.0 %) 1.1 L O2 Concentration % 4LPM O2 Delivery Method NC Miscellaneous Phlebotomy Draw Site RIGHT RADIAL Urines Urinalysis MOD H Urine Color (YEL,AMB,STR) STRAW Urine Clarity (CLEAR) HAZY H Urine pH (5.0 - 8.0) 6.0 Ur Specific [place] (1.001 - 1.035) 1.020 Urine Protein (NEG,<30 MG/DL) TRACE H Urine Ketones (NEG) NEG Urine Nitrite (NEG) NEG Urine Bilirubin (NEG) NEG Urine Urobilinogen (0.1 - 1.0 EU/dl) 0.2 Ur Leukocyte Esterase (NEG) TRACE H Ur Microscopic SEDIMENT EXAMINED Urine RBC (0 - 5 /HPF) 50-75 H Urine WBC (0 - 2 /HPF) 1-3 H Ur Epithelial Cells (NONE,FEW) RARE Urine Bacteria (NEG/NONE) FEW H Granular Casts (NONE /LPF) FEW H Urine Mucus (FEW,NONE) MOD H Urine Hemoglobin (NEG) LARGE H Urine Glucose (N MG/DL) NEG
--- NOTE | 2016-08-23 09:32 | RADIOLOGY REPORT ---
EXAMINATION: XR PORTABLE CHEST CLINICAL INFORMATION: Increasing oxygen bands. COMPARISON: 08/22/2016. TECHNIQUE: Portable AP upright 70 degree view of the chest was obtained. FINDINGS: Exam is limited due to positioning and technique, portions of the right lateral hemithorax inferiorly are not included. Multiple cardiac leads overlie the chest. There appears to be a right IJ line in place with its tip in the right atrium. Heart remains enlarged with increased opacities predominately in the parahilar regions suggesting pulmonary edema. A component of lower lobe atelectasis especially on the left is again noted this appears somewhat improved. IMPRESSION: Limited exam with a probable right IJ central venous catheter and probable pulmonary edema again noted.
--- NOTE | 2016-08-23 10:51 | PN- Infect Dx ---
Subjective Subjective: Afebrile on steroids. He has been placed on BiPAP. He was restless overnight requiring Haldol. Objective Last 24 Hrs of Vital Signs/I&O Vital Signs Date Time Temp Pulse Resp B/P B/P Pulse O2 O2 Flow FiO2 Mean Ox Delivery Rate 08/23 1042 73 142/70 / 1000 67 99 / 0821 94 182/80 / 0800 97.9 94 26 182/80 93 Venti Mask 35% 08/23 0800 93 Venti Mask 35% 08/23 0400 98 Venti Mask 35% 08/23 0000 97 Venti Mask 35% 08/23 0000 98.3 98 30 168/90 97 Venti Mask 35% 08/22 2100 95 Venti Mask 35% 08/22 2000 98 Venti Mask 40% 08/22 1600 94 Nasal 3.0L Cannula 08/22 1600 98.1 94 38 150/60 92 Nasal 3.0L Cannula 08/22 1555 94 Nasal 4.0L Cannula 08/22 1418 106 99 08/22 1200 94 Nasal 3.0L Cannula Intake & Output 08/23 1600 08/23 0800 08/23 0000 Intake Total 297 261 Output Total 500 1300 Balance -203 -1039 Intake, IV 297 261 Intake, Oral 0 0 Number 0 0 Bowel Movements Output, Urine 500 1300 Patient 297 lb Weight Physical Exam Other Physical Findings: He is lethargic, on BiPAP, but arousable and able to respond to questions Neck right IJ triple-lumen catheter with no inflammation at the site Lungs are clear Heart regular rhythm with no murmur Abdomen soft, nontender with positive bowel sounds Extremities no cyanosis, clubbing or edema [place] catheter remains in place Results Last 24 Hours of Lab Results: Laboratory Tests 08/23 08/22 0415 1800 Chemistry Sodium (137 - 145 mmol/L) 147 H 145 Potassium (3.5 - 5.1 mmol/L) 3.9 3.5 Chloride (98 - 107 mmol/L) 110 H 108 H Carbon Dioxide (22 - 30 mmol/L) 29 27 Anion Gap (5 - 16) 8 11 BUN (9 - 20 mg/dL) 28 H 28 H Creatinine (0.7 - 1.2 mg/dL) 1.4 H 1.6 H Estimated GFR (>60 ml/min) 49 L 42 L Glucose (65 - 99 mg/dL) 148 H 140 H Calcium (8.4 - 10.2 mg/dL) 7.3 L 7.5 L Phosphorus (2.5 - 4.5 mg/dL) 3.0 3.4 Magnesium (1.6 - 2.3 mg/dL) 1.7 1.6 Total Bilirubin (0.2 - 1.3 mg/dL) 0.6 0.7 AST (17 - 59 U/L) 62 H 83 H ALT (21 - 72 U/L) 86 H 91 H Albumin (3.5 - 5.0 g/dL) 2.8 L 3.1 L Hematology CBC w Diff NO MAN DIFF REQ WBC (4.8 - 10.8 /CUMM) 7.8 RBC (4.70 - 6.10 /CUMM) 3.64 L Hgb (14.0 - 18.0 G/DL) 11.8 L Hct (42 - 52 %) 34.5 L MCV (80.0 - 94.0 FL) 94.8 H MCH (27.0 - 31.0 PG) 32.5 H RDW (11.5 - 14.5 %) 15.0 H Plt Count (130 - 400 /CUMM) 116 L MPV (7.4 - 10.4 FL) 9.2 Gran % (42.2 - 75.2 %) 85.8 H Lymphocytes % (20.5 - 51.1 %) 5.2 L Monocytes % (1.7 - 9.3 %) 8.8 Eosinophils % (0 - 5 %) 0.2 Basophils % (0.0 - 2.0 %) 0 L Absolute Granulocytes (1.4 - 6.5 /CUMM) 6.7 H Absolute Lymphocytes (1.2 - 3.4 /CUMM) 0.4 L Absolute Monocytes (0.10 - 0.60 /CUMM) 0.7 H Absolute Eosinophils (0.0 - 0.7 /CUMM) 0 Absolute Basophils (0.0 - 0.2 /CUMM) 0 PUBS MCHC (33.0 - 37.0 G/DL) 34.3 08/22 08/22 1440 1340 Blood Gas pH (7.35 - 7.45 PH) 7.44 pCO2 (35 - 45 TORR) 36 pO2 (80 - 100 TORR) 77 L HCO3 (21 - 28 MEQ/L) 24 ABG O2 Sat (Measured) (>96.0 %) 94.0 L P-50 (Temp Corrected) N Carboxyhemoglobin (1.5 - 5.0 %) 1.1 L O2 Concentration % 4LPM O2 Delivery Method NC Miscellaneous Phlebotomy Draw Site RIGHT RADIAL Urines Urinalysis MOD H Urine Color (YEL,AMB,STR) STRAW Urine Clarity (CLEAR) HAZY H Urine pH (5.0 - 8.0) 6.0 Ur Specific [place] (1.001 - 1.035) 1.020 Urine Protein (NEG,<30 MG/DL) TRACE H Urine Ketones (NEG) NEG Urine Nitrite (NEG) NEG Urine Bilirubin (NEG) NEG Urine Urobilinogen (0.1 - 1.0 EU/dl) 0.2 Ur Leukocyte Esterase (NEG) TRACE H Ur Microscopic SEDIMENT EXAMINED Urine RBC (0 - 5 /HPF) 50-75 H Urine WBC (0 - 2 /HPF) 1-3 H Ur Epithelial Cells (NONE,FEW) RARE Urine Bacteria (NEG/NONE) FEW H Granular Casts (NONE /LPF) FEW H Urine Mucus (FEW,NONE) MOD H Urine Hemoglobin (NEG) LARGE H Urine Glucose (N MG/DL) NEG Last 24 Hours of Jerry Results: Blood cultures August 19 remain negative Urine strep pneumo antigen and Legionella antigen August 21 negative Recent Imaging Studies: Chest x-ray August 23, personally reviewed, reveals increased bilateral perihilar opacities Assessment/Plan Impression: Worsening of his respiratory status and chest x-ray likely secondary to pulmonary edema, status post receipt of 7 L of fluid in the emergency room, with temperatures and white blood cell count normal (on steroids) and now off antibiotics, with recent cultures negative and initial CT of the chest, abdomen and pelvis also negative. Suggestion: 1. Further management of presumed pulmonary edema per Cardiology 2. Would remove right IJ triple-lumen catheter if he has peripheral IV access 3. Continue to follow off antibiotics
--- NOTE | 2016-08-23 13:53 | PN- Nephrology ---
Assessment/Plan Assessment: CKD - Baseline stage III chronic kidney disease based on labs in 2013. Minimal proteinuria on dipsticks here. No significant abnormalities seen on his abdominal CT in terms of the kidneys. Just based on history has not had DM long enough to invoke diabetic nephropathy (often will need to be for at least 12 years). Presumably hypertensive nephrosclerosis and age related nephron loss. Renal function continues to improve - now back to where he was in 2013. SPEP unrevealing ([facility] pending). GINETTE - Likely 2/2 ATN in the setting of shock (which has resolved) vs pre-renal azotemia (given hx of reeves-hypopit requiring desmopressin). Resolved. Hematuria - Worsened in the setting of glass placement and him noted by family to be "tugging on it." Not related to GINETTE as that got better. If remains even after glass taken out, may need urologic evaluation given prior smoking history. With minimal proteinuria, doubt relevant to any work-up with his underlying mild CKD. Septic/Distributive shock - Resolved. 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 Likely from decreased free water intake. On D5W. Altered mental status - No clear offending drugs that could have built up in the setting of GINETTE. Hypernatremia does not seem severe enough to cause altered mental status but is rather just a reflection of his inability to take in liquids. Suggestion: -Cont D5W at 100cc/hr while not taking in PO -PRN lasix for SOB/increased O2 requirements -Urologic evaluation after discharge if hematuria remains -f/u [facility] -Cont desmopressin as per Dr. Lynn Please call [phone] with ?'s Subjective Subjective: SCr down to 1.4 Na up to 147 - on D5W at 100cc/hr Given 40mg IV lasix for SOB/pulm edema - chest x-ray underpenetrated with probable pulm edema Objective Vital Signs and I&Os Vital Signs Date Time Temp Pulse Resp B/P B/P Pulse O2 O2 Flow FiO2 Mean Ox Delivery Rate 08/23 1329 99 Nasal 40% Cannula 08/23 1200 99 Nasal 40% Cannula 08/23 1042 73 142/70 08/23 1000 67 99 08/23 0821 94 182/80 08/23 0800 97.9 94 26 182/80 93 Venti Mask 35% 08/23 0800 93 Venti Mask 35% 08/23 0400 98 Venti Mask 35% / 0000 97 Venti Mask 35% / 0000 98.3 98 30 168/90 97 Venti Mask 35% 08/22 2100 95 Venti Mask 35% 08/22 2000 98 Venti Mask 40% 08/22 1600 94 Nasal 3.0L Cannula 08/22 1600 98.1 94 38 150/60 92 Nasal 3.0L Cannula 08/22 1555 94 Nasal 4.0L Cannula 08/22 1418 106 99 Intake & Output 08/23 1600 08/23 0400 08/22 1600 08/22 0400 08/21 1600 08/21 0400 Intake Total 992 175 6515 774.8 1237.2 499.8 Output Total 500 1300 2225 400 915 550 Balance -203 -1039 -886 374.8 322.2 -50.2 Intake, IV 625 392 1543 774.8 1237.2 499.8 Intake, Oral 0 0 0 0 0 0 Number 0 0 0 0 0 0 Bowel Movements Output, Urine 500 1300 2225 400 915 550 Patient 297 lb Weight Physical Exam: Gen - drowsy HEENT - supple CV - RRR Chest - clear anteriorly Abd - soft, nontender Ext - no edema Neuro - remains altered Current Medications: Current Medications Sig/Antwon Start time Last Medication Dose Route Stop Time Status Admin Acetaminophen 650 MG Q6 PRN 08/20 0415 AC PO Albuterol Sulfate 3 ML Q4P PRN 08/23 0930 AC 08/22 INH 1345 Desmopressin Acetate 1 MCG BID 08/20 1300 AC 08/23 SC 1039 Dextrose/Sodium 1,000 ML Q20H / 1100 DC / Chloride IV 0634 Dextrose/Water 1,000 ML .Q20H / 0745 AC / IV 0746 Furosemide 40 MG ONCE ONE 08/23 1030 DC / IV 08/23 1031 1037 Furosemide 40 MG ONCE ONE 08/23 0815 DC / IV / 0816 0822 Haloperidol 1 MG ONCE ONE 08/22 1900 DC 08/22 IM 08/22 1901 2159 Hydralazine HCl 10 MG ONCE ONE 08/23 1030 DC IV 08/23 1031 Hydrocortisone 50 MG Q8 / 1400 DC 08/23 Sodium Succinate IV 0633 Insulin Aspart 0 Q4 08/20 1239 AC 08/23 SC 0633 Levothyroxine Sodium 88 MCG DAILY 08/20 1031 AC 08/23 IV 1033 Lorazepam 1 MG ONCE ONE 08/22 2300 DC 08/22 IV 08/22 2301 2304 Lorazepam 1 MG ONCE ONE 08/22 1445 DC 08/22 IV 08/22 1446 1500 Lorazepam 1 MG Q6-PRN PRN 08/20 2315 AC 08/21 IV 1848 Lorazepam 2 MG ONCE PRN 08/20 1700 AC 08/20 IV 1743 Methylprednisolone 40 MG Q8 08/23 2200 AC IV Methylprednisolone 125 MG ONCE ONE 08/23 0830 DC 08/23 IV 08/23 0831 0827 Metoprolol Tartrate 5 MG Q6 08/23 0808 AC 08/23 IV 0821 Morphine Sulfate 2 MG Q6P PRN 08/20 2035 AC 08/22 IV 2307 Nystatin 1 THANH BID 08/20 1000 AC 08/23 TOP 0827 Oxycodone HCl 5 MG Q6 PRN 08/20 0415 AC PO Potassium Chloride 10 MEQ ONCE ONE 08/23 0915 DC 08/23 IV 08/23 0916 1133 Potassium Chloride 20 MEQ ONCE ONE 08/22 2145 DC 08/22 IV 08/22 214 2139 Potassium Chloride 10 MEQ ONCE ONE 08/22 213 CAN IV 08/22 213 Potassium Chloride 10 MEQ ONCE ONE 08/22 213 CAN IV 08/22 213 Results Pertinent Lab Results: Laboratory Tests 08/23 08/22 0415 1800 Chemistry Sodium (137 - 145 mmol/L) 147 H 145 Potassium (3.5 - 5.1 mmol/L) 3.9 3.5 Chloride (98 - 107 mmol/L) 110 H 108 H Carbon Dioxide (22 - 30 mmol/L) 29 27 Anion Gap (5 - 16) 8 11 BUN (9 - 20 mg/dL) 28 H 28 H Creatinine (0.7 - 1.2 mg/dL) 1.4 H 1.6 H Estimated GFR (>60 ml/min) 49 L 42 L Glucose (65 - 99 mg/dL) 148 H 140 H Calcium (8.4 - 10.2 mg/dL) 7.3 L 7.5 L Phosphorus (2.5 - 4.5 mg/dL) 3.0 3.4 Magnesium (1.6 - 2.3 mg/dL) 1.7 1.6 Total Bilirubin (0.2 - 1.3 mg/dL) 0.6 0.7 AST (17 - 59 U/L) 62 H 83 H ALT (21 - 72 U/L) 86 H 91 H Albumin (3.5 - 5.0 g/dL) 2.8 L 3.1 L Hematology CBC w Diff NO MAN DIFF REQ WBC (4.8 - 10.8 /CUMM) 7.8 RBC (4.70 - 6.10 /CUMM) 3.64 L Hgb (14.0 - 18.0 G/DL) 11.8 L Hct (42 - 52 %) 34.5 L MCV (80.0 - 94.0 FL) 94.8 H MCH (27.0 - 31.0 PG) 32.5 H RDW (11.5 - 14.5 %) 15.0 H Plt Count (130 - 400 /CUMM) 116 L MPV (7.4 - 10.4 FL) 9.2 Gran % (42.2 - 75.2 %) 85.8 H Lymphocytes % (20.5 - 51.1 %) 5.2 L Monocytes % (1.7 - 9.3 %) 8.8 Eosinophils % (0 - 5 %) 0.2 Basophils % (0.0 - 2.0 %) 0 L Absolute Granulocytes (1.4 - 6.5 /CUMM) 6.7 H Absolute Lymphocytes (1.2 - 3.4 /CUMM) 0.4 L Absolute Monocytes (0.10 - 0.60 /CUMM) 0.7 H Absolute Eosinophils (0.0 - 0.7 /CUMM) 0 Absolute Basophils (0.0 - 0.2 /CUMM) 0 PUBS MCHC (33.0 - 37.0 G/DL) 34.3 08/22 08/22 1440 1340 Blood Gas pH (7.35 - 7.45 PH) 7.44 pCO2 (35 - 45 TORR) 36 pO2 (80 - 100 TORR) 77 L HCO3 (21 - 28 MEQ/L) 24 ABG O2 Sat (Measured) (>96.0 %) 94.0 L P-50 (Temp Corrected) N Carboxyhemoglobin (1.5 - 5.0 %) 1.1 L O2 Concentration % 4LPM O2 Delivery Method NC Miscellaneous Phlebotomy Draw Site RIGHT RADIAL Urines Urinalysis MOD H Urine Color (YEL,AMB,STR) STRAW Urine Clarity (CLEAR) HAZY H Urine pH (5.0 - 8.0) 6.0 Ur Specific Peridot (1.001 - 1.035) 1.020 Urine Protein (NEG,<30 MG/DL) TRACE H Urine Ketones (NEG) NEG Urine Nitrite (NEG) NEG Urine Bilirubin (NEG) NEG Urine Urobilinogen (0.1 - 1.0 EU/dl) 0.2 Ur Leukocyte Esterase (NEG) TRACE H Ur Microscopic SEDIMENT EXAMINED Urine RBC (0 - 5 /HPF) 50-75 H Urine WBC (0 - 2 /HPF) 1-3 H Ur Epithelial Cells (NONE,FEW) RARE Urine Bacteria (NEG/NONE) FEW H Granular Casts (NONE /LPF) FEW H Urine Mucus (FEW,NONE) MOD H Urine Hemoglobin (NEG) LARGE H Urine Glucose (N MG/DL) NEG 08/22 08/22 08/22 0800 0800 0755 Blood Gas pH (7.35 - 7.45 PH) 7.40 pCO2 (35 - 45 TORR) 39 pO2 (80 - 100 TORR) 63 L HCO3 (21 - 28 MEQ/L) 23 ABG O2 Sat (Measured) (>96.0 %) 92.0 L P-50 (Temp Corrected) N Carboxyhemoglobin (1.5 - 5.0 %) 0.1 L O2 Concentration % 3LPM O2 Delivery Method LA Miscellaneous Phlebotomy Draw Site RIGHT RADIAL Other Body Source CSF WBC Cancelled CSF RBC Cancelled CSF Comment Cancelled CSF Glucose Cancelled CSF Total Protein Cancelled 08/22 08/21 08/21 0410 1605 1230 Chemistry Sodium (137 - 145 mmol/L) 145 144 Potassium (3.5 - 5.1 mmol/L) 3.7 4.1 Chloride (98 - 107 mmol/L) 111 H 113 H Carbon Dioxide (22 - 30 mmol/L) 24 24 Anion Gap (5 - 16) 10 8 BUN (9 - 20 mg/dL) 28 H 31 H Creatinine (0.7 - 1.2 mg/dL) 1.8 H 2.2 H Estimated GFR (>60 ml/min) 37 L 29 L Glucose (65 - 99 mg/dL) 161 H 154 H Calcium (8.4 - 10.2 mg/dL) 7.9 L 7.6 L Phosphorus (2.5 - 4.5 mg/dL) 3.0 2.7 Magnesium (1.6 - 2.3 mg/dL) 2.1 1.7 Total Bilirubin (0.2 - 1.3 mg/dL) 0.6 0.5 AST (17 - 59 U/L) 114 H 134 H ALT (21 - 72 U/L) 89 H 80 H Albumin (3.5 - 5.0 g/dL) 3.2 L 2.7 L Hematology CBC w Diff NO MAN DIFF REQ WBC (4.8 - 10.8 /CUMM) 11.9 H RBC (4.70 - 6.10 /CUMM) 3.85 L Hgb (14.0 - 18.0 G/DL) 12.3 L Hct (42 - 52 %) 36.6 L MCV (80.0 - 94.0 FL) 95.0 H MCH (27.0 - 31.0 PG) 32.0 H RDW (11.5 - 14.5 %) 15.6 H Plt Count (130 - 400 /CUMM) 125 L MPV (7.4 - 10.4 FL) 9.8 Gran % (42.2 - 75.2 %) 91.0 H Lymphocytes % (20.5 - 51.1 %) 3.4 L Monocytes % (1.7 - 9.3 %) 5.6 Eosinophils % (0 - 5 %) 0 Basophils % (0.0 - 2.0 %) 0 L Absolute Granulocytes (1.4 - 6.5 /CUMM) 10.8 H Absolute Lymphocytes (1.2 - 3.4 /CUMM) 0.4 L Absolute Monocytes (0.10 - 0.60 /CUMM) 0.7 H Absolute Eosinophils (0.0 - 0.7 /CUMM) 0 Absolute Basophils (0.0 - 0.2 /CUMM) 0 PUBS MCHC (33.0 - 37.0 G/DL) 33.7 Toxicology Acetaminophen (10.0 - 30.0 ug/mL) < 10.0 L 08/21 08/21 08/21 08/21 1120 0832 0559 0440 Blood Gas pH (7.35 - 7.45 PH) 7.33 L pCO2 (35 - 45 TORR) 43 pO2 (80 - 100 TORR) 87 HCO3 (21 - 28 MEQ/L) 23 ABG O2 Sat (Measured) (>96.0 %) 97.0 P-50 (Temp Corrected) YES Carboxyhemoglobin (1.5 - 5.0 %) 0.3 L O2 Concentration % 3L Temperature (97.0 - 100.0 FARH) 97.4 O2 Delivery Method NC Chemistry Ammonia (9 - 30 umol/L) < 9 L Prot Electrophoresis (()) SEE NOTE Total Protein (PEP) (6.1 - 8.1 g/dL) 5.3 L Albumin % (PEP) (3.8 - 4.8 g/dL) 2.8 L Yfhso-3-Laqzfbtuj (0.2 - 0.3 g/dL) 0.3 Tmbly-8-Sqmgeinjh (0.5 - 0.9 g/dL) 0.6 Bcsh-9-Gooqsfzz (0.4 - 0.6 g/dL) 0.4 Yzvq-0-Hwrajxpk (0.2 - 0.5 g/dL) 0.4 Gamma Globulins (0.8 - 1.7 g/dL) 0.8 Miscellaneous Phlebotomy Draw Site RIGHT RADIAL Urines Ur Creatinine 24 Hour Pending Ur Total Protein 24 Hr Pending Protein/Creat Ratio 24h Pending U Protein Electrophores Pending Urine Albumin (%) Pending U Ihfza-0-Xxppobzy Pending U Tyqpa-6-Jxgmwfad Pending U Beta Globulin Pending U Gamma Globulin Pending U Abnormal Prot Band 1 Pending U Abnormal Prot Band 2 Pending U Abnormal Prot Band 3 Pending 08/21 08/21 0411 1860 Chemistry Sodium (137 - 145 mmol/L) 145 Potassium (3.5 - 5.1 mmol/L) 4.3 Chloride (98 - 107 mmol/L) 113 H Carbon Dioxide (22 - 30 mmol/L) 21 L Anion Gap (5 - 16) 10 BUN (9 - 20 mg/dL) 27 H Creatinine (0.7 - 1.2 mg/dL) 2.5 H Estimated GFR (>60 ml/min) 25 L Glucose (65 - 99 mg/dL) 155 H Calcium (8.4 - 10.2 mg/dL) 7.8 L Phosphorus (2.5 - 4.5 mg/dL) 2.8 Magnesium (1.6 - 2.3 mg/dL) 1.8 Total Bilirubin (0.2 - 1.3 mg/dL) 0.6 AST (17 - 59 U/L) 157 H ALT (21 - 72 U/L) 87 H Albumin (3.5 - 5.0 g/dL) 2.8 L Hematology CBC w Diff NO MAN DIFF REQ WBC (4.8 - 10.8 /CUMM) 14.3 H RBC (4.70 - 6.10 /CUMM) 3.70 L Hgb (14.0 - 18.0 G/DL) 12.0 L Hct (42 - 52 %) 35.2 L MCV (80.0 - 94.0 FL) 95.1 H MCH (27.0 - 31.0 PG) 32.4 H RDW (11.5 - 14.5 %) 15.6 H Plt Count (130 - 400 /CUMM) 108 L MPV (7.4 - 10.4 FL) 10.0 Gran % (42.2 - 75.2 %) 89.2 H Lymphocytes % (20.5 - 51.1 %) 4.5 L Monocytes % (1.7 - 9.3 %) 6.3 Eosinophils % (0 - 5 %) 0 Basophils % (0.0 - 2.0 %) 0 L Absolute Granulocytes (1.4 - 6.5 /CUMM) 12.8 H Absolute Lymphocytes (1.2 - 3.4 /CUMM) 0.6 L Absolute Monocytes (0.10 - 0.60 /CUMM) 0.9 H Absolute Eosinophils (0.0 - 0.7 /CUMM) 0 Absolute Basophils (0.0 - 0.2 /CUMM) 0 PUBS MCHC (33.0 - 37.0 G/DL) 34.1 Urines Urinalysis MOD H Urine Color (YEL,AMB,STR) YEL Urine Clarity (CLEAR) HAZY H Urine pH (5.0 - 8.0) 5.5 Ur Specific Peridot (1.001 - 1.035) 1.025 Urine Protein (NEG,<30 MG/DL) 30 H Urine Ketones (NEG) NEG Urine Nitrite (NEG) NEG Urine Bilirubin (NEG) NEG Urine Urobilinogen (0.1 - 1.0 EU/dl) 0.2 Ur Leukocyte Esterase (NEG) TRACE H Ur Microscopic SEDIMENT EXAMINED Urine RBC (0 - 5 /HPF) 50-75 H Urine WBC (0 - 2 /HPF) 5-10 H Ur Epithelial Cells (NONE,FEW) FEW Urine Bacteria (NEG/NONE) MOD H Urine Hemoglobin (NEG) LARGE H Urine Glucose (N MG/DL) NEG 08/200 Chemistry Sodium (137 - 145 mmol/L) 141 Potassium (3.5 - 5.1 mmol/L) 4.4 Chloride (98 - 107 mmol/L) 112 H Carbon Dioxide (22 - 30 mmol/L) 20 L Anion Gap (5 - 16) 8 BUN (9 - 20 mg/dL) 26 H Creatinine (0.7 - 1.2 mg/dL) 2.9 H Estimated GFR (>60 ml/min) 21 L Glucose (65 - 99 mg/dL) 181 H Calcium (8.4 - 10.2 mg/dL) 7.7 L Phosphorus (2.5 - 4.5 mg/dL) 2.9 Magnesium (1.6 - 2.3 mg/dL) 1.8 Total Bilirubin (0.2 - 1.3 mg/dL) 0.7 AST (17 - 59 U/L) 165 H ALT (21 - 72 U/L) 88 H Albumin (3.5 - 5.0 g/dL) 2.9 L Vitamin B12 (239 - 931 pg/mL) > 1000 H 25-OH Vitamin D Total (30 - 100 ng/ml) 21.5 L Folate (2.76 - 20.0 ng/mL) > 20.0 H Free T3 (2.45 - 5.93 pg/mL) 3.5 Imaging/Other Studies: EXAM TYPE: RAD - XRY-PORTABLE CHEST XRAY EXAMINATION: XR PORTABLE CHEST CLINICAL INFORMATION: Increasing oxygen bands. COMPARISON: 08/22/2016. TECHNIQUE: Portable AP upright 70 degree view of the chest was obtained. FINDINGS: Exam is limited due to positioning and technique, portions of the right lateral hemithorax inferiorly are not included. Multiple cardiac leads overlie the chest. There appears to be a right IJ line in place with its tip in the right atrium. Heart remains enlarged with increased opacities predominately in the parahilar regions suggesting pulmonary edema. A component of lower lobe atelectasis especially on the left is again noted this appears somewhat improved. IMPRESSION: Limited exam with a probable right IJ central venous catheter and probable pulmonary edema again noted. TTE CONCLUSIONS Mild concentric left ventricular hypertrophy. Normal left ventricular ejection fraction visually estimated at > 60%. Trace mitral regurgitation. Mild aortic stenosis. Trace tricuspid regurgitation.
[2016-08-23 16:00] VITALS: BP 162/79
--- NOTE | 2016-08-23 18:45 | RADIOLOGY REPORT ---
EXAMINATION: XR PORTABLE CHEST CLINICAL INFORMATION: Pulmonary edema. COMPARISON: Portable chest x-ray 08/23/2016. TECHNIQUE: Portable frontal view of the chest was obtained. FINDINGS: Limited exam secondary to patient body habitus and low lung volumes. Allowing for differences in portable technique, patient positioning and aeration of the bilateral lungs, single AP view of the chest demonstrates no significant interval changes. Redemonstrated is a right internal jugular central venous catheter which appears to terminate within the right atrium. There are persistent bilateral confluent and patchy airspace opacities which may reflect pulmonary edema. There is hazy opacification of the right lung base which may reflect a layering pleural effusion. Cardiomediastinal contours are obscured. IMPRESSION: No significant interval changes of the chest, when accounting for differences in technique. This exam is significantly limited secondary to low lung volumes and patient body habitus.
[2016-08-24] VITALS: BP 120/70
[2016-08-24 04:55] LABS: ABSOLUTE BASOPHIL COUNT 0 /CUMM (0.0-0.2); ABSOLUTE EOSINOPHIL COUNT 0 /CUMM (0.0-0.7); ABSOLUTE MONOCYTE COUNT 0.4 /CUMM (0.10-0.60); EOSINOPHIL % 0.1 % (0-5); MEAN CORPUSCULAR HGB 32.1 PG (27.0-31.0); MEAN PLATELET VOLUME 9.8 FL (7.4-10.4)
[2016-08-24 05:07] LABS: ABSOLUTE GRANULOCYTE CT 9.1 /CUMM (1.4-6.5); ABSOLUTE LYMPH COUNT 0.5 /CUMM (1.2-3.4); BASOPHIL % 0 % (0.0-2.0); MEAN CORPUSCULAR HGB CONC 33.6 G/DL (33.0-37.0); MEAN CORPUSCULAR VOLUME 95.4 FL (80.0-94.0)
[2016-08-24 05:24] LABS: HEMATOCRIT 41.1 % (42-52)
[2016-08-24 05:25] LABS: GRANULOCYTE % 91.4 % (42.2-75.2); PLATELET COUNT 102 /CUMM (130-400)
[2016-08-24 08:00] VITALS: BP 150/70
--- NOTE | 2016-08-24 08:05 | PN- Resident CRCU ---
Subjective HPI/CRCU Issues: Overnight patient had multiple episodes of agitation and restlessness which resolved spontaneously after a few minutes. He remained afebrile. Patient was seen and examined this morning. He is drowsy but arousable. He appears confused and does not follow commands. He offers no complaints. Respiratory status improved and patient was weaned from the high flow nasal cannula at 40% to 4 L NC. This morning SBP had increased to 170s. Patient became more confused and agitated later in the day and was medicated with 2 mg of IV morphine and 1 mg of IV Haldol and subsequently placed in bilateral upper extremity restraints. Objective Vital Signs & I&O Last 8 Hrs of Vitals and I&O: Vital Signs Date Time Temp Pulse Resp B/P B/P Pulse O2 O2 Flow FiO2 Mean Ox Delivery Rate 08/24 1200 95 Nasal 4.0L Cannula 08/24 1137 95 Nasal 4.0L Cannula 08/24 1105 96.8 98 22 176/90 08/24 0836 95 Nasal 5.0L Cannula 08/24 0800 99 Nasal 40% Cannula 08/24 0800 96.8 72 24 150/70 99 Nasal 40% Cannula / 0606 84 146/68 06/ 0400 95 Nasal 40% Cannula / 0113 97 Nasal 40% Cannula / 0043 96 136/75 06/03 0000 98.3 82 16 120/70 97 Nasal 40% Cannula 06/03 0000 97 Nasal 40% Cannula 06/ 2254 98 Nasal 40% Cannula / 2000 97 Nasal 40% Cannula / 1839 97.5 100 24 138/80 06/02 1600 97 Nasal 40% Cannula 06/02 1600 97.5 84 22 162/79 97 Nasal 40% Cannula Exam General Appearance: well developed/nourished, no apparent distress, comfortable, obese, drowsy, does not follow commands Head: atraumatic, normal appearance Ears, Nose, Throat: moist mucus membranes Neck: normal inspection Respiratory: decreased breath sounds Cardiovascular: regular rate/rhythm Gastrointestinal: soft, non-tender, positive bowel sounds Extremities: no edema Cranial Nerves: PERRL Skin: intact, normal color, warm/dry Current Medications: Current Medications Sig/Antwon Start time Last Medication Dose Route Stop Time Status Admin Acetaminophen 650 MG Q6 PRN 08/20 0415 AC PO Albuterol Sulfate 3 ML Q4P PRN 08/23 0930 AC 08/22 INH 1345 Bisacodyl 10 MG ONCE ONE 08/24 1300 DC 08/24 DE 08/24 1301 1318 Desmopressin Acetate 1 MCG BID 08/20 1300 AC 08/24 SC 0958 Dextrose/Water 1,000 ML .Q10H 08/23 0745 AC 08/24 IV 0606 Furosemide 40 MG ONCE ONE 08/24 0900 DC 08/24 IV 08/24 0901 0906 Furosemide 20 MG ONCE ONE 08/23 2014 DC 08/23 IV 08/23 Haloperidol 1 MG ONCE ONE 08/24 1445 DC 08/24 IM 08/24 1446 1445 Insulin Aspart 0 Q4 08/20 1239 AC 08/24 SC 1432 Levothyroxine Sodium 88 MCG DAILY 08/20 1031 AC 08/24 IV 0958 Lorazepam 1 MG ONCE ONE 08/24 1445 CAN IV 08/24 1446 Lorazepam 1 MG ONCE ONE 08/23 1915 DC 08/23 IV 08/23 1916 1921 Lorazepam 1 MG Q6-PRN PRN 08/20 2315 AC 08/21 IV 1848 Lorazepam 2 MG ONCE PRN 08/20 1700 AC 08/23 IV 1618 Magnesium Sulfate 1 GM ONCE ONE 08/24 0900 DC 08/24 Dextrose/Water 100 ML IV 08/24 1259 0906 Magnesium Sulfate 1 GM ONCE ONE 08/23 2130 DC 08/23 Dextrose/Water 100 ML IV 08/24 0129 2200 Methylprednisolone 40 MG Q12H 08/24 1800 AC IV Methylprednisolone 40 MG Q8 08/23 2200 DC 08/24 IV 0606 Metoprolol Tartrate 5 MG Q6 08/23 0808 AC 08/24 IV 1105 Morphine Sulfate 2 MG Q6P PRN 08/20 2035 AC 08/24 IV 1110 Nystatin 1 THANH BID 08/20 1000 AC 08/24 TOP 0957 Oxycodone HCl 5 MG Q6 PRN 08/20 0415 AC PO Potassium Chloride 10 MEQ Q1H 08/23 2130 DC 08/24 IV 08/23 2231 0041 Results Results: Laboratory Tests 08/24 08/23 0415 1820 Chemistry Sodium (137 - 145 mmol/L) 147 H 147 H Potassium (3.5 - 5.1 mmol/L) 3.8 3.5 Chloride (98 - 107 mmol/L) 107 106 Carbon Dioxide (22 - 30 mmol/L) 29 33 H Anion Gap (5 - 16) 11 8 BUN (9 - 20 mg/dL) 39 H 34 H Creatinine (0.7 - 1.2 mg/dL) 1.3 H 1.3 H Estimated GFR (>60 ml/min) 54 L 54 L Glucose (65 - 99 mg/dL) 158 H 164 H Calcium (8.4 - 10.2 mg/dL) 7.3 L 7.3 L Phosphorus (2.5 - 4.5 mg/dL) 2.9 2.3 L Magnesium (1.6 - 2.3 mg/dL) 1.7 1.4 L Total Bilirubin (0.2 - 1.3 mg/dL) 0.9 0.8 AST (17 - 59 U/L) 52 55 ALT (21 - 72 U/L) 82 H 76 H Albumin (3.5 - 5.0 g/dL) 3.3 L 3.0 L Hematology CBC w Diff NO MAN DIFF REQ WBC (4.8 - 10.8 /CUMM) 10.0 RBC (4.70 - 6.10 /CUMM) 4.30 L Hgb (14.0 - 18.0 G/DL) 13.8 L Hct (42 - 52 %) 41.1 L MCV (80.0 - 94.0 FL) 95.4 H MCH (27.0 - 31.0 PG) 32.1 H RDW (11.5 - 14.5 %) 15.0 H Plt Count (130 - 400 /CUMM) 102 L MPV (7.4 - 10.4 FL) 9.8 Gran % (42.2 - 75.2 %) 91.4 H Lymphocytes % (20.5 - 51.1 %) 4.8 L Monocytes % (1.7 - 9.3 %) 3.7 Eosinophils % (0 - 5 %) 0.1 Basophils % (0.0 - 2.0 %) 0 L Absolute Granulocytes (1.4 - 6.5 /CUMM) 9.1 H Absolute Lymphocytes (1.2 - 3.4 /CUMM) 0.5 L Absolute Monocytes (0.10 - 0.60 /CUMM) 0.4 Absolute Eosinophils (0.0 - 0.7 /CUMM) 0 Absolute Basophils (0.0 - 0.2 /CUMM) 0 PUBS MCHC (33.0 - 37.0 G/DL) 33.6 CXR Findings: Low lung volumes limit evaluation. Findings are most consistent with pulmonary edema. The findings are similar to slightly worsened compared to the most recent examination. Suspect associated pleural effusions particularly on the left side. Impression/Plan Impression/Problem List Impression: Mr. Downs is 75 with past medical history significant for pituriatry tumor resection in 2010 or 2011 (per ) with subsequent [employer] shunt and brain radiation, short term memory loss, chronic renal disease, hypothyroidism, diabetes, hypertension who was BIBA SOB and AMS. 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 Once able to take PO, decrease and eventually stop fluids. Encourage oral fluid intake -Decrease Solumedrol to 40 mg IV Q12H -Continue desmopressin 1 mcg BID -Troponin negative, no EKG acute changes - Echocardiogram CONCLUSIONS Mild concentric left ventricular hypertrophy. Normal left ventricular ejection fraction visually estimated at > 60%. Trace mitral regurgitation. Mild aortic stenosis. Trace tricuspid regurgitation. ID -Patient initially was started on ceftaz and vancomycin being immunocompromised on chronic steroids, given that no evidence of current infection as patient is continued to be afebrile with no leukocytosis, antibiotic was switched to Unasyn -ID consultation was obtained, thanks for recommendation -Will hold Unasyn, continue off antibiotic -Chest x-ray reveled pulmonary edema -Afibrile, no leukocytosis (patient is on steroide) -We will hold off LP given improvement patient's mentation Respiratory -Patient has labored breating and restless -CXR today with slightly worsened pulmonary edema with associated pleural effusions, L>>R -Administer 40 mg of IV Lasix and repeat ICU bundle in the evening. If stable administer another 40 mg of IV Lasix to help improve pulmonary edema -Continue bedtime BiPAP. -Wean oxygen as tolerated to keep SpO2 >92% -OK to transfer to today or tomorrow if clinically stable Monitor In/outs and daily weight Metabolic -Non-anion gap metabolic acidosis--resolved -Nephrology consultation was obtained, thanks for recommendation -Creatinine improved 1.3 -FENa indicative for prerenal, fraction excretion sodium 0.8 indicating for prerenal rather than ATN -Urine lytes WNL. Urine spot wwlyzyx-zp-ohkgleheop ratio 0.09, indicating absence of significant proteinuria -SPEP revealing an isolated decrease in albumin suggestive of decreased protein synthesis or protein loss. UPEP pending -NovoLog sliding scale every 4 -Monitor lytes BID -Mg 1.7 this morning, improved from 1.4 yesterday evening after receiving 1 mg of IV Mg. Administer 1 mg of IV Mg today Nuero -Waxing and waning mental status with episodes of confusion and agitation -1 mg of IM Haldol administered for agitation. Check EKG -Bilateral upper extremity restraints placed -Reports about hospital acquired delirium -Neuro consultation was obtained, thanks for recommendation -Hypoxic encephalopathy, recommendation for supportive treatment -EEG 08/21 Abnormal due to moderate generalized slowing consistent with a diffuse toxic or metabolic encephalopathy. No epileptiform abnormalities are found. -Ammonia level low x2 08/20 and 08/21 -CT head August 19 and August 21 are negative for acute intracranial pathology -We'll obtain MRI, records from [facility] regarding [employer] shunt was requested, pending Alimentry -NPO after failing swallow eval. -Reattempt swallow eval today if more awake Problem List: 1. Acute adrenal crisis 2. Septic shock 3. Pneumonia 4. Renal failure Pain Ratin Tomorrow's Labs & Rationales: CBC and ICU bundle (ICU patient) Plan DVT/Prophylaxis: mechanical Code Status: Full Code
--- NOTE | 2016-08-24 10:42 | RADIOLOGY REPORT ---
EXAMINATION: XR PORTABLE CHEST CLINICAL INFORMATION: Shortness of breath COMPARISON: 08/23/2016. TECHNIQUE: Portable AP 85 degrees upright view of the chest was obtained. FINDINGS: The patient tubing is partially imaged. Lung volumes remain markedly decreased. There is diffuse hazy and interstitial opacity throughout the bilateral lungs with lower lobe opacity particularly on the left and likely pleural effusions. The cardiac silhouette is poorly evaluated. IMPRESSION: Low lung volumes limit evaluation. Findings are most consistent with pulmonary edema. The findings are similar to slightly worsened compared to the most recent examination. Suspect associated pleural effusions particularly on the left side.
--- NOTE | 2016-08-24 11:52 | PN- Pulmonary ---
Subjective HPI/Critical Care Issues: Sleeping this morning off BiPAP doing well Afebrile No other significant complaints patient was sleepy Significant data Creatinine down to 1.3 has improved to his baseline gap is normal magnesium 1.7 liver enzymes were slightly elevated white count 10.0 hemoglobin stable at 13.8 platelets 102 previous ABG reviewed All the cultures are negative so far Chest x-ray showed low lung volumes findings consistent with pulmonary edema with slight worsening with bilateral pleural effusion CT scan of the chest upon admission reviewed which showed compression deformity with dependent atelectasis Objective Current Medications: Current Medications Sig/Antwon Start time Last Medication Dose Route Stop Time Status Admin Acetaminophen 650 MG Q6 PRN 08/20 0415 AC PO Albuterol Sulfate 3 ML Q4P PRN 08/23 0930 AC 08/22 INH 1345 Desmopressin Acetate 1 MCG BID 08/20 1300 AC 08/24 SC 0958 Dextrose/Water 1,000 ML .[id number] 08/23 0745 AC 08/24 IV 0606 Furosemide 40 MG ONCE ONE 08/24 899 DC 08/24 IV 08/24 0901 0906 Furosemide 20 MG ONCE ONE 08/23 2014 DC 08/23 IV 08/23 Hydralazine HCl 10 MG ONCE ONE 08/23 1445 DC 08/23 IV 08/23 1446 1440 Insulin Aspart 0 Q4 08/20 1239 08/24 SC 1007 Levothyroxine Sodium 88 MCG DAILY 08/20 1031 AC 08/24 IV 0958 Lorazepam 1 MG ONCE ONE 08/23 1915 DC 08/23 IV 08/23 1916 1921 Lorazepam 1 MG Q6-PRN PRN 08/20 2315 AC 08/21 IV 1848 Lorazepam 2 MG ONCE PRN 08/20 1700 AC 08/23 IV 1618 Magnesium Sulfate 1 GM ONCE ONE 08/24 0900 AC 08/24 Dextrose/Water 100 ML IV 08/24 1259 0906 Magnesium Sulfate 1 GM ONCE ONE 08/23 2130 DC 08/23 Dextrose/Water 100 ML IV 08/24 0129 2200 Methylprednisolone 40 MG Q12H 08/24 1800 AC IV Methylprednisolone 40 MG Q8 08/23 2200 DC 08/24 IV 0606 Metoprolol Tartrate 5 MG Q6 08/23 0808 AC 08/24 IV 1105 Morphine Sulfate 2 MG Q6P PRN 08/20 2035 AC 08/24 IV 1110 Nystatin 1 THANH BID 08/20 1000 AC 08/24 TOP 0957 Oxycodone HCl 5 MG Q6 PRN 08/20 0415 AC PO Potassium Chloride 10 MEQ Q1H 08/23 2130 DC 08/24 IV 08/23 2231 0041 Vital Signs & I&O Last 24 Hrs of Vitals and I&O: Vital Signs Date Time Temp Pulse Resp B/P B/P Pulse O2 O2 Flow FiO2 Mean Ox Delivery Rate 08/24 1105 96.8 98 22 176/90 08/24 0836 95 Nasal 5.0L Cannula 08/24 0800 99 Nasal 40% Cannula 08/24 0800 96.8 72 24 150/70 99 Nasal 40% Cannula 08/24 0606 84 146/68 08/24 0400 95 Nasal 40% Cannula 08/24 0113 97 Nasal 40% Cannula 08/24 0043 96 136/75 08/24 0000 98.3 82 16 120/70 97 Nasal 40% Cannula 08/24 0000 97 Nasal 40% Cannula 08/23 2254 98 Nasal 40% Cannula 08/23 2000 97 Nasal 40% Cannula 08/23 1839 97.5 100 24 138/80 08/23 1600 97 Nasal 40% Cannula 08/23 1600 97.5 84 22 162/79 97 Nasal 40% Cannula 08/23 1440 94 187/85 08/23 1329 99 Nasal 40% Cannula 08/23 1200 99 Nasal 40% Cannula Intake & Output 08/24 1600 03 0800 08/24 0000 Intake Total 573 342 Output Total 550 1100 Balance 23 -758 Intake, IV 573 342 Intake, Oral 0 Number 0 0 Bowel Movements Output, Urine 550 1100 Impression/Plan Impression/Plan Impression/Plan: eneral Appearance: SLeeping comfortably Head: atraumatic, normal appearance Ears, Nose, Throat: normal pharynx, normal ENT inspection Neck: normal inspection, supple, full range of motion Respiratory: decreased breath sounds, accessory muscle use, wheezing Cardiovascular: regular rate/rhythm Gastrointestinal: normal bowel sounds, soft, non-tender Extremities: normal inspection, normal capillary refill, normal range of motion, bilateral trace pedal edema Cranial Nerves: normal hearing, PERRL IMPRESSION This is a gentleman with profound hypotension upon admission prob related to adrenal crisis with previous prednisone use, and panhypo pit seems to have improved with good hemodynamic stability * Pulmonary edema with fluid overload from appropriate aggressive fluid resuscitation, now s/p diuresis neg by more than 2 litres yesterday * Hypopit endocrine following * Acute kidney injury upon admission due to low flow state which is improved * Multiple electrolyte abnormality which is stable, including hypernatremia * Chronic kidney disease stage II, with hematuria recently probably related to Renteria placement * Hypernatremia likely from decreased free water intake on D5 water at this time and 50 mL which is relatively stable * Significant hypertension with probable diastolic dysfunction. RECOMMENDATION Continue steroids and other hormonal therapy per endocrine Replace magnesium Decrease and stop IV fluids, if he is stable and take adequate fluids by mouth. Increase free water by mouth Give one dose of intravenous Lasix 40 mg today and recheck labs this evening and it stable we will repeat the Lasix, to combat his pulmonary edema Continue using bedtime BiPAP Reduce oxygen to keep the sat of 92% If stable patient can be transferred to general medical floor today or tomorrow
--- NOTE | 2016-08-24 12:27 | PN- Diabetes ---
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 He was found to be hypotensive. He was put on BiPAP, pressor and stress dose of steroid hydrocortisone 100mg iv every 8 hours, Levothyroxuine 88 mcg iv daily and DDAVP 1 mcg sc twice a day. At home, he was on Levothyroxine 175 mcg daily, prednisone 5 mg daily and DDAVP nasal spray twice a day. Currently he was on D5w at 75 ml/hour He is on Novolog coverage every 4 hours. His FSGs were 166, 185, 157, 148, 156 and 201. Patient was placed on Solumedrol 40 mg iv twice day from pulmonary standpoint. In addition, he is still on Levothyroxuine 88 mcg iv daily and DDAVP 1 mcg sc twice a day. Patient received lasix total of 120 mg per day and IN/OUT over past 24 hours were 1044/4550. His sodium remains 147. Plan: 1.continue Solumedrol 40 mg iv twice ad ay as per pulmonary which will cover adrenal insufficiency. 2. continue DDAVP and Levothyroxine for now; 3. recommend increasing D5W to 100 ml/hour; 4. monitor FSGs every 4 hours; continue the current Novolog coverage every 4 hours; 5. monitor in /out and monitor electrolytes at least twice a day. will follow Subjective Subjective: Patient still appears lethargic. Objective Last 24 Hrs of Vital Signs/I&O Vital Signs Date Time Temp Pulse Resp B/P B/P Pulse O2 O2 Flow FiO2 Mean Ox Delivery Rate 08/24 1137 95 Nasal 4.0L Cannula 08/24 1105 96.8 98 22 176/90 06/ 0836 95 Nasal 5.0L Cannula 08/24 0800 99 Nasal 40% Cannula 08/24 0800 96.8 72 24 150/70 99 Nasal 40% Cannula 08/24 0606 84 146/68 06/ 0400 95 Nasal 40% Cannula 08/24 0113 97 Nasal 40% Cannula 08/24 0043 96 136/75 06/ 0000 98.3 82 16 120/70 97 Nasal 40% Cannula 08/24 0000 97 Nasal 40% Cannula 08/23 2254 98 Nasal 40% Cannula 08/24 1999 97 Nasal 40% Cannula 08/23 1839 97.5 100 24 138/80 08/23 1600 97 Nasal 40% Cannula 08/23 1600 97.5 84 22 162/79 97 Nasal 40% Cannula 08/23 1440 94 187/85 08/23 1329 99 Nasal 40% Cannula Intake & Output 08/24 1600 08/24 0800 06 0000 Intake Total 573 342 Output Total 550 1100 Balance 23 -758 Intake, IV 573 342 Intake, Oral 0 Number 0 0 Bowel Movements Output, Urine 550 1100 Findings Pertinent Lab/Jerry Results: Laboratory Tests 08/24 08/23 0415 1820 Chemistry Sodium (137 - 145 mmol/L) 147 H 147 H Potassium (3.5 - 5.1 mmol/L) 3.8 3.5 Chloride (98 - 107 mmol/L) 107 106 Carbon Dioxide (22 - 30 mmol/L) 29 33 H Anion Gap (5 - 16) 11 8 BUN (9 - 20 mg/dL) 39 H 34 H Creatinine (0.7 - 1.2 mg/dL) 1.3 H 1.3 H Estimated GFR (>60 ml/min) 54 L 54 L Glucose (65 - 99 mg/dL) 158 H 164 H Calcium (8.4 - 10.2 mg/dL) 7.3 L 7.3 L Phosphorus (2.5 - 4.5 mg/dL) 2.9 2.3 L Magnesium (1.6 - 2.3 mg/dL) 1.7 1.4 L Total Bilirubin (0.2 - 1.3 mg/dL) 0.9 0.8 AST (17 - 59 U/L) 52 55 ALT (21 - 72 U/L) 82 H 76 H Albumin (3.5 - 5.0 g/dL) 3.3 L 3.0 L Hematology CBC w Diff NO MAN DIFF REQ WBC (4.8 - 10.8 /CUMM) 10.0 RBC (4.70 - 6.10 /CUMM) 4.30 L Hgb (14.0 - 18.0 G/DL) 13.8 L Hct (42 - 52 %) 41.1 L MCV (80.0 - 94.0 FL) 95.4 H MCH (27.0 - 31.0 PG) 32.1 H RDW (11.5 - 14.5 %) 15.0 H Plt Count (130 - 400 /CUMM) 102 L MPV (7.4 - 10.4 FL) 9.8 Gran % (42.2 - 75.2 %) 91.4 H Lymphocytes % (20.5 - 51.1 %) 4.8 L Monocytes % (1.7 - 9.3 %) 3.7 Eosinophils % (0 - 5 %) 0.1 Basophils % (0.0 - 2.0 %) 0 L Absolute Granulocytes (1.4 - 6.5 /CUMM) 9.1 H Absolute Lymphocytes (1.2 - 3.4 /CUMM) 0.5 L Absolute Monocytes (0.10 - 0.60 /CUMM) 0.4 Absolute Eosinophils (0.0 - 0.7 /CUMM) 0 Absolute Basophils (0.0 - 0.2 /CUMM) 0 PUBS MCHC (33.0 - 37.0 G/DL) 33.6
[2016-08-24 16:00] VITALS: BP 170/88
[2016-08-25] VITALS: BP 124/80
[2016-08-25 05:37] LABS: ABSOLUTE BASOPHIL COUNT 0 /CUMM (0.0-0.2); ABSOLUTE EOSINOPHIL COUNT 0 /CUMM (0.0-0.7); ABSOLUTE GRANULOCYTE CT 8.4 /CUMM (1.4-6.5); ABSOLUTE LYMPH COUNT 0.5 /CUMM (1.2-3.4); ABSOLUTE MONOCYTE COUNT 0.9 /CUMM (0.10-0.60); BASOPHIL % 0 % (0.0-2.0); EOSINOPHIL % 0 % (0-5); GRANULOCYTE % 86.5 % (42.2-75.2); HEMATOCRIT 39.1 % (42-52); MEAN CORPUSCULAR HGB 31.6 PG (27.0-31.0); MEAN CORPUSCULAR HGB CONC 33.5 G/DL (33.0-37.0); MEAN CORPUSCULAR VOLUME 94.2 FL (80.0-94.0); PLATELET COUNT 146 /CUMM (130-400); RED BLOOD CELL CT 4.15 /CUMM (4.70-6.10)
[2016-08-25 06:06] LABS: WHITE BLOOD CELL COUNT 9.7 /CUMM (4.8-10.8)
[2016-08-25 08:00] VITALS: BP 128/60
--- NOTE | 2016-08-25 08:12 | PN- Resident CRCU ---
Subjective HPI/CRCU Issues: Mr. Downs seen and examined at bedside this AM. He is more awake and able to follow some commands. He occasionally notes shortness of breath but his O2 saturations and RR remain appropriate. Bedside swallow eval done and delayed slight coughing appreciated. Will not allow meds with applesauce. Await official swallow eval tomorrow AM. 24 Hour Events: cafeteria monitor: No significant events. Vital signs last 24 hours: T 96.8-99.2, HR 72-106, RR 16-24, BP 106-182/53-101, O2 95%-99% on 3 L NC. Total intake last 24 hours: 2402 cc Total output last 24 hours: 2800 cc Objective Vital Signs & I&O Last 8 Hrs of Vitals and I&O: Intake & Output 08/25 1600 Intake Total 1070 Output Total 600 Balance 470 Intake, IV 1070 Output, Urine 600 T 96.8-99.2, HR 72-106, RR 16-24, BP 106-182/53-101, O2 95%-99% on 3 L NC. Exam General Appearance: well developed/nourished, no apparent distress, awake, comfortable Head: atraumatic, normal appearance Ears, Nose, Throat: moist mucus membranes Neck: normal inspection, supple Respiratory: Decreased breath sounds bilateral lung pederson, occasional wheeze Cardiovascular: regular rate/rhythm Gastrointestinal: normal bowel sounds, soft, non-tender Extremities: normal inspection, normal capillary refill, normal range of motion, Minimal bilateral pedal edema Cranial Nerves: normal hearing, PERRL Skin: warm/dry Nutrition Nutrition: NPO Current Medications: Current Medications Sig/Antwon Start time Last Medication Dose Route Stop Time Status Admin Acetaminophen 650 MG Q6 PRN 08/20 0415 AC PO Acetazolamide 250 MG ONCE ONE 08/25 1130 DC 08/25 Sodium Chloride 50 ML IV 08/25 1159 1408 Albuterol Sulfate 3 ML Q4P PRN 08/23 0930 AC 08/25 INH 1411 Desmopressin Acetate 1 MCG BID 08/20 1300 AC 08/25 SC 1027 Dextrose/Water 1,000 ML .Q20H 08/23 0745 AC 08/25 IV 1204 Furosemide 20 MG ONCE ONE 08/25 1415 CAN IV 08/25 1416 Furosemide 60 MG ONCE ONE 08/24 1545 DC 08/24 IV 08/24 1546 1558 Insulin Aspart 0 Q4 08/20 1239 AC 08/25 SC 1430 Levothyroxine Sodium 88 MCG DAILY 08/20 1031 AC 08/25 IV 1027 Lorazepam 1 MG Q6-PRN PRN 08/20 2315 AC 08/21 IV 1848 Lorazepam 2 MG ONCE PRN 08/20 1700 AC 08/23 IV 1618 Magnesium Sulfate 1 GM ONCE ONE 08/25 0845 DC 08/25 Dextrose/Water 100 ML IV 08/25 1244 1201 Methylprednisolone 40 MG Q12H 08/24 1800 AC 08/25 IV 0604 Metoprolol Tartrate 10 MG Q6 08/24 1800 DC IV Metoprolol Tartrate 5 MG Q6 08/24 1800 AC 08/25 IV 1229 Morphine Sulfate 2 MG Q6P PRN 08/20 2035 AC 08/24 IV 1110 Nystatin 1 THANH BID 08/20 1000 AC 08/25 TOP 0942 Oxycodone HCl 5 MG Q6 PRN 08/20 0415 AC PO Potassium Chloride 10 MEQ Q1H 08/25 0845 DC 08/25 IV 08/25 0946 1050 Potassium Chloride 10 MEQ Q1H 08/24 1845 DC 08/24 IV 08/24 1946 2003 CXR Findings: 08/24/16 CXR: IMPRESSION: Low lung volumes limit evaluation. Findings are most consistent with pulmonary edema. The findings are similar to slightly worsened compared to the most recent examination. Suspect associated pleural effusions particularly on the left side. Impression/Plan Impression/Problem List Impression: Mr. Downs is 75 year old male with PMH pituriatry tumor resection in 2010 or 2011 (per ) with subsequent DRILLER HAND shunt and brain radiation, short term memory loss, chronic renal disease, hypothyroidism, diabetes and hypertension who was BIBA SOB and AMS. The patient is currently admitted to the ICU and the following is the assessment /plan: Problem list 1. Shock due to adrenal crisis s/p pituriatry tumor resection and radiotherapy ( 2005) on chronic steroids 2. Hypothyrodism 3. Questionable Pneumonia 4. Metabolic acidosis ,non-anion gap 5. Delirium 6. Acute kindey injury on chronic kidney dysfunction 7. DRILLER HAND shunt without signs of increased intracranial pressure Cardiology -Patient remains hypertensive, with SBP up to the 170s this morning (off levophed) -Goal MAP of 60-65 -Decrease D5W to 50 cc/hr due to recent pulmonary edema s/p diuresis. Once able to take PO will eventually stop fluids -Solumedrol to 40 mg IV Q12H -Continue desmopressin 1 mcg BID -Troponin negative, no EKG acute changes -Echocardiogram: Mild concentric left ventricular hypertrophy. Normal left ventricular ejection fraction visually estimated at > 60%. Trace mitral regurgitation. Mild aortic stenosis. Trace tricuspid regurgitation. ID -Patient initially was started on ceftaz and vancomycin being immunocompromised on chronic steroids, however antibiotic has since been discotinued; patient remains afebrile without leukocytosis -ID consultation was obtained, recommendation appreciated -Continue off antibiotic -Chest x-ray 08/24 reveled pulmonary edema for which patient received IV lasix -We will hold off LP given improvement patient's mentation Respiratory -Patient has labored breating and restless at times -CXR yesterday with slightly worsened pulmonary edema with associated pleural effusions, L>>R -Administered IV Lasix with improvement in fluid overload status -Continue bedtime BiPAP. -Wean oxygen as tolerated to keep SpO2 >92% -OK to transfer to today or tomorrow if clinically stable -One dose diamox today -Monitor In/outs and daily weight Metabolic -Non-anion gap metabolic acidosis--resolved -Nephrology consultation was obtained, recommendations appreciated -Creatinine improved 1.4 -FENa indicative for prerenal, fraction excretion sodium 0.8 indicating for prerenal rather than ATN -Urine lytes WNL. Urine spot [id number] ratio 0.09, indicating absence of significant proteinuria -SPEP revealing an isolated decrease in albumin suggestive of decreased protein synthesis or protein loss. UPEP pending. -NovoLog sliding scale every 4 hours -Monitor lytes closely -Mg 1.6 this morning, s/p repletion, continue to replete daily as needed Neuro -Waxing and waning mental status with episodes of confusion and agitation -IV ativan PRN agitation, IV morphine PRN agitation -Bilateral upper extremity restraints placed -Concern about hospital acquired delirium -Neuro consultation obtained, recommendations appreciated -Hypoxic encephalopathy, recommendation for supportive treatment -EEG 08/21: Abnormal due to moderate generalized slowing consistent with a diffuse toxic or metabolic encephalopathy. No epileptiform abnormalities are found. -Ammonia level low x2 08/20 and 08/21 -CT head August 19 and August 21 are negative for acute intracranial pathology -Records from [facility] regarding DRILLER HAND shunt currently in the chart Alimentry -NPO after failing swallow eval. -Repeat swallow eval in AM. FULL CODE Problem List: 1. Acute adrenal crisis 2. Chronic kidney disease (CKD) stage G2/A1, mildly decreased glomerular filtration rate (GFR) between 60-89 mL/min/1.73 square meter and albuminuria creatinine ratio less than 30 mg/g 3. GINETTE (acute kidney injury) Pain Ratin Tomorrow's Labs & Rationales: CBC, ICU bundle Plan DVT/Prophylaxis: mechanical Code Status: Full Code
--- NOTE | 2016-08-25 08:46 | PN- Infect Dx ---
Subjective Subjective: Afebrile on steroids without complaints. He continues to have episodes of agitation and restlessness Objective Last 24 Hrs of Vital Signs/I&O Vital Signs Date Time Temp Pulse Resp B/P B/P Pulse O2 O2 Flow FiO2 Mean Ox Delivery Rate 08/25 0605 87 20 124/63 08/25 0400 97 Nasal 3.0L Cannula 08/25 0001 102 19 122/63 08/25 0000 97 Nasal 3.0L Cannula 08/25 0000 98.9 102 19 124/80 97 Nasal 3.0L Cannula 08/24 2000 94 Nasal 3.0L Cannula 08/24 1810 95 Nasal 4.0L Cannula 08/24 1716 107 158/70 08/24 1600 97.8 14 24 170/88 96 Nasal 3.0L Cannula 08/24 1600 93 Nasal 3.0L Cannula 08/24 1200 95 Nasal 4.0L Cannula 08/24 1137 95 Nasal 4.0L Cannula 08/24 1105 96.8 98 22 176/90 Intake & Output 08/25 1600 08/25 0800 08/25 0000 Intake Total 767 907 Output Total 700 1150 Balance 67 -243 Intake, IV 767 907 Number 0 Bowel Movements Output, Urine 700 1150 Physical Exam Other Physical Findings: He is currently lethargic but arousable and in no acute distress Lungs are clear Heart regular rhythm with no murmur Abdomen is obese, soft, nontender with positive bowel sounds Extremities no cyanosis, clubbing or edema Renteria catheter remains in place Results Last 24 Hours of Lab Results: Laboratory Tests 08/25 08/24 0503 1700 Chemistry Sodium (137 - 145 mmol/L) 145 145 Potassium (3.5 - 5.1 mmol/L) 3.5 3.7 Chloride (98 - 107 mmol/L) 98 99 Carbon Dioxide (22 - 30 mmol/L) 39 H 35 H Anion Gap (5 - 16) 8 11 BUN (9 - 20 mg/dL) 48 H 44 H Creatinine (0.7 - 1.2 mg/dL) 1.4 H 1.5 H Estimated GFR (>60 ml/min) 49 L 46 L Glucose (65 - 99 mg/dL) 177 H 187 H Calcium (8.4 - 10.2 mg/dL) 7.2 L 7.5 L Phosphorus (2.5 - 4.5 mg/dL) 2.6 3.1 Magnesium (1.6 - 2.3 mg/dL) 1.6 1.9 Total Bilirubin (0.2 - 1.3 mg/dL) 0.8 0.8 AST (17 - 59 U/L) 44 45 ALT (21 - 72 U/L) 74 H 88 H Albumin (3.5 - 5.0 g/dL) 3.1 L 3.5 Hematology CBC w Diff NO MAN DIFF REQ WBC (4.8 - 10.8 /CUMM) 9.7 RBC (4.70 - 6.10 /CUMM) 4.15 L Hgb (14.0 - 18.0 G/DL) 13.1 L Hct (42 - 52 %) 39.1 L MCV (80.0 - 94.0 FL) 94.2 H MCH (27.0 - 31.0 PG) 31.6 H RDW (11.5 - 14.5 %) 15.0 H Plt Count (130 - 400 /CUMM) 146 MPV (7.4 - 10.4 FL) 9.0 Gran % (42.2 - 75.2 %) 86.5 H Lymphocytes % (20.5 - 51.1 %) 4.7 L Monocytes % (1.7 - 9.3 %) 8.8 Eosinophils % (0 - 5 %) 0 Basophils % (0.0 - 2.0 %) 0 L Absolute Granulocytes (1.4 - 6.5 /CUMM) 8.4 H Absolute Lymphocytes (1.2 - 3.4 /CUMM) 0.5 L Absolute Monocytes (0.10 - 0.60 /CUMM) 0.9 H Absolute Eosinophils (0.0 - 0.7 /CUMM) 0 Absolute Basophils (0.0 - 0.2 /CUMM) 0 PUBS MCHC (33.0 - 37.0 G/DL) 33.5 Last 24 Hours of Jerry Results: No recent cultures Recent Imaging Studies: Chest x-ray August 24 reveals diffuse hazy and interstitial opacities throughout both lungs, consistent with pulmonary edema Assessment/Plan Impression: Stable with a significant diuresis over the past several days resulting in an improved respiratory status, though his chest x-ray still shows pulmonary edema. He remains afebrile (on steroids) with white blood cell count normal off antibiotics. Suggestion: 1. Further management of pulmonary edema per Cardiology and Renal 2. Continue to follow off antibiotics
--- NOTE | 2016-08-25 10:19 | PN- CRCU ---
Subjective HPI/Critical Care Issues: Afebrile More awake still lethargic however fatigued Sleepy On IVf I/o neg 400 cc Objective Current Medications: Current Medications Sig/Antwon Start time Last Medication Dose Route Stop Time Status Admin Acetaminophen 650 MG Q6 PRN 08/20 0415 AC PO Albuterol Sulfate 3 ML Q4P PRN 08/23 0930 AC 08/22 INH 1345 Bisacodyl 10 MG ONCE ONE 08/24 1300 DC 08/24 IN 08/24 1301 1318 Desmopressin Acetate 1 MCG BID 08/20 1300 AC 08/24 SC 2151 Dextrose/Water 1,000 ML .Q10H 08/23 0745 AC 08/24 IV 2338 Furosemide 60 MG ONCE ONE 08/24 1545 DC 08/24 IV 08/24 1546 1558 Haloperidol 1 MG ONCE ONE 08/24 1445 DC 08/24 IM 08/24 1446 1445 Insulin Aspart 0 Q4 08/20 1239 AC 08/25 SC 0603 Levothyroxine Sodium 88 MCG DAILY 08/20 1031 AC 08/24 IV 0958 Lorazepam 1 MG ONCE ONE 08/24 1445 CAN IV 08/24 1446 Lorazepam 1 MG Q6-PRN PRN 08/20 2315 AC 08/21 IV 1848 Lorazepam 2 MG ONCE PRN 08/20 1700 AC 08/23 IV 1618 Magnesium Sulfate 1 GM ONCE ONE 08/25 0845 AC Dextrose/Water 100 ML IV 08/25 1244 Magnesium Sulfate 1 GM ONCE ONE 08/24 0900 DC 08/24 Dextrose/Water 100 ML IV 08/24 1259 0906 Methylprednisolone 40 MG Q12H 08/24 1800 AC 08/25 IV 0604 Metoprolol Tartrate 10 MG Q6 08/24 1800 DC IV Metoprolol Tartrate 5 MG Q6 08/24 1800 AC 08/25 IV 0605 Metoprolol Tartrate 5 MG Q6 08/23 0808 DC 08/24 IV 1105 Morphine Sulfate 2 MG Q6P PRN 08/20 2035 AC 08/24 IV 1110 Nystatin 1 THANH BID 08/20 1000 AC 08/25 TOP 0942 Oxycodone HCl 5 MG Q6 PRN 08/20 0415 AC PO Potassium Chloride 10 MEQ Q1H 08/25 0845 DC 08/25 IV 08/25 0946 0938 Potassium Chloride 10 MEQ Q1H 08/24 1845 DC 08/24 IV 08/24 Laboratory Tests 08/25 08/24 0503 1700 Chemistry Sodium (137 - 145 mmol/L) 145 145 Potassium (3.5 - 5.1 mmol/L) 3.5 3.7 Chloride (98 - 107 mmol/L) 98 99 Carbon Dioxide (22 - 30 mmol/L) 39 H 35 H Anion Gap (5 - 16) 8 11 BUN (9 - 20 mg/dL) 48 H 44 H Creatinine (0.7 - 1.2 mg/dL) 1.4 H 1.5 H Estimated GFR (>60 ml/min) 49 L 46 L Glucose (65 - 99 mg/dL) 177 H 187 H Calcium (8.4 - 10.2 mg/dL) 7.2 L 7.5 L Phosphorus (2.5 - 4.5 mg/dL) 2.6 3.1 Magnesium (1.6 - 2.3 mg/dL) 1.6 1.9 Total Bilirubin (0.2 - 1.3 mg/dL) 0.8 0.8 AST (17 - 59 U/L) 44 45 ALT (21 - 72 U/L) 74 H 88 H Albumin (3.5 - 5.0 g/dL) 3.1 L 3.5 Hematology CBC w Diff NO MAN DIFF REQ WBC (4.8 - 10.8 /CUMM) 9.7 RBC (4.70 - 6.10 /CUMM) 4.15 L Hgb (14.0 - 18.0 G/DL) 13.1 L Hct (42 - 52 %) 39.1 L MCV (80.0 - 94.0 FL) 94.2 H MCH (27.0 - 31.0 PG) 31.6 H RDW (11.5 - 14.5 %) 15.0 H Plt Count (130 - 400 /CUMM) 146 MPV (7.4 - 10.4 FL) 9.0 Gran % (42.2 - 75.2 %) 86.5 H Lymphocytes % (20.5 - 51.1 %) 4.7 L Monocytes % (1.7 - 9.3 %) 8.8 Eosinophils % (0 - 5 %) 0 Basophils % (0.0 - 2.0 %) 0 L Absolute Granulocytes (1.4 - 6.5 /CUMM) 8.4 H Absolute Lymphocytes (1.2 - 3.4 /CUMM) 0.5 L Absolute Monocytes (0.10 - 0.60 /CUMM) 0.9 H Absolute Eosinophils (0.0 - 0.7 /CUMM) 0 Absolute Basophils (0.0 - 0.2 /CUMM) 0 PUBS MCHC (33.0 - 37.0 G/DL) 33.5 06/03 06/ 0415 1820 Chemistry Sodium (137 - 145 mmol/L) 147 H 147 H Potassium (3.5 - 5.1 mmol/L) 3.8 3.5 Chloride (98 - 107 mmol/L) 107 106 Carbon Dioxide (22 - 30 mmol/L) 29 33 H Anion Gap (5 - 16) 11 8 BUN (9 - 20 mg/dL) 39 H 34 H Creatinine (0.7 - 1.2 mg/dL) 1.3 H 1.3 H Estimated GFR (>60 ml/min) 54 L 54 L Glucose (65 - 99 mg/dL) 158 H 164 H Calcium (8.4 - 10.2 mg/dL) 7.3 L 7.3 L Phosphorus (2.5 - 4.5 mg/dL) 2.9 2.3 L Magnesium (1.6 - 2.3 mg/dL) 1.7 1.4 L Total Bilirubin (0.2 - 1.3 mg/dL) 0.9 0.8 AST (17 - 59 U/L) 52 55 ALT (21 - 72 U/L) 82 H 76 H Albumin (3.5 - 5.0 g/dL) 3.3 L 3.0 L Hematology CBC w Diff NO MAN DIFF REQ WBC (4.8 - 10.8 /CUMM) 10.0 RBC (4.70 - 6.10 /CUMM) 4.30 L Hgb (14.0 - 18.0 G/DL) 13.8 L Hct (42 - 52 %) 41.1 L MCV (80.0 - 94.0 FL) 95.4 H MCH (27.0 - 31.0 PG) 32.1 H RDW (11.5 - 14.5 %) 15.0 H Plt Count (130 - 400 /CUMM) 102 L MPV (7.4 - 10.4 FL) 9.8 Gran % (42.2 - 75.2 %) 91.4 H Lymphocytes % (20.5 - 51.1 %) 4.8 L Monocytes % (1.7 - 9.3 %) 3.7 Eosinophils % (0 - 5 %) 0.1 Basophils % (0.0 - 2.0 %) 0 L Absolute Granulocytes (1.4 - 6.5 /CUMM) 9.1 H Absolute Lymphocytes (1.2 - 3.4 /CUMM) 0.5 L Absolute Monocytes (0.10 - 0.60 /CUMM) 0.4 Absolute Eosinophils (0.0 - 0.7 /CUMM) 0 Absolute Basophils (0.0 - 0.2 /CUMM) 0 PUBS MCHC (33.0 - 37.0 G/DL) 33.6 Vital Signs & I&O Last 24 Hrs of Vitals and I&O: Vital Signs Date Time Temp Pulse Resp B/P B/P Pulse O2 O2 Flow FiO2 Mean Ox Delivery Rate 08/25 0800 97.5 78 18 128/60 96 Nasal 3.0L Cannula 08/25 0605 87 20 124/63 04 0400 97 Nasal 3.0L Cannula 08/25 0001 102 19 122/63 06/04 0000 97 Nasal 3.0L Cannula 08/25 0000 98.9 102 19 124/80 97 Nasal 3.0L Cannula 08/24 2000 94 Nasal 3.0L Cannula 08/24 1810 95 Nasal 4.0L Cannula 08/24 1716 107 158/70 / 1600 97.8 14 24 170/88 96 Nasal 3.0L Cannula 08/24 1600 93 Nasal 3.0L Cannula 08/24 1200 95 Nasal 4.0L Cannula 08/24 1137 95 Nasal 4.0L Cannula 08/24 1105 96.8 98 22 176/90 Intake & Output 08/25 1600 06/04 0800 /04 0000 Intake Total 767 907 Output Total 700 1150 Balance 67 -243 Intake, IV 767 907 Number 0 Bowel Movements Output, Urine 700 1150 Impression/Plan Impression/Plan Impression/Plan: eneral Appearance: SLeeping comfortably Head: atraumatic, normal appearance Ears, Nose, Throat: normal pharynx, normal ENT inspection Neck: normal inspection, supple, full range of motion Respiratory: decreased breath sounds, accessory muscle use, wheezing Cardiovascular: regular rate/rhythm Gastrointestinal: normal bowel sounds, soft, non-tender Extremities: normal inspection, normal capillary refill, normal range of motion, bilateral trace pedal edema Cranial Nerves: normal hearing, PERRL IMPRESSION This is a gentleman with profound hypotension upon admission prob related to adrenal crisis with previous prednisone use, and panhypo pit seems to have improved with good hemodynamic stability * Improving Pulmonary edema with fluid overload from appropriate aggressive fluid resuscitation, now s/p diuresis. * Hypopit endocrine following * Acute kidney injury upon admission due to low flow state which is improved * Multiple electrolyte abnormality which is stable, including hypernatremia * Chronic kidney disease stage II, with hematuria recently probably related to Renteria placement * Hypernatremia * Significant hypertension with probable diastolic dysfunction. RECOMMENDATION Continue steroids and other hormonal therapy per endocrine Replace magnesium and potassium Decrease and stop IV fluids, if he is stable and take adequate fluids by mouth. Increase free water by mouth, unfortunately still somnolent Give one dose of intravenous diamox 250 iv Continue using bedtime BiPAP Reduce oxygen to keep the sat of 92% If stable patient can be transferred to general medical floor today or tomorrow Code Status: Full Code
--- NOTE | 2016-08-25 10:48 | PN- Diabetes ---
Assessment/Plan Assessment: 75 yo male with PMH of pituriatry tumor resection several years ago with subsequent [employer] shunt and brain radiation, short term memory loss, chronic renal disease, hypothyroidism, diabetes, hypertension who was BIBA for SOB and changes of mental status. He was found to be hypotensive. He was put on BiPAP, pressor and stress dose of steroid hydrocortisone 100mg iv every 8 hours, Levothyroxuine 88 mcg iv daily and DDAVP 1 mcg sc twice a day. At home, he was on Levothyroxine 175 mcg daily, prednisone 5 mg daily and DDAVP nasal spray twice a day. Currently he was on D5w at 100 ml/hour He is on Novolog coverage every 4 hours. His FSGs were 185, 169, 178 and 173 Patient was placed on Solumedrol 40 mg iv twice day from pulmonary standpoint. In addition, he is still on Levothyroxuine 88 mcg iv daily and DDAVP 1 mcg sc twice a day. Repeat sodium this morning is 145 which is improving. Plan: 1.continue Solumedrol 40 mg iv twice a day as per pulmonary which will cover adrenal insufficiency. 2. continue DDAVP and Levothyroxine for now; 3.continue D5W 100 ml/hour; 4. monitor FSGs every 4 hours; continue the current Novolog coverage every 4 hours; 5. monitor in /out and monitor electrolytes. will follow Subjective Subjective: He appears less lethargic this morning. Objective Last 24 Hrs of Vital Signs/I&O Vital Signs Date Time Temp Pulse Resp B/P B/P Pulse O2 O2 Flow FiO2 Mean Ox Delivery Rate 08/25 0800 97.5 78 18 128/60 96 Nasal 3.0L Cannula 08/25 0605 87 20 124/63 /04 0400 97 Nasal 3.0L Cannula 08/25 0001 102 19 122/63 /04 0000 97 Nasal 3.0L Cannula 08/25 0000 98.9 102 19 124/80 97 Nasal 3.0L Cannula 08/24 2000 94 Nasal 3.0L Cannula 08/24 1810 95 Nasal 4.0L Cannula 08/24 1716 107 158/70 08/24 1600 97.8 14 24 170/88 96 Nasal 3.0L Cannula 08/24 1600 93 Nasal 3.0L Cannula 08/24 1200 95 Nasal 4.0L Cannula 08/24 1137 95 Nasal 4.0L Cannula 08/24 1105 96.8 98 22 176/90 Intake & Output 08/25 1600 08/25 0800 08/25 0000 Intake Total 767 907 Output Total 700 1150 Balance 67 -243 Intake, IV 767 907 Number 0 Bowel Movements Output, Urine 700 1150 Findings Pertinent Lab/Jerry Results: Laboratory Tests 08/25 08/24 0503 1700 Chemistry Sodium (137 - 145 mmol/L) 145 145 Potassium (3.5 - 5.1 mmol/L) 3.5 3.7 Chloride (98 - 107 mmol/L) 98 99 Carbon Dioxide (22 - 30 mmol/L) 39 H 35 H Anion Gap (5 - 16) 8 11 BUN (9 - 20 mg/dL) 48 H 44 H Creatinine (0.7 - 1.2 mg/dL) 1.4 H 1.5 H Estimated GFR (>60 ml/min) 49 L 46 L Glucose (65 - 99 mg/dL) 177 H 187 H Calcium (8.4 - 10.2 mg/dL) 7.2 L 7.5 L Phosphorus (2.5 - 4.5 mg/dL) 2.6 3.1 Magnesium (1.6 - 2.3 mg/dL) 1.6 1.9 Total Bilirubin (0.2 - 1.3 mg/dL) 0.8 0.8 AST (17 - 59 U/L) 44 45 ALT (21 - 72 U/L) 74 H 88 H Albumin (3.5 - 5.0 g/dL) 3.1 L 3.5 Hematology CBC w Diff NO MAN DIFF REQ WBC (4.8 - 10.8 /CUMM) 9.7 RBC (4.70 - 6.10 /CUMM) 4.15 L Hgb (14.0 - 18.0 G/DL) 13.1 L Hct (42 - 52 %) 39.1 L MCV (80.0 - 94.0 FL) 94.2 H MCH (27.0 - 31.0 PG) 31.6 H RDW (11.5 - 14.5 %) 15.0 H Plt Count (130 - 400 /CUMM) 146 MPV (7.4 - 10.4 FL) 9.0 Gran % (42.2 - 75.2 %) 86.5 H Lymphocytes % (20.5 - 51.1 %) 4.7 L Monocytes % (1.7 - 9.3 %) 8.8 Eosinophils % (0 - 5 %) 0 Basophils % (0.0 - 2.0 %) 0 L Absolute Granulocytes (1.4 - 6.5 /CUMM) 8.4 H Absolute Lymphocytes (1.2 - 3.4 /CUMM) 0.5 L Absolute Monocytes (0.10 - 0.60 /CUMM) 0.9 H Absolute Eosinophils (0.0 - 0.7 /CUMM) 0 Absolute Basophils (0.0 - 0.2 /CUMM) 0 PUBS MCHC (33.0 - 37.0 G/DL) 33.5
[2016-08-25 16:00] VITALS: BP 142/70
[2016-08-26] VITALS: BP 140/58
[2016-08-26 05:30] LABS: ABSOLUTE BASOPHIL COUNT 0 /CUMM (0.0-0.2); ABSOLUTE EOSINOPHIL COUNT 0 /CUMM (0.0-0.7); ABSOLUTE GRANULOCYTE CT 9.1 /CUMM (1.4-6.5); ABSOLUTE LYMPH COUNT 0.5 /CUMM (1.2-3.4); ABSOLUTE MONOCYTE COUNT 0.6 /CUMM (0.10-0.60); BASOPHIL % 0 % (0.0-2.0); EOSINOPHIL % 0 % (0-5); HEMATOCRIT 41.3 % (42-52); MEAN CORPUSCULAR HGB CONC 33.8 G/DL (33.0-37.0); MEAN CORPUSCULAR VOLUME 94.7 FL (80.0-94.0); MEAN PLATELET VOLUME 9.2 FL (7.4-10.4); PLATELET COUNT 139 /CUMM (130-400); RBC DISTRIBUTION WIDTH 14.6 % (11.5-14.5); RED BLOOD CELL CT 4.36 /CUMM (4.70-6.10); WHITE BLOOD CELL COUNT 10.3 /CUMM (4.8-10.8)
[2016-08-26 06:07] LABS: GRANULOCYTE % 88.7 % (42.2-75.2)
--- NOTE | 2016-08-26 07:18 | PN- Resident CRCU ---
SONIA BAXTER,[facility] 08/26/16 0718: Subjective HPI/CRCU Issues: Follow-up for: -Shock due to adrenal crisis s/p pituriatry tumor resection and radiotherapy ( 2005) on chronic steroids -Hypothyrodism -Questionable Pneumonia -Metabolic acidosis non-anion gap -Delirium -Acute kindey injury on CKD -ZUM[employer] shunt without signs of increase intracranial pressure Patient was seen and examined this morning, he is awake alert, reported dry cough, denied chest pain, abdominal pain, nausea or vomiting. He reported that he wants to be discharged home. No overnight events. 24 Hour Events: Temperature 97.2, MAXIMUM TEMPERATURE 98.5 Pulse lowest 60, highest 82 sinus rhythm Blood pressure lowest 82/43, highest 182/77 Saturating 97% on 2 L nasal cannula Intake 1870, output 2720 IV fluid running at 50 mL/h Objective Vital Signs & I&O Last 8 Hrs of Vitals and I&O: 111 Exam General Appearance: alert, awake Head: atraumatic, normal appearance Ears, Nose, Throat: normal pharynx, normal ENT inspection Neck: normal inspection, supple, full range of motion Respiratory: normal breath sounds, chest non-tender, no respiratory distress Cardiovascular: regular rate/rhythm Gastrointestinal: normal bowel sounds, soft, non-tender Extremities: normal inspection, normal capillary refill, normal range of motion, no edema Cranial Nerves: normal hearing, normal speech, PERRL Current Medications: Current Medications Sig/Antwon Start time Last Medication Dose Route Stop Time Status Admin Acetaminophen 650 MG Q6 PRN 08/20 0415 AC PO Albuterol Sulfate 3 ML Q4P PRN 08/23 0930 AC 08/25 INH 1411 Amlodipine Besylate 5 MG DAILY 08/26 1331 UNVr PO Desmopressin Acetate 1 MCG BID 08/20 1300 AC 08/26 SC 0902 Dextrose/Water 1,000 ML .Q20H 08/26 1345 UNVr IV Dextrose/Water 1,000 ML .Q20H 08/23 0745 DC 08/26 IV 0700 Furosemide 40 MG ONCE ONE 08/26 1330 DC IV PUSH 08/26 1331 Furosemide 20 MG ONCE ONE 08/25 1415 CAN IV 08/25 1416 Insulin Aspart 0 AT BEDTIME 08/26 2200 AC SC Insulin Aspart 0 TIDAC 08/26 1700 AC SC Insulin Aspart 0 Q4 08/20 1239 DC 08/26 SC 1026 Levothyroxine Sodium 88 MCG DAILY 08/20 1031 AC 08/26 IV 1025 Lorazepam 1 MG Q6-PRN PRN 08/20 2315 AC 08/21 IV 1848 Lorazepam 2 MG ONCE PRN 08/20 1700 DC 08/23 IV 1618 Magnesium Sulfate 1 GM ONCE ONE 08/26 0730 DC 08/26 Dextrose/Water 100 ML IV 08/26 1129 0857 Methylprednisolone 40 MG Q12H 08/24 1800 AC 08/26 IV 0647 Metoprolol Tartrate 5 MG Q6 08/24 1800 AC 08/26 IV 1200 Morphine Sulfate 2 MG Q6P PRN 08/20 2035 AC 08/24 IV 1110 Nystatin 1 THANH BID 08/20 1000 AC 08/26 TOP 0858 Oxycodone HCl 5 MG Q6 PRN 08/20 0415 AC PO Potassium Chloride 10 MEQ Q1H 08/26 0730 DC 08/26 IV 08/26 0831 1000 Sodium Phosphate 15 mMol ONE ONE 08/26 0730 DC 08/26 Dextrose/Water 250 ML IV 08/26 1133 0913 Impression/Plan Impression/Problem List Impression: Mr. 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 Off levophid -BP improved, keep MAP 60-65 -Continue free fluids D5W to 50 cc/hr due to recent pulmonary edema s/p diuresis . Once able to take thin liquids stop fluids -Discontinue hydrocortisone and switch to Solu-Medrol given patient respiratory situation -Solumedrol to 40 mg IV Q12H -Continue desmopressin 1 mcg BID -Troponin negative, no EKG acute changes - Echocardiogram CONCLUSIONS Mild concentric left ventricular hypertrophy. Normal left ventricular ejection fraction visually estimated at > 60%. Trace mitral regurgitation. Mild aortic stenosis. Trace tricuspid regurgitation. ID -Patient initially was started on ceftaz and vancomycin being immunocompromised on chronic steroids, given that no evidence of current infection as patient is continued to be afebrile with no leukocytosis, antibiotic was switched to Unasyn -ID consultation was obtained, thanks for recommendation -Will hold Unasyn, continue off antibiotic -Chest x-ray reveled pulmonary edema -Afibrile, no leukocytosis (patient is on steroide) -We will hold off LP given improvement patient's mentation Respiratory -Patient has labored breating and restless -CXR reveled worsening pulmonary edema in setting of hypertension, could be related to pulmonary edema, improved with IV Lasix -Monitor In/outs and daily weight Metabolic -Non-anion gap metabolic acidosis--resolved -Nephrology consultation was obtained, thanks for recommendation -Creatinine improved 1.4 -FENa indicative for prerenal, fraction excretion sodium 0.8 indicating for prerenal rather than ATN -Urine lytes WNL. Urine spot [id number] ratio 0.09, indicating absence of significant proteinuria -SPEP revealing an isolated decrease in albumin suggestive of decreased protein synthesis or protein loss. UPEP pending. -Patient passed swallow eval for soft and nectar fluid, will start consistent carbohydrate diet 1 and NovoLog sliding scale before meals and bedtime. Will keep free fluid D5 normal and patient is able to drink thin liquids Nuero -Improved significantly -Neuro exam within normal -Reports about hospital acquired delirium -Neuro consultation was obtained, thanks for recommendation -Hypoxic encephalopathy, recommendation for supportive treatment -EEG 08/21 Abnormal due to moderate generalized slowing consistent with a diffuse toxic or metabolic encephalopathy. No epileptiform abnormalities are found. -Ammonia level low x2 08/20 and 08/21 -Consider Ativan when necessary for agitation -CT head August 19 and August 21 are negative for acute intracranial pathology -Given significant improvement of patient's mentation, will hold off MRI -Records from [facility] was obtained in patient's chart Alimentry -Consistent carbohydrate 1 -Swallow eval past for mechanical soft and nectar liquid Code Full DVT ALPS low platete DC [facility] [place] Consultation cardiology, nephrology, endocrinology, neurology Problem List: 1. Septic shock 2. Pneumonia 3. Renal failure 4. Acute adrenal crisis Pain Ratin Tomorrow's Labs & Rationales: CBC, ICU bundle Plan DVT/Prophylaxis: mechanical Code Status: Full Code JOSH ERAZO MD 08/26/16 0930: Attending MD Review Statement Attending Sign Off Attending Cosign Statement: I have: examined this patient, reviewed avalbl EMR data, personally reviewd images, discussd w/resident/PA/INFECTION PREVENTIONIST, discussed mgmt plan w/angelo, discussed mgmt plan w/CM, discussed mgmt plan w/pt, agreed w/resident/PA/INFECTION PREVENTIONIST, amended to note. Other Findings: I have: examined this patient, reviewed avalbl EMR data, personally reviewd images, discussd w/resident/PA/INFECTION PREVENTIONIST, discussed mgmt plan w/angelo, discussed mgmt plan w/CM, discussed mgmt plan w/pt, agreed w/resident/PA/INFECTION PREVENTIONIST, amended to note. Other Findings: I, Josh Erazo M.D. have examined this patient, reviewed available EMR data, personally reviewed images, discussed with resident/PA/INFECTION PREVENTIONIST, discussed management plan with housestaff and nursing staff, discussed managment plan all of healthcare providers, discussed management plan with patient and/or family, agreed with resident/PA/INFECTION PREVENTIONIST. The past history and parts of the chart have been autopopulated. Impression 75 year old man * adrenal crisis secondary to prednisone chronic use in setting of historical pituitary tumor * altered mental status Plan Respiratory -fio2 >92% -aspiration precautions ID -f/u ID recommendations, off abx CVS -hemodynamic monitoring Heme -monitor cbc, coags Metabolic -ins/outs, electrolytes, creatinine Alimentary -monitor for now Neuro -ID recommendations noted -neurology consultation appreciated TTS 35 min
[2016-08-26 08:00] VITALS: BP 140/78
--- NOTE | 2016-08-26 08:31 | PN- Diabetes ---
Assessment/Plan Assessment: 75 yo male with PMH of pituriatry tumor resection several years ago with subsequent [employer] shunt and brain radiation, short term memory loss, chronic renal disease, hypothyroidism, diabetes, hypertension who was BIBA for SOB and changes of mental status. He was found to be hypotensive. He was put on BiPAP, pressor and stress dose of steroid hydrocortisone 100mg iv every 8 hours, Levothyroxuine 88 mcg iv daily and DDAVP 1 mcg sc twice a day. At home, he was on Levothyroxine 175 mcg daily, prednisone 5 mg daily and DDAVP nasal spray twice a day. Currently he is on D5w at 50 ml/hour He is on Novolog coverage every 4 hours. His FSGs were 185, 207, 176, 201 and 139. Patient was placed on Solumedrol 40 mg iv twice day from pulmonary standpoint. In addition, he is still on Levothyroxuine 88 mcg iv daily and DDAVP 1 mcg sc twice a day. In/OUT 2237/2440. Repeat sodium this morning is 142 which is improving. Plan: 1. continue the current treatment; 2. monitor FSGs, In/OUT and electrolytes; 3. please inform me if patient passes swallow evaluation and then the treatment will be adjusted accordingly. 4. hypocalcemia with corrected calcium of 8.1 --will start patient on oral calcium and vitamin D supplement after he passes swallow evaluation; --will consider iv calcium supplement if his corrected calcium is less than 8.0 and patient can't take medications orally. will follow. Subjective Subjective: He appears more alert this morning and he feels better. Objective Last 24 Hrs of Vital Signs/I&O Vital Signs Date Time Temp Pulse Resp B/P B/P Pulse O2 O2 Flow FiO2 Mean Ox Delivery Rate 08/26 0652 97.2 60 24 199/79 08/26 0400 94 Nasal 2.0L Cannula 08/26 0203 97.1 60 20 131/46 08/26 0000 97.1 60 20 140/58 98 Nasal 2.0L Cannula 08/26 0000 98 Nasal 2.0L Cannula 08/25 2000 98 Nasal 2.0L Cannula 08/25 1811 60 141/56 08/25 1600 97.7 68 24 142/70 96 Nasal 2.0L Cannula 08/25 1600 96 Nasal 2.0L Cannula 08/25 1414 96 Nasal 3.0L Cannula 08/25 1229 86 168/80 08/25 1200 95 Nasal 2.0L Cannula Intake & Output 08/26 1600 08/26 0800 06 0000 Intake Total 400 400 Output Total 980 1140 Balance -580 -740 Intake, IV 400 400 Output, Urine 980 1140 Findings Pertinent Lab/Jerry Results: Laboratory Tests 08/26 0415 Chemistry Sodium (137 - 145 mmol/L) 142 Potassium (3.5 - 5.1 mmol/L) 3.7 Chloride (98 - 107 mmol/L) 101 Carbon Dioxide (22 - 30 mmol/L) 31 H Anion Gap (5 - 16) 10 BUN (9 - 20 mg/dL) 40 H Creatinine (0.7 - 1.2 mg/dL) 1.3 H Estimated GFR (>60 ml/min) 54 L Glucose (65 - 99 mg/dL) 143 H Calcium (8.4 - 10.2 mg/dL) 7.5 L Phosphorus (2.5 - 4.5 mg/dL) 3.1 Magnesium (1.6 - 2.3 mg/dL) 1.8 Total Bilirubin (0.2 - 1.3 mg/dL) 0.9 AST (17 - 59 U/L) 66 H ALT (21 - 72 U/L) 94 H Albumin (3.5 - 5.0 g/dL) 3.2 L Hematology CBC w Diff NO MAN DIFF REQ WBC (4.8 - 10.8 /CUMM) 10.3 RBC (4.70 - 6.10 /CUMM) 4.36 L Hgb (14.0 - 18.0 G/DL) 14.0 Hct (42 - 52 %) 41.3 L MCV (80.0 - 94.0 FL) 94.7 H MCH (27.0 - 31.0 PG) 32.0 H RDW (11.5 - 14.5 %) 14.6 H Plt Count (130 - 400 /CUMM) 139 MPV (7.4 - 10.4 FL) 9.2 Gran % (42.2 - 75.2 %) 88.7 H Lymphocytes % (20.5 - 51.1 %) 5.1 L Monocytes % (1.7 - 9.3 %) 6.2 Eosinophils % (0 - 5 %) 0 Basophils % (0.0 - 2.0 %) 0 L Absolute Granulocytes (1.4 - 6.5 /CUMM) 9.1 H Absolute Lymphocytes (1.2 - 3.4 /CUMM) 0.5 L Absolute Monocytes (0.10 - 0.60 /CUMM) 0.6 Absolute Eosinophils (0.0 - 0.7 /CUMM) 0 Absolute Basophils (0.0 - 0.2 /CUMM) 0 PUBS MCHC (33.0 - 37.0 G/DL) 33.8
--- NOTE | 2016-08-26 10:20 | PN- Infect Dx ---
Subjective Subjective: Afebrile on steroids. He offers no complaints. Objective Last 24 Hrs of Vital Signs/I&O Vital Signs Date Time Temp Pulse Resp B/P B/P Pulse O2 O2 Flow FiO2 Mean Ox Delivery Rate 08/26 0552 97.2 60 24 199/79 08/26 0400 94 Nasal 2.0L Cannula 08/26 0203 97.1 60 20 131/46 06 0000 97.1 60 20 140/58 98 Nasal 2.0L Cannula 08/26 0000 98 Nasal 2.0L Cannula 08/25 2000 98 Nasal 2.0L Cannula 08/25 1811 60 141/56 08/25 1600 97.7 68 24 142/70 96 Nasal 2.0L Cannula 08/25 1600 96 Nasal 2.0L Cannula 08/25 1414 96 Nasal 3.0L Cannula 08/25 1229 86 168/80 08/25 1200 95 Nasal 2.0L Cannula Intake & Output 08/26 1600 08/26 0800 08/26 0000 Intake Total 400 400 Output Total 980 1140 Balance -580 -740 Intake, IV 400 400 Output, Urine 980 1140 Physical Exam Other Physical Findings: He appears comfortable in no acute distress Lungs decreased breath sounds on the left Heart regular rhythm with no murmur Abdomen is obese, soft, nontender with positive bowel sounds Extremities no cyanosis, clubbing or edema Renteria catheter remains in place Results Last 24 Hours of Lab Results: Laboratory Tests 08/26 414 Chemistry Sodium (137 - 145 mmol/L) 142 Potassium (3.5 - 5.1 mmol/L) 3.7 Chloride (98 - 107 mmol/L) 101 Carbon Dioxide (22 - 30 mmol/L) 31 H Anion Gap (5 - 16) 10 BUN (9 - 20 mg/dL) 40 H Creatinine (0.7 - 1.2 mg/dL) 1.3 H Estimated GFR (>60 ml/min) 54 L Glucose (65 - 99 mg/dL) 143 H Calcium (8.4 - 10.2 mg/dL) 7.5 L Phosphorus (2.5 - 4.5 mg/dL) 3.1 Magnesium (1.6 - 2.3 mg/dL) 1.8 Total Bilirubin (0.2 - 1.3 mg/dL) 0.9 AST (17 - 59 U/L) 66 H ALT (21 - 72 U/L) 94 H Albumin (3.5 - 5.0 g/dL) 3.2 L Hematology CBC w Diff NO MAN DIFF REQ WBC (4.8 - 10.8 /CUMM) 10.3 RBC (4.70 - 6.10 /CUMM) 4.36 L Hgb (14.0 - 18.0 G/DL) 14.0 Hct (42 - 52 %) 41.3 L MCV (80.0 - 94.0 FL) 94.7 H MCH (27.0 - 31.0 PG) 32.0 H RDW (11.5 - 14.5 %) 14.6 H Plt Count (130 - 400 /CUMM) 139 MPV (7.4 - 10.4 FL) 9.2 Gran % (42.2 - 75.2 %) 88.7 H Lymphocytes % (20.5 - 51.1 %) 5.1 L Monocytes % (1.7 - 9.3 %) 6.2 Eosinophils % (0 - 5 %) 0 Basophils % (0.0 - 2.0 %) 0 L Absolute Granulocytes (1.4 - 6.5 /CUMM) 9.1 H Absolute Lymphocytes (1.2 - 3.4 /CUMM) 0.5 L Absolute Monocytes (0.10 - 0.60 /CUMM) 0.6 Absolute Eosinophils (0.0 - 0.7 /CUMM) 0 Absolute Basophils (0.0 - 0.2 /CUMM) 0 PUBS MCHC (33.0 - 37.0 G/DL) 33.8 Last 24 Hours of Jerry Results: No recent cultures Assessment/Plan Impression: Stable with a significant diuresis overall, resulting in an improved respiratory status. He remains afebrile (on steroids) with white blood cell count normal off antibiotics. Suggestion: 1. Further management of pulmonary edema per Cardiology and Renal 2. Taper steroids per Pulmonary 3. Would remove Renteria catheter 4. Continue to follow off antibiotics Will no longer follow at this time, but please call with any questions
--- NOTE | 2016-08-26 11:18 | PN- Cardiology ---
Subjective Subjective: The patient is more awake. He reports that he is feeling somewhat better. No chest pain. No current shortness of breath. No palpitations. No nausea or vomiting. Objective Vital Signs and I&Os Vital Signs Date Time Temp Pulse Resp B/P B/P Pulse O2 O2 Flow FiO2 Mean Ox Delivery Rate 08/26 0652 97.2 60 24 199/79 08/26 0400 94 Nasal 2.0L Cannula 08/26 0203 97.1 60 20 131/46 06 0000 97.1 60 20 140/58 98 Nasal 2.0L Cannula 08/26 0000 98 Nasal 2.0L Cannula 08/25 2000 98 Nasal 2.0L Cannula 08/25 1811 60 141/56 08/25 1600 97.7 68 24 142/70 96 Nasal 2.0L Cannula 08/25 1600 96 Nasal 2.0L Cannula 08/25 1414 96 Nasal 3.0L Cannula 08/25 1229 86 168/80 08/25 1200 95 Nasal 2.0L Cannula Intake & Output 08/26 1600 08/26 0800 08/26 0000 08/25 1600 08/25 0800 08/25 0000 Intake Total 641 911 4834 767 907 Output Total 980 1140 703 025 4592 Balance -580 -740 470 67 -243 Intake, IV 682 509 7165 767 907 Number 0 Bowel Movements Output, Urine 980 1140 172 549 8517 Physical Exam: Gen: The patient is in no acute distress HEENT: Normal nose, ears, and oropharynx. Pupils equal bilaterally. Conjunctiva normal. Neck: Supple with no JVD, no masses, and no thyromegaly Lungs: Decreased breath sounds with normal respiratory effort Heart: RRR, S1, S2, no murmurs. No peripheral edema, 2+ pulses in the lower extremities bilaterally Abdomen: Soft, nontender, no masses. No hepatomegaly. No splenomegaly Extremities: No clubbing or cyanosis. Normal muscle strength in the upper and lower extremities Skin: Normal skin turgor with no skin ulcers or lesions noted. Neuro: Cranial nerves intact. Sensation intact Current Medications: Current Medications Sig/Antwon Start time Last Medication Dose Route Stop Time Status Admin Acetaminophen 650 MG Q6 PRN 08/20 2505 AC PO Acetazolamide 250 MG ONCE ONE 08/25 1130 DC 08/25 Sodium Chloride 50 ML IV 08/25 1159 1408 Albuterol Sulfate 3 ML Q4P PRN 08/23 0930 08/25 INH 1411 Desmopressin Acetate 1 MCG BID 08/20 1300 08/26 SC 0902 Dextrose/Water 1,000 ML .Q20H 08/23 0745 AC 08/26 IV 0700 Furosemide 20 MG ONCE ONE 08/25 1415 CAN IV 08/25 1416 Insulin Aspart 0 Q4 08/20 1239 08/26 SC 1026 Levothyroxine Sodium 88 MCG DAILY 08/20 1031 AC 08/26 IV 1025 Lorazepam 1 MG Q6-PRN PRN 08/20 2315 08/21 IV 1848 Lorazepam 2 MG ONCE PRN 08/20 1700 DC 08/23 IV 1618 Magnesium Sulfate 1 GM ONCE ONE 08/26 0730 AC 08/26 Dextrose/Water 100 ML IV 08/26 1129 0857 Magnesium Sulfate 1 GM ONCE ONE 08/25 0845 GA 08/25 Dextrose/Water 100 ML IV 08/25 1244 1201 Methylprednisolone 40 MG Q12H 08/24 1800 08/26 IV 0647 Metoprolol Tartrate 5 MG Q6 08/24 1800 08/26 IV 0652 Morphine Sulfate 2 MG Q6P PRN 08/20 2035 AC 08/24 IV 1110 Nystatin 1 THANH BID 08/20 1000 08/26 TOP 0858 Oxycodone HCl 5 MG Q6 PRN 08/20 0415 PO Potassium Chloride 10 MEQ Q1H 08/26 0730 DC 08/26 IV 08/26 0831 0857 Sodium Phosphate 15 mMol ONE ONE 08/26 0730 08/26 Dextrose/Water 250 ML IV 08/26 1133 0913 Results Last 48 Hrs of Labs/Mics: Laboratory Tests 08/26/16 0415: Anion Gap 10, Estimated GFR 54 L, Glucose 143 H, Calcium 7.5 L, Phosphorus 3.1, Magnesium 1.8, Total Bilirubin 0.9, AST 66 H, ALT 94 H, Albumin 3.2 L, CBC w Diff NO MAN DIFF REQ, RBC 4.36 L, MCV 94.7 H, MCH 32.0 H, RDW 14.6 H, MPV 9.2, Gran % 88.7 H, Lymphocytes % 5.1 L, Monocytes % 6.2, Eosinophils % 0, Basophils % 0 L, Absolute Granulocytes 9.1 H, Absolute Lymphocytes 0.5 L, Absolute Monocytes 0.6, Absolute Eosinophils 0, Absolute Basophils 0, PUBS MCHC 33.8 08/25/16 0503: Anion Gap 8, Estimated GFR 49 L, Glucose 177 H, Calcium 7.2 L, Phosphorus 2.6 , Magnesium 1.6, Total Bilirubin 0.8, AST 44, ALT 74 H, Albumin 3.1 L, CBC w Diff NO MAN DIFF REQ, RBC 4.15 L, MCV 94.2 H, MCH 31.6 H, RDW 15.0 H, MPV 9.0, Gran % 86.5 H, Lymphocytes % 4.7 L, Monocytes % 8.8, Eosinophils % 0, Basophils % 0 L, Absolute Granulocytes 8.4 H, Absolute Lymphocytes 0.5 L, Absolute Monocytes 0.9 H, Absolute Eosinophils 0, Absolute Basophils 0, PUBS MCHC 33.5 08/24/16 1700: Anion Gap 11, Estimated GFR 46 L, Glucose 187 H, Calcium 7.5 L, Phosphorus 3.1, Magnesium 1.9, Total Bilirubin 0.8, AST 45, ALT 88 H, Albumin 3.5 Recent Imaging Studies: Chest x-ray 08/24/16: Low lung volumes limit evaluation. Findings are most consistent with pulmonary edema. The findings are similar to slightly worsened compared to the most recent examination. Suspect associated pleural effusions particularly on the left side. Assessment/Plan Assessment/Plan Assessment: 1. History of pituitary tumor resection 2. Hypotension, likely secondary to adrenal crisis, resolved 3. Pneumonia 4. Chronic kidney disease with acute exacerbation 5. Ruled out for myocardial infarction with negative troponin 2 6. Abnormal EKG 7. Normal left ventricular function on echocardiogram 8. Volume overload after IV hydration, improved after diuresis Plan: * Avoid giving IV fluid if possible, and give by mouth fluids. * Would recommend giving Lasix 40 mg IV 1. * Would start amlodipine 5 mg daily for blood pressure control Continue telemetry? Yes
--- NOTE | 2016-08-26 13:42 | Transfer of Care Summary ---
Hospital Course Course Hospital Course: Mr. Downs is 75 with past medical history significant for pituriatry tumor s/p tumor resection in 2005, radiotherapy and SURFACE GRINDER shunt placement, short term memory loss, chronic renal disease, hypothyroidism, diabetes, hypertension who was BIBA on 08/20 for shortness of breath and altered mental status for 1 day. Upon arrival, patient had respiratory rate of 40, afebrile, pulse 110, Saturating 91% on BiPAP, blood pressure 74/Doppler, drowsy but arousable, incoherent. Patient was aggressively resuscitated with 7 L normal saline, then right-sided IJ was placed and he was started on Levophed. Patient was admitted to ICU for management of the following medical problems: 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) on chronic steroids -Shortness of breath: pneumonia versus pulmonary edema -Central diabetes insipidus -Acute on chronic kidney disease -Delirium -Metabolic acidosis non-anion gap -Hypothyrodism -Questionable Pneumonia -SURFACE GRINDER shunt without signs of increase intracranial pressure -History of hypertension #Shock due to adrenal crisis s/p pituriatry tumor resection and radiotherapy ( 2005) on chronic steroids -Patient was found to have blood pressure as low as 50-70 systolic over Doppler, he received 7 L of bolus normal saline and central line was placed for Levophed, blood pressure improved within 24 hours. 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 Thought process was possible adrenal crisis that resulted in shock, endocrine consultation was obtained with recommendation for stress dose of steroid hydrocortisone 100mg iv every 8 hours, was eventually switched to Solu-Medrol 40 every 12. Troponin negative and no EKG acute changes, echocardiogram was obtained. #Echocardiogram CONCLUSIONS Mild concentric left ventricular hypertrophy. Normal left ventricular ejection fraction visually estimated at > 60%. Trace mitral regurgitation. Mild aortic stenosis. Trace tricuspid regurgitation. 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 Daily sodium level and free water consumption was monitored throughout hospital stay, patient passed swallow evaluation today with recommendation for nectar liquids only, since he is not able to drink free water patient will continue to be on D5 water at 50 mL/h. Repeat swallow evaluation is recommended for, once patient is able to drink free liquids please discontinue D5W. #Shortness of breath: pneumonia versus pulmonary edema -Initial chest x-ray was questionable for pneumonia, patient was started on ceftaz and vancomycin being immunocompromised on chronic steroids. ID consultation was obtained, antibiotic was switched to Unasyn and subsequently discontinued given that patient was continued to be afebrile with no leukocytosis. #Delirium -Acute hospital delirium versus hypoxic encephalopathy. Neuro consultation was obtained with recommendation for supportive care. EEG was obtained as well that revealed diffuse toxic versus metabolic encephalopathy. Ammonia level was low2 08/20 and 08/21. CT head was obtained on August 19 and August 21 are negative for acute intracranial pathology. Thought about possible encephalitis, ID input for LP was obtained, patient's family denied proceeding with LP because they thought he was improving. Patient's mentation improved significantly over the last 2 days, thoughts about obtaining MRI was held given current clinical condition. [facility] was obtained regarding SURFACE GRINDER shunt compatibility for MRI. -EEG 08/21 Abnormal due to moderate generalized slowing consistent with a diffuse toxic or metabolic encephalopathy. No epileptiform abnormalities are found. #Acute kidney injury and non-anion gap metabolic acidosis -Resolved. Nephrology consultation was obtained, FENa indicative for prerenal, fraction excretion sodium 0.8 indicating for prerenal rather than ATN. Urine lytes WNL. Urine spot [id number] ratio 0.09, indicating absence of significant proteinuria. SPEP revealing an isolated decrease in albumin suggestive of decreased protein synthesis or protein loss. UPEP pending. #History of diabetes mellitus -Patient passed swallow eval for soft and nectar fluid, will start consistent carbohydrate diet 1 and NovoLog sliding scale before meals and bedtime. Will keep free fluid D5 normal and patient is able to drink thin liquids #History of hypertension -Cardiology is on board, will start amlodipine 5 mg daily. Diet: Consistent carbohydrate 1 DVT: ALPS low platete DC HSC Code Full Consultation cardiology, nephrology, endocrinology, neurology, ID, PT, speech therapy Assessment/Plan: Please see above keep free fluid D5 normal and patient is able to drink thin liquids Nuero -Improved significantly -Neuro exam within normal -Reports about hospital acquired delirium -Neuro consultation was obtained, thanks for recommendation Mariomentry -Consistent carbohydrate 1 -Swallow eval past for mechanical soft and nectar liquid Code Full DVT ALPS low platete [place] [facility] cardiology, nephrology, endocrinology, neurology
[2016-08-26 15:30] VITALS: BP 150/78
[2016-08-27 00:08] VITALS: BP 176/86
[2016-08-27 04:58] VITALS: BP 148/82
[2016-08-27 08:33] VITALS: BP 170/80
--- NOTE | 2016-08-27 08:43 | PN- Housestaff ---
Subjective Follow-up For: Adrenal crisis s/p pituriatry tumor resection Hypothyroidism Delirium Tele-Events Since Last Visit: Normal sinus rhythm, heart rate ranging between 66-79 Subjective: Patient seen and examined this morning. He was lying comfortably in bed in no acute distress but he was somewhat sleepy but oriented. Blood pressure overnight has been ranging systolic 150-170, he is scheduled for a swallow eval today, currently nothing by mouth. Otherwise afebrile, otherwise is within normal limits. Review of Systems Constitutional: Reports: see HPI. Objective Last 24 Hrs of Vital Signs/I&O Vital Signs Date Time Temp Pulse Resp B/P B/P Pulse O2 O2 Flow FiO2 Mean Ox Delivery Rate 08/27 1228 97.0 57 20 170/80 08/27 1228 97.0 57 20 170/80 08/27 0842 94 Nasal 2.0L Cannula 08/27 0833 97.0 57 20 170/80 95 Nasal 2.0L Cannula 08/27 0800 93 Nasal 2.0L Cannula 08/27 0625 64 152/78 08/27 0458 98.1 68 22 148/82 96 Nasal 2.0L Cannula 08/27 0019 81 172/90 08/27 0008 99.8 75 22 176/86 94 Nasal 2.0L Cannula 08/27 0000 95 Nasal 2.0L Cannula 08/26 2202 93 Nasal 2.0L Cannula 08/26 1753 94 Nasal 2.0L Cannula 08/26 1708 138/70 06/05 1530 97.7 65 14 150/78 94 Nasal 2.0L Cannula 08/26 1505 Nasal 2.0L Cannula Intake & Output 08/27 1600 06 0800 08/27 0000 Intake Total 420 Output Total 1200 1000 Balance -780 -1000 Intake, IV 420 Intake, Oral 0 Output, Urine 1200 1000 Physical Exam General Appearance: No Acute Distress, somewhat sleepy HEENT: Atraumatic Neck: Supple Cardiovascular: Regular Rate, Normal S1, Normal S2, No Murmurs Lungs: diminished breath sounds bilaterally Abdomen: Normal Bowel Sounds, obese Extremities: bilateral lower extremity edema 1+ Current Medications: Current Medications Sig/Antwon Start time Last Medication Dose Route Stop Time Status Admin Acetaminophen 650 MG Q6 PRN 08/20 0415 AC PO Albuterol Sulfate 3 ML Q4P PRN 08/23 0930 AC 08/25 INH 1411 Amlodipine Besylate 5 MG DAILY 08/26 1331 AC 08/27 PO 1228 Desmopressin Acetate 1 MCG BID 08/20 1300 AC 08/27 SC 0955 Dextrose/Water 1,000 ML Q20H 08/26 1700 AC 08/27 IV 1230 Dextrose/Water 1,000 ML .Q20H 08/26 1345 CAN IV Dextrose/Water 1,000 ML .Q20H 08/23 0745 DC 08/26 IV 0700 Furosemide 40 MG ONCE ONE 08/26 1330 DC 08/26 IV PUSH 08/26 1331 1359 Insulin Aspart 0 AT BEDTIME 08/26 2200 AC SC Insulin Aspart 0 TIDAC 08/26 1700 AC 08/27 SC 1224 Levothyroxine Sodium 0.175 MG DAILY 08/28 1000 AC PO Levothyroxine Sodium 0.175 MG ONCE ONE 08/27 1215 DC PO 08/27 1216 Levothyroxine Sodium 88 MCG DAILY 08/20 1031 DC 08/27 IV 1048 Lorazepam 1 MG Q6-PRN PRN 08/20 2315 AC 08/26 IV 2258 Methylprednisolone 40 MG Q12H 08/24 1800 AC 08/27 IV 0623 Metoprolol Tartrate 25 MG BID 08/27 1230 AC 08/27 PO 1228 Metoprolol Tartrate 5 MG Q6 08/24 1800 DC 08/27 IV 0625 Morphine Sulfate 2 MG Q6P PRN 08/20 2035 AC 08/24 IV 1110 Nystatin 1 THANH BID 08/20 1000 AC 08/27 TOP 1000 Oxycodone HCl 5 MG Q6 PRN 08/20 0415 AC 08/26 PO 1359 Last 24 Hrs of Lab/Jerry Results Last 24 Hrs of Labs/Mics: Laboratory Tests 08/27/16 0855: Anion Gap 6, Estimated GFR 59 L, BUN/Creatinine Ratio 34.2 H, CBC w Diff NO MAN DIFF REQ, RBC 4.45 L, MCV 94.5 H, MCH 32.0 H, RDW 14.0, MPV 9.4, Gran % 88.1 H, Lymphocytes % 5.5 L, Monocytes % 6.4, Eosinophils % 0, Basophils % 0 L, Absolute Granulocytes 8.4 H, Absolute Lymphocytes 0.5 L, Absolute Monocytes 0.6, Absolute Eosinophils 0, Absolute Basophils 0, PUBS MCHC 33.8 Assessment/Plan Assessment: Mr. 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 Upon arrival patient was tachypneic, and tachycardic, hypotensive, he was initially admitted to ICU, he was put on BiPAP, received IV fluids, stress dose of steroids. Patient was downgraded to telemetry (08/26) where currently monitoring him for the following conditions: #s/p pituriatry tumor resection and radiotherapy (2005): Adrenal crisis -Currently on soluMedrol 40 mg IV twice a day, endocrinology on board, will follow-up recommendations. Will monitor finger stick glucose closely. Central diabetes insipidus-Patient is on intranasal desmopressin at home, we started desmopressin SC 1 mcg BID per endocrine recommendation. Monitoring sodium levels closely to the levels of 141. Currently getting D5 water at 50 mL/ h. to keep monitoring sodium levels daily. Delirium: Likely secondary to hypoxic encephalopathy. CT head done twice was negative for any acute intracranial pathology. EEG showed evidence of moderate generalized slowing consistent with a diffuse toxic or metabolic encephalopathy. Neurology on board has recommended supportive care. Acute kidney injury: -Resolved. History of hypothyroidism : Stable, will continue home dose of levothyroxine 175 mcg daily by mouth. History of diabetes mellitus: consistent carbohydrate diet 1 and NovoLog sliding scale before meals and bedtime. Will keep free fluid D5 normal and patient is able to drink thin liquids History of hypertension: We'll continue amlodipine 5 mg daily, also started on metoprolol 25 mg twice a day, will monitor blood pressure closely. Patient passed bedside swallow eval, started on pure honey. DVT prophylaxis Patient is full code. Problem List: 1. Diabetes mellitus 2. Hypothyroidism 3. Hypertension 4. Status post transsphenoidal pituitary resection Pain Ratin Pain Location: None Pain Goal: Remain pain free Pain Plan: Tylenol 650 mg every 6 for mild pain Roxicodone 5 mg every 6 for moderate pain Tomorrow's Labs & Rationales: BEP for lites monitoring Consulting Request: Consulting Specialty: Nephrology
--- NOTE | 2016-08-27 09:33 | PN- Diabetes ---
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 He was found to be hypotensive. He was put on BiPAP, pressor and stress dose of steroid hydrocortisone 100mg iv every 8 hours, Levothyroxuine 88 mcg iv daily and DDAVP 1 mcg sc twice a day. At home, he was on Levothyroxine 175 mcg daily, prednisone 5 mg daily and DDAVP nasal spray twice a day. Currently he is on D5w at 50 ml/hour. He passed swallow evaluation yesterday and was put on a diet. But he choked on food last night and he was made NPO again. At this point, he is waiting for swallow evaluation. He is on Novolog coverage before meals and Novolog coverage at bedtime. His FSGs were 205, 164 and 159. Patient was placed on Solumedrol 40 mg iv twice day from pulmonary standpoint. In addition, he is still on Levothyroxuine 88 mcg iv daily and DDAVP 1 mcg sc twice a day. In/OUT 1050/2630. Am lab is still pending. Plan: 1. continue the current treatment; Hold Novolog meal coverage if he skips meal. 2. monitor FSGs, In/OUT and electrolytes; 3. continue monitoring calcium level. will follow. Subjective Subjective: He is still sleeping this morning. Objective Last 24 Hrs of Vital Signs/I&O Vital Signs Date Time Temp Pulse Resp B/P B/P Pulse O2 O2 Flow FiO2 Mean Ox Delivery Rate 08/27 0842 94 Nasal 2.0L Cannula 08/27 0833 97.0 57 20 170/80 95 Nasal 2.0L Cannula 08/27 0800 93 Nasal 2.0L Cannula 08/27 0625 64 152/78 08/27 0458 98.1 68 22 148/82 96 Nasal 2.0L Cannula 08/27 0019 81 172/90 08/27 0008 99.8 75 22 176/86 94 Nasal 2.0L Cannula 08/27 0000 95 Nasal 2.0L Cannula 08/26 2202 93 Nasal 2.0L Cannula 08/26 1753 94 Nasal 2.0L Cannula 08/26 1708 138/70 08/26 1530 97.7 65 14 150/78 94 Nasal 2.0L Cannula 08/26 1505 Nasal 2.0L Cannula Intake & Output 08/27 1600 08/27 0800 08/27 0000 Intake Total 420 Output Total 1200 1000 Balance -780 -1000 Intake, IV 420 Intake, Oral 0 Output, Urine 1200 1000
[2016-08-27 10:01] LABS: ABSOLUTE BASOPHIL COUNT 0 /CUMM (0.0-0.2); ABSOLUTE EOSINOPHIL COUNT 0 /CUMM (0.0-0.7); ABSOLUTE GRANULOCYTE CT 8.4 /CUMM (1.4-6.5); ABSOLUTE LYMPH COUNT 0.5 /CUMM (1.2-3.4); ABSOLUTE MONOCYTE COUNT 0.6 /CUMM (0.10-0.60); BASOPHIL % 0 % (0.0-2.0); EOSINOPHIL % 0 % (0-5); MEAN CORPUSCULAR HGB CONC 33.8 G/DL (33.0-37.0); MEAN CORPUSCULAR VOLUME 94.5 FL (80.0-94.0); MEAN PLATELET VOLUME 9.4 FL (7.4-10.4); PLATELET COUNT 115 /CUMM (130-400); RED BLOOD CELL CT 4.45 /CUMM (4.70-6.10); WHITE BLOOD CELL COUNT 9.5 /CUMM (4.8-10.8)
[2016-08-27 10:34] LABS: GRANULOCYTE % 88.1 % (42.2-75.2)
--- NOTE | 2016-08-27 11:26 | PN- Pulmonary ---
Subjective HPI/Critical Care Issues: pt seen and examined comfortable somewhat sleepy would repeat CXR today overall improved no n/v/d/c Objective Current Medications: Current Medications Sig/Antwon Start time Last Medication Dose Route Stop Time Status Admin Acetaminophen 650 MG Q6 PRN 08/20 0415 AC PO Albuterol Sulfate 3 ML Q4P PRN 08/23 0930 08/25 INH 1411 Amlodipine Besylate 5 MG DAILY 08/26 1331 AC 08/26 PO 1708 Desmopressin Acetate 1 MCG BID 08/20 1300 08/27 SC 0955 Dextrose/Water 1,000 ML Q20H 08/26 1700 08/26 IV 1709 Dextrose/Water 1,000 ML .Q20H 08/26 1345 CAN IV Dextrose/Water 1,000 ML .Q20H 08/23 0745 AL 08/26 IV 0700 Furosemide 40 MG ONCE ONE 08/26 1330 AL 08/26 IV PUSH 08/26 1331 1359 Insulin Aspart 0 AT BEDTIME 08/26 2200 SC Insulin Aspart 0 TIDAC 08/26 1700 08/26 SC 1721 Insulin Aspart 0 Q4 08/20 1239 AL 08/26 SC 1026 Levothyroxine Sodium 88 MCG DAILY 08/20 1031 AC 08/27 IV 1048 Lorazepam 1 MG Q6-PRN PRN 08/20 2315 08/26 IV 2258 Magnesium Sulfate 1 GM ONCE ONE 08/26 0730 DC 08/26 Dextrose/Water 100 ML IV 08/26 1129 0857 Methylprednisolone 40 MG Q12H 08/24 1800 AC 08/27 IV 0623 Metoprolol Tartrate 5 MG Q6 08/24 1800 AC 08/27 IV 0625 Morphine Sulfate 2 MG Q6P PRN 08/20 2035 08/24 IV 1110 Nystatin 1 THANH BID 08/20 1000 AC 08/27 TOP 1000 Oxycodone HCl 5 MG Q6 PRN 08/20 0415 AC 08/26 PO 1359 Sodium Phosphate 15 mMol ONE ONE 08/26 0730 DC 08/26 Dextrose/Water 250 ML IV 08/26 1133 0913 Vital Signs & I&O Last 24 Hrs of Vitals and I&O: Vital Signs Date Time Temp Pulse Resp B/P B/P Pulse O2 O2 Flow FiO2 Mean Ox Delivery Rate 08/27 0842 94 Nasal 2.0L Cannula 08/27 0833 97.0 57 20 170/80 95 Nasal 2.0L Cannula 08/27 0800 93 Nasal 2.0L Cannula 08/27 0625 64 152/78 08/27 0458 98.1 68 22 148/82 96 Nasal 2.0L Cannula 08/27 0019 81 172/90 08/27 0008 99.8 75 22 176/86 94 Nasal 2.0L Cannula 08/27 0000 95 Nasal 2.0L Cannula 08/26 2202 93 Nasal 2.0L Cannula 08/26 1753 94 Nasal 2.0L Cannula 08/26 1708 138/70 08/26 1530 97.7 65 14 150/78 94 Nasal 2.0L Cannula 08/26 1505 Nasal 2.0L Cannula Intake & Output 08/27 1600 08/27 0800 08/27 0000 Intake Total 420 Output Total 1200 1000 Balance -780 -1000 Intake, IV 420 Intake, Oral 0 Output, Urine 1200 1000 Exam Other Physical Findings: gen awake, lethargic heent ncat cvs s1, s2 lungs diminished with rhonchi abd obese ext without edema Results Last 24 Hrs of Lab Results: Laboratory Tests 08/27/16 0855: Anion Gap 6, Estimated GFR 59 L, BUN/Creatinine Ratio 34.2 H, CBC w Diff NO MAN DIFF REQ, RBC 4.45 L, MCV 94.5 H, MCH 32.0 H, RDW 14.0, MPV 9.4, Gran % 88.1 H, Lymphocytes % 5.5 L, Monocytes % 6.4, Eosinophils % 0, Basophils % 0 L, Absolute Granulocytes 8.4 H, Absolute Lymphocytes 0.5 L, Absolute Monocytes 0.6, Absolute Eosinophils 0, Absolute Basophils 0, PUBS MCHC 33.8 Impression/Plan Impression/Plan Impression/Plan: Impression 75 year old man * improved pulmonary edema from htn * adrenal crisis resolving, hx of pituitary tumor Plan -repeat CXR today -bp control -f/u endocrine and cardiology -pt/oob DVT prophylaxis at all times
--- NOTE | 2016-08-27 11:34 | PN- Cardiology ---
Subjective Subjective: The patient is awake and alert. No chest pain. No palpitations. No shortness of breath. No diaphoresis. Objective Vital Signs and I&Os Vital Signs Date Time Temp Pulse Resp B/P B/P Pulse O2 O2 Flow FiO2 Mean Ox Delivery Rate 08/27 0842 94 Nasal 2.0L Cannula 08/27 0833 97.0 57 20 170/80 95 Nasal 2.0L Cannula 08/27 0800 93 Nasal 2.0L Cannula 08/27 0625 64 152/78 08/27 0458 98.1 68 22 148/82 96 Nasal 2.0L Cannula 08/27 0019 81 172/90 08/27 0008 99.8 75 22 176/86 94 Nasal 2.0L Cannula 08/27 0000 95 Nasal 2.0L Cannula 08/26 2202 93 Nasal 2.0L Cannula 08/26 1753 94 Nasal 2.0L Cannula 08/26 1708 138/70 06/ 1530 97.7 65 14 150/78 94 Nasal 2.0L Cannula 08/26 1505 Nasal 2.0L Cannula Intake & Output 08/27 1600 08/27 0800 /06 0000 06/05 1600 08/26 0800 06/ 0000 Intake Total 420 650 400 400 Output Total 1200 1000 999 937 5202 Balance -780 -1000 0 -580 -740 Intake, IV 420 600 400 400 Intake, Oral 0 50 Number 0 Bowel Movements Output, Urine 1200 1000 567 220 7725 Physical Exam: Gen: The patient is in no acute distress HEENT: Normal nose, ears, and oropharynx. Pupils equal bilaterally. Conjunctiva normal. Neck: Supple with no JVD, no masses, and no thyromegaly Lungs: Decreased breath sounds with normal respiratory effort Heart: RRR, S1, S2, no murmurs. No peripheral edema, 2+ pulses in the lower extremities bilaterally Abdomen: Soft, nontender, no masses. No hepatomegaly. No splenomegaly Extremities: No clubbing or cyanosis. Normal muscle strength in the upper and lower extremities Skin: Normal skin turgor with no skin ulcers or lesions noted. Neuro: Cranial nerves intact. Sensation intact Current Medications: Current Medications Sig/Antwon Start time Last Medication Dose Route Stop Time Status Admin Acetaminophen 650 MG Q6 PRN 08/20 0415 AC PO Albuterol Sulfate 3 ML Q4P PRN 08/23 0930 AC 08/25 INH 1411 Amlodipine Besylate 5 MG DAILY 08/26 1331 AC 08/26 PO 1708 Desmopressin Acetate 1 MCG BID 08/20 1300 AC 08/27 SC 0955 Dextrose/Water 1,000 ML Q20H 08/26 1700 AC 08/26 IV 1709 Dextrose/Water 1,000 ML .Q20H 08/26 1345 CAN IV Dextrose/Water 1,000 ML .Q20H 08/23 0745 DC 08/26 IV 0700 Furosemide 40 MG ONCE ONE 08/26 1330 DC 08/26 IV PUSH 08/26 1331 1359 Insulin Aspart 0 AT BEDTIME 08/26 2200 AC SC Insulin Aspart 0 TIDAC 08/26 1700 AC 08/26 SC 1721 Insulin Aspart 0 Q4 08/20 1239 DC 08/26 SC 1026 Levothyroxine Sodium 88 MCG DAILY 08/20 1031 AC 08/27 IV 1048 Lorazepam 1 MG Q6-PRN PRN 08/20 2315 AC 08/26 IV 2258 Methylprednisolone 40 MG Q12H 08/24 1800 AC 08/27 IV 0623 Metoprolol Tartrate 5 MG Q6 08/24 1800 AC 08/27 IV 0625 Morphine Sulfate 2 MG Q6P PRN 08/20 2035 AC 08/24 IV 1110 Nystatin 1 THANH BID 08/20 1000 AC 08/27 TOP 1000 Oxycodone HCl 5 MG Q6 PRN 08/20 0415 AC 08/26 PO 1359 Sodium Phosphate 15 mMol ONE ONE 08/26 0730 DC 08/26 Dextrose/Water 250 ML IV 08/26 1133 0913 Results Last 48 Hrs of Labs/Mics: Laboratory Tests 08/27/16 0855: Anion Gap 6, Estimated GFR 59 L, BUN/Creatinine Ratio 34.2 H, CBC w Diff NO MAN DIFF REQ, RBC 4.45 L, MCV 94.5 H, MCH 32.0 H, RDW 14.0, MPV 9.4, Gran % 88.1 H, Lymphocytes % 5.5 L, Monocytes % 6.4, Eosinophils % 0, Basophils % 0 L, Absolute Granulocytes 8.4 H, Absolute Lymphocytes 0.5 L, Absolute Monocytes 0.6, Absolute Eosinophils 0, Absolute Basophils 0, PUBS MCHC 33.8 08/26/16 0415: Anion Gap 10, Estimated GFR 54 L, Glucose 143 H, Calcium 7.5 L, Phosphorus 3.1, Magnesium 1.8, Total Bilirubin 0.9, AST 66 H, ALT 94 H, Albumin 3.2 L, CBC w Diff NO MAN DIFF REQ, RBC 4.36 L, MCV 94.7 H, MCH 32.0 H, RDW 14.6 H, MPV 9.2, Gran % 88.7 H, Lymphocytes % 5.1 L, Monocytes % 6.2, Eosinophils % 0, Basophils % 0 L, Absolute Granulocytes 9.1 H, Absolute Lymphocytes 0.5 L, Absolute Monocytes 0.6, Absolute Eosinophils 0, Absolute Basophils 0, PUBS MCHC 33.8 Assessment/Plan Assessment/Plan Assessment: 1. History of pituitary tumor resection 2. Hypotension, likely secondary to adrenal crisis, resolved 3. Pneumonia 4. Chronic kidney disease with acute exacerbation 5. Ruled out for myocardial infarction with negative troponin 2 6. Abnormal EKG 7. Normal left ventricular function on echocardiogram 8. Volume overload after IV hydration, improved after diuresis 9. Hypertension, partially improved on amlodipine Plan: * Continue amlodipine 5 mg daily * Discontinue IV metoprolol, and started metoprolol milligrams by mouth twice a day Continue telemetry? Yes
--- NOTE | 2016-08-27 13:15 | PN- Att Addend ---
Attending MD Review Statement Attending Statement Attending MD Statement: examined this patient, discuss w/resident/PA/WANT AD CLERK, agreed w/resident/PA/WANT AD CLERK, reviewed EMR data (avail), discussed w/nursing, discussed w/ case mgmt Attending Assessment/Plan: Laboratory Tests 08/27/16 0855: Anion Gap 6, Estimated GFR 59 L, BUN/Creatinine Ratio 34.2 H, CBC w Diff NO MAN DIFF REQ, RBC 4.45 L, MCV 94.5 H, MCH 32.0 H, RDW 14.0, MPV 9.4, Gran % 88.1 H, Lymphocytes % 5.5 L, Monocytes % 6.4, Eosinophils % 0, Basophils % 0 L, Absolute Granulocytes 8.4 H, Absolute Lymphocytes 0.5 L, Absolute Monocytes 0.6, Absolute Eosinophils 0, Absolute Basophils 0, PUBS MCHC 33.8 Vital Signs Date Time Temp Pulse Resp B/P B/P Pulse O2 O2 Flow FiO2 Mean Ox Delivery Rate 08/27 1228 97.0 57 20 170/80 08/27 1228 97.0 57 20 170/80 08/27 0842 94 Nasal 2.0L Cannula 08/27 0833 97.0 57 20 170/80 95 Nasal 2.0L Cannula 08/27 0800 93 Nasal 2.0L Cannula 08/27 0625 64 152/78 08/27 0458 98.1 68 22 148/82 96 Nasal 2.0L Cannula 08/27 0019 81 172/90 08/27 0008 99.8 75 22 176/86 94 Nasal 2.0L Cannula 08/27 0000 95 Nasal 2.0L Cannula 08/26 2202 93 Nasal 2.0L Cannula 08/26 1753 94 Nasal 2.0L Cannula 08/26 1708 138/70 08/26 1530 97.7 65 14 150/78 94 Nasal 2.0L Cannula 08/26 1505 Nasal 2.0L Cannula 75 with past medical history significant for pituriatry tumor s/p tumor resection in 2005, radiotherapy and [employer]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 Pt admitted with acute hypoxic respiratory failure and shock secondary to adrenal crisis and required levophed, fluid resuscitation and BIPAP at admission and was admitted to ICU. GINETTE with metabolic acidosis on admission- resolved. Fluid overload- secondary to fluid resuscitation. Currently better. Metabolic encephalopathy- resolving now. Cont to monitor closely. 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 Sodium stable. Would need close monitoring Dysphagia- swallow eval repeated today, started on pureed diet with honey thick liquids. Switched his meds to po. Hypothyroidism- switched to po levothyroxine today on 08/27
[2016-08-27 15:30] VITALS: BP 146/70
--- NOTE | 2016-08-27 15:47 | RADIOLOGY REPORT ---
EXAMINATION: XR PORTABLE CHEST CLINICAL INFORMATION: Shortness of breath. COMPARISON: 08/24/2016 TECHNIQUE: Portable AP view of the chest was obtained. FINDINGS: Patient has a relatively large body habitus. The findings suggestive of pulmonary edema on 08/24/2016 have resolved. Mild atelectasis is present in the retrocardiac region of the left lower lobe. Cardiac silhouette is mildly enlarged. No acute osseous findings. IMPRESSION: 1. Mild cardiomegaly. 2. Interval improvement compared to 08/24/2016. Pulmonary edema has resolved. 3. Mild atelectasis in the left lung base.
[2016-08-28 07:49] VITALS: BP 134/60
--- NOTE | 2016-08-28 08:33 | PN- Diabetes ---
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 He was found to be hypotensive. He was put on BiPAP, pressor and stress dose of steroid hydrocortisone 100mg iv every 8 hours, Levothyroxuine 88 mcg iv daily and DDAVP 1 mcg sc twice a day. At home, he was on Levothyroxine 175 mcg daily, prednisone 5 mg daily and DDAVP nasal spray twice a day. Currently he is on D5w at 50 ml/hour. He passed swallow evaluation yesterday. He is on Novolog coverage before meals and Novolog coverage at bedtime. His FSGs were 159, 201, 237, 242 and 152. Patient was placed on Solumedrol 40 mg iv twice day from pulmonary standpoint. In addition, Levothyroxuine was changed to 175 mcg orally daily. He is on DDAVP 1 mcg sc twice a day. Sodium was 141 on 08/28/2016. Plan: 1. d/c IVF; 2. encourage po intake; 3. continue the current Novolog coverage before meals and Novolog coverage at bedtime; 4. continue Levothyroxine 175 mcg daily and DDAVP 1 mcg sc twice a day for now; 5. steroid taper as per pulmonology. However, I will restart patient on Hydrocortisone 20 mg po at 8 am and 10 mg po at 4 pm when steroid is tapered down to prednisone 10 mg daily. 6. continue monitor FSGs, In/OUT and electrolytres. will follow. Subjective Subjective: He is more alert and has been tolerating meals. Objective Last 24 Hrs of Vital Signs/I&O Vital Signs Date Time Temp Pulse Resp B/P B/P Pulse O2 O2 Flow FiO2 Mean Ox Delivery Rate 08/28 0749 98.0 62 18 134/60 93 Nasal Cannula 08/28 0003 98.5 54 16 95 Nasal Cannula 08/28 0000 Nasal 2.0L Cannula 08/27 2121 65 158/90 08/27 1600 Nasal 2.0L Cannula 08/27 1530 97.6 64 16 146/70 94 Nasal 2.0L Cannula 08/27 1511 Nasal 2.0L Cannula 08/27 1228 97.0 57 20 170/80 08/27 1228 97.0 57 20 170/80 08/27 0842 94 Nasal 2.0L Cannula 08/27 0833 97.0 57 20 80 95 Nasal 2.0L Cannula Intake & Output 08/28 1600 08/28 0800 06 0000 Intake Total 300 640 Output Total 550 650 Balance -250 -10 Intake, IV 300 400 Intake, Oral 240 Number 2 6 Bowel Movements Output, Urine 550 650 Findings Pertinent Lab/Jerry Results: Laboratory Tests 08/28 08/27 0640 0855 Chemistry Sodium (137 - 145 mmol/L) 141 141 Potassium (3.5 - 5.1 mmol/L) 4.3 4.2 Chloride (98 - 107 mmol/L) 105 105 Carbon Dioxide (22 - 30 mmol/L) 27 31 H Anion Gap (5 - 16) 8 6 BUN (9 - 20 mg/dL) 36 H 41 H Creatinine (0.7 - 1.2 mg/dL) 1.1 1.2 Estimated GFR (>60 ml/min) > 60 59 L BUN/Creatinine Ratio (7 - 25 %) 32.7 H 34.2 H Hematology CBC w Diff NO MAN DIFF REQ WBC (4.8 - 10.8 /CUMM) 9.5 RBC (4.70 - 6.10 /CUMM) 4.45 L Hgb (14.0 - 18.0 G/DL) 14.2 Hct (42 - 52 %) 42.0 MCV (80.0 - 94.0 FL) 94.5 H MCH (27.0 - 31.0 PG) 32.0 H RDW (11.5 - 14.5 %) 14.0 Plt Count (130 - 400 /CUMM) 115 L MPV (7.4 - 10.4 FL) 9.4 Gran % (42.2 - 75.2 %) 88.1 H Lymphocytes % (20.5 - 51.1 %) 5.5 L Monocytes % (1.7 - 9.3 %) 6.4 Eosinophils % (0 - 5 %) 0 Basophils % (0.0 - 2.0 %) 0 L Absolute Granulocytes (1.4 - 6.5 /CUMM) 8.4 H Absolute Lymphocytes (1.2 - 3.4 /CUMM) 0.5 L Absolute Monocytes (0.10 - 0.60 /CUMM) 0.6 Absolute Eosinophils (0.0 - 0.7 /CUMM) 0 Absolute Basophils (0.0 - 0.2 /CUMM) 0 PUBS MCHC (33.0 - 37.0 G/DL) 33.8
--- NOTE | 2016-08-28 09:06 | PN- Housestaff ---
Subjective Follow-up For: Adrenal crisis s/p pituriatry tumor resection Hypothyroidism Delirium Tele-Events Since Last Visit: Sinus rhythm/bundle-branch block, heart rate between 54-68 Subjective: Patient seen and examined this morning. He was lying comfortably in bed in no acute distress, this morning he was alert, oriented 3. Afebrile, heart rate fluctuating between 54-68, remains in room air satting in the high 90s, did not offer any complaints. He is to get a swallow eval again today to see if he can advance aside from pur e honey. Review of Systems Constitutional: Denies: chills, fever. Respiratory: Denies: cough, short of breath, sputum production. Gastrointestinal: Denies: abdominal pain, constipation, diarrhea, nausea, vomiting. Genitourinary: Denies: dysuria, frequency. Objective Last 24 Hrs of Vital Signs/I&O Vital Signs Date Time Temp Pulse Resp B/P B/P Pulse O2 O2 Flow FiO2 Mean Ox Delivery Rate 08/29 927 68 160/84 08/28 0928 68 160/84 08/28 0749 98.0 62 18 134/60 93 Nasal Cannula 08/28 0003 98.5 54 16 95 Nasal Cannula 08/28 0000 Nasal 2.0L Cannula 08/27 2121 65 158/90 08/27 1600 Nasal 2.0L Cannula 08/27 1530 97.6 64 16 146/70 94 Nasal 2.0L Cannula 08/27 1511 Nasal 2.0L Cannula 08/27 1228 97.0 57 20 170/80 08/27 1228 97.0 57 20 170/80 Intake & Output 08/28 1600 08/28 0800 08/28 0000 Intake Total 300 640 Output Total 550 650 Balance -250 -10 Intake, IV 300 400 Intake, Oral 240 Number 2 6 Bowel Movements Output, Urine 550 650 Physical Exam General Appearance: Alert, Oriented X3, Cooperative, No Acute Distress Cardiovascular: Regular Rate, Normal S1, Normal S2, No Murmurs Lungs: bilateral basal coarse breath sounds Abdomen: Normal Bowel Sounds, Soft, No Tenderness Extremities: No Clubbing, No Cyanosis, trace bilateral leg edema Current Medications: Current Medications Sig/Antwon Start time Last Medication Dose Route Stop Time Status Admin Acetaminophen 650 MG Q6 PRN 08/20 0415 AC PO Albuterol Sulfate 3 ML Q4P PRN 08/23 0930 AC 08/25 INH 1411 Amlodipine Besylate 5 MG DAILY 08/26 1331 AC 08/28 PO 0928 Desmopressin Acetate 1 MCG BID 08/20 1300 AC 08/28 SC 0930 Dextrose/Water 1,000 ML Q20H 08/26 1700 DC 08/27 IV 1230 Insulin Aspart 0 AT BEDTIME 08/26 2200 AC 08/27 SC 2118 Insulin Aspart 0 TIDAC 08/26 1700 AC 08/28 SC 0910 Levothyroxine Sodium 0.175 MG DAILY 08/28 1000 AC 08/28 PO 0926 Levothyroxine Sodium 0.175 MG ONCE ONE 08/27 1215 DC PO 08/27 1216 Levothyroxine Sodium 88 MCG DAILY 08/20 1031 DC 08/27 IV 1048 Lorazepam 1 MG Q6-PRN PRN 08/20 2315 DC 08/26 IV 2258 Methylprednisolone 40 MG Q12H 08/24 1800 DC 08/28 IV 0543 Metoprolol Tartrate 25 MG BID 08/27 1230 AC 08/28 PO 0928 Metoprolol Tartrate 5 MG Q6 08/24 1800 DC 08/27 IV 0625 Morphine Sulfate 2 MG Q6P PRN 08/20 2035 DC 08/24 IV 1110 Nystatin 1 THANH BID 08/20 1000 DC 08/27 TOP 1000 Oxycodone HCl 5 MG Q6 PRN 08/20 0415 AC 08/26 PO 1359 Patient Medication 1 ED .STK-MED ONE 08/27 1343 FL Teaching ED 08/27 1344 Prednisone 40 MG DAILY 08/29 1000 AC PO Last 24 Hrs of Lab/Jerry Results Last 24 Hrs of Labs/Mics: Laboratory Tests 08/28/16 0640: Anion Gap 8, Estimated GFR > 60, BUN/Creatinine Ratio 32.7 H Microbiology 08/28 0020 STOOL: Clostridium difficile Toxin A & B - RECD Assessment/Plan Assessment: Mr. Downs is 75 with past medical history significant for pituriatry tumor s/p tumor resection in 2005, radiotherapy and [employer] shunt placement, short term memory loss, chronic renal disease, hypothyroidism, diabetes, hypertension who was BIBA on 08/20 for shortness of breath and altered mental status. Upon arrival patient was tachypneic, and tachycardic, hypotensive, he was initially admitted to ICU, he was put on BiPAP, received IV fluids, stress dose of steroids. Patient was downgraded to telemetry (08/26) where currently monitoring him for the following conditions: #s/p pituriatry tumor resection and radiotherapy (2005): Adrenal crisis -resolved, IV steroids discontinued, will start patient on prednisone taper followed by maintenance dose as per endocrine recommendations. Central diabetes insipidus-Patient currently on subcutaneous desmopressin, was switched to nasal desmopressin upon discharge, sodium stable. Delirium: Likely secondary to hypoxic encephalopathy. CT head done twice was negative for any acute intracranial pathology. EEG showed evidence of moderate generalized slowing consistent with a diffuse toxic or metabolic encephalopathy. Neurology on board has recommended supportive care. Mentation as of today has improved, oriented 3. Acute kidney injury: -Resolved. History of hypothyroidism : Stable, will continue home dose of levothyroxine 175 mcg daily by mouth. History of diabetes mellitus: consistent carbohydrate diet 1 and NovoLog sliding scale before meals and bedtime. History of hypertension: We'll continue amlodipine 5 mg daily, also started on metoprolol 25 mg twice a day, will monitor blood pressure closely. Patient passed bedside swallow eval, started on pure honey. DVT prophylaxis Patient is full code. Problem List: 1. Status post transsphenoidal pituitary resection 2. Hypertension 3. Hypothyroidism 4. Diabetes mellitus 5. GINETTE (acute kidney injury) Pain Ratin Pain Location: None Pain Goal: Remain pain free Pain Plan: Tylenol 650 mg every 6 for mild pain Roxicodone 5 mg every 6 for moderate pain Tomorrow's Labs & Rationales: BEP for lites monitoring Consulting Request: Consulting Specialty: Nephrology
--- NOTE | 2016-08-28 09:35 | PN- Pulmonary ---
ANDREA BAXTER,CHRIS 08/28/16 0924: Subjective HPI/Critical Care Issues: Patient seen and examined. Resting comfortably in bed, eating breakfast. Offers no complaints this morning. No overnight events on senior hris analyst. Objective Current Medications: Current Medications Sig/Antwon Start time Last Medication Dose Route Stop Time Status Admin Acetaminophen 650 MG Q6 PRN 08/20 0415 AC PO Albuterol Sulfate 3 ML Q4P PRN 08/23 0930 AC 08/25 INH 1411 Amlodipine Besylate 5 MG DAILY 08/26 1331 AC 08/27 PO 1228 Desmopressin Acetate 1 MCG BID 08/20 1300 AC 08/27 SC 2118 Dextrose/Water 1,000 ML Q20H 08/26 1700 DC 08/27 IV 1230 Insulin Aspart 0 AT BEDTIME 08/26 2200 AC 08/27 SC 2118 Insulin Aspart 0 TIDAC 08/26 1700 AC 08/28 SC 0910 Levothyroxine Sodium 0.175 MG DAILY 08/28 1000 AC PO Levothyroxine Sodium 0.175 MG ONCE ONE 08/27 1215 DC PO 08/27 1216 Levothyroxine Sodium 88 MCG DAILY 08/20 1031 DC 08/27 IV 1048 Lorazepam 1 MG Q6-PRN PRN 08/20 2315 DC 08/26 IV 2258 Methylprednisolone 40 MG Q12H 08/24 1800 AC 08/28 IV 0543 Metoprolol Tartrate 25 MG BID 08/27 1230 AC 08/27 PO 2121 Metoprolol Tartrate 5 MG Q6 08/24 1800 DC 08/27 IV 0625 Morphine Sulfate 2 MG Q6P PRN 08/20 2035 DC 08/24 IV 1110 Nystatin 1 THANH BID 08/20 1000 DC 08/27 TOP 1000 Oxycodone HCl 5 MG Q6 PRN 08/20 0415 AC 08/26 PO 1359 Patient Medication 1 ED .STK-MED ONE 08/27 1343 DC Teaching ED 08/27 1344 Vital Signs & I&O Last 24 Hrs of Vitals and I&O: Vital Signs Date Time Temp Pulse Resp B/P B/P Pulse O2 O2 Flow FiO2 Mean Ox Delivery Rate 08/28 0749 98.0 62 18 134/60 93 Nasal Cannula 08/28 0003 98.5 54 16 95 Nasal Cannula 08/28 0000 Nasal 2.0L Cannula 08/27 2121 65 158/90 06/06 1600 Nasal 2.0L Cannula 08/27 1530 97.6 64 16 146/70 94 Nasal 2.0L Cannula 08/27 1511 Nasal 2.0L Cannula 08/27 1228 97.0 57 20 170/80 08/27 1228 97.0 57 20 170/80 Intake & Output 08/28 1600 07 0800 06/ 0000 Intake Total 300 640 Output Total 550 650 Balance -250 -10 Intake, IV 300 400 Intake, Oral 240 Number 2 6 Bowel Movements Output, Urine 550 650 Exam General Appearance: well developed/nourished, no apparent distress, alert, comfortable Head: atraumatic, normal appearance Ears, Nose, Throat: normal pharynx, normal ENT inspection, hearing grossly normal Respiratory: chest non-tender, faint bi-basilar crackles Cardiovascular: regular rate/rhythm Abdomen: normal bowel sounds, soft, non-tender Extremities: trace b/l LE edema Diagnostic Data CXR Findings: PATIENT: TRENT DE LA TORRE PRESENT AGE: 75 PATIENT ACCOUNT NO: [id number] : 39 LOCATION: [facility] ORDERING PHYSICIAN: DAVE JOY MD SERVICE DATE: 08/27/16- EXAM TYPE: RAD - XRY-PORTABLE CHEST XRAY EXAMINATION: XR PORTABLE CHEST CLINICAL INFORMATION: Shortness of breath. COMPARISON: 08/24/2016 TECHNIQUE: Portable AP view of the chest was obtained. FINDINGS: Patient has a relatively large body habitus. The findings suggestive of pulmonary edema on 08/24/2016 have resolved. Mild atelectasis is present in the retrocardiac region of the left lower lobe. Cardiac silhouette is mildly enlarged. No acute osseous findings. IMPRESSION: 1. Mild cardiomegaly. 2. Interval improvement compared to 08/24/2016. Pulmonary edema has resolved. 3. Mild atelectasis in the left lung base. DICTATED BY: NAPOLEON CARRILLO MD DATE/TIME DICTATED:08/27/161541 CORRECTIONAL NURSE:TAYA DATE/TIME TRANSCRIBED:08/27/161541 CONFIDENTIAL, DO NOT COPY WITHOUT APPROPRIATE AUTHORIZATION. <Electronically signed in Other Vendor System> SIGNED BY: NAPOLEON CARRILLO MD 08/27/16 154 Impression/Plan Impression/Plan Impression/Plan: Assessment- 1. Adrenal crisis, resolving; has a history of pituitary tumor resection 2. Pulmonary edema, improved 3. Diabetes insipidus, central 4. Acute kidney injury, resolved 5. 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 Please make sure he does not miss any doses of his steroids, such that they are not stopped abruptly. - Blood pressure control per cardiology, improved - Blood sugar control per endocrine, management of DDAVP per endocrine - Maintain net negative fluid balance - Encourage by mouth intake - Patient will benefit from a sleep study as an outpatient JOSH ARVIZU MD 08/28/16 0941: Impression/Plan Impression/Plan Recommendations: Josh Cardenas M.D. have examined this patient, reviewed available EMR data, personally reviewed images, discussed with resident/PA/EMERGENCY ROOM CLINICIAN, discussed management plan with housestaff and nursing staff, discussed managment plan all of healthcare providers, discussed management plan with patient and/or family, agreed with resident/PA/EMERGENCY ROOM CLINICIAN. The past history and parts of the chart have been autopopulated. steroid taper, endocrinology and cardiology follow up call with any issues or concerns
--- NOTE | 2016-08-28 12:52 | PN- Att Addend ---
Attending MD Review Statement Attending Statement Attending MD Statement: examined this patient, discuss w/resident/PA/PHARMACEUTICAL SCIENTIST, agreed w/resident/PA/PHARMACEUTICAL SCIENTIST, reviewed EMR data (avail), discussed w/nursing, discussed w/ case mgmt Attending Assessment/Plan: Laboratory Tests 08/28/16 0640: Anion Gap 8, Estimated GFR > 60, BUN/Creatinine Ratio 32.7 H Vital Signs Date Time Temp Pulse Resp B/P B/P Pulse O2 O2 Flow FiO2 Mean Ox Delivery Rate 08/28 1122 93 Nasal 2.0L Cannula 08/28 0928 68 160/84 08/28 0928 68 160/84 08/28 0749 98.0 62 18 134/60 93 Nasal Cannula 08/28 0003 98.5 54 16 95 Nasal Cannula 08/28 0000 Nasal 2.0L Cannula 08/27 2121 65 158/90 08/27 1600 Nasal 2.0L Cannula 08/27 1530 97.6 64 16 146/70 94 Nasal 2.0L Cannula 08/27 1511 Nasal 2.0L Cannula Patient seen and examined at bedside. 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 Pt admitted with acute hypoxic respiratory failure and shock secondary to adrenal crisis and required levophed, fluid resuscitation and BIPAP at admission and was admitted to ICU. Will taper steroids to po prednisone today 40mg on 08/28. GINETTE with metabolic acidosis on admission- resolved. Fluid overload- secondary to fluid resuscitation. Currently better. Metabolic encephalopathy- resolving now. Cont to monitor closely. 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 Sodium stable. Would need close monitoring. Will switch to nasal spray at time of discharge. Dysphagia- started on pureed diet with honey thick liquids. Switched his meds to po. Will have speech evaluate pt prior to dishcarge again to liberalize diet. Hypothyroidism- switched to po levothyroxine on 08/27 . PT to evaluate pt for disposition.
[2016-08-28 16:00] VITALS: BP 158/88
--- NOTE | 2016-08-28 18:14 | Discharge Summary ---
Visit Information Visit Dates Admission Date: 08/20/16 Discharge Date: 08/31/16 Hospital Course Course Attending Physician: BON HICKEY MD Primary Care Physician: EVA BUTTS MD Consulting Request: Consulting Specialty: Nephrology Hospital Course: Mr. 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 Upon arrival, patient had respiratory rate of 40, afebrile, pulse 110, Saturating 91% on BiPAP, blood pressure 74/Doppler, drowsy but arousable, incoherent. Patient was aggressively resuscitated with 7 L normal saline, then right-sided IJ was placed and he was started on Levophed. Patient was admitted to ICU and later on telemetry floor for management of the following medical problems: 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) on chronic steroids -Shortness of breath: pneumonia versus pulmonary edema -Central diabetes insipidus -Acute on chronic kidney disease -Delirium -Metabolic acidosis non-anion gap -Hypothyrodism -Questionable Pneumonia -RETAIL EVENT AND SALES ASSISTANT shunt without signs of increase intracranial pressure -History of hypertension #Shock due to adrenal crisis s/p pituriatry tumor resection and radiotherapy ( 2005) on chronic steroids -Patient was found to have blood pressure as low as 50-70 systolic over Doppler, he received 7 L of bolus normal saline and central line was placed for Levophed, blood pressure improved within 24 hours. Patient has history of chronic steroid after pituitary tumor resection, didn't follow with coal pulverizing operator for the last 4 years, happened to have recent otitis media infection 10 days prior to admission, the family noticed that patient had progressive weakness after the infection and became more confused and unresponsive on day of admission. Thought process was possible adrenal crisis that resulted in shock, endocrine consultation was obtained with recommendation for stress dose of steroid hydrocortisone 100mg iv every 8 hours, was eventually switched to Solu-Medrol and later on tapered prednisone. Patient was reevaluated by endocrinology recommended to start the patient on 20 mg of hydrocortisone at 8 AM and 10 mg of hydrocortisone at 8 PM, after finishing prednisone taper. Troponin negative and no EKG acute changes. Echocardiogram was obtained that showedMild concentric left ventricular hypertrophy. Normal left ventricular ejection fraction visually estimated at > 60%. Trace mitral regurgitation.Mild aortic stenosis. Trace tricuspid regurgitation. Central diabetes insipidus s/p pituitary tumor resection -Patient is on intranasal desmopressin at home, we started desmopressin SC 1 mcg BID per endocrine recommendation. Daily sodium level and free water consumption was monitored throughout hospital stay. Patient was discharged to the [facility] with intranasal desmopressin as per endocrinology recommendations Pneumonia: Initial chest x-ray was questionable for pneumonia, patient was started on ceftaz and vancomycin being immunocompromised on chronic steroids. ID consultation was obtained, antibiotic was switched to Unasyn and subsequently discontinued given that patient was continued to be afebrile with no leukocytosis. Hypoxic encephalopathy: Neuro consultation was obtained with recommendation for supportive care. EEG was obtained as well that revealed diffuse toxic versus metabolic encephalopathy. Ammonia level was low2 08/20 and 08/21. CT head was obtained on August 19 and August 21 are negative for acute intracranial pathology. Thought about possible encephalitis, ID input for LP was obtained, patient's family denied proceeding with LP because they thought he was improving. Patient's mentation improved significantly over the last 2 days, thoughts about obtaining MRI was held given current clinical condition. Records from [facility] was obtained regarding RETAIL EVENT AND SALES ASSISTANT shunt compatibility for MRI. -EEG 08/21 Abnormal due to moderate generalized slowing consistent with a diffuse toxic or metabolic encephalopathy. No epileptiform abnormalities are found. #Acute kidney injury and non-anion gap metabolic acidosis -Resolved. Nephrology consultation was obtained, FENa indicative for prerenal, fraction excretion sodium 0.8 indicating for prerenal rather than ATN. Urine lytes WNL. Urine spot [id number] ratio 0.09, indicating absence of significant proteinuria. GINETTE was resolved on discharge. #History of diabetes mellitus Sugar levels are controlled with the NovoLog sliding scale with Accu-Cheks. #History of hypertension -Cardiology is on board, will start amlodipine 5 mg daily. Diet: Consistent carbohydrate 1(Patient was evaluated by speech therapist recommended mechanical and nectar thick diet initially and afterwards he was switched to pured and nectar thick diet) DVT: ALPS low platete DC HSC Code Full Consultation cardiology, nephrology, endocrinology, neurology, ID, PT, speech therapy Allergies: Coded Allergies: lactose (Intermediate, DIARRHEA 06/08/17) REPORTED BY FAMILY Significant Procedures: DETUZZI, TRENT Age: 75 : 1940 Gender: M Exam Date: 08/20/2016 14:59 Exam Location: [facility] Ht (in): 70 Wt (lb): 298 BSA: 2.65 BP: 99 / 68 Ordering Physician: VIOLET MENDEZ M Referring Physician: Paddy Chen MD Technologist: Wendi Boles CISCO Room Number: 112 Indications: AFIB/FLUTTER Rhythm: Sinus Technical Quality: Technically difficult study FINDINGS Left Ventricle Normal size left ventricle. Mild concentric left ventricular hypertrophy. Normal left ventricular ejection fraction visually estimated at >60%. Normal left ventricular wall motion. Right Ventricle Normal right ventricular size and function. Right Atrium Normal right atrial size. Left Atrium Normal left atrial size. Mitral Valve Mitral valve thickened. Trace mitral regurgitation. Aortic Valve Diffuse thickening of the aortic valve cusps. Mild aortic stenosis. Tricuspid Valve Tricuspid valve not well visualized, grossly normal. Trace tricuspid regurgitation. Pulmonic Valve Pulmonic valve not well visualized, grossly normal. Pericardium No pericardial effusion. Great Vessels Normal size aortic root. CONCLUSIONS Mild concentric left ventricular hypertrophy. Normal left ventricular ejection fraction visually estimated at > 60%. Trace mitral regurgitation. Mild aortic stenosis. Trace tricuspid regurgitation. Paddy Chen M.D. (Electronically Signed) Final Date: 21 Aug 2016 14:41 MEASUREMENTS (Male / Female) Normal Values 2D ECHO LV Diastolic Diameter PLAX 5.1 cm 4.2 - 5.9 / 3.9 - 5.3 cm LV Systolic Diameter PLAX 2.4 cm 2.1 - 4.0 cm LV Fractional Shortening PLAX 52.9 % 25 - 46 % LV Ejection Fraction 2D Teich 83.7 % IVS Diastolic Thickness 1.2 cm LVPW Diastolic Thickness 1.2 cm LVPW Systolic Thickness 0.6 cm LV Relative Wall Thickness 0.5 LVOT Diameter 2.2 cm Aortic Root Diameter 3.1 cm LA Systolic Diameter LX 4.0 cm 3.0 - 4.0 / 2.7 - 3.8 cm LA Volume 44.0 cm 18 - 58 / 22 - 52 cm Ascending Aorta Diameter 2.9 cm DOPPLER AV Peak Velocity 245.0 cm/s AV Peak Gradient 24.0 mmHg AV Mean Velocity 186.0 cm/s AV Mean Gradient 15.0 mmHg AV Velocity Time Integral 47.2 cm LVOT Peak Velocity 133.0 cm/s LVOT Peak Gradient 7.1 mmHg LVOT Mean Velocity 99.7 cm/s LVOT Mean Gradient 4.0 mmHg LVOT Velocity Time Integral 29.4 cm LVOT Stroke Volume 111.8 cm AV Area Cont Eq vti 2.4 cm AV Area Cont Eq pk 2.1 cm MV Peak Velocity 153.0 cm/s MV Peak Gradient 9.4 mmHg MV Mean Velocity 96.4 cm/s MV Mean Gradient 4.0 mmHg Mitral E Point Velocity 129.0 cm/s Mitral A Point Velocity 122.0 cm/s Mitral E to A Ratio 1.1 MV PHT Velocity 153.0 cm/s MV Deceleration Robeson 706.0 cm/s MV Pressure Half Time 65.0 ms MV Area PHT 3.4 cm MV Deceleration Time 137.0 ms PV Peak Velocity 197.0 cm/s PV Peak Gradient 15.5 mmHg PV Mean Velocity 115.0 cm/s PV Mean Gradient 6.0 mmHg PV Velocity Time Integral 34.9 cm LV E' Lateral Velocity 9.6 cm/s Mitral E to LV E' Lateral Ratio 13.5 LV E' Septal Velocity 11.6 cm/s Mitral E to LV E' Septal Ratio 11.1 DICTATED BY: PADDY CHEN MD DATE/TIME DICTATED:08/21/161440 WIREWORKER SUPERVISOR:TAYA DATE/TIME TRANSCRIBED:08/21/161440 CONFIDENTIAL, DO NOT COPY WITHOUT APPROPRIATE AUTHORIZATION. <Electronically signed in Other Vendor System> SIGNED BY: PADDY CHEN MD 08/21/161441 EXAM TYPE: CAT - CT ABD & PELVIS W/O IV CONTRAS; CT CHEST WO IV CONTRAST EXAMINATION: CT CHEST WITHOUT CONTRAST CT ABDOMEN AND PELVIS WITHOUT CONTRAST CLINICAL INFORMATION: Shock, pain, hypoxia. COMPARISON: None. TECHNIQUE: Multidetector volumetric imaging was performed through the chest, abdomen and pelvis without use of contrast. Sagittal and coronal reformatted images were obtained on the technologist's workstation. Axial MIP volume rendering provided. DLP: 1848 mGy-cm. FINDINGS: CHEST: Lungs: The central airways are patent. Bilateral dependent atelectasis. No dense consolidation. Mediastinum: The mediastinum is normal. Central vascular structures are unremarkable. No hilar or mediastinal lymphadenopathy. The heart is of normal size. There is no pericardial effusion. Chest Wall/Axilla: No lymphadenopathy. No chest wall mass. ABDOMEN/PELVIS: Liver, Gallbladder, Biliary Tree: The liver is normal in size, shape, and attenuation. No focal hepatic lesion or biliary ductal dilatation is present. The gallbladder is unremarkable with no evidence of radiopaque gallstones, gallbladder wall thickening, or pericholecystic inflammatory changes. Pancreas: Unremarkable. Spleen: Unremarkable. Adrenal Glands: Limited visualization of the adrenal glands. The right adrenal gland is not well seen. The left adrenal gland is unremarkable. Kidneys and Ureters: The kidneys are normal in size, shape, and attenuation. No hydronephrosis, hydroureter or calculi seen. No perinephric stranding. Exophytic left midpole 5.5 cm cyst, Bladder: Decompressed with a Renteria catheter in place. Gastrointestinal Tract: The stomach and small bowel appear unremarkable. No dilated loops of bowel or evidence of obstruction. No diverticulosis. No colonic wall thickening or adjacent inflammatory changes. No free air or free fluid. The appendix is unremarkable. Abdominal Wall: No hernia is demonstrated. Lymphovascular Structures: Lymph nodes: Normal. Vascular: Mild atherosclerotic calcifications. Pelvic Viscera: The prostate and seminal vesicles are unremarkable. OSSEOUS STRUCTURES: No suspicious sclerotic or lytic bone lesions are identified. Mild degenerative changes of the hips. Degenerative changes throughout the spine. T10 vertebral body compression deformity is noted. IMPRESSION: T10 vertebral body compression deformity. While this is of uncertain chronicity, it is new since the abdominal pelvis CT 06/29/2005. No additional acute findings in the abdomen or pelvis. DICTATED BY: SORAIDA BURRELL MD DATE/TIME DICTATED:08/20/16449 WIREWORKER SUPERVISOR:TAYA DATE/TIME TRANSCRIBED:08/20/16449 CONFIDENTIAL, DO NOT COPY WITHOUT APPROPRIATE AUTHORIZATION. <Electronically signed in Other Vendor System> SIGNED BY: SORAIDA BURRELL MD 08/20 0500 Disposition Summary Disposition Principal Diagnosis: Shock due to adrenal crisis s/p pituriatry tumor resection and radiotherapy ( 2005) on chronic steroids Additional Diagnosis: Shortness of breath: pneumonia versus pulmonary edema Central diabetes insipidus Acute on chronic kidney disease Delirium Metabolic acidosis non-anion gap Hypothyrodism Discharge Disposition: SNF Discharge Instructions General Discharge Information Code Status: Full Code Patient's Diet: Pure and nectar thick diet Patient's Activity: As tolerated Follow-Up Instructions/Appts: 1. Follow-up with the PCP within 1-2 weeks after discharge 2. Please follow with you and Dolores Hein oncologist within 1-2 weeks after discharge. Medications at Discharge Discharge Medications: Stop taking the following medications: Prednisone (Prednisone) 5 MG TABLET ORAL DAILY Qty = 45 Lisinopril (Lisinopril) 10 MG TABLET ORAL DAILY Qty = 90 Continue taking these medications: Levothyroxine Sodium (Levothyroxine Sodium) 175 MCG TABLET 1 Tablet ORAL DAILY Qty = 90 Comments: Last Taken: 08/31/16 Time: 1000 Alendronate Sodium (Alendronate Sodium) 70 MG TABLET 1 Tablet ORAL Once a Week Qty = 4 Instructions: in the morning, at least 30 minutes before the first food, beverage, or medication of the day Comments: NOT GIVEN IN HOSPITAL Simvastatin (Simvastatin*) 20 MG TABLET 1 Tablet ORAL Every night Qty = 90 Comments: NOT GIVEN IN HOSPITAL Meclizine HCl (Meclizine HCl) 25 MG TABLET 1 Tablet ORAL THREE TIMES DAILY Qty = 30 Comments: NOT GIVEN IN HOSPITAL Pioglitazone HCl (Pioglitazone HCl) 45 MG TABLET 1 Tablet ORAL DAILY Qty = 90 Comments: NOT GIVEN IN HOSPITAL Desmopressin Acetate (Desmopressin Acetate) 10 MCG/SPRAY (0.1 ML) SPRAY.PUMP 10 Microgram In the nose TWICE DAILY Qty = 15 Comments: NOT GIVEN IN HOSPITAL Aspirin (Ecotrin*) 81 MG TABLET.DR 1 Tablet ORAL DAILY Comments: NOT GIVEN IN HOSPITAL Potassium Chloride (Klor-Con M10) 10 MEQ TAB.ER.PRT 2 Tablet ORAL DAILY Comments: NOT GIVEN IN HOSPITAL Cholecalciferol (Vitamin D3) (Vitamin D) 400 UNIT CAPSULE 1 Capsule ORAL DAILY Comments: NOT GIVEN IN HOSPITAL Multivitamin (Daily Multiple Vitamin) 1 EACH TABLET 1 Tablet ORAL DAILY Comments: NOT GIVEN IN HOSPITAL Start taking the following new medications: Prednisone (Prednisone) 10 MG TABLET 1 Tablet ORAL SEE INSTRUCTIONS Qty = 9 No Refills Instructions: Please see the instructions on the discharge CMR . Comments: 3 tabs x 1 day 2 tabs x 2 days 1 tabs x 2 days THEN STOP . Please start taking hydrocortisone after finishing Prednisone Taper. 30MG LAST GIVEN 08/31/16 @ 1000 Please take the medications as advised/directed. DONT miss any dose. Hydrocortisone (Hydrocortisone) 10 MG TABLET 1 Tablet ORAL SEE INSTRUCTIONS Qty = 60 No Refills Instructions: tAKE ONE TWO TABS AT 8AM AND ONE TAB AT 4PM DAILY. Comments: TAKE 2 TABS AT 8AM AND ONE TAB AT 4PM DAILY. NOT GIVEN IN HOSPITAL Amlodipine Besylate (Amlodipine Besylate) 10 MG TABLET 1 Tablet ORAL DAILY Qty = 30 No Refills Comments: Last Taken: 08/31/16 Time: 1000 Copies To: BECKIE BAXTER,EVA Anderson
[2016-08-29 00:21] VITALS: BP 134/68
--- NOTE | 2016-08-29 07:09 | PN- Housestaff ---
Subjective Follow-up For: Adrenal crisis s/p pituriatry tumor resection Hypothyroidism Delirium Tele-Events Since Last Visit: Normal sinus rhythm/sinus bradycardia, heart rate fluctuating between 50s and 60s Subjective: Patient seen and examined this morning, he was lying comfortably in no acute distress, vitals remain within normal limits, hemodynamically stable, fully oriented to time and person, offers no complaints. Review of Systems Constitutional: Denies: chills, fever. Cardiovascular: Denies: chest pain, palpitations. Respiratory: Denies: cough, short of breath, sputum production. Gastrointestinal: Denies: abdominal pain, constipation, diarrhea, nausea, vomiting. Objective Last 24 Hrs of Vital Signs/I&O Vital Signs Date Time Temp Pulse Resp B/P B/P Pulse O2 O2 Flow FiO2 Mean Ox Delivery Rate 08/29 1033 83 130/72 08/29 1032 83 130/72 08/29 0846 97.7 83 18 130/72 93 Room Air 08/29 0021 98.6 61 20 134/68 93 Room Air 08/29 0000 Room Air 08/28 2250 63 132/68 08/28 1600 98.7 69 20 158/88 92 Nasal 2.0L Cannula Intake & Output 08/29 1600 08 0800 06/08 0000 Intake Total 0 100 Output Total 650 650 Balance -650 -550 Intake, IV 0 0 Intake, Oral 0 100 Number 2 2 Bowel Movements Output, Urine 650 650 Physical Exam General Appearance: Alert, Oriented X3, Cooperative, No Acute Distress Cardiovascular: Regular Rate, Normal S1, Normal S2, No Murmurs Lungs: Clear to Auscultation, Normal Air Movement Abdomen: Normal Bowel Sounds, Soft, No Tenderness Extremities: No Clubbing, No Cyanosis, No Edema Current Medications: Current Medications Sig/Antwon Start time Last Medication Dose Route Stop Time Status Admin Acetaminophen 650 MG Q6 PRN 08/20 0415 AC PO Albuterol Sulfate 3 ML Q4P PRN 08/23 0930 DC 08/25 INH 1411 Amlodipine Besylate 5 MG DAILY 08/26 1331 AC 08/29 PO 1033 Desmopressin Acetate 1 MCG BID 08/20 1300 AC 08/29 SC 1033 Insulin Aspart 0 AT BEDTIME 08/26 2200 AC 08/27 SC 2118 Insulin Aspart 0 TIDAC 08/26 1700 AC 08/29 SC 1033 Levothyroxine Sodium 0.175 MG DAILY 08/28 1000 AC 08/29 PO 1033 Loperamide HCl 2 MG ONE ONE 08/28 1600 DC 08/28 PO 08/28 1601 1555 Metoprolol Tartrate 25 MG BID 08/27 1230 AC 08/29 PO 1032 Oxycodone HCl 5 MG Q6 PRN 08/20 0415 AC 08/26 PO 1359 Prednisone 40 MG DAILY 08/29 1000 AC 08/29 PO 1033 Last 24 Hrs of Lab/Jerry Results Last 24 Hrs of Labs/Mics: Laboratory Tests 08/29/16 0640: Anion Gap 7, Estimated GFR 59 L, BUN/Creatinine Ratio 35.0 H Assessment/Plan Assessment: Mr. Downs is 75 with past medical history significant for pituriatry tumor s/p tumor resection in 2005, radiotherapy and IT ENGINEER shunt placement, short term memory loss, chronic renal disease, hypothyroidism, diabetes, hypertension who was BIBA on 08/20 for shortness of breath and altered mental status. Upon arrival patient was tachypneic, and tachycardic, hypotensive, he was initially admitted to ICU, he was put on BiPAP, received IV fluids, stress dose of steroids. Patient was downgraded to telemetry (08/26) where currently monitoring him for the following conditions: #s/p pituriatry tumor resection and radiotherapy (2005): Adrenal crisis -resolved, IV steroids discontinued, will start patient on prednisone taper followed by maintenance dose as per endocrine recommendations. 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 difficile negative),rise in sodium likely secondary to that. We'll monitor. Delirium: Likely secondary to hypoxic encephalopathy. CT head done twice was negative for any acute intracranial pathology. EEG showed evidence of moderate generalized slowing consistent with a diffuse toxic or metabolic encephalopathy. Neurology on board has recommended supportive care. Mentation has improved markedly today fully oriented 3. Acute kidney injury: -Resolved. History of hypothyroidism : Stable, will continue home dose of levothyroxine 175 mcg daily by mouth. History of diabetes mellitus: consistent carbohydrate diet 1 and NovoLog sliding scale before meals and bedtime. History of hypertension: We'll continue amlodipine 5 mg daily, also started on metoprolol 25 mg twice a day, will monitor blood pressure closely. Repeat bedside swallow eval, started on pure nectar. DVT prophylaxis Patient is full code. Problem List: 1. Hypothyroidism 2. Hypertension 3. Diabetes mellitus 4. Status post transsphenoidal pituitary resection Pain Ratin Pain Location: none Pain Goal: Remain pain free Pain Plan: mild pain pathway Tomorrow's Labs & Rationales: bep Consulting Request: Consulting Specialty: Nephrology
--- NOTE | 2016-08-29 07:59 | Patient Discharge Instructions ---
Discharge Instructions General Discharge Information You were seen/treated for: -Shock due to adrenal crisis s/p pituriatry tumor resection and radiotherapy ( 2005) on chronic steroids -Pneumonia -pulmonary edema -Central diabetes insipidus -Acute on chronic kidney disease -Delirium -Metabolic acidosis non-anion gap -Hypothyrodism -Hypertension Special Instructions: 1. Follow-up with the PCP within 1-2 weeks after discharge 2. Please follow with your retrofit installer, boat rigger and sdv pilot/navigator/dds operator within 1-2 weeks after discharge. Diet Continue normal diet: No Recommended Diet: Diabetic, puree, nectar Activity Activity Self Limited: Yes Acute Coronary Syndrome Inclusion Criteria At DC or during hospital stay patient has or had the following: ACS DIAGNOSIS No Discharge Core Measures Meds if any: Prescribed or Continued at Discharge Meds if any: NOT Prescribed or Continued at Discharge Congestive Heart Failure Inclusion Criteria At DC or during hospital stay patient has or had the following: CHF DIAGNOSIS No Discharge Core Measures Meds if any: Prescribed or Continued at Discharge Meds if any: NOT Prescribed or Continued at Discharge Cerebrovascular accident Inclusion Criteria At DC or during hospital stay patient has or had the following: CVA/TIA Diagnosis No Discharge Core Measures Meds if any: Prescribed or Continued at Discharge Meds if any: NOT Prescribed or Continued at Discharge Venous thromboembolism Inclusion Criteria VTE Diagnosis No VTE Type NONE VTE Confirmed by (Test) NONE Discharge Core Measures - Per Current guidelines, there needs to be overlap - treatment for the first 5 days of Warfarin therapy. - If discharged on Warfarin prior to 5 days of - overlap therapy, the patient will need to be - assessed for post discharge needs including - *Post discharge parental anticoagulation - *Warfarin and/or parental anticoagulation education - *Follow up date to check INR post discharge At least 5 days overlap therapy as Inpatient No Meds if any: Prescribed or Continued at Discharge Note: Overlap Therapy is Warfarin and Anticoagulant Meds if any: NOT Prescribed or Continued at Discharge
[2016-08-29] MEDS ORDERED: METOPROLOL TART25 M1 PO (08:02)
--- NOTE | 2016-08-29 08:26 | PN- Pulmonary ---
ANDREA BAXTER,CHRIS 08/29/16 08: Subjective HPI/Critical Care Issues: Doing a lot better, back to his baseline. Offers no complaints, slept well. Plans are for him to be d/c to [facility] today. No events on tele monitor. Objective Current Medications: Current Medications Sig/Antwon Start time Last Medication Dose Route Stop Time Status Admin Acetaminophen 650 MG Q6 PRN 08/20 0415 AC PO Albuterol Sulfate 3 ML Q4P PRN 08/23 0930 AC 08/25 INH 1411 Amlodipine Besylate 5 MG DAILY 08/26 1331 AC 08/28 PO 0928 Desmopressin Acetate 1 MCG BID 08/20 1300 AC 08/28 SC 2250 Insulin Aspart 0 AT BEDTIME 08/26 2200 AC 08/27 SC 2118 Insulin Aspart 0 TIDAC 08/26 1700 AC 08/28 SC 1205 Levothyroxine Sodium 0.175 MG DAILY 08/28 1000 AC 08/28 PO 0926 Loperamide HCl 2 MG ONE ONE 08/28 1600 DC 08/28 PO 08/28 1601 1555 Methylprednisolone 40 MG Q12H 08/24 1800 DC 08/28 IV 0543 Metoprolol Tartrate 25 MG BID 08/27 1230 AC 08/28 PO 2250 Oxycodone HCl 5 MG Q6 PRN 08/20 0415 AC 08/26 PO 1359 Prednisone 40 MG DAILY 08/29 1000 AC PO Vital Signs & I&O Last 24 Hrs of Vitals and I&O: Vital Signs Date Time Temp Pulse Resp B/P B/P Pulse O2 O2 Flow FiO2 Mean Ox Delivery Rate 08/29 0021 98.6 61 20 134/68 93 Room Air 08/29 0000 Room Air 08/28 2250 63 132/68 08/28 1600 98.7 69 20 158/88 92 Nasal 2.0L Cannula 08/28 1122 93 Nasal 2.0L Cannula 08/28 0928 68 160/84 08/28 0928 68 160/84 Intake & Output 08/29 1600 08/29 0800 08/29 0000 Intake Total 0 100 Output Total 650 650 Balance -650 -550 Intake, IV 0 0 Intake, Oral 0 100 Number 2 2 Bowel Movements Output, Urine 650 650 Exam General Appearance: well developed/nourished, no apparent distress, alert, comfortable Head: atraumatic Ears, Nose, Throat: normal pharynx, normal ENT inspection Respiratory: normal breath sounds, chest non-tender Cardiovascular: regular rate/rhythm Abdomen: normal bowel sounds, soft, non-tender Results Last 24 Hrs of Lab Results: Laboratory Tests 08/29/16 0640: Anion Gap 7, Estimated GFR 59 L, BUN/Creatinine Ratio 35.0 H Impression/Plan Impression/Plan Impression/Plan: Assessment- 1. Adrenal crisis, resolving; has a history of pituitary tumor resection 2. Pulmonary edema, improved 3. Diabetes insipidus, central 4. Acute kidney injury, resolved 5. Hypertension 6. 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 Hypokalemia, K 3.7 Plan- - Continue prednisone taper as recommended yesterday - Please refer to endocrine note for chronic steroid dosage for management of adrenal insufficiency. Please make sure he does not miss any doses of his steroids, such that they are not stopped abruptly. - Blood pressure control per cardiology, improved - Blood sugar control per endocrine, management of DDAVP per endocrine - Maintain net negative fluid balance - Encourage by mouth intake - Patient will benefit from a sleep study as an outpatient - Replete potassium, keep > 4 JOSH ARVIZU MD 08/29/16 0930: Impression/Plan Impression/Plan Recommendations: Josh Cardenas M.D. have examined this patient, reviewed available EMR data, personally reviewed images, discussed with resident/PA/CRYPTOGRAPHIC TECHNICIAN, discussed management plan with housestaff and nursing staff, discussed managment plan all of healthcare providers, discussed management plan with patient and/or family, agreed with resident/PA/CRYPTOGRAPHIC TECHNICIAN. The past history and parts of the chart have been autopopulated. steroid taper, endocrinology and cardiology follow up call with any issues or concerns
--- NOTE | 2016-08-29 08:34 | PN- Diabetes ---
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 He was found to be hypotensive. He was put on BiPAP, pressor and stress dose of steroid hydrocortisone 100mg iv every 8 hours, Levothyroxuine 88 mcg iv daily and DDAVP 1 mcg sc twice a day. At home, he was on Levothyroxine 175 mcg daily, prednisone 5 mg daily and DDAVP nasal spray twice a day. He is on Novolog coverage before meals and Novolog coverage at bedtime. His FSGs were 152, 212, 205 and 134. From pulmonary standpoint, steroid was decreased to prednisone 40 mg daily. In addition, Levothyroxuine was changed to 175 mcg orally daily. He is on DDAVP 1 mcg sc twice a day. Vela lab showed sodium 143. In/Out was 1020/1657. Plan: 1. continue the current Novolog coverage before meals and Novolog coverage at bedtime; 2. continue Levothyroxine 175 mcg daily; 3. continue DDAVP 1 mcg sc twice a day; DDAVP can be changed to nasal spray twice a day upon discharge. 5. steroid taper as per pulmonology. However, I will restart patient on Hydrocortisone 20 mg po at 8 am and 10 mg po at 4 pm when steroid is tapered down to prednisone 10 mg daily. 6. continue monitor FSGs, In/OUT and electrolytres. will follow. Subjective Subjective: He feels better. He is sitting in a chair this morning. Objective Last 24 Hrs of Vital Signs/I&O Vital Signs Date Time Temp Pulse Resp B/P B/P Pulse O2 O2 Flow FiO2 Mean Ox Delivery Rate 08/29 0021 98.6 61 20 134/68 93 Room Air 08/29 0000 Room Air 08/28 2250 63 132/68 08/28 1600 98.7 69 20 158/88 92 Nasal 2.0L Cannula 08/28 1122 93 Nasal 2.0L Cannula 08/28 0928 68 160/84 08/28 0928 68 160/84 Intake & Output 08/29 1600 08/29 0800 08/29 0000 Intake Total 0 100 Output Total 650 650 Balance -650 -550 Intake, IV 0 0 Intake, Oral 0 100 Number 2 2 Bowel Movements Output, Urine 650 650 Findings Pertinent Lab/Jerry Results: Laboratory Tests 08/29 0640 Chemistry Sodium (137 - 145 mmol/L) 143 Potassium (3.5 - 5.1 mmol/L) 3.7 Chloride (98 - 107 mmol/L) 106 Carbon Dioxide (22 - 30 mmol/L) 30 Anion Gap (5 - 16) 7 BUN (9 - 20 mg/dL) 42 H Creatinine (0.7 - 1.2 mg/dL) 1.2 Estimated GFR (>60 ml/min) 59 L BUN/Creatinine Ratio (7 - 25 %) 35.0 H
[2016-08-29] MEDS ORDERED: HYDROCORTISONE10 M2 PO (08:45)
[2016-08-29] MEDS ORDERED: PREDNISONE10 M2 PO (08:45)
[2016-08-29 08:46] VITALS: BP 130/72
--- NOTE | 2016-08-29 10:15 | PN- Cardiology ---
Subjective Subjective: The patient is comfortable. No chest pain. No palpitations. No diaphoresis. No shortness of breath. Objective Vital Signs and I&Os Vital Signs Date Time Temp Pulse Resp B/P B/P Pulse O2 O2 Flow FiO2 Mean Ox Delivery Rate 08/29 0846 97.7 83 18 130/72 93 Room Air 08/29 0021 98.6 61 20 134/68 93 Room Air 08/29 0000 Room Air 08/28 2250 63 132/68 08/28 1600 98.7 69 20 158/88 92 Nasal 2.0L Cannula 08/28 1122 93 Nasal 2.0L Cannula Intake & Output 08/29 0800 / 0000 08/28 1600 08/28 0800 08/28 0000 Intake Total 0 100 620 300 640 Output Total 650 650 450 550 650 Balance -650 -550 170 -250 -10 Intake, IV 0 0 300 400 Intake, Oral 0 100 620 240 Number 2 2 3 2 6 Bowel Movements Output, Urine 650 650 450 550 650 Physical Exam: Gen: The patient is in no acute distress HEENT: Normal nose, ears, and oropharynx. Pupils equal bilaterally. Conjunctiva normal. Neck: Supple with no JVD, no masses, and no thyromegaly Lungs: Decreased breath sounds with normal respiratory effort Heart: RRR, S1, S2, no murmurs. No peripheral edema, 2+ pulses in the lower extremities bilaterally Abdomen: Soft, nontender, no masses. No hepatomegaly. No splenomegaly Extremities: No clubbing or cyanosis. Normal muscle strength in the upper and lower extremities Skin: Normal skin turgor with no skin ulcers or lesions noted. Neuro: Cranial nerves intact. Sensation intact Current Medications: Current Medications Sig/Antwon Start time Last Medication Dose Route Stop Time Status Admin Acetaminophen 650 MG Q6 PRN 08/20 0415 AC PO Albuterol Sulfate 3 ML Q4P PRN 08/23 0930 AC 08/25 INH 1411 Amlodipine Besylate 5 MG DAILY 08/26 1331 AC 08/28 PO 0928 Desmopressin Acetate 1 MCG BID 08/20 1300 AC 08/28 SC 2250 Insulin Aspart 0 AT BEDTIME 08/26 2200 AC 08/27 SC 2118 Insulin Aspart 0 TIDAC 08/26 1700 AC 08/28 SC 1205 Levothyroxine Sodium 0.175 MG DAILY 08/28 1000 AC 08/28 PO 0926 Loperamide HCl 2 MG ONE ONE 08/28 1600 DC 08/28 PO 08/28 1601 1555 Methylprednisolone 40 MG Q12H 08/24 1800 DC 08/28 IV 0543 Metoprolol Tartrate 25 MG BID 08/27 1230 AC 08/28 PO 2250 Oxycodone HCl 5 MG Q6 PRN 08/20 0415 AC 08/26 PO 1359 Prednisone 40 MG DAILY 08/29 1000 AC PO Results Last 48 Hrs of Labs/Mics: Laboratory Tests 08/29/16 0640: Anion Gap 7, Estimated GFR 59 L, BUN/Creatinine Ratio 35.0 H 08/28/16 0640: Anion Gap 8, Estimated GFR > 60, BUN/Creatinine Ratio 32.7 H Microbiology 08/28 0020 STOOL: Clostridium difficile Toxin A & B - COMP Assessment/Plan Assessment/Plan Assessment: 1. History of pituitary tumor resection 2. Hypotension, likely secondary to adrenal crisis, resolved 3. Pneumonia 4. Chronic kidney disease with acute exacerbation 5. Ruled out for myocardial infarction with negative troponin 2 6. Abnormal EKG 7. Normal left ventricular function on echocardiogram 8. Volume overload after IV hydration, improved after diuresis 9. Hypertension, improved Plan: * Given improvement of blood pressure, would recommend simplifying regimen by discontinuing metoprolol, and increasing amlodipine to 10 mg daily. * The patient is being discharged to short-term rehabilitation. * Follow up in the office in one to 2 weeks. Continue telemetry? No
[2016-08-29] MEDS ORDERED: AMLODIPINE BESY10 M1 PO (11:57)
--- NOTE | 2016-08-29 13:21 | PN- Att Addend ---
Attending Addendum Attending Brief Note Laboratory Tests 08/29/16 0640: Anion Gap 7, Estimated GFR 59 L, BUN/Creatinine Ratio 35.0 H Vital Signs Date Time Temp Pulse Resp B/P B/P Pulse O2 O2 Flow FiO2 Mean Ox Delivery Rate 08/29 1033 83 130/72 / 1032 83 130/72 / 0846 97.7 83 18 130/72 93 Room Air 08/29 0021 98.6 61 20 134/68 93 Room Air 08/29 0000 Room Air 08/28 2250 63 132/68 08/28 1600 98.7 69 20 158/88 92 Nasal 2.0L Cannula Patient seen and examined at bedside. 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 Pt admitted with acute hypoxic respiratory failure and shock secondary to adrenal crisis and required levophed, fluid resuscitation and BIPAP at admission and was admitted to ICU. Will taper steroids, on po prednisone 40mg since 08/28. After the prednisone taper is down to 10mg then he will be switched to hydrocortisone 20 mg qam and 10mg q4pm everyday. GINETTE with metabolic acidosis on admission- resolved. Fluid overload- secondary to fluid resuscitation. Currently better. Metabolic encephalopathy- resolving now. Cont to monitor closely. 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 Sodium stable. Would need close monitoring. Will switch to nasal spray at time of discharge. Dysphagia- started on pureed diet with honey thick liquids. Switched his meds to po. Will have speech evaluate pt prior to dishcarge again to liberalize diet. Hypothyroidism- switched to po levothyroxine on 08/27 . Dispostion- plan to dc to [facility] tomorrow. D/w pt the care plan.
[2016-08-29 18:11] VITALS: BP 112/60
[2016-08-29 23:16] VITALS: BP 134/80
--- NOTE | 2016-08-30 07:33 | PN- Housestaff ---
Subjective Follow-up For: Adrenal crisis s/p pituriatry tumor resection Hypothyroidism Delirium Tele-Events Since Last Visit: Sinus rhythm, heart rate ranging between 50s to 70s, no acute overnight events. Subjective: Patient seen and examined this morning. He was lying in bed in no acute distress. Fully alert and oriented, vitals remained within normal limits, labs reviewed, creatinine worsening from 1.2-1.5, likely secondary to hydration secondary to decreased by mouth intake, will have speech therapy evaluate him again and see if he can upgrade him from neck to just liquids. Overnight he was pulling on his [place], and had some hematuria, was placed on CBI, as of this morning urine clear. Otherwise he offers no complaints, he'll be discharged is here once stable. Review of Systems Constitutional: Denies: chills, fever. Cardiovascular: Denies: chest pain, palpitations. Respiratory: Denies: cough, short of breath, sputum production. Gastrointestinal: Denies: abdominal pain, constipation, diarrhea, nausea, vomiting. Objective Last 24 Hrs of Vital Signs/I&O Vital Signs Date Time Temp Pulse Resp B/P B/P Pulse O2 O2 Flow FiO2 Mean Ox Delivery Rate 08/30 1142 64 162/80 / 1000 97.9 64 20 162/80 92 Room Air / 0000 Room Air / 2316 98.7 73 16 134/80 /08 1811 98.1 73 16 112/60 95 /08 1600 Room Air Intake & Output 08/30 1600 08/30 0800 06/ 0000 Intake Total 50 400 Output Total 500 300 Balance -450 100 Intake, Oral 50 400 Number 2 Bowel Movements Output, Urine 500 300 Physical Exam General Appearance: Alert, Oriented X3, Cooperative, No Acute Distress Assessment/Plan Assessment: Mr. 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 Upon arrival patient was tachypneic, and tachycardic, hypotensive, he was initially admitted to ICU, he was put on BiPAP, received IV fluids, stress dose of steroids. Patient was downgraded to telemetry (08/26) where currently monitoring him for the following conditions: #s/p pituriatry tumor resection and radiotherapy (2005): Adrenal crisis -resolved, IV steroids discontinued, will start patient on prednisone taper followed by maintenance dose as per endocrine recommendations. 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 difficile negative),rise in sodium likely secondary to that. We'll monitor. Delirium: Likely secondary to hypoxic encephalopathy. CT head done twice was negative for any acute intracranial pathology. EEG showed evidence of moderate generalized slowing consistent with a diffuse toxic or metabolic encephalopathy. Neurology on board has recommended supportive care. Mentation has improved markedly today fully oriented 3. Acute kidney injury: -Resolved. History of hypothyroidism : Stable, will continue home dose of levothyroxine 175 mcg daily by mouth. History of diabetes mellitus: consistent carbohydrate diet 1 and NovoLog sliding scale before meals and bedtime. History of hypertension: We'll continue amlodipine 5 mg daily, also started on metoprolol 25 mg twice a day, will monitor blood pressure closely. Repeat bedside swallow eval, started on pure nectar. DVT prophylaxis Patient is full code. Problem List: 1. Adrenal insufficiency 2. Hypertension Pain Ratin Pain Location: none Pain Goal: Remain pain free Pain Plan: [facility] Tomorrow's Labs & Rationales: bep Consulting Request: Consulting Specialty: Nephrology
--- NOTE | 2016-08-30 08:08 | PN- Diabetes ---
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 He was found to be hypotensive. He was put on BiPAP, pressor and stress dose of steroid hydrocortisone 100mg iv every 8 hours, Levothyroxuine 88 mcg iv daily and DDAVP 1 mcg sc twice a day. At home, he was on Levothyroxine 175 mcg daily, prednisone 5 mg daily and DDAVP nasal spray twice a day. He is on Novolog coverage before meals and Novolog coverage at bedtime. His FSGs were 142, 158, 234, 169 and 106. From pulmonary standpoint, steroid was decreased to prednisone 40 mg daily. In addition, Levothyroxuine was changed to 175 mcg orally daily. He is on DDAVP 1 mcg sc twice a day. am lab showed sodium 143 on 08/29/2016. In/Out was 1500/952. Plan: 1. continue the current Novolog coverage before meals and Novolog coverage at bedtime; 2. continue Levothyroxine 175 mcg daily; 3. continue DDAVP 1 mcg sc twice a day; DDAVP can be changed to nasal spray twice a day upon discharge. 5. steroid taper as per pulmonology. However, I will restart patient on Hydrocortisone 20 mg po at 8 am and 10 mg po at 4 pm when steroid is tapered down to prednisone 10 mg daily. 6. continue monitor FSGs, In/OUT and electrolytres. will follow. Subjective Subjective: He feels okay this morning. Objective Last 24 Hrs of Vital Signs/I&O Vital Signs Date Time Temp Pulse Resp B/P B/P Pulse O2 O2 Flow FiO2 Mean Ox Delivery Rate 08/30 0000 Room Air 08/29 2316 98.7 73 16 134/80 / 1811 98.1 73 16 112/60 95 08/29 1600 Room Air 08/29 1033 83 130/72 08/29 1032 83 130/72 08/29 0846 97.7 83 18 130/72 93 Room Air Intake & Output 08/30 1600 08/30 0800 / 0000 Intake Total 50 400 Output Total 500 300 Balance -450 100 Intake, Oral 50 400 Number 2 Bowel Movements Output, Urine 500 300 Findings Pertinent Lab/Jerry Results: Laboratory Tests 08/30 0630 Chemistry Sodium Pending Potassium Pending Chloride Pending Carbon Dioxide Pending Anion Gap Pending BUN Pending Creatinine Pending BUN/Creatinine Ratio Pending
--- NOTE | 2016-08-30 09:02 | PN- Pulmonary ---
ANDREA BAXTER,CHRIS 08/30/16 0859: Subjective HPI/Critical Care Issues: Pt seen and examined. Resting comfortably in bed, offers no complaints. Tele monitor reviewed. Objective Current Medications: Current Medications Sig/Antwon Start time Last Medication Dose Route Stop Time Status Admin Acetaminophen 650 MG Q6 PRN 08/20 0415 AC PO Albuterol Sulfate 3 ML Q4P PRN 08/23 0930 DC 08/25 INH 1411 Amlodipine Besylate 10 MG DAILY 08/30 1000 AC PO Amlodipine Besylate 5 MG DAILY 08/26 1331 DC 08/29 PO 1033 Benzocaine/Menthol 1 TERRENCE Q2P PRN 08/29 1700 AC 08/29 PO 2222 Desmopressin Acetate 1 MCG BID 08/20 1300 AC 08/29 SC 2217 Insulin Aspart 0 AT BEDTIME 08/26 2200 AC 08/27 SC 2118 Insulin Aspart 0 TIDAC 08/26 1700 AC 08/29 SC 1907 Levothyroxine Sodium 0.175 MG DAILY 08/28 1000 AC 08/29 PO 1033 Loperamide HCl 2 MG ONE ONE 08/30 0530 DC PO 08/30 0531 Loperamide HCl 2 MG ONE ONE 08/29 1700 DC 08/29 PO 08/29 1701 1906 Metoprolol Tartrate 25 MG BID 08/27 1230 DC 08/29 PO 1032 Oxycodone HCl 5 MG Q6 PRN 08/20 0415 AC 08/26 PO 1359 Patient Medication 1 ED .STK-MED ONE 08/29 1315 DC Teaching ED 08/29 1316 Prednisone 40 MG DAILY 08/29 1000 AC 08/29 PO 1033 Vital Signs & I&O Last 24 Hrs of Vitals and I&O: Vital Signs Date Time Temp Pulse Resp B/P B/P Pulse O2 O2 Flow FiO2 Mean Ox Delivery Rate 08/30 0000 Room Air 08/29 2316 98.7 73 16 134/80 08/29 1811 98.1 73 16 112/60 95 / 1600 Room Air 08/29 1033 83 130/72 08/29 1032 83 130/72 Intake & Output 08/30 1600 08/30 0800 06 0000 Intake Total 50 400 Output Total 500 300 Balance -450 100 Intake, Oral 50 400 Number 2 Bowel Movements Output, Urine 500 300 Exam General Appearance: well developed/nourished, no apparent distress, alert, comfortable Head: atraumatic, normal appearance Ears, Nose, Throat: normal pharynx, normal ENT inspection Respiratory: normal breath sounds, chest non-tender Cardiovascular: regular rate/rhythm Abdomen: normal bowel sounds, soft Back: normal inspection Results Last 24 Hrs of Lab Results: Laboratory Tests 08/30/16 0630: Anion Gap 8, Estimated GFR 46 L, BUN/Creatinine Ratio 37.3 H Impression/Plan Impression/Plan Impression/Plan: Assessment- 1. Adrenal crisis, resolving; has a history of pituitary tumor resection 2. Pulmonary edema, improved 3. Diabetes insipidus, central 4. 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 Hypertension 6. Likely HIEU Plan- - Continue prednisone taper as recommended yesterday - Please refer to endocrine note for chronic steroid dosage for management of adrenal insufficiency. Please make sure he does not miss any doses of his steroids, such that they are not stopped abruptly. - Blood pressure control per cardiology, improved - Blood sugar control per endocrine, management of DDAVP per endocrine - Encourage by mouth intake - Patient will benefit from a sleep study as an outpatient Will sign off at this time. Please do not hesitate to contact us again if any questions should arise. JOSH ARVIZU MD 08/30/16 1014: Impression/Plan Impression/Plan Recommendations: Josh Cardenas M.D. have examined this patient, reviewed available EMR data, personally reviewed images, discussed with resident/PA/STICK WELDER, discussed management plan with housestaff and nursing staff, discussed managment plan all of healthcare providers, discussed management plan with patient and/or family, agreed with resident/PA/STICK WELDER. The past history and parts of the chart have been autopopulated. steroid taper, endocrinology and cardiology follow up call with any issues or concerns will sign off
--- NOTE | 2016-08-30 09:24 | PN- Cardiology ---
Subjective Subjective: Feeling better. No chest pain. No shortness of breath. No palpitations. No lightheadedness or dizziness. Objective Vital Signs and I&Os Vital Signs Date Time Temp Pulse Resp B/P B/P Pulse O2 O2 Flow FiO2 Mean Ox Delivery Rate 08/30 0000 Room Air 08/29 2316 98.7 73 16 134/80 08/29 1811 98.1 73 16 112/60 95 08 1600 Room Air 08/29 1033 83 130/72 08/29 1032 83 130/72 Intake & Output 08/30 1600 08/30 0800 08/30 0000 08/29 1600 08/29 0800 08/29 0000 Intake Total 50 400 1100 0 100 Output Total 500 300 650 650 Balance -204 829 5929 -650 -550 Intake, IV 0 0 0 Intake, Oral 50 400 1100 0 100 Number 2 0 2 2 Bowel Movements Output, Urine 500 300 650 650 Physical Exam: Gen: The patient is in no acute distress HEENT: Normal nose, ears, and oropharynx. Pupils equal bilaterally. Conjunctiva normal. Neck: Supple with no JVD, no masses, and no thyromegaly Lungs: Decreased breath sounds with normal respiratory effort Heart: RRR, S1, S2, no murmurs. No peripheral edema, 2+ pulses in the lower extremities bilaterally Abdomen: Soft, nontender, no masses. No hepatomegaly. No splenomegaly Extremities: No clubbing or cyanosis. Normal muscle strength in the upper and lower extremities Skin: Normal skin turgor with no skin ulcers or lesions noted. Neuro: Cranial nerves intact. Sensation intact Current Medications: Current Medications Sig/Antwon Start time Last Medication Dose Route Stop Time Status Admin Acetaminophen 650 MG Q6 PRN 08/20 0415 AC PO Albuterol Sulfate 3 ML Q4P PRN 08/23 0930 DC 08/25 INH 1411 Amlodipine Besylate 10 MG DAILY 08/30 1000 AC PO Amlodipine Besylate 5 MG DAILY 08/26 1331 DC 08/29 PO 1033 Benzocaine/Menthol 1 TERRENCE Q2P PRN 08/29 1700 AC 08/29 PO 2222 Desmopressin Acetate 1 MCG BID 08/20 1300 AC 08/29 SC 2217 Insulin Aspart 0 AT BEDTIME 08/26 2200 AC 08/27 SC 2118 Insulin Aspart 0 TIDAC 08/26 1700 AC 08/29 SC 190 Levothyroxine Sodium 0.175 MG DAILY 08/28 1000 AC 08/29 PO 1033 Loperamide HCl 2 MG ONE ONE 08/30 0530 DC PO 08/30 0531 Loperamide HCl 2 MG ONE ONE 08/29 1700 DC 08/29 PO 08/29 1701 1906 Metoprolol Tartrate 25 MG BID 08/27 1230 DC 08/29 PO 1032 Oxycodone HCl 5 MG Q6 PRN 08/20 0415 AC 08/26 PO 1359 Patient Medication 1 ED .STK-MED ONE 08/29 1315 DC Teaching ED 08/29 1316 Prednisone 40 MG DAILY 08/29 1000 AC 08/29 PO 1033 Results Last 48 Hrs of Labs/Mics: Laboratory Tests 08/30/16 0630: Anion Gap 8, Estimated GFR 46 L, BUN/Creatinine Ratio 37.3 H 08/29/16 0640: Anion Gap 7, Estimated GFR 59 L, BUN/Creatinine Ratio 35.0 H Assessment/Plan Assessment/Plan Assessment: 1. History of pituitary tumor resection 2. Hypotension, likely secondary to adrenal crisis, resolved 3. Pneumonia 4. Chronic kidney disease with acute exacerbation 5. Ruled out for myocardial infarction with negative troponin 2 6. Abnormal EKG 7. Normal left ventricular function on echocardiogram 8. Volume overload after IV hydration, improved after diuresis 9. Hypertension, improved Plan: * Continue current cardiac medications. * The patient is being discharged to short-term rehabilitation. * Follow up in the office in one to 2 weeks. Continue telemetry? No
[2016-08-30 10:00] VITALS: BP 162/80
--- NOTE | 2016-08-30 14:22 | PN- Att Addend ---
Attending MD Review Statement Attending Statement Attending MD Statement: examined this patient, discuss w/resident/PA/SCHOOL CROSSING GUARD, agreed w/resident/PA/SCHOOL CROSSING GUARD, reviewed EMR data (avail), discussed w/nursing, discussed w/ case mgmt Attending Assessment/Plan: Laboratory Tests 08/30/16 0630: Anion Gap 8, Estimated GFR 46 L, BUN/Creatinine Ratio 37.3 H Vital Signs Date Time Temp Pulse Resp B/P B/P Pulse O2 O2 Flow FiO2 Mean Ox Delivery Rate 08/30 1142 64 162/80 08/30 1000 97.9 64 20 162/80 92 Room Air 08/30 0000 Room Air 08/29 2316 98.7 73 16 134/80 08/29 1811 98.1 73 16 112/60 95 08/29 1600 Room Air 75 with past medical history significant for pituriatry tumor s/p tumor resection in 2005, radiotherapy and [employer] shunt placement- on po prednisone and desmopressin nasal spray at home, short term memory loss, chronic renal disease, hypothyroidism, diabetes, hypertension who was BIBA on 08/20 for shortness of breath and altered mental status for 1 day. Pt admitted with acute hypoxic respiratory failure and shock secondary to adrenal crisis and required levophed, fluid resuscitation and BIPAP at admission and was admitted to ICU. Will taper steroids, on po prednisone now. After the prednisone taper is down to 10mg then he will be switched to hydrocortisone 20 mg qam and 10mg q4pm everyday. GINETTE with metabolic acidosis on admission- resolved. Fluid overload- secondary to fluid resuscitation. Currently resolved. Metabolic encephalopathy- resolving now. Cont to monitor closely. 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 Sodium stable at 143 today on 08/30. Would need close monitoring. Will switch to nasal spray at time of discharge. GINETTE- secondary to poor oral intake. will give 1/2 liter NS today as creatinine worsened to 1.5 from 1.2. Also BUN increased. Will hold dc for today. If better tomorrow can discharge to [facility] tomorrow. Dysphagia- on pureed diet with nectar thick liquids. Switched his meds to po. Will have speech evaluate pt prior to dishcarge again to liberalize diet to see if he can be on thin liquids as that will help with sodium level stabilization. Hypothyroidism- switched to po levothyroxine on 08/27 . Disposition- dc to [facility] tomorrow if Cr improves.
[2016-08-30 15:30] VITALS: BP 122/64
[2016-08-31 00:30] VITALS: BP 126/70
--- NOTE | 2016-08-31 08:33 | PN- Diabetes ---
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 He was found to be hypotensive. He was put on BiPAP, pressor and stress dose of steroid hydrocortisone 100mg iv every 8 hours, Levothyroxuine 88 mcg iv daily and DDAVP 1 mcg sc twice a day. At home, he was on Levothyroxine 175 mcg daily, prednisone 5 mg daily and DDAVP nasal spray twice a day. He is on Novolog coverage before meals and Novolog coverage at bedtime. His FSGs were 142, 158, 234, 169 and 106. Patient is now on prednisone 30 mg daily. In addition, Levothyroxuine was changed to 175 mcg orally daily. He is on DDAVP 1 mcg sc twice a day. am lab showed sodium 143 on 08/29/2016. In/Out was 1500/952. Plan: This patient has panhypopituitarism. Needs to be maintained on his DDAVP, levothyroxin, and maintenance steroids. His prednisone is 30 mg once a day now. When he gets down to prednisone 10 mg once a day we should resume his baseline steroid coverage to prevent adrenal insufficiency as his prednisone is tapered further. We would recommend beginning hydrocortisone 20 mg in the a.m. before breakfast and 10 mg in the p.m. around suppertime at that time. It is essential that his providers at the [facility] are informed of this. Subjective Subjective: Feels okay Review of Systems Constitutional: Denies: chills, fever. Cardiovascular: Denies: chest pain. Respiratory: Denies: short of breath. Gastrointestinal: Denies: nausea, vomiting. Objective Last 24 Hrs of Vital Signs/I&O Vital Signs Date Time Temp Pulse Resp B/P B/P Pulse O2 O2 Flow FiO2 Mean Ox Delivery Rate 08/31 0030 98.2 74 20 126/70 95 08/30 1530 98.5 86 16 122/64 93 Room Air 08/30 1142 64 162/80 08/30 1000 97.9 64 20 162/80 92 Room Air Intake & Output 08/31 1600 08/31 0800 08/31 0000 Intake Total 650 Output Total 350 150 Balance -350 500 Intake, IV 400 Intake, Oral 250 Output, Urine 350 150 Vital Signs Date Time Temp Pulse Resp B/P B/P Pulse O2 O2 Flow FiO2 Mean Ox Delivery Rate 08/31 0030 98.2 74 20 126/70 95 08/30 1530 98.5 86 16 122/64 93 Room Air 08/30 1142 64 162/80 08/30 1000 97.9 64 20 162/80 92 Room Air Intake & Output 08/31 1600 08/31 0800 08/31 0000 Intake Total 650 Output Total 350 150 Balance -350 500 Intake, IV 400 Intake, Oral 250 Output, Urine 350 150 Physical Exam General Appearance: no apparent distress, alert, awake Neck: normal inspection Respiratory: normal breath sounds Cardiovascular: regular rate/rhythm Abdomen: normal bowel sounds
[2016-08-31 09:00] VITALS: BP 130/70
--- NOTE | 2016-08-31 09:17 | PN- Housestaff ---
ROBERT NEW MD 08/31/16 0916: Subjective Follow-up For: Adrenal Crisis Subjective: Patient seen and examined. He is seen sitting upright in his chair at bedside resting comfortably. He appears to be in no acute distress. At his bedside are multiple family members. He reports sleeping well and denies any new subjective complaints. He is eager to be discharged to short term rehabilitation today. Otherwise he denies any headache, fever, chills, chest pain/discomfort, palpitations, shortness of breath, nausea, vomiting, diarrhea. Review of Systems Constitutional: Reports: see HPI. Objective Last 24 Hrs of Vital Signs/I&O Vital Signs Date Time Temp Pulse Resp B/P B/P Pulse O2 O2 Flow FiO2 Mean Ox Delivery Rate 08/31 1012 87 130/70 08/31 0900 98.7 87 20 130/70 94 Room Air 08/31 0030 98.2 74 20 126/70 95 08/30 1530 98.5 86 16 122/64 93 Room Air Intake & Output 08/31 1600 08/31 0800 08/31 0000 Intake Total 650 Output Total 350 150 Balance -350 500 Intake, IV 400 Intake, Oral 250 Output, Urine 350 150 Physical Exam General Appearance: Alert, Oriented X3, Cooperative, No Acute Distress Other Physical Findings: General- well developed, well nourished moribidly obese elderly man in no acute distress HEENT- NCAT, PERRL, EOMI, anicteric sclera Chest- S1, S2 w/o m/g/r Lung- CTA bilaterally Abdomen- Soft, obese, nontender, nondistnded, bowel sounds intact Neuro- Awake and alert, CN II - XII grossly intact Ext- normal pulses, 2+ bilateral lower extremity edema Current Medications: Current Medications Sig/Antwon Start time Last Medication Dose Route Stop Time Status Admin Acetaminophen 650 MG Q6 PRN 08/20 0415 AC PO Amlodipine Besylate 10 MG DAILY 08/30 1000 AC 08/31 PO 1012 Benzocaine/Menthol 1 TERRENCE Q2P PRN 08/29 1700 AC 08/29 PO 2222 Desmopressin Acetate 1 MCG BID 08/20 1300 AC 08/31 SC 1012 Insulin Aspart 0 AT BEDTIME 08/26 2200 AC 08/27 SC 2118 Insulin Aspart 0 TIDAC 08/26 1700 AC 06/10 SC 0800 Levothyroxine Sodium 0.175 MG DAILY 08/28 1000 AC 08/31 PO 1012 Oxycodone HCl 5 MG Q6 PRN 08/20 0415 AC 08/26 PO 1359 Potassium Chloride 40 MEQ .STK-MED ONE 08/30 1744 DC PO 08/30 1745 Prednisone 30 MG DAILY 08/31 1000 AC 08/31 PO 09/01 1001 1012 Prednisone 40 MG DAILY 08/29 1000 DC 08/30 PO 1141 Sodium Chloride 500 ML .Q5H 08/30 0945 DC 08/30 IV 08/30 1444 1141 Last 24 Hrs of Lab/Jerry Results Last 24 Hrs of Labs/Mics: Laboratory Tests 08/31/16 0620: Anion Gap 11, Estimated GFR 49 L, BUN/Creatinine Ratio 32.1 H Assessment/Plan Assessment: Mr. 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 Upon arrival patient was tachypneic, and tachycardic, hypotensive, he was initially admitted to ICU, he was put on BiPAP, received IV fluids, stress dose of steroids. Patient was downgraded to telemetry (08/26) where currently monitoring him for the following conditions: #s/p pituriatry tumor resection and radiotherapy (2005): Adrenal crisis -resolved, IV steroids discontinued, will start patient on prednisone taper followed by maintenance dose as per endocrine recommendations. Patient is to be discharged to short term rehabilitation today with a prednisone taper and new prescriptions for hydrocortisone to be conidered after. Delirium: Likely secondary to hypoxic encephalopathy. CT head done twice was negative for any acute intracranial pathology. EEG showed evidence of moderate generalized slowing consistent with a diffuse toxic or metabolic encephalopathy. Neurology on board has recommended supportive care. Mentation has improved markedly today fully oriented 3. Acute kidney injury: -Resolved. History of hypothyroidism : Stable, will continue home dose of levothyroxine 175 mcg daily by mouth. History of diabetes mellitus: consistent carbohydrate diet 1 and NovoLog sliding scale before meals and bedtime. History of hypertension: We'll continue amlodipine 5 mg daily, also started on metoprolol 25 mg twice a day, will monitor blood pressure closely. Repeat bedside swallow eval, started on pure nectar. DVT prophylaxis Patient is full code. Problem List: 1. Adrenal insufficiency Pain Ratin Pain Location: None Pain Goal: Remain pain free Pain Plan: See assessment Tomorrow's Labs & Rationales: None Consulting Request: Consulting Specialty: Nephrology LEONCIO BAXTER,DAYANA 08/31/16 1310: Attending MD Review Statement Attending Statement Attending Assessment/Plan: Patient seen and examined. Plan of care discussed with the medical team and the patient. Available lab work and radiology test reports were reviewed. Patient awake alert sitting in chair. He denies any new complaints. His vital signs are stable. Labs were reviewed and creatinine is 1.4. monitor and storage bin tender shows normal sinus rhythm 7080. At this point patient is going to stable for discharge. He will continue prednisone taper down to 10 mg and switch to hydrocortisone as prescribed by endocrinology.
[2016-08-31 13:23] VITALS: BP 130/70
== END 2016-08-31 15:54 | DRG 643 ==
LOC: ERH 21:11 → CRI 08-20 00:27 → 1NO 08-20 00:27 → ERHI 08-20 00:27 → ENRESERV 08-20 02:17 → CRI 08-20 04:17 → 1NO 08-26 15:35 → ENPENDDIS 08-31 12:15 → 1NO 08-31 15:54
PROVIDERS: Dermatology; Internal Medicine; Pediatrics; Student in an Organized Health Care Education/Training Program; ADMIT Internal Medicine
PROC: 5A09357 Assistance with Respiratory Ventilation, Less than 24 Consecutive Hours, Continuous Positive Airway Pressure (ICD-10-PCS; principal; 2016-08-20)
DX: E27.2 Addisonian crisis (principal); J96.01 Acute respiratory failure with hypoxia; R57.9 Shock, unspecified; N17.0 Acute kidney failure with tubular necrosis; G93.40 Encephalopathy, unspecified; J18.9 Pneumonia, unspecified organism; E23.2 Diabetes insipidus; N18.3 Chronic kidney disease, stage 3 (moderate); E66.2 Morbid (severe) obesity with alveolar hypoventilation; Z68.41 Body mass index [BMI] 40.0-44.9, adult; E23.0 Hypopituitarism; E11.21 Type 2 diabetes mellitus with diabetic nephropathy; E11.22 Type 2 diabetes mellitus with diabetic chronic kidney disease; R00.0 Tachycardia, unspecified; Z91.14 Patient's other noncompliance with medication regimen; I12.9 Hypertensive chronic kidney disease with stage 1 through stage 4 chronic kidney disease, or unspecified chronic kidney disease; E03.9 Hypothyroidism, unspecified
CPT/HCPCS: 1NSP; 84133; 84300; 87075; CCU; 36415; 74176; 81001; 82436; 82570; 84165; 84166; 84481; 87040; 87070; 87086; 87449; 87450; 93005; 93010; 94799; 95816; 96360; 96361; 96365; 96374; 96375; 96376; 97110-GO; 97116-GO; 97161-GP; 97530-GO; C8929; G0480; J0360; J0696; J0713; J1120; J1630; J1644; J1720; J1940; J2060; J2597; J2920; J2930; J3370; J7040; J7042; J7060; J7512; Q9957